=== PATIENT | male | born 1950 | race Caucasian/White ===

== ENCOUNTER 2016-11-28 20:30 | Emergency (ER) | payer BC, OTHER ==
[~2016-11-28] VITALS: Ht 180.3 cm; Wt 82.0 kg
[~2016-11-28 20:30] MED LIST: HYDR50TA15 PO; LEVA500T PO; LEVO125T3 PO; LOTR5CAP2 PO; ZOLP10TA3 PO
[2016-11-28 20:50] VITALS: BP 159/75; PULSE 96; RESP 16; TEMP 97.4; O2SAT 98
[2016-11-28] MEDS ORDERED: HYDR50TA15 PO (21:14)
[2016-11-28] MEDS ORDERED: LOTR5CAP2 PO (21:14)
[2016-11-28] MEDS ORDERED: LEVO125T4 PO (21:14)
[2016-11-28] MEDS ORDERED: AMBI10TA PO (21:14)
[2016-11-28 22:22] LABS: BLOOD, URINE MOD (NEG); COMMENT (UR) CULTURE INDICATED; CULTURE IF INDICATED CULTURE INDICATED; GLUCOSE,URINE NEG (NEG); KETONE, URINE NEG (NEG); MUCUS URINE FEW /lpf (OCC); NITRITE,URINE NEG (NEG); URINE COLOR YELLOW (YELLW/STRAW)
[2016-11-28] MEDS ORDERED: LIDOCAINE HCL 1% PF 30 ML VIAL XX ONE (22:30)
[2016-11-28] MEDS ORDERED: BACT800T5 PO (22:51)
[2016-11-28] MEDS ORDERED: PYRI200T4 PO (22:51)
[2016-11-28] MEDS ORDERED: IBUP800T23 PO (22:51)
--- NOTE | 2016-11-28 22:51 | PD ---
HPI . Dysuria and frequency Chief Complaint: Complaint Time Seen by Provider: 21:13 Travel History International Travel<30 days: No Contact w/Intl Traveler<30days: No Traveled to known affect area: No History of Present Illness HPI Patient presents with dysuria and frequency for about 3 days. Denies fever. He denies vomiting. He is also complaining with pain and swelling of his left knee, pain and swelling of his left hand and twitching of his left leg. 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") Respiratory: Yes (CURRENTLY BEING TX FOR PNA) Thyroid Disease: Yes Tetanus Vaccination: < 5 Years Influenza Vaccination: No Past Surgical History Other Surgery: Yes (LEFT KIDNEY REMOVED/ BACK AN NECK SURGERY) Social History Alcohol Use: Yes (SOCIALLY) Tobacco Use: Yes (1/2PPD) Substance Use: No Allergies-Medications (Allergen,Severity, Reaction): Coded Allergies: No Known Allergies (Unverified , 11/28/16) Reported Meds & Prescriptions Reported Meds & Active Scripts Active Reported Levothyroxine (Levothyroxine Sodium) 125 Mcg Tab 125 Mcg PO DAILY Ambien (Zolpidem Tartrate) 10 Mg Tab 10 Mg PO HS PRN Hydralazine (Hydralazine HCl) 50 Mg Tab 50 Mg PO TID Take with a meal Lotrel (Amlodipine-Benazepril) 5-10 Mg Cap 1 Cap PO DAILY Review of Systems Except as stated in HPI: all other systems reviewed are Neg General / Constitutional: No: Fever, Chills Gastrointestinal: No: Nausea, Vomiting Genitourinary: Positive: Urgency, Frequency, Dysuria, No: Flank Pain Musculoskeletal: Positive: Arthralgias Neurologic: Positive: Other (twitching in his left leg) Physical Exam Narrative GENERAL: The patient was standing up side the bed using the urinal onset when in to see him. His right leg is markedly shortened compared to his left leg. SKIN: Warm and dry. HEAD: Atraumatic. Normocephalic. EYES: Pupils equal and round. ENT: No nasal bleeding or discharge. Mucous membranes pink and moist. NECK: Trachea midline. CARDIOVASCULAR: Regular rate and rhythm. RESPIRATORY: No accessory muscle use. GASTROINTESTINAL: Abdomen soft, non-tender, nondistended. MUSCULOSKELETAL: No obvious deformities. No edema. He has got some crepitus and swelling of the left knee. He has a ganglion cyst on the dorsal aspect of the left hand. NEUROLOGICAL: Awake and alert. No obvious cranial nerve deficits. Motor grossly within normal limits. Normal speech. PSYCHIATRIC: Appropriate mood and affect; insight and judgment normal. Data Data Last Documented VS Vital Signs Date Time Temp Pulse Resp B/P Pulse Ox O2 Delivery O2 Flow Rate FiO2 11/28/16 20:50 97.4 96 16 159/75 98 Room Air Orders Urinalysis - C+S If Indicated (11/28/16 21:15) Urine Culture (11/28/16 21:15) Ceftriaxone Inj (Rocephin Inj) (11/28/16 22:30) Lidocaine Pf 1% Inj (Xylocaine-Mpf 1% In (11/28/16 22:30) Labs Laboratory Tests Test 11/28/16 21:15 Urine Color YELLOW Urine Turbidity HAZY Urine pH 6.0 Urine Specific [place] 1.018 Urine Protein 100 mg/dL Urine Glucose (UA) NEG mg/dL Urine Ketones NEG mg/dL Urine Occult Blood MOD Urine Nitrite NEG Urine Bilirubin NEG Urine Urobilinogen LESS THAN 2.0 MG/DL Urine Leukocyte Esterase LARGE Urine RBC /hpf Urine WBC 107 /hpf Urine WBC Clumps MOD Urine Mucus FEW /lpf Microscopic Urinalysis Comment CULTURE INDICATED MDM Medical Decision Making Medical Screen Exam Complete: Yes Emergency Medical Condition: Yes Differential Diagnosis Differential diagnosis includes but is not limited to UTI, hematuria, yeast infection Narrative Course Patient presented with a chief complaint of dysuria and frequency of urination. UA is consistent with UTI. He has secondary complaints of left knee pain and left hand pain. The left knee appears arthritic and has a ganglion cyst. Diagnosis Primary Impression: UTI (urinary tract infection) Qualified Code: N30.00 - Acute cystitis without hematuria Additional Impressions: Arthritis of left knee Ganglion cyst of wrist Qualified Code: M67.432 - Ganglion cyst of wrist, left Patient Instructions: Arthritis (ED), Ganglion Cysts (DC), General Instructions , Urinary Tract Infection in Men (DC) Med/Other Pt SpecificInfo: Prescription(s) given Scripts Ibuprofen 800 Mg Ruk889 Mg PO Q8H PRN (joint pain) #90 TAB Ref 0 Prov:Sosa Combs MD 11/28/16 Phenazopyridine (Pyridium)200 Mg Oon081 Mg PO Q8H PRN (DYSURIA) #10 TAB Ref 0 Prov:Sosa Combs MD 11/28/16 Sulfamethoxazole-Trimethoprim (Bactrim DS)800-160 Mg Tab1 Tab PO BID #20 TAB Ref 0 Prov:Sosa Combs MD 11/28/16 Disposition: 01 DISCHARGE HOME Condition: Stable Sosa Combs MD Nov 28, 2016 22:51
== END 2016-11-28 23:19 | disposition home or self-care (01) ==
LOC: NEPA 20:30
DX: N39.0 Urinary tract infection, site not specified (principal); M67.432 Ganglion, left wrist; M13.862 Other specified arthritis, left knee; B95.2 Enterococcus as the cause of diseases classified elsewhere; I10 Essential (primary) hypertension
CPT/HCPCS: 81001; 87077; 87086; 87186; 96372; 99283; J0696

== ENCOUNTER 2016-12-03 17:27 | Inpatient (IN) | payer MEDICARE ==
[~2016-12-03] VITALS: Ht 180.3 cm; Wt 83.0 kg
[2016-12-03] VITALS (7 sets, daily range): BP systolic 115–146; BP diastolic 71–79; PULSE 91–98; RESP 16–22; TEMP 98.7–100.3; O2SAT 94–98
[~2016-12-03 17:27] MED LIST changes: +AMBI10TA PO; +BACT800T5 PO; +IBUP800T23 PO; -LEVA500T PO; -LEVO125T3 PO; +LEVO125T4 PO; +PYRI200T4 PO; -ZOLP10TA3 PO
[2016-12-03] MEDS ORDERED: NITR100C4 PO (17:40)
--- NOTE | 2016-12-03 17:43 | PD ---
HPI Chief Complaint: Chest Pain Time Seen by Provider: 17:39 Travel History International Travel<30 days: No Contact w/Intl Traveler<30days: No Traveled to known affect area: No History of Present Illness HPI Patient is a 66-year-old male presenting to emergency for evaluation of chest pain. Patient states pain started approximately 10:30 this morning, he reports it is substernal, sharp, worse with inspiration. His pain was a 7 out of 10 initially but he received 2 sublingual nitros per EMS which less than his pain to a 5 out of 10. Patient also reports shortness of breath. He is currently being treated for urinary tract infection, he is taking nitrofurantoin. He denies any cough, fever, chills, abdominal pain, nausea, vomiting, diaphoresis. 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") Respiratory: Yes (CURRENTLY BEING TX FOR PNA) Thyroid Disease: Yes Tetanus Vaccination: > 5 Years Past Surgical History Genitourinary Surgery: Yes (suprapubic catheter) Tonsillectomy: Yes Other Surgery: Yes (LEFT KIDNEY REMOVED/ BACK AND NECK SURGERY) Social History Alcohol Use: Yes (SOCIALLY) Tobacco Use: Yes (1/2PPD) Substance Use: No Allergies-Medications (Allergen,Severity, Reaction): Coded Allergies: No Known Allergies (Unverified , 12/03/16) Reported Meds & Prescriptions Reported Meds & Active Scripts Active Ibuprofen 800 Mg Tab 800 Mg PO Q8H PRN Reported Nitrofurantoin Monohydrate Macrocrystals (Nitrofurantoin Monoh/Nitrofur Macro) 100 Mg Cap 100 Mg PO BID Levothyroxine (Levothyroxine Sodium) 125 Mcg Tab 125 Mcg PO DAILY Hydralazine (Hydralazine HCl) 50 Mg Tab 50 Mg PO TID Take with a meal Review of Systems Except as stated in HPI: all other systems reviewed are Neg General / Constitutional: No: Fever, Chills Cardiovascular: Positive: Chest Pain or Discomfort, Tachycardia, No: Diaphoresis, Dyspnea on exertion Respiratory: Positive: Shortness of Breath, No: Cough, Wheezing Gastrointestinal: No: Nausea, Vomiting, Abdominal Pain Musculoskeletal: No: Myalgias Neurologic: No: Dizziness, Syncope, Focal Abnormalities, Change in Mentation Physical Exam Narrative GENERAL: Well-developed, well-nourished, alert male. Resting comfortably in no acute distress. SKIN: Warm and dry. HEAD: Atraumatic. Normocephalic. EYES: Pupils equal and round. No scleral icterus. No injection or drainage. ENT: No nasal bleeding or discharge. Mucous membranes pink and moist. NECK: Trachea midline. No JVD. CARDIOVASCULAR: Mildly tachycardic. No murmur appreciated. RESPIRATORY: No accessory muscle use. Clear to auscultation. Breath sounds diminished in bases.. GASTROINTESTINAL: Abdomen soft, non-tender, nondistended. Hepatic and splenic margins not palpable. MUSCULOSKELETAL: Right leg is significantly shorter than the left leg. No clubbing. No cyanosis. No edema. NEUROLOGICAL: Awake and alert. No obvious cranial nerve deficits. Motor grossly within normal limits. Normal speech. PSYCHIATRIC: Appropriate mood and affect; insight and judgment normal. Data Data Last Documented VS Vital Signs Date Time Temp Pulse Resp B/P Pulse Ox O2 Delivery O2 Flow Rate FiO2 12/03/16 20:27 16 12/03/16 20:11 98 132/78 95 Room Air 12/03/16 18:45 100.3 Orders Electrocardiogram (12/03/16 17:37) Ckmb (Isoenzyme) Profile (12/03/16 17:37) Complete Blood Count With Diff (12/03/16 17:37) Comprehensive Metabolic Panel (12/03/16 17:37) D-Dimer (12/03/16 17:37) Magnesium (Mg) (12/03/16 17:37) Prothrombin Time / Inr (Pt) (12/03/16 17:37) Act Partial Throm Time (Ptt) (12/03/16 17:37) Troponin I (12/03/16 17:37) Chest, Single Ap (12/03/16 17:37) Ecg Monitoring (12/03/16 17:37) Bilateral Bp Monitoring (12/03/16 17:37) Iv Access Insert/Monitor (12/03/16 17:37) Oximetry (12/03/16 17:37) Oxygen Administration (12/03/16 17:37) Sodium Chloride 0.9% Flush (Ns Flush) (12/03/16 17:45) Sodium Chlorid 0.9% 500 Ml Inj (Ns 500 M (12/03/16 17:45) Influenzae A/B Antigen (12/03/16 18:47) Ct Pulmonary Angiogram (12/03/16 ) Iohexol 350 Inj (Omnipaque 350 Inj) (12/03/16 19:17) Ibuprofen (Motrin) (12/03/16 19:45) Urinalysis - C+S If Indicated (12/03/16 19:45) Lactic Acid Sepsis Protocol (12/03/16 19:45) Blood Culture (12/03/16 19:45) Ceftriaxone Inj (Rocephin Inj) (12/03/16 20:00) Azithromycin Inj (Zithromax Inj) (12/03/16 20:00) Urine Culture (12/03/16 20:10) Admit Order (Ed Use Only) (12/03/16 21:05) Labs Laboratory Tests Test 12/03/16 12/03/16 12/03/16 17:48 19:55 20:10 White Blood Count 5.9 TH/MM3 Red Blood Count 4.61 MIL/MM3 Hemoglobin 13.5 GM/DL Hematocrit 38.9 % Mean Corpuscular Volume 84.4 FL Mean Corpuscular Hemoglobin 29.2 PG Mean Corpuscular Hemoglobin 34.6 % Concent Red Cell Distribution Width 15.2 % Platelet Count 210 TH/MM3 Mean Platelet Volume 8.1 FL Neutrophils (%) (Auto) 92.5 % Lymphocytes (%) (Auto) 2.8 % Monocytes (%) (Auto) 2.4 % Eosinophils (%) (Auto) 2.0 % Basophils (%) (Auto) 0.3 % Neutrophils # (Auto) 5.4 TH/MM3 Lymphocytes # (Auto) 0.2 TH/MM3 Monocytes # (Auto) 0.1 TH/MM3 Eosinophils # (Auto) 0.1 TH/MM3 Basophils # (Auto) 0.0 TH/MM3 CBC Comment DIFF FINAL Differential Comment Prothrombin Time 11.3 SEC Prothromb Time International 1.0 RATIO Ratio Activated Partial 43.5 SEC Thromboplast Time D-Dimer Quantitative (PE/DVT) 3.96 MG/L FEU Sodium Level 132 MEQ/L Potassium Level 4.8 MEQ/L Chloride Level 98 MEQ/L Carbon Dioxide Level 25.0 MEQ/L Anion Gap 9 MEQ/L Blood Urea Nitrogen 18 MG/DL Creatinine 1.59 MG/DL Estimat Glomerular Filtration 44 ML/MIN Rate Random Glucose 101 MG/DL Calcium Level 8.6 MG/DL Magnesium Level 1.8 MG/DL Total Bilirubin 0.5 MG/DL Aspartate Amino Transf 17 U/L (AST/SGOT) Alanine Aminotransferase 19 U/L (ALT/SGPT) Alkaline Phosphatase 90 U/L Total Creatine Kinase 46 U/L Troponin I LESS THAN 0.02 NG/ML Total Protein 7.7 GM/DL Albumin 3.6 GM/DL Lactic Acid Level 1.0 mmol/L Urine Color ORANGE Urine Turbidity CLEAR Urine pH 5.[address] [place] 1.018 Urine Protein TRACE mg/dL Urine Glucose (UA) NEG mg/dL Urine Ketones NEG mg/dL Urine Occult Blood MOD Urine Nitrite NEG Urine Bilirubin NEG Urine Urobilinogen LESS THAN 2.0 MG/DL Urine Leukocyte Esterase LARGE Urine RBC 15 /hpf Urine WBC 15 /hpf Urine Bacteria FEW /hpf Microscopic Urinalysis Comment CATH-CULTURE IND MDM Medical Decision Making Medical Screen Exam Complete: Yes Emergency Medical Condition: Yes Medical Record Reviewed: Yes Interpretation(s) Last Impressions Chest X-Ray 12/03/16 1737 Signed Impressions: Service Date/Time: Saturday, December 03, 2016 17:58 - CONCLUSION: Basilar atelectasis. Alex Bonilla MD CT Angiography 12/03/16 0000 Signed Impressions: Service Date/Time: Saturday, December 03, 2016 19:09 - CONCLUSION: 1. Bilateral consolidation and small effusions with mediastinal and hilar lymphadenopathy. 2. Atherosclerotic disease. 3. No evidence for pulmonary embolism. Alex Bonilla MD Laboratory Tests Test 12/03/16 17:48 White Blood Count 5.9 TH/MM3 Red Blood Count 4.61 MIL/MM3 Hemoglobin 13.5 GM/DL Hematocrit 38.9 % Mean Corpuscular Volume 84.4 FL Mean Corpuscular Hemoglobin 29.2 PG Mean Corpuscular Hemoglobin 34.6 % Concent Red Cell Distribution Width 15.2 % Platelet Count 210 TH/MM3 Mean Platelet Volume 8.1 FL Neutrophils (%) (Auto) 92.5 % Lymphocytes (%) (Auto) 2.8 % Monocytes (%) (Auto) 2.4 % Eosinophils (%) (Auto) 2.0 % Basophils (%) (Auto) 0.3 % Neutrophils # (Auto) 5.4 TH/MM3 Lymphocytes # (Auto) 0.2 TH/MM3 Monocytes # (Auto) 0.1 TH/MM3 Eosinophils # (Auto) 0.1 TH/MM3 Basophils # (Auto) 0.0 TH/MM3 CBC Comment DIFF FINAL Differential Comment Prothrombin Time 11.3 SEC Prothromb Time International 1.0 RATIO Ratio Activated Partial 43.5 SEC Thromboplast Time D-Dimer Quantitative (PE/DVT) 3.96 MG/L FEU Sodium Level 132 MEQ/L Potassium Level 4.8 MEQ/L Chloride Level 98 MEQ/L Carbon Dioxide Level 25.0 MEQ/L Anion Gap 9 MEQ/L Blood Urea Nitrogen 18 MG/DL Creatinine 1.59 MG/DL Estimat Glomerular Filtration 44 ML/MIN Rate Random Glucose 101 MG/DL Calcium Level 8.6 MG/DL Magnesium Level 1.8 MG/DL Total Bilirubin 0.5 MG/DL Aspartate Amino Transf 17 U/L (AST/SGOT) Alanine Aminotransferase 19 U/L (ALT/SGPT) Alkaline Phosphatase 90 U/L Total Creatine Kinase 46 U/L Troponin I LESS THAN 0.02 NG/ML Total Protein 7.7 GM/DL Albumin 3.6 GM/DL Vital Signs Date Time Temp Pulse Resp B/P Pulse Ox O2 Delivery O2 Flow Rate FiO2 12/03/16 17:29 98.7 98 20 115/71 94 Differential Diagnosis Pleurisy versus unstable angina versus electrolyte abnormality versus Narrative Course Patient is a 66-year-old male presenting to the emergency room for evaluation of chest pain that started earlier this morning. Patient is mildly tachypneic with O2 sat at 94% on room air. Last temp was 100.3, ibuprofen ordered. CBC is unremarkable, chemistry with a slight elevation in creatinine, 1 negative troponin Chest x-ray showed basilar atelectasis D-dimer 3.96, CT pulmonary angiogram ordered. Influenza is negative CT pulmonary angiogram shows bilateral consolidations small effusions with mediastinum hilar lymphadenopathy, atherosclerotic disease, no evidence for pulmonary embolus. Lactic acid, blood cultures, urinalysis ordered Urinalysis is indicative of urinary tract infection. Lactic Acid is 1.0. Blood cultures pending. Patient will be admitted, Dr. Selby accepted admission. Patient was given Rocephin and azithromycin in the emergency department. Diagnosis Primary Impression: Pneumonia Qualified Code: J18.9 - Pneumonia due to infectious organism, unspecified laterality, unspecified part of lung Additional Impression: UTI (urinary tract infection) Qualified Code: T83.511D - Urinary tract infection associated with catheterization of urinary tract, unspecified indwelling urinary catheter type, subsequent encounter Admitting Information Admitting Physician Requests: Admit Condition: Stable Yadi Dao Dec 03, 2016 17:43
[2016-12-03] MEDS ORDERED: SODIUM CHLORID 0.9% 500 ML INJ 500 ML IV ONE (17:45)
[2016-12-03] MEDS ORDERED: SODIUM CHLORIDE 0.9% FLUSH 5 ML FLUSH IVF PRN (17:45)
--- NOTE | 2016-12-03 18:08 | RADRPT ---
EXAM DATE/TIME: 12/03/2016 17:58 [facility] COMPARISON: CHEST SINGLE AP, September 18, 2015, 4:53. INDICATIONS : Chest pain. MEDICAL HISTORY : None. SURGICAL HISTORY : None. ENCOUNTER: Initial ACUITY: 1 day PAIN SCORE: 7/10 LOCATION: Bilateral chest FINDINGS: There is atelectasis at the right lung base and to a lesser extent left lung base. No consolidation o r effusion. Mild cardiomegaly. Osseous structures are intact. CONCLUSION: Basilar atelectasis. Alex Bonilla MD on December 03, 2016 at 18:05 Board Certified Radiologist. This report was verified electronically.
[2016-12-03 18:21] LABS: AUTOMATED NEUTROPHIL # 5.4 TH/MM3 (1.8-7.7); BASOPHIL % 0.3 % (0.0-2.0); EOSINOPHIL # 0.1 TH/MM3 (0-0.4); HEMATOCRIT 38.9 % (39.0-51.0); HEMO FLAGS DIFF FINAL; LYMPH % 2.8 % (9.0-44.0); LYMPHOCYTE # 0.2 TH/MM3 (1.0-4.8); MEAN CELL VOLUME 84.4 FL (80.0-100.0); MEAN CORPUSCULAR HEMOGLOBIN 29.2 PG (27.0-34.0); MEAN CORPUSCULAR HGB CONC 34.6 % (32.0-36.0); MONO % 2.4 % (0.0-8.0); NEUT % 92.5 % (16.0-70.0); PLATELET COUNT 210 TH/MM3 (150-450); RED BLOOD COUNT 4.61 MIL/MM3 (4.50-5.90); RED CELL DISTRIBUTION WIDTH 15.2 % (11.6-17.2); WHITE BLOOD COUNT 5.9 TH/MM3 (4.0-11.0)
--- NOTE | 2016-12-03 18:39 | PD ---
Data Data Last Documented VS Vital Signs Date Time Temp Pulse Resp B/P Pulse Ox O2 Delivery O2 Flow Rate FiO2 12/03/16 17:42 98 20 126/74 94 12/03/16 17:40 Room Air 12/03/16 17:29 98.7 Orders Electrocardiogram (12/03/16 17:37) Ckmb (Isoenzyme) Profile (12/03/16 17:37) Complete Blood Count With Diff (12/03/16 17:37) Comprehensive Metabolic Panel (12/03/16 17:37) D-Dimer (12/03/16 17:37) Magnesium (Mg) (12/03/16 17:37) Prothrombin Time / Inr (Pt) (12/03/16 17:37) Act Partial Throm Time (Ptt) (12/03/16 17:37) Troponin I (12/03/16 17:37) Chest, Single Ap (12/03/16 17:37) Ecg Monitoring (12/03/16 17:37) Bilateral Bp Monitoring (12/03/16 17:37) Iv Access Insert/Monitor (12/03/16 17:37) Oximetry (12/03/16 17:37) Oxygen Administration (12/03/16 17:37) Sodium Chloride 0.9% Flush (Ns Flush) (12/03/16 17:45) Sodium Chlorid 0.9% 500 Ml Inj (Ns 500 M (12/03/16 17:45) Labs Laboratory Tests Test 12/03/16 17:48 White Blood Count 5.9 TH/MM3 Red Blood Count 4.61 MIL/MM3 Hemoglobin 13.5 GM/DL Hematocrit 38.9 % Mean Corpuscular Volume 84.4 FL Mean Corpuscular Hemoglobin 29.2 PG Mean Corpuscular Hemoglobin 34.6 % Concent Red Cell Distribution Width 15.2 % Platelet Count 210 TH/MM3 Mean Platelet Volume 8.1 FL Neutrophils (%) (Auto) 92.5 % Lymphocytes (%) (Auto) 2.8 % Monocytes (%) (Auto) 2.4 % Eosinophils (%) (Auto) 2.0 % Basophils (%) (Auto) 0.3 % Neutrophils # (Auto) 5.4 TH/MM3 Lymphocytes # (Auto) 0.2 TH/MM3 Monocytes # (Auto) 0.1 TH/MM3 Eosinophils # (Auto) 0.1 TH/MM3 Basophils # (Auto) 0.0 TH/MM3 CBC Comment DIFF FINAL Differential Comment MDM Supervised Visit with CYN: Yes Narrative Course The history, exam, and medical decision-making in the associated mid-level provider note were completed with my assistance. I reviewed and agree with the findings presented. I attest that I had a [id number] encounter with the patient on the same day, and personally performed and documented my assessment and findings in the medical record. *My assessment and Findings: 66-year-old man who presents to the emergency department with chest pain. Symptoms started about 11:00 this morning. His a history of hypertension but no other heart disease. He reportedly had a negative stress test several months ago. Symptoms this afternoon been constant, pleuritic, and unlike pain he's had before. Physical really seem to have any epigastric pain or evidence of gastritis/hepatobiliary disease. 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 No other risk for DVT or PE. We'll check an initial set of labs, troponin, d-dimer. Follow-up d-dimer positive. Otherwise admission to the chest pain Center for serial cardiac enzymes. Sinan Cason MD Dec 03, 2016 18:39
[2016-12-03 18:47] LABS: APTT (PATIENT) 43.5 SEC (24.3-30.1); PROTHROMBIN TIME - PATIENT 11.3 SEC (9.8-11.6)
[2016-12-03 19:02] LABS: ALT (GPT) 19 U/L (12-78); ANION GAP 9 MEQ/L (5-15); AST (GOT) 17 U/L (15-37); BLOOD UREA NITROGEN 18 MG/DL (7-18); CHLORIDE 98 MEQ/L (98-107); GLOMERULAR FILTRATION RATE 44 ML/MIN (>89); MAGNESIUM 1.8 MG/DL (1.5-2.5); POTASSIUM 4.8 MEQ/L (3.5-5.1); SODIUM (NA) 132 MEQ/L (136-145)
[2016-12-03 19:06] LABS: ALKALINE PHOSPHATASE 90 U/L (45-117); TOTAL BILIRUBIN ADULT 0.5 MG/DL (0.2-1.0)
[2016-12-03 19:08] LABS: CREATINE KINASE 46 U/L (39-308)
[2016-12-03] MEDS ORDERED: IOHEXOL 350 MG/ML 10 ML VIAL (for RAD DIAG) IV ONE (19:17)
--- NOTE | 2016-12-03 19:27 | RADRPT ---
EXAM DATE/TIME: 12/03/2016 19:09 [facility] COMPARISON: CHEST SINGLE AP, December 03, 2016, 17:58. INDICATIONS : Shortness of breath and substernal chest pain. IV CONTRAST: 74 cc Omnipaque 350 (iohexol) IV RADIATION DOSE: 13.71 CTDIvol (mGy) MEDICAL HISTORY : Hypertension. SURGICAL HISTORY : Tonsillectomy. Nephrectomy, left.suprapubic catheter ENCOUNTER: Initial ACUITY: 1 day PAIN SCALE: 4/10 LOCATION: chest TECHNIQUE: Volumetric scanning of the chest was performed using a pulmonary embolism protocol MIP images were re constructed. Using automated exposure control and adjustment of the mA and/or kV according to patien t size, radiation dose was kept as low as reasonably achievable to obtain optimal diagnostic quality images. FINDINGS: There are mild emphysematous changes noted, bilateral lower lobe consolidation present. There is righ t paratracheal adenopathy measuring up to 1.4 cm in short axis dimension, mildly prominent prevascula r lymph node measuring 1.1 cm in short axis dimension, sub-carinal adenopathy measuring up to 11 cm i n short axis dimension bilateral hilar adenopathy measuring up to 1.6 cm on the left, and 1 cm on the right. Small effusions are seen. There is trace pericardial fluid. There is no evidence for pulmonar y embolism. Coronary artery calcification and atherosclerotic calcification of the aorta identified. There are degenerative changes of the spine noted. CONCLUSION: 1. Bilateral consolidation and small effusions with mediastinal and hilar lymphadenopathy. 2. Atherosclerotic disease. 3. No evidence for pulmonary embolism. Alex Bonilla MD on December 03, 2016 at 19:23 Board Certified Radiologist. This report was verified electronically.
[2016-12-03] MEDS ORDERED: IBUPROFEN 800 MG TAB PO ONE (19:45)
[2016-12-03] MEDS ORDERED: cefTRIAXone INJ 1,000 MG in SODIUM CHLORIDE 0.9% INJ 100 ML IV ONE (20:00)
[2016-12-03] MEDS ORDERED: AZITHROMYCIN INJ 500 MG in SODIUM CHLOR 0.9% 250 ML INJ 250 ML IV ONE (20:00)
[2016-12-03 20:56] LABS: BLOOD, URINE MOD (NEG); GLUCOSE,URINE NEG (NEG); KETONE, URINE NEG (NEG); NITRITE,URINE NEG (NEG); PH, URINE 5.5 (5.0-8.5)
[2016-12-03 20:57] LABS: BACTERIA, URINE FEW /hpf; COMMENT (UR) CATH-CULTURE IND; CULTURE IF INDICATED CATH CULTURE IND; URINE COLOR ORANGE (YELLW/STRAW)
--- NOTE | 2016-12-03 21:14 | HHI.HP ---
[facility] No Primary Care Physician Admission Diagnosis pneumonia, UTI Diagnoses: (1) PNA (pneumonia) Diagnosis: Principal (2) Chest pain Diagnosis: Principal (3) UTI (urinary tract infection) Diagnosis: Principal (4) Renal insufficiency Diagnosis: Principal (5) Tobacco abuse Diagnosis: Principal Travel History International Travel<30 Days: No Contact w/Intl Traveler <30 Da: No Traveled to Known Affected Are: No History of Present Illness This is a 66-year-old male with a PMH of HTN and Hypothyroidism who was brought to the ER by EMS for complaints of chest pain. Per pt, pain started earlier this morning and has been intermittent throughout the day, worse w/ breathing. S/p 2 NTG by EMS w/ some improvement. Denies fever, chills or SOB. Does note he is currently on Nitrofurantoin for UTI. On arrival, BP 150/71, HR 98, O2 sat 94% on RA, Afebrile. WBC normal, elevated neutrophil count. Creatinine 1.59, previously 1.51 on 09/18/15. Lactic Acid normal. D-dimer 3.96. Troponin negative. EKG w/ no acute ischemia. UA positive for UTI. CXR with basilar atelectasis. CTA Pulm negative for PE, bilateral consolidation small effusion and mediastinal/hilar lymphadenopathy. S/p Blood/Urine cultures in ER , in addition to IV Rocephin/Zithro. Review of Systems Except as stated in HPI: all other systems reviewed are Neg ROS: 14 point review of systems otherwise negative. Past Family Social History Past Medical History PMH: HTN and Hypothyroidism Past Surgical History PAST SURGICAL HISTORY: Tonsillectomy, Left Nephrectomy, Suprapubic Catheter Allergies: Coded Allergies: No Known Allergies (Unverified , 12/03/16) Family History PAST FAMILY HISTORY: Reviewed. No h/o DM or CAD Social History PAST SOCIAL HISTORY: Occasional alcohol. Smokes 1/2ppd. Negative for drugs. Physical Exam Vital Signs Vital Signs Date Time Temp Pulse Resp B/P Pulse Ox O2 Delivery O2 Flow Rate FiO2 12/03/16 20:27 16 12/03/16 20:11 98 16 132/78 95 Room Air 12/03/16 18:45 100.3 97 22 146/79 94 12/03/16 17:42 98 20 126/74 94 12/03/16 17:41 94 12/03/16 17:40 94 Room Air 12/03/16 17:29 98.7 98 20 115/71 94 Physical Exam PE: GENERAL: Pleasant middle-aged white male in no acute distress. HEENT: PERRLA, EOMI. No scleral icterus or conjunctival pallor. No lid lag or facial droop. CARDIOVASCULAR: Regular rate and rhythm. No obvious murmurs to auscultation. No chest tenderness to palpation. RESPIRATORY: No obvious rhonchi or wheezing. Clear to auscultation. Breath sounds mildly decreased at bases bilaterally. GASTROINTESTINAL: Abdomen soft, non-tender, nondistended. BS normal. MUSCULOSKELETAL: Extremities without clubbing, cyanosis, or edema. No obvious deformities. Right leg shortened, congenital abnormality. NEUROLOGICAL: Awake, alert and oriented x4. No focal neurologic deficits. Moving both upper and lower extremities spontaneously. Laboratory Laboratory Tests Test 12/03/16 12/03/16 12/03/16 17:48 19:55 20:10 White Blood Count 5.9 Red Blood Count 4.61 Hemoglobin 13.5 Hematocrit 38.9 Mean Corpuscular Volume 84.4 Mean Corpuscular Hemoglobin 29.2 Mean Corpuscular Hemoglobin 34.6 Concent Red Cell Distribution Width 15.2 Platelet Count 210 Mean Platelet Volume 8.1 Neutrophils (%) (Auto) 92.5 Lymphocytes (%) (Auto) 2.8 Monocytes (%) (Auto) 2.4 Eosinophils (%) (Auto) 2.0 Basophils (%) (Auto) 0.3 Neutrophils # (Auto) 5.4 Lymphocytes # (Auto) 0.2 Monocytes # (Auto) 0.1 Eosinophils # (Auto) 0.1 Basophils # (Auto) 0.0 CBC Comment DIFF FINAL Differential Comment Prothrombin Time 11.3 Prothromb Time International 1.0 Ratio Activated Partial 43.5 Thromboplast Time D-Dimer Quantitative (PE/DVT) 3.96 Sodium Level 132 Potassium Level 4.8 Chloride Level 98 Carbon Dioxide Level 25.0 Anion Gap 9 Blood Urea Nitrogen 18 Creatinine 1.59 Estimat Glomerular Filtration 44 Rate Random Glucose 101 Calcium Level 8.6 Magnesium Level 1.8 Total Bilirubin 0.5 Aspartate Amino Transf 17 (AST/SGOT) Alanine Aminotransferase 19 (ALT/SGPT) Alkaline Phosphatase 90 Total Creatine Kinase 46 Troponin I LESS THAN 0.02 Total Protein 7.7 Albumin 3.6 Lactic Acid Level 1.0 Urine Color ORANGE Urine Turbidity CLEAR Urine pH 5.5 Urine Specific [place] 1.018 Urine Protein TRACE Urine Glucose (UA) NEG Urine Ketones NEG Urine Occult Blood MOD Urine Nitrite NEG Urine Bilirubin NEG Urine Urobilinogen LESS THAN 2.0 Urine Leukocyte Esterase LARGE Urine RBC 15 Urine WBC 15 Urine Bacteria FEW Microscopic Urinalysis Comment CATH-CULTURE IND Date/Time Procedure Status Source Growth 12/03/16 20:10 Urine Culture Received Urine Catheterized Urine Pending 12/03/16 19:55 Aerobic Blood Culture Received Blood Peripheral Pending 12/03/16 19:55 Anaerobic Blood Culture Received Blood Peripheral Pending 12/03/16 19:05 Influenza Types A,B Antigen (ALIYAH) - Final Complete Nasal Washing NEGATIVE FOR FLU A AND B ANTIGEN.... Result Diagram: 12/03/16174712/03/161747 Assessment and Plan Problem List: (1) PNA (pneumonia) ICD Code: J18.9 Status: Acute (2) Chest pain ICD Code: R07.9 Status: Acute (3) Renal insufficiency ICD Code: N28.9 Status: Acute (4) UTI (urinary tract infection) ICD Code: N39.0 Status: Acute (5) Tobacco abuse ICD Code: Z72.0 Status: Acute Assessment and Plan A/P: 1. PNA: CXR w/ bibasilar atelectasis, D-dimer elevated at 3.96, CTA Pulm negative for PE, bilateral consolidation and small effusions w/ mediastinal/ hilar lymphadenopathy, images reviewed by me. Denies fever, chills or cough. S /p Blood cultures, IV Rocephin/Zithro in ER. Will continue IV Abx, DuoNeb prn, Mucinex, Symbicort. 2. Chest Pain: Pleuritic. Atypical. Likely secondary to PNA. Initial trop negative, EKG w/ no acute ischemia. Telemetry, check serial cardiac enzymes. ASA, Statin. 3. Renal Insufficiency: Chronic. Creatinine 1.59, previously 1.51 on 12/18/ 15. U/a w/ UTI, IVF, tx UTI, repeat labs in am. 4. UTI: Seen in ER on 11/28/16 for dysuria/urgency, found to have UTI, d/c'd from ER on Bactrim BID x10 days and Pyridium, later switched to Nitrofurantoin. Urine Cult 11/28/16 +E. faecalis, poly-sensitive. U/a now w/ persistent UTI. Continue w/ IV Rocephin to cover PNA/UTI. 5. Tobacco Abuse: Counselled. Ativan prn if needed. No NicoDerm to avoid vasoconstriction. 6. DVT Prophylaxis: SCD/Teds. 7. Social work for d/c planning as needed. 8. Case discussed w/ ER physician at length. Physician Certification 2 Midnight Certification Type: Admission for Inpatient Services Order for Inpatient Services The services are ordered in accordance with Medicare regulations or non- Medicare payer requirements, as applicable. In the case of services not specified as inpatient-only, they are appropriately provided as inpatient services in accordance with the 2-midnight benchmark. Estimated LOS (days): 2 days is the estimated time the patient will need to remain in the hospital, assuming treatment plan goals are met and no additional complications. Post-Hospital Plan: Not yet determined Problem Qualifiers (1) UTI (urinary tract infection): Qualified Code: T83.511D - Urinary tract infection associated with catheterization of urinary tract, unspecified indwelling urinary catheter type, subsequent encounter Tash Selby MD Dec 03, 2016 21:14
[2016-12-03] MEDS ORDERED: SODIUM CHLOR 0.9% 1000 ML INJ 1,000 ML IV ONE (21:15)
[2016-12-03] MEDS ORDERED: ACETAMINOPHEN 325 MG TAB PO PRN (21:15)
[2016-12-03] MEDS ORDERED: ACETAMINOPHEN/HYDROcodone 325 MG/5 MG TAB PO PRN (21:15)
[2016-12-03] MEDS ORDERED: ONDANSETRON HCL 4 MG/2 ML VIAL IVP PRN (21:15)
[2016-12-03] MEDS ORDERED: SODIUM CHLORIDE 0.9% FLUSH 5 ML FLUSH FLUSH PRN (21:15)
[2016-12-03] MEDS ORDERED: BISACODYL 10 MG SUPP PR PRN (21:15)
[2016-12-03] MEDS ORDERED: MORPHINE SULFATE 4 MG/ML INJ IV PRN (21:15)
[2016-12-03] MEDS ORDERED: RESP: ALBUTEROL 2.5 MG/IPRATROPIUM 0.5 MG NEB (PRN) NEB (21:15)
[2016-12-03] MEDS: BUDESONIDE-FORMOTEROL 160/4.5 MCG INHALER INH SCH (22:40)
[2016-12-04] VITALS (10 sets, daily range): BP systolic 95–127; BP diastolic 56–77; PULSE 90–111; RESP 16–22; TEMP 96.5–99.2; O2SAT 94–97
[2016-12-04] MEDS: LEVOTHYROXINE SODIUM 125 MCG TAB PO SCH (05:22)
[2016-12-04 07:04] LABS: AUTOMATED NEUTROPHIL # 3.2 TH/MM3 (1.8-7.7); BASOPHIL % 0.1 % (0.0-2.0); EOSINOPHIL # 0.2 TH/MM3 (0-0.4); EOSINOPHIL % 4.6 % (0.0-4.0); HEMATOCRIT 35.4 % (39.0-51.0); HEMO FLAGS DIFF FINAL; LYMPHOCYTE # 0.2 TH/MM3 (1.0-4.8); MEAN CORPUSCULAR HEMOGLOBIN 29.9 PG (27.0-34.0); MEAN CORPUSCULAR HGB CONC 35.7 % (32.0-36.0); MONO % 2.5 % (0.0-8.0); NEUT % 86.8 % (16.0-70.0); PLATELET COUNT 170 TH/MM3 (150-450); RED BLOOD COUNT 4.22 MIL/MM3 (4.50-5.90); RED CELL DISTRIBUTION WIDTH 15.4 % (11.6-17.2); WHITE BLOOD COUNT 3.7 TH/MM3 (4.0-11.0)
[2016-12-04 07:26] LABS: ALT (GPT) 18 U/L (12-78); ANION GAP 9 MEQ/L (5-15); AST (GOT) 15 U/L (15-37); BICARBONATE 22.3 MEQ/L (21.0-32.0); BLOOD UREA NITROGEN 17 MG/DL (7-18); CHLORIDE 102 MEQ/L (98-107); GLOMERULAR FILTRATION RATE 54 ML/MIN (>89); POTASSIUM 4.3 MEQ/L (3.5-5.1); SODIUM (NA) 133 MEQ/L (136-145)
[2016-12-04 07:30] LABS: ALKALINE PHOSPHATASE 67 U/L (45-117); TOTAL BILIRUBIN ADULT 0.6 MG/DL (0.2-1.0)
[2016-12-04] MEDS: PRAVASTATIN SOD 40 MG TAB PO SCH (08:48)
[2016-12-04] MEDS: guaiFENesin E.R. 600 MG TAB PO SCH ×2 (08:48→19:24)
[2016-12-04] MEDS: hydrALAZINE HCL 50 MG TAB PO SCH ×3 (08:48→18:24)
[2016-12-04] MEDS: ASPIRIN EC 81 MG TABEC PO SCH (08:48)
[2016-12-04] MEDS: BUDESONIDE-FORMOTEROL 160/4.5 MCG INHALER INH SCH ×2 (08:49→19:24)
[2016-12-04] MEDS: SODIUM CHLORIDE 0.9% FLUSH 5 ML FLUSH FLUSH SCH ×2 (08:49→19:24)
--- NOTE | 2016-12-04 14:00 | HHI.PR ---
Subjective Remarks Follow up pneumonia, UTI. The patient continues to report significant pleuritic chest pain. Denies dyspnea. Cough productive of clear phlegm. Objective Vitals Vital Signs Date Time Temp Pulse Resp B/P Pulse Ox O2 Delivery O2 Flow Rate FiO2 12/04/16 12:00 96.5 98 20 127/69 95 12/04/16 08:50 97 2.00 12/04/16 08:01 98 12/04/16 08:00 98.7 109 20 123/77 94 12/04/16 07:57 97 21 12/04/16 04:56 97.3 93 20 117/69 96 12/04/16 02:01 Nasal Cannula 2.00 12/04/16 00:00 97.3 90 20 100/63 95 12/03/16 22:29 98.9 91 16 128/73 98 Nasal Cannula 2 12/03/16 22:00 95 12/03/16 20:27 16 12/03/16 20:11 98 16 132/78 95 Room Air 12/03/16 18:45 100.3 97 22 146/79 94 12/03/16 17:42 98 20 126/74 94 12/03/16 17:41 94 12/03/16 17:40 94 Room Air 12/03/16 17:29 98.7 98 20 115/71 94 I/O 12/03/16 12/03/16 12/03/16 12/04/16 12/04/16 12/04/16 07:00 15:00 23:00 07:00 15:00 23:00 Intake Total 667 ml 240 ml Output Total 525 ml Balance 667 ml -285 ml Intake Oral 240 ml IV Total 667 ml Output Urine Total 525 ml # Voids 1 # Bowel Movements 0 Result Diagram: 12/04/16 0606 12/04/16 0606 Imaging Last Impressions Chest X-Ray 12/03/16 1737 Signed Impressions: Service Date/Time: Saturday, December 03, 2016 17:58 - CONCLUSION: Basilar atelectasis. Alex Bonilla MD CT Angiography 12/03/16 0000 Signed Impressions: Service Date/Time: Saturday, December 03, 2016 19:09 - CONCLUSION: 1. Bilateral consolidation and small effusions with mediastinal and hilar lymphadenopathy. 2. Atherosclerotic disease. 3. No evidence for pulmonary embolism. Alex Bonilla MD Objective Remarks General: No acute distress. Heart: Regular rate and rhythm. No murmur. Lungs: Clear to auscultation bilaterally. No wheezes, rales, or rhonchi. Breathing is nonlabored. Abdomen: Soft, nontender, nondistended. Extremities: No lower extremity edema. 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 Psych: Alert and oriented. Urinary Catheter: No Vascular Central Line Catheter: No A/P Problem List: (1) PNA (pneumonia) ICD Code: J18.9 Status: Acute (2) Chest pain ICD Code: R07.9 Status: Acute (3) Renal insufficiency ICD Code: N28.9 Status: Acute (4) UTI (urinary tract infection) ICD Code: N39.0 Status: Acute (5) Tobacco abuse ICD Code: Z72.0 Status: Acute Assessment and Plan 1. Pneumonia: CTA shows no evidence of PE, but does show bilateral consolidation and small effusions with mediastinal/hilar lymphadenopathy. Continue antibiotics, oxygen, DuoNeb. Blood cultures are negative so far. 2. Chest pain: Pleuritic. Likely secondary to pneumonia. Cardiac enzymes are negative. Continue aspirin, statin. Continue pain medication. 3. Chronic kidney disease stage III: Monitor BUN and creatinine. 4. UTI: Continue antibiotics. Urine culture is pending. 5. Tobacco abuse: Counseled to quit smoking. 6. DVT prophylaxis: DOMITILA Acevedo. Problem Qualifiers (1) UTI (urinary tract infection): Qualified Code: T83.511D - Urinary tract infection associated with catheterization of urinary tract, unspecified indwelling urinary catheter type, subsequent encounter Bryan Bosch MD Dec 04, 2016 14:00
[2016-12-04] MEDS ORDERED: RESP: ALBUTEROL 2.5 MG/3 ML NEB (PRN) NEB (14:15)
--- NOTE | 2016-12-04 14:25 | EKG ---
Date Performed: 12/03/2016 Time Performed: 17:51:37 PTAGE: 66 years EKG: SINUS TACHYCARDIA WITH OCCASIONAL VENTRICULAR PREMATURE COMPLEXES MARKED LEFT AXIS DEVIATIO N ABNORMAL ECG Compared to prior tracing no significant change PREVIOUS TRACING : 09/18/2015 04.46 DOCTOR: Chao Chao Interpretating Date/Time 12/04/2016 14:24:28
[2016-12-04] MEDS: oxyCODONE/ACETAMINOPHEN 5 MG/325 MG TAB PO PRN ×2 (15:18→19:23)
[2016-12-04] MEDS: RESP: ALBUTEROL 2.5 MG/IPRATROPIUM 0.5 MG NEB (SCH) NEB ×2 (15:20→20:03)
[2016-12-04] MEDS: AZITHROMYCIN INJ 500 MG in SODIUM CHLOR 0.9% 250 ML INJ 250 ML IV SCH (19:24)
[2016-12-04] MEDS: cefTRIAXone INJ 1,000 MG in SODIUM CHLORIDE 0.9% INJ 100 ML IV SCH (19:24)
[2016-12-05] VITALS: BP 115/66; PULSE 102; RESP 20; TEMP 98.4; O2SAT 95
[2016-12-05] MEDS: oxyCODONE/ACETAMINOPHEN 5 MG/325 MG TAB PO PRN ×3 (01:44→17:12)
[2016-12-05 04:00] VITALS: BP 113/66; PULSE 88; RESP 18; TEMP 98.3; O2SAT 95
[2016-12-05] MEDS: LEVOTHYROXINE SODIUM 125 MCG TAB PO SCH (05:12)
[2016-12-05] MEDS: RESP: ALBUTEROL 2.5 MG/IPRATROPIUM 0.5 MG NEB (SCH) NEB ×4 (07:59→19:27)
[2016-12-05 08:10] VITALS: BP 111/71; PULSE 104; RESP 21; TEMP 96.8; O2SAT 98
[2016-12-05] MEDS: hydrALAZINE HCL 50 MG TAB PO SCH ×3 (08:28→17:08)
[2016-12-05] MEDS: ASPIRIN EC 81 MG TABEC PO SCH (08:28)
[2016-12-05] MEDS: PRAVASTATIN SOD 40 MG TAB PO SCH (08:29)
[2016-12-05] MEDS: guaiFENesin E.R. 600 MG TAB PO SCH ×2 (08:29→21:41)
[2016-12-05] MEDS: SODIUM CHLORIDE 0.9% FLUSH 5 ML FLUSH FLUSH SCH ×2 (08:30→21:41)
[2016-12-05] MEDS: BUDESONIDE-FORMOTEROL 160/4.5 MCG INHALER INH SCH ×2 (08:30→21:42)
[2016-12-05 12:00] VITALS: BP 99/61; PULSE 82; RESP 20; TEMP 96.7; O2SAT 98
[2016-12-05 12:14] LABS: AUTOMATED NEUTROPHIL # 1.9 TH/MM3 (1.8-7.7); BASOPHIL % 0.2 % (0.0-2.0); EOSINOPHIL # 0.1 TH/MM3 (0-0.4); EOSINOPHIL % 5.7 % (0.0-4.0); HEMATOCRIT 33.2 % (39.0-51.0); HEMO FLAGS DIFF FINAL; LYMPH % 15.7 % (9.0-44.0); LYMPHOCYTE # 0.4 TH/MM3 (1.0-4.8); MEAN CORPUSCULAR HEMOGLOBIN 29.3 PG (27.0-34.0); MEAN CORPUSCULAR HGB CONC 34.9 % (32.0-36.0); MONO % 4.4 % (0.0-8.0); PLATELET COUNT 144 TH/MM3 (150-450); RED BLOOD COUNT 3.95 MIL/MM3 (4.50-5.90); RED CELL DISTRIBUTION WIDTH 15.6 % (11.6-17.2); WHITE BLOOD COUNT 2.6 TH/MM3 (4.0-11.0)
[2016-12-05 12:37] LABS: BICARBONATE 20.5 MEQ/L (21.0-32.0); POTASSIUM 3.8 MEQ/L (3.5-5.1)
--- NOTE | 2016-12-05 14:32 | HHI.PR ---
Subjective Remarks Follow up pneumonia, UTI. Patient reporting lymphadenopathy in his neck as well as difficulty swallowing. No difficulty breathing. Denies sore throat, but does have sinus congestion. Chest pain is much improved. Objective Vitals Vital Signs Date Time Temp Pulse Resp B/P Pulse Ox O2 Delivery O2 Flow Rate FiO2 12/05/16 12:00 96.7 82 20 99/61 98 12/05/16 08:10 96.8 104 21 111/71 98 12/05/16 04:00 98.3 88 18 113/66 95 12/05/16 00:00 98.4 102 20 115/66 95 12/04/16 21:25 Room Air 12/04/16 20:05 97 12/04/16 20:00 99.2 101 16 95/56 94 12/04/16 16:00 96.9 111 22 105/58 94 12/04/16 15:42 95 Room Air 12/04/16 15:20 96 21 I/O 12/04/16 12/04/16 12/04/16 12/05/16 12/05/16 12/05/16 07:00 15:00 23:00 07:00 15:00 23:00 Intake Total 667 ml 1840 ml 470 ml 240 ml Output Total 1425 ml 100 ml 300 ml Balance 667 ml 415 ml 370 ml -60 ml Intake Oral 1840 ml 120 ml 240 ml IV Total 667 ml 350 ml 0 ml Output Urine Total 1425 ml 100 ml 300 ml # Bowel Movements 0 0 0 Result Diagram: 12/05/16 1145 12/05/16 1145 Imaging Last Impressions Chest X-Ray 12/03/16 1737 Signed Impressions: Service Date/Time: Saturday, December 03, 2016 17:58 - CONCLUSION: Basilar atelectasis. Alex Bonilla MD CT Angiography 12/03/16 0000 Signed Impressions: Service Date/Time: Saturday, December 03, 2016 19:09 - CONCLUSION: 1. Bilateral consolidation and small effusions with mediastinal and hilar lymphadenopathy. 2. Atherosclerotic disease. 3. No evidence for pulmonary embolism. Alex Bonilla MD Objective Remarks General: No acute distress. HEENT: Cervical lymphadenopathy. Oropharynx with poor dentition. Heart: Regular rate and rhythm. No murmur. Lungs: Clear to auscultation bilaterally. No wheezes, rales, or rhonchi. Breathing is nonlabored. Abdomen: Soft, nontender, nondistended. Extremities: No lower extremity edema. 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 Psych: Alert and oriented. A/P Problem List: (1) PNA (pneumonia) ICD Code: J18.9 Status: Acute (2) Chest pain ICD Code: R07.9 Status: Acute (3) Renal insufficiency ICD Code: N28.9 Status: Acute (4) UTI (urinary tract infection) ICD Code: N39.0 Status: Acute (5) Tobacco abuse ICD Code: Z72.0 Status: Acute Assessment and Plan 1. Pneumonia: CTA shows no evidence of PE, but does show bilateral consolidation and small effusions with mediastinal/hilar lymphadenopathy. Continue antibiotics, oxygen, DuoNeb. Blood cultures are negative so far. 2. Chest pain: Pleuritic. Likely secondary to pneumonia. Cardiac enzymes are negative. Continue aspirin, statin. Continue pain medication. 3. Chronic kidney disease stage III: Monitor BUN and creatinine. 4. UTI: Continue antibiotics. Urine culture is negative. 5. Tobacco abuse: Counseled to quit smoking. 6. DVT prophylaxis: Curtis, DOMITILA bird. 7. Cervical lymphadenopathy: Will add Decadron. Consult infectious disease. Problem Qualifiers (1) UTI (urinary tract infection): Qualified Code: T83.511D - Urinary tract infection associated with catheterization of urinary tract, unspecified indwelling urinary catheter type, subsequent encounter Bryan Bosch MD Dec 05, 2016 14:32
[2016-12-05 16:18] VITALS: BP 116/63; PULSE 110; RESP 20; TEMP 98; O2SAT 97
[2016-12-05] MEDS: DEXAMETHASONE SOD PHOS 4 MG/ML VIAL IV PUSH SCH ×2 (17:08→21:40)
[2016-12-05 20:38] VITALS: BP 103/57; PULSE 79; RESP 18; TEMP 99; O2SAT 94
[2016-12-05] MEDS: cefTRIAXone INJ 1,000 MG in SODIUM CHLORIDE 0.9% INJ 100 ML IV SCH (21:40)
[2016-12-05] MEDS: AZITHROMYCIN INJ 500 MG in SODIUM CHLOR 0.9% 250 ML INJ 250 ML IV SCH (21:41)
[2016-12-06] VITALS (9 sets, daily range): BP systolic 97–143; BP diastolic 54–86; PULSE 76–103; RESP 17–20; TEMP 96–97.7; O2SAT 94–99
[2016-12-06] MEDS: DEXAMETHASONE SOD PHOS 4 MG/ML VIAL IV PUSH SCH ×3 (05:12→21:09)
[2016-12-06] MEDS: LEVOTHYROXINE SODIUM 125 MCG TAB PO SCH (05:23)
[2016-12-06 06:16] LABS: AUTOMATED NEUTROPHIL # 2.1 TH/MM3 (1.8-7.7); EOSINOPHIL % 0.2 % (0.0-4.0); HEMATOCRIT 34.3 % (39.0-51.0); HEMO FLAGS DIFF FINAL; LYMPH % 12.7 % (9.0-44.0); LYMPHOCYTE # 0.3 TH/MM3 (1.0-4.8); MEAN CORPUSCULAR HEMOGLOBIN 29.1 PG (27.0-34.0); MEAN CORPUSCULAR HGB CONC 34.6 % (32.0-36.0); MONO % 4.2 % (0.0-8.0); NEUT % 82.9 % (16.0-70.0); PLATELET COUNT 164 TH/MM3 (150-450); RED BLOOD COUNT 4.09 MIL/MM3 (4.50-5.90); RED CELL DISTRIBUTION WIDTH 15.7 % (11.6-17.2); WHITE BLOOD COUNT 2.6 TH/MM3 (4.0-11.0)
[2016-12-06 06:51] LABS: BICARBONATE 20.4 MEQ/L (21.0-32.0); POTASSIUM 4.5 MEQ/L (3.5-5.1)
[2016-12-06] MEDS: RESP: ALBUTEROL 2.5 MG/IPRATROPIUM 0.5 MG NEB (SCH) NEB ×4 (08:19→19:15)
[2016-12-06] MEDS: guaiFENesin E.R. 600 MG TAB PO SCH ×2 (09:46→21:08)
[2016-12-06] MEDS: ASPIRIN EC 81 MG TABEC PO SCH (09:52)
[2016-12-06] MEDS: PRAVASTATIN SOD 40 MG TAB PO SCH (09:52)
[2016-12-06] MEDS: hydrALAZINE HCL 50 MG TAB PO SCH ×3 (09:52→16:36)
[2016-12-06] MEDS: BUDESONIDE-FORMOTEROL 160/4.5 MCG INHALER INH SCH ×2 (09:53→21:09)
[2016-12-06] MEDS: SODIUM CHLORIDE 0.9% FLUSH 5 ML FLUSH FLUSH SCH ×2 (09:53→21:09)
--- NOTE | 2016-12-06 14:54 | HHI.PR ---
Subjective Remarks Follow up pneumonia, UTI. The patient states that he feels much better today. Throat swelling has improved. No chest pain. Objective Vitals Vital Signs Date Time Temp Pulse Resp B/P Pulse Ox O2 Delivery O2 Flow Rate FiO2 12/06/16 12:00 96.0 103 17 122/77 98 12/06/16 09:35 Nasal Cannula 2.00 21 12/06/16 08:20 97 Nasal Cannula 21 12/06/16 08:00 96.1 97 18 143/86 96 12/06/16 04:27 97.2 82 17 131/77 94 12/06/16 00:26 96.7 76 17 107/63 95 12/05/16 22:15 Room Air 12/05/16 20:38 99.0 79 18 103/57 94 12/05/16 16:18 98.0 110 20 116/63 97 I/O 12/05/16 12/05/16 12/05/16 12/06/16 12/06/16 12/06/16 07:00 15:00 23:00 07:00 15:00 23:00 Intake Total 240 ml 720 ml 280 ml 280 ml 0 ml Output Total 300 ml 300 ml 300 ml 350 ml Balance -60 ml 420 ml -20 ml -70 ml 0 ml Intake Oral 240 ml 720 ml 280 ml 280 ml IV Total 0 ml 0 ml Output Urine Total 300 ml 300 ml 300 ml 350 ml # Bowel Movements 0 0 Result Diagram: 12/06/16 0545 12/06/16 0545 Imaging Last Impressions Chest X-Ray 12/03/16 1737 Signed Impressions: Service Date/Time: Saturday, December 03, 2016 17:58 - CONCLUSION: Basilar atelectasis. Alex Bonilla MD CT Angiography 12/03/16 0000 Signed Impressions: Service Date/Time: Saturday, December 03, 2016 19:09 - CONCLUSION: 1. Bilateral consolidation and small effusions with mediastinal and hilar lymphadenopathy. 2. Atherosclerotic disease. 3. No evidence for pulmonary embolism. Alex Bonilla MD Objective Remarks General: No acute distress. HEENT: Minimal cervical lymphadenopathy noted. Oropharynx with poor dentition. Heart: Regular rate and rhythm. No murmur. Lungs: Clear to auscultation bilaterally. No wheezes, rales, or rhonchi. Breathing is nonlabored. Abdomen: Soft, nontender, nondistended. Extremities: No lower extremity edema. 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 Psych: Alert and oriented. Urinary Catheter: Yes Assessment to: Continue Muhammad insert reason: Obstruction/Retention Vascular Central Line Catheter: No A/P Problem List: (1) PNA (pneumonia) ICD Code: J18.9 Status: Acute (2) Chest pain ICD Code: R07.9 Status: Acute (3) Renal insufficiency ICD Code: N28.9 Status: Acute (4) UTI (urinary tract infection) ICD Code: N39.0 Status: Acute (5) Tobacco abuse ICD Code: Z72.0 Status: Acute Assessment and Plan 1. Pneumonia: CTA shows no evidence of PE, but does show bilateral consolidation and small effusions with mediastinal/hilar lymphadenopathy. Continue antibiotics, oxygen, DuoNeb. Blood cultures are negative so far. 2. Chest pain: Pleuritic. Likely secondary to pneumonia. Cardiac enzymes are negative. Continue aspirin, statin. Continue pain medication. 3. Chronic kidney disease stage III: Monitor BUN and creatinine. 4. UTI: Continue antibiotics. Urine culture is negative. Patient has indwelling suprapubic catheter, which is due to be changed within the next week. 5. Tobacco abuse: Counseled to quit smoking. 6. DVT prophylaxis: SCDs, DOMITILA bird. 7. Cervical lymphadenopathy: Improved. Continue Decadron until tomorrow. Infectious disease consult is pending. Discharge Planning Possible discharge home next 1-2 days. Problem Qualifiers (1) UTI (urinary tract infection): Qualified Code: T83.511D - Urinary tract infection associated with catheterization of urinary tract, unspecified indwelling urinary catheter type, subsequent encounter Bryan Bosch MD Dec 06, 2016 14:54
[2016-12-06] MEDS: cefTRIAXone INJ 1,000 MG in SODIUM CHLORIDE 0.9% INJ 100 ML IV SCH (21:08)
[2016-12-06] MEDS: AZITHROMYCIN INJ 500 MG in SODIUM CHLOR 0.9% 250 ML INJ 250 ML IV SCH (21:09)
[2016-12-07] VITALS (9 sets, daily range): BP systolic 102–133; BP diastolic 64–87; PULSE 83–99; RESP 17–20; TEMP 95–96.2; O2SAT 97–98
[2016-12-07] MEDS: LEVOTHYROXINE SODIUM 125 MCG TAB PO SCH (05:44)
[2016-12-07] MEDS: DEXAMETHASONE SOD PHOS 4 MG/ML VIAL IV PUSH SCH (05:44)
[2016-12-07 06:20] LABS: HEMATOCRIT 34.9 % (39.0-51.0); MEAN CELL VOLUME 84.7 FL (80.0-100.0); MEAN CORPUSCULAR HEMOGLOBIN 29.3 PG (27.0-34.0); MEAN CORPUSCULAR HGB CONC 34.5 % (32.0-36.0); PLATELET COUNT 186 TH/MM3 (150-450); RED BLOOD COUNT 4.12 MIL/MM3 (4.50-5.90); RED CELL DISTRIBUTION WIDTH 15.6 % (11.6-17.2); WHITE BLOOD COUNT 3.9 TH/MM3 (4.0-11.0)
[2016-12-07 06:36] LABS: BICARBONATE 21.1 MEQ/L (21.0-32.0); POTASSIUM 4.5 MEQ/L (3.5-5.1)
[2016-12-07 06:41] LABS: HEMO FLAGS AUTO DIFF
[2016-12-07] MEDS: RESP: ALBUTEROL 2.5 MG/IPRATROPIUM 0.5 MG NEB (SCH) NEB ×4 (08:04→20:39)
--- NOTE | 2016-12-07 08:06 | HHI.PR ---
Subjective Remarks minimal sputum production, breathing much improved his main concern now is difficulty swallowing- no pain, feels food stuck in his throat and this has been going on for 4-6 weeks no chest pains Objective Vitals Vital Signs Date Time Temp Pulse Resp B/P Pulse Ox O2 Delivery O2 Flow Rate FiO2 12/07/16 04:00 96.2 88 20 133/87 97 12/07/16 00:00 95.8 86 20 102/66 98 12/06/16 21:00 Room Air 12/06/16 21:00 98 12/06/16 20:00 97.7 92 20 97/54 99 12/06/16 16:00 96.2 100 17 119/71 97 12/06/16 15:19 98 21 12/06/16 12:00 96.0 103 17 122/77 98 12/06/16 09:35 Nasal Cannula 2.00 21 12/06/16 08:20 97 Nasal Cannula 21 I/O 12/06/16 12/06/16 12/06/16 12/07/16 12/07/16 12/07/16 07:00 15:00 23:00 07:00 15:00 23:00 Intake Total 280 ml 240 ml 480 ml 0 ml Output Total 350 ml 500 ml 200 ml 450 ml Balance -70 ml -260 ml 280 ml -450 ml Intake Oral 280 ml 240 ml 480 ml 0 ml IV Total 0 ml Output Urine Total 350 ml 500 ml 200 ml 450 ml # Bowel Movements 0 Result Diagram: 12/07/16 0550 12/07/16 0550 Imaging Last Impressions Chest X-Ray 12/03/16 1737 Signed Impressions: Service Date/Time: Saturday, December 03, 2016 17:58 - CONCLUSION: Basilar atelectasis. Alex Bonilla MD CT Angiography 12/03/16 0000 Signed Impressions: Service Date/Time: Saturday, December 03, 2016 19:09 - CONCLUSION: 1. Bilateral consolidation and small effusions with mediastinal and hilar lymphadenopathy. 2. Atherosclerotic disease. 3. No evidence for pulmonary embolism. Alex Bonilla MD Objective Remarks awake and alert, NAD throat mild erythema, no exudates no lymphadenopathy lungs clear, no rales, or wheezes regular rhythm abdomen soft, nontender suprapubic catheter in place - per patient changed q 6 weeks- last changed 4 1/ 2 weeks ago extremities no edema, no calf swelling, right LE shorter c/w left A/P Problem List: (1) PNA (pneumonia) ICD Code: J18.9 Status: Acute (2) Chest pain ICD Code: R07.9 Status: Acute (3) Renal insufficiency ICD Code: N28.9 Status: Acute (4) UTI (urinary tract infection) ICD Code: N39.0 Status: Acute (5) Tobacco abuse ICD Code: Z72.0 Status: Acute Assessment and Plan 1. Pneumonia: lungs clear on exam.CTA shows no evidence of PE, but does show bilateral consolidation and small effusions with mediastinal/hilar lymphadenopathy. Continue antibiotics, oxygen, DuoNeb. Blood cultures are negative so far. ID was consulted 2. Chest pain: Pleuritic. - resolved. no further complainstLikely secondary to pneumonia. Cardiac enzymes are negative. Continue aspirin, statin. Continue pain medication. 3. Acute on chronic Chronic kidney disease stage III: Monitor BUN and creatinine.- renal functions improve, non oliguric 4. UTI: Continue antibiotics. Urine culture is negative. Patient has indwelling suprapubic catheter, which is due to be changed within the next week. History of chronic urinary retention- will change SC while in here. Nursing to instruct patient on how to do it- ff by Urology- Dr. Vaughan as OP ID consulted 5. Tobacco abuse: Counseled to quit smoking. 6. DVT prophylaxis: SCDs, DOMITILA bird. 7. Cervical lymphadenopathy: Improved. Continue Decadron course- to be completed today 8. Leukopenia- ff CBC with differential count. WBC was normal on admission 8. Dysphagia- specially with liquids. get speech to do a swallowing evaluation- states has been going on for 4-6 weeks GI consult- will defer to subspecialty for further work up and studies Problem Qualifiers (1) UTI (urinary tract infection): Qualified Code: T83.511D - Urinary tract infection associated with catheterization of urinary tract, unspecified indwelling urinary catheter type, subsequent encounter Missy Hall MD Dec 07, 2016 08:06
[2016-12-07 08:10] LABS: METAMYELOCYTES 1 % (0-1); NEUTROPHIL # MANUAL DIFF 3.5 TH/MM3 (1.8-7.7); PLATELET ESTIMATE SMEAR NORMAL (NORMAL); PLATELET MORPHOLOGY NORMAL (NORMAL); POLYS (SEG NEUTROPHILS) 88 % (16-70); SCAN/DIFF FINAL DIFF MANUAL; WBC DIFF SAMPLE 100
[2016-12-07 08:11] LABS: BURR CELLS 1+ (NORMAL)
[2016-12-07] MEDS: hydrALAZINE HCL 50 MG TAB PO SCH ×3 (08:23→18:10)
[2016-12-07] MEDS: guaiFENesin E.R. 600 MG TAB PO SCH ×2 (08:23→22:07)
[2016-12-07] MEDS: BUDESONIDE-FORMOTEROL 160/4.5 MCG INHALER INH SCH ×2 (08:24→22:08)
[2016-12-07] MEDS: PRAVASTATIN SOD 40 MG TAB PO SCH (08:24)
[2016-12-07] MEDS: SODIUM CHLORIDE 0.9% FLUSH 5 ML FLUSH FLUSH SCH ×2 (08:24→22:08)
[2016-12-07] MEDS: ASPIRIN EC 81 MG TABEC PO SCH (08:24)
--- NOTE | 2016-12-07 10:41 | PD.CONS ---
History of Present Illness Service Infectious disease Consult Requested By Dr Jones Bosch Reason for Consult Evaluate patient with pneumonia and adenopathy Primary Care Physician No Primary Care Physician Diagnoses: History of Present Illness Patient seen and examined. Records reviewed. Patient is a 66-year-old male presented to the hospital complaining of chest pain, and shortness of breath which happened on the day of admission. He had recent Melecio been having problem with urinary tract infection with some suprapubic tenderness, and some urgency. He had gone to the emergency room was diagnosed to have a UTI and was given some antibiotics. Patient stated when he had the UTI he had some fevers. He denies any significant cough or congestion. He presented to the hospital for further evaluation and treatment. He's had some low-grade temp on his first hospital day. His white count has been normal and actually has been on the low side. Chest x-ray showed basilar infiltrates and CTA did show this findings but he also has some findings of major spinal and hilar adenopathy. He has not really noted any night sweats, no weight loss. Denies any nausea or vomiting. No diarrhea. Patient denies any previous HIV testing. He has been since the , and his last sexual contact was 2 years ago. Denies having any prior history of hepatitis. No blood transfusion. Denies any significant alcohol use. Patient also had mentioned that he's been having problem with swallowing. Sometimes solid food or pills will get stuck. He denies any odynophagia. He has not really had any workup for his swallowing difficulty. Infectious disease consultation has been requested to evaluate the patient with pneumonia and adenopathy. Review of Systems Constitutional: COMPLAINS OF: Fever, DENIES: Chills, Change in appetite, Night Sweats Eyes: DENIES: Eye pain Ears, nose, mouth, throat: DENIES: Oral lesions, Throat pain, Hoarseness, Running Nose, Sinus Pain Respiratory: COMPLAINS OF: Shortness of breath, DENIES: Cough, Hemoptysis, Sputum production Cardiovascular: COMPLAINS OF: Chest pain, DENIES: Palpitations, Syncope Gastrointestinal: COMPLAINS OF: Difficulty Swallowing, DENIES: Abdominal pain , Nausea, Vomiting, Anorexia Genitourinary: COMPLAINS OF: Urgency Musculoskeletal: DENIES: Joint pain, Muscle aches Integumentary: DENIES: Rash Hematologic/lymphatic: COMPLAINS OF: Lymphadenopathy Immunologic/allergic: DENIES: Urticaria Neurologic: DENIES: Headache Psychiatric: DENIES: Confusion, Hallucinations Past Family Social History Allergies: Coded Allergies: No Known Allergies (Unverified , 12/03/16) Past Medical History Hypertension Hypothyroidism 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 Past Surgical History Tonsillectomy Left Nephrectomy Suprapubic Catheter Back surgery and neck surgery Active Ordered Medications Tylenol Albuterol Aspirin Zithromax Dulcolax Symbicort Rocephin Decadron Mucinex Hydralazine Synthroid Morphine Zofran Percocet Pravachol Social History Lives alone Smokes half a pack a day of cigarettes Occasional alcohol Denies illicit drugs Physical Exam Vital Signs Vital Signs Date Time Temp Pulse Resp B/P Pulse Ox O2 Delivery O2 Flow Rate FiO2 12/07/16 08:06 98 21 12/07/16 08:00 95.3 84 18 123/65 97 12/07/16 04:00 96.2 88 20 133/87 97 12/07/16 00:00 95.8 86 20 102/66 98 12/06/16 21:00 Room Air 12/06/16 21:00 98 12/06/16 20:00 97.7 92 20 97/54 99 12/06/16 16:00 96.2 100 17 119/71 97 12/06/16 15:19 98 21 12/06/16 12:00 96.0 103 17 122/77 98 Physical Exam GENERAL: This is a well-nourished, well-developed patient, awake and alert, in no apparent distress. SKIN: Cool and dry. No generalized rash or ecchymosis. HEAD: Atraumatic. Normocephalic. No temporal or scalp tenderness. EYES: [place] conjunctivae. Pupils equal round and reactive. Extraocular motions intact. No scleral icterus. No injection or drainage. ENT: Nose without bleeding, or purulent drainage. Moist oral mucosa. Throat without significant erythema, or exudate. Uvula midline. Airway patent. NECK: Trachea midline. No JVD. Supple, nontender, no meningeal signs. CARDIOVASCULAR: Regular rate and rhythm without murmurs, gallops, or rubs. RESPIRATORY: Clear to auscultation. Breath sounds equal bilaterally. No wheezes , or rhonchi. Some rales at the bases. GASTROINTESTINAL: Abdomen soft, non-tender, nondistended. No hepato-splenomegaly , or palpable masses. No guarding. SPC in place, urine looks clear MUSCULOSKELETAL: LLE: without clubbing, cyanosis, or edema. RLE singificantly shorter than LLE, has congenital absence of his R femur. No calf tenderness. NEUROLOGICAL: Awake and alert. Cranial nerves II through XII intact. Motor and sensory grossly within normal limits. Five out of 5 muscle strength in all muscle groups. Normal speech. PSYCH: Normal affect, calm and cooperative LINE: PIV with no evidence of infection Laboratory Laboratory Tests Test 12/07/16 05:50 White Blood Count 3.9 Red Blood Count 4.12 Hemoglobin 12.1 Hematocrit 34.9 Mean Corpuscular Volume 84.7 Mean Corpuscular Hemoglobin 29.3 Mean Corpuscular Hemoglobin 34.5 Concent Red Cell Distribution Width 15.6 Platelet Count 186 Mean Platelet Volume 8.4 Neutrophils (%) (Auto) Lymphocytes (%) (Auto) Monocytes (%) (Auto) Eosinophils (%) (Auto) Basophils (%) (Auto) Neutrophils # (Auto) Lymphocytes # (Auto) Monocytes # (Auto) Eosinophils # (Auto) Basophils # (Auto) CBC Comment AUTO DIFF Differential Total Cells 100 Counted Neutrophils % (Manual) 88 Lymphocytes % 8 Monocytes % 3 Neutrophils # (Manual) 3.5 Metamyelocytes 1 Differential Comment FINAL DIFF MANUAL Platelet Estimate NORMAL Platelet Morphology Comment NORMAL [place] Cells 1+ Sodium Level 134 Potassium Level 4.5 Chloride Level 104 Carbon Dioxide Level 21.1 Anion Gap 9 Blood Urea Nitrogen 24 Creatinine 1.02 Estimat Glomerular Filtration 73 Rate Random Glucose 118 Calcium Level 8.5 Date/Time Procedure Status Source Growth 12/03/16 20:10 Urine Culture - Final Complete Urine Catheterized Urine NO GROWTH IN 48 HOURS. 12/03/16 19:55 Aerobic Blood Culture - Preliminary Resulted Blood Peripheral NO GROWTH IN 3 DAYS 12/03/16 19:55 Anaerobic Blood Culture - Preliminary Resulted Blood Peripheral NO GROWTH IN 3 DAYS 12/03/16 19:05 Influenza Types A,B Antigen (ALIYAH) - Final Complete Nasal Washing NEGATIVE FOR FLU A AND B ANTIGEN.... Result Diagram: 12/07/16 0550 12/07/16 0550 Imaging RADIOLOGY STUDIES/FILMS REVIEWED Last Impressions Chest X-Ray 12/03/16 6017 Signed Impressions: Service Date/Time: Saturday, December 03, 2016 17:58 - CONCLUSION: Basilar atelectasis. Alex Bonilla MD CT Angiography 12/03/16 0000 Signed Impressions: Service Date/Time: Saturday, December 03, 2016 19:09 - CONCLUSION: 1. Bilateral consolidation and small effusions with mediastinal and hilar lymphadenopathy. 2. Atherosclerotic disease. 3. No evidence for pulmonary embolism. Alex Bonilla MD Assessment and Plan Assessment and Plan IMPRESSION Bilateral infiltrates, with adenopathy, presented with SOB and CP, not really complaining much of cough or congestion - infectious, inflammatory, or others Neutropenia, etiology? - ?from infection, usually if bacterial causing low WBC, patient looks sicjer - ?viral,, denies HIV risk factors Dysphagia, etiology? RECOMMENDATION HIV testing - Discussed with the patient, and he agrees to have the testing done EBV and CMV CT A/P to evaluate further for adenopathy Legionella and pneumococcal Ag Continue Rocephin and Zithromax Follow C/S Follow CBC Monitor progress Repeat CXR ESR, CRP I will follow along with you. Thank you for this consultation Meagan Banda MD Dec 07, 2016 10:41
[2016-12-07] MEDS ORDERED: DIATRIZOATE MEGLUM/DIATRIZOATE SOD 9 ML CUP PO ONE (11:45)
--- NOTE | 2016-12-07 13:15 | RADRPT ---
EXAM DATE/TIME: 12/07/2016 11:41 [facility] COMPARISON: CT PULMONARY ANGIOGRAM, December 03, 2016, 19:09. CHEST SINGLE AP, December 03, 2016, 17:58. INDICATIONS : Follow up pneumonia. MEDICAL HISTORY : Hypertension. SURGICAL HISTORY : None. ENCOUNTER: Initial ACUITY: 4 - 6 days PAIN SCORE: 0/10 LOCATION: Bilateral chest FINDINGS: PA and lateral views of the chest demonstrate the lungs to be symmetrically aerated without evidence of mass, infiltrate or effusion. The cardiomediastinal contours are unremarkable. Osseous structure s are intact. CONCLUSION: No acute cardiopulmonary disease demonstrated radiographically. Tavon Correa MD on December 07, 2016 at 13:13 Board Certified Radiologist. This report was verified electronically.
[2016-12-07] MEDS ORDERED: IOHEXOL 350 MG/ML 10 ML VIAL (for RAD DIAG) IV ONE (15:18)
--- NOTE | 2016-12-07 15:26 | PD.CONS ---
HPI History of Present Illness This is a 66 year old male with a PMH of HTN and Hypothyroidism who is here for evaluation of chest pain and was found to have pneumonia possibly the cause of chest pain. Chest x-ray showed basilar infiltrates and CTA did show this findings but he also has some findings of major spinal and hilar adenopathy. He denies any nausea, vomiting, abdomen pain, change in bowels, hematochezia or melena. ID on the case. GI have been consulted for dysphagia. States dysphagia on going for 2 months, on off, the food gets stuck and he has to jann with water. Denies GERD, never had EGD before. Was evaluated by ST who recommended soft diet with thin liquids. PFSH Past Medical History PMH: HTN, Hypothyroidism, congenital absence of right femur Past Surgical History PAST SURGICAL HISTORY: Tonsillectomy, Left Nephrectomy, Suprapubic Catheter Coded Allergies: No Known Allergies (Unverified , 12/03/16) Medications Current Medications Medications (Trade) Dose Ordered Sig/Sarah Route Start Time Stop Time Status Last Admin (Rocephin Inj/NS Inj) 100 ml @ 200 mls/hr Q24H IV 12/04/16 20:00 12/06/16 21:08 (Mucinex Er) 600 mg BID PO 12/04/16 09:00 12/07/16 08:23 (Symbicort 160-4.5 Inh) 2 puff Q12HR INH 12/03/16 21:15 12/07/16 08:24 (NS Flush) 2 ml UNSCH PRN FLUSH 12/03/16 21:15 (NS Flush) 2 ml BID FLUSH 12/04/16 09:00 12/07/16 08:24 (Zofran Inj) 4 mg Q6H PRN IVP 12/03/16 21:15 (Dulcolax Supp) 10 mg DAILY PRN HI 12/03/16 21:15 (Tylenol) 650 mg Q6H PRN PO 12/03/16 21:15 (Morphine Inj) 2 mg Q3H PRN IV 12/03/16 21:15 (Apresoline) 50 mg TID PO 12/04/16 09:00 12/07/16 12:57 (Synthroid) 125 mcg DAILY@06 PO 12/04/16 06:00 12/07/16 05:44 (Ecotrin Ec) 81 mg DAILY PO 12/04/16 09:00 12/07/16 08:24 (Pravachol) 40 mg DAILY PO 12/04/16 09:00 12/07/16 08:24 (Percocet 5-325 Mg) 1 tab Q4H PRN PO 12/04/16 16:00 12/05/16 17:12 (Zithromax) 500 mg DAILY PO 12/08/16 09:00 Family History PAST FAMILY HISTORY: Reviewed. No h/o DM or CAD Social History PAST SOCIAL HISTORY: Occasional alcohol. Smokes 1/2ppd. Negative for drugs. Review of Systems Constitutional: DENIES: Weight loss Eyes: DENIES: Double Vision Ears, nose, mouth, throat: DENIES: Hoarseness Respiratory: COMPLAINS OF: Shortness of breath Cardiovascular: DENIES: Lower Extremity Edema Gastrointestinal: COMPLAINS OF: Difficulty Swallowing, DENIES: Abdominal pain , Black stools, Bloody stools, Constipation, Nausea, Vomiting, Heartburn, Hematemesis Genitourinary: DENIES: Urinary frequency, Hematuria Musculoskeletal: DENIES: Neck pain Integumentary: DENIES: Jaundice Hematologic/lymphatic: DENIES: Bruising Immunologic/allergic: DENIES: Eczema Neurologic: COMPLAINS OF: Abnormal gait Psychiatric: DENIES: Anxiety GI Exam Vitals I&O Vital Signs Date Time Temp Pulse Resp B/P Pulse Ox O2 Delivery O2 Flow Rate FiO2 12/07/16 12:00 95.6 99 18 131/69 97 12/07/16 08:06 98 21 12/07/16 08:00 95.3 84 18 123/65 97 12/07/16 04:00 96.2 88 20 133/87 97 12/07/16 00:00 95.8 86 20 102/66 98 12/06/16 21:00 Room Air 12/06/16 21:00 98 12/06/16 20:00 97.7 92 20 97/54 99 12/06/16 16:00 96.2 100 17 119/71 97 12/06/16 15:19 98 21 I/O 12/06/16 12/06/16 12/06/16 12/07/16 12/07/16 12/07/16 07:00 15:00 23:00 07:00 15:00 23:00 Intake Total 280 ml 240 ml 480 ml 0 ml Output Total 350 ml 500 ml 200 ml 450 ml Balance -70 ml -260 ml 280 ml -450 ml Intake Oral 280 ml 240 ml 480 ml 0 ml IV Total 0 ml Output Urine Total 350 ml 500 ml 200 ml 450 ml # Bowel Movements 0 Imaging Last Impressions Chest X-Ray 12/07/16 0000 Signed Impressions: Service Date/Time: Wednesday, December 07, 2016 11:41 - CONCLUSION: No acute cardiopulmonary disease demonstrated radiographically. Tavon Correa MD CT Angiography 12/03/16 0000 Signed Impressions: Service Date/Time: Saturday, December 03, 2016 19:09 - CONCLUSION: 1. Bilateral consolidation and small effusions with mediastinal and hilar lymphadenopathy. 2. Atherosclerotic disease. 3. No evidence for pulmonary embolism. Alex Bonilla MD Laboratory Test 12/07/16 12/07/16 05:50 11:20 White Blood Count 3.9 TH/MM3 Red Blood Count 4.12 MIL/MM3 Hemoglobin 12.1 GM/DL Hematocrit 34.9 % Mean Corpuscular Volume 84.7 FL Mean Corpuscular Hemoglobin 29.3 PG Mean Corpuscular Hemoglobin 34.5 % Concent Red Cell Distribution Width 15.6 % Platelet Count 186 TH/MM3 Mean Platelet Volume 8.4 FL Neutrophils (%) (Auto) % Lymphocytes (%) (Auto) % Monocytes (%) (Auto) % Eosinophils (%) (Auto) % Basophils (%) (Auto) % Neutrophils # (Auto) TH/MM3 Lymphocytes # (Auto) TH/MM3 Monocytes # (Auto) TH/MM3 Eosinophils # (Auto) TH/MM3 Basophils # (Auto) TH/MM3 CBC Comment AUTO DIFF Differential Total Cells 100 Counted Neutrophils % (Manual) 88 % Lymphocytes % 8 % Monocytes % 3 % Neutrophils # (Manual) 3.5 TH/MM3 Metamyelocytes 1 % Differential Comment FINAL DIFF MANUAL Platelet Estimate NORMAL Platelet Morphology Comment NORMAL [place] Cells 1+ Sodium Level 134 MEQ/L Potassium Level 4.5 MEQ/L Chloride Level 104 MEQ/L Carbon Dioxide Level 21.1 MEQ/L Anion Gap 9 MEQ/L Blood Urea Nitrogen 24 MG/DL Creatinine 1.02 MG/DL Estimat Glomerular Filtration 73 ML/MIN Rate Random Glucose 118 MG/DL Calcium Level 8.5 MG/DL Erythrocyte Sedimentation Rate 29 mm/hr C-Reactive Protein 6.30 MG/DL HIV (1&2) Antibody NEGATIVE Date/Time Procedure Status Source Growth 12/03/16 20:10 Urine Culture - Final Complete Urine Catheterized Urine NO GROWTH IN 48 HOURS. 12/03/16 19:55 Aerobic Blood Culture - Preliminary Resulted Blood Peripheral NO GROWTH IN 4 DAYS 12/03/16 19:55 Anaerobic Blood Culture - Preliminary Resulted Blood Peripheral NO GROWTH IN 4 DAYS 12/03/16 19:05 Influenza Types A,B Antigen (ALIYAH) - Final Complete Nasal Washing NEGATIVE FOR FLU A AND B ANTIGEN.... Physical Examination HEENT: normocephalic; atraumatic; no jaundice. Throat is clear. NECK: Neck is supple, no JVD, no lymphadenopathy. CHEST: Chest is clear to auscultation and percussion. CARDIAC: Regular rate and rhythm with no murmur gallop or rubs. ABDOMEN: Soft, nondistended, nontender; no hepatosplenomegaly; bowel sounds are present in all four quadrants.SPC in place EXTREMITIES: RLE significantly shorter than LLE, has congenital absence of his R femur. SKIN: Normal; no rash; no jaundice. 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 Assessment and Plan Plan - Dysphagia X a couple of months- Will plan for EGD/dill in the am - Bilateral infiltrates, with adenopathy, presented with SOB and CP, abx ID on the case - UTI - ABX - Neutropenia, ?etiology- HIV negative, rest of work up pending - HTN, per attending Plan: - EGD/dill in the am - Obtain consents - NPO mn - Supportive care - Patient seen and examined by Dr. Herrera and myself and this note is written on his behalf. Mikey Chapin Dec 07, 2016 15:26
--- NOTE | 2016-12-07 15:59 | RADRPT ---
EXAM DATE/TIME: 12/07/2016 14:54 [facility] COMPARISON: No previous studies available for comparison. INDICATIONS : Suprapubic tenderness . IV CONTRAST: 70 cc Omnipaque 350 (iohexol) IV ORAL CONTRAST: No oral contrast ingested. RADIATION DOSE: 10.71 CTDIvol (mGy) MEDICAL HISTORY : Congestive heart failure. Hypertension. SURGICAL HISTORY : Nephrectomy, left. ENCOUNTER: Initial ACUITY: 1 day PAIN SCALE: 4/10 LOCATION: pelvis TECHNIQUE: Volumetric scanning of the abdomen and pelvis was performed. Using automated exposure control and ad justment of the mA and/or kV according to patient size, radiation dose was kept as low as reasonably achievable to obtain optimal diagnostic quality images. FINDINGS: LOWER LUNGS: Small bilateral pleural effusions with associated compressive atelectasis. LIVER: Homogeneous density without a concerning lesion. There is an 8mm low-density lesion in the left lobe with density measurements characteristic of a cyst. There is no dilation of the biliary tree. No ca lcified gallstones. SPLEEN: Mildly enlarged measuring 13.4 cm in length. There is trace perisplenic fluid. PANCREAS: Within normal limits. KIDNEYS: The left kidney is surgically absent multiple clips in the renal fossa. Right kidney contains 4 low d ensity lesions ranging in size from 9 mm up to 1.8 cm. All of these have density measurements charact eristic of simple cysts. There is no hydronephrosis or renal stone. ADRENAL GLANDS: Left adrenal gland appears absent. There are multiple clips in the suprarenal fossa. Right adrenal gl and and is normal. VASCULAR: There is severe atherosclerotic disease. Infrarenal aorta is ectatic. 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 BOWEL/MESENTERY: The stomach and small bowel demonstrate no acute finding. Small bowel in left upper quadrant measures up to 3 cm. There is mild sigmoid diverticulosis. No free air is present. There is trace perisplenic free fluid. ABDOMINAL WALL: No acute finding is identified. Suprapubic catheter is present. RETROPERITONEUM: There is no lymphadenopathy. BLADDER: Urinary bladder is decompressed. Suprapubic catheter is in place. There are multiple stones in the de pendent urinary bladder. REPRODUCTIVE: Within normal limits. INGUINAL: There is no lymphadenopathy or hernia. MUSCULOSKELETAL: There are degenerative changes of the lumbar spine. 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 A suprapubic bladder catheter is present. The bladder contains multiple small stones but there is no gallbladder wall thickening or inflammatory change appreciated. 2. Severe atherosclerotic disease with ectatic aorta and mildly aneurysmal left common iliac artery m easuring 17 mm. 3. There are small bilateral pleural effusions and there is trace perisplenic free fluid from uncerta in etiology. Tavon Mathew MD on December 07, 2016 at 15:49 Board Certified Radiologist. This report was verified electronically.
[2016-12-07] MEDS: cefTRIAXone INJ 1,000 MG in SODIUM CHLORIDE 0.9% INJ 100 ML IV SCH (22:08)
[2016-12-08] VITALS (8 sets, daily range): BP systolic 104–143; BP diastolic 65–97; PULSE 70–100; RESP 20; TEMP 96–98.4; O2SAT 94–98
[2016-12-08 01:08] LABS: EBV VCA IgM Negative (Negative)
[2016-12-08 05:56] LABS: BASOPHIL % 0.1 % (0.0-2.0); EOSINOPHIL % 0.2 % (0.0-4.0); HEMATOCRIT 33.9 % (39.0-51.0); HEMO FLAGS DIFF FINAL; LYMPH % 23.4 % (9.0-44.0); LYMPHOCYTE # 1.1 TH/MM3 (1.0-4.8); MEAN CELL VOLUME 84.4 FL (80.0-100.0); MEAN CORPUSCULAR HEMOGLOBIN 29.2 PG (27.0-34.0); MEAN CORPUSCULAR HGB CONC 34.6 % (32.0-36.0); MONO % 11.2 % (0.0-8.0); NEUT % 65.1 % (16.0-70.0); PLATELET COUNT 189 TH/MM3 (150-450); RED BLOOD COUNT 4.02 MIL/MM3 (4.50-5.90); RED CELL DISTRIBUTION WIDTH 15.4 % (11.6-17.2); WHITE BLOOD COUNT 4.5 TH/MM3 (4.0-11.0)
[2016-12-08] MEDS: LEVOTHYROXINE SODIUM 125 MCG TAB PO SCH (05:58)
[2016-12-08] MEDS: RESP: ALBUTEROL 2.5 MG/IPRATROPIUM 0.5 MG NEB (SCH) NEB ×3 (08:00→15:11)
--- NOTE | 2016-12-08 08:26 | HHI.PR ---
Subjective Remarks no sputum production looking forward to EGD this am same feeling of food stuck in throat area/ mid chest Objective Vitals Vital Signs Date Time Temp Pulse Resp B/P Pulse Ox O2 Delivery O2 Flow Rate FiO2 12/08/16 05:14 97.0 80 20 120/69 97 12/08/16 00:00 96.2 78 20 118/72 96 12/07/16 22:05 83 12/07/16 20:00 96.0 88 18 120/64 97 12/07/16 16:00 95.0 91 17 122/68 98 12/07/16 15:58 98 21 12/07/16 12:00 95.6 99 18 131/69 97 I/O 12/07/16 12/07/16 12/07/16 12/08/16 12/08/16 12/08/16 07:00 15:00 23:00 07:00 15:00 23:00 Intake Total 0 ml 540 ml 0 ml Output Total 450 ml 750 ml 550 ml Balance -450 ml -210 ml -550 ml Intake Oral 0 ml 540 ml 0 ml IV Total 0 ml 0 ml Output Urine Total 450 ml 750 ml 550 ml # Bowel Movements 0 0 Result Diagram: 12/08/16 0526 12/07/16 0550 Imaging Last Impressions Chest X-Ray 12/07/16 0000 Signed Impressions: Service Date/Time: Wednesday, December 07, 2016 11:41 - CONCLUSION: No acute cardiopulmonary disease demonstrated radiographically. Tavon Correa MD Abdomen/Pelvis CT 12/07/16 0000 Signed Impressions: Service Date/Time: Wednesday, December 07, 2016 14:54 - CONCLUSION: 1. A suprapubic bladder catheter is present. The bladder contains multiple small stones but there is no gallbladder wall thickening or inflammatory change appreciated. 2. Severe atherosclerotic disease with ectatic aorta and mildly aneurysmal left common iliac artery measuring 17 mm. 3. There are small bilateral pleural effusions and there is trace perisplenic free fluid from uncertain etiology. Tavon Mathew MD CT Angiography 12/03/16 0000 Signed Impressions: Service Date/Time: Saturday, December 03, 2016 19:09 - CONCLUSION: 1. Bilateral consolidation and small effusions with mediastinal and hilar lymphadenopathy. 2. Atherosclerotic disease. 3. No evidence for pulmonary embolism. Alex Bonilla MD Objective Remarks awake and alert, NAD throat no exudates no lymphadenopathy lungs clear, no rales, or wheezes regular rhythm abdomen soft, nontender suprapubic catheter in place - per patient changed q 6 weeks- last changed 4 1/ 2 weeks ago extremities no edema, no calf swelling, right LE shorter c/w left A/P Problem List: (1) PNA (pneumonia) ICD Code: J18.9 Status: Acute (2) Chest pain ICD Code: R07.9 Status: Acute (3) Renal insufficiency ICD Code: N28.9 Status: Acute (4) UTI (urinary tract infection) ICD Code: N39.0 Status: Acute (5) Tobacco abuse ICD Code: Z72.0 Status: Acute Assessment and Plan 1. Pneumonia: lungs clear on exam.CTA shows no evidence of PE, but does show bilateral consolidation and small effusions with mediastinal/hilar lymphadenopathy. Continue antibiotics,- rocephin and zithromax. oxygen, DuoNeb. Blood cultures are negative so far. ID ff- work up in progress 2. Chest pain: Pleuritic. - resolved. no further complainstLikely secondary to pneumonia. Cardiac enzymes are negative. Continue aspirin, statin. Continue pain medication. 3. Acute on chronic Chronic kidney disease stage III: Monitor BUN and creatinine.- renal functions improve, non oliguric 4. Pyuria .. Urine culture is negative. History of chronic urinary retention- SC changed 12/07. . Nursing to instruct patient on how to do it- ff by Urology- Dr. Vaughan as OP 5. Tobacco abuse: Counseled to quit smoking. 6. DVT prophylaxis: SCDs, DOMITILA bird. 7. Cervical lymphadenopathy: Improved. Continue Decadron course- completed 12/07 8. Leukopenia Improved- 12/08 - normal 9. Dysphagia- specially with liquids. get speech to do a swallowing evaluation- states has been going on for 4-6 weeks GI ff- for EGD today Problem Qualifiers (1) UTI (urinary tract infection): Qualified Code: T83.511D - Urinary tract infection associated with catheterization of urinary tract, unspecified indwelling urinary catheter type, subsequent encounter Missy Hall MD Dec 08, 2016 08:26 Missy Hall MD Dec 08, 2016 08:26
[2016-12-08] MEDS: hydrALAZINE HCL 50 MG TAB PO SCH ×3 (09:00→16:25)
[2016-12-08] MEDS ORDERED: PROPOFOL 200 MG/20 ML AMP IV ONE (09:38)
--- NOTE | 2016-12-08 09:47 | GIPROC ---
[facility] [address] [facility]. [facility], [address] EGD PROCEDURE REPORT EXAM DATE: 12/08/2016 PATIENT NAME: Buster Mg MR #: [id number] BIRTHDATE: 1950 ATTENDING: Shayy Herrera MD ORDER #: [id number] MORTAR CARRIER: Pamela Martel Darren STATUS: bedside INDICATIONS: The patient is a 66 yr old male here for an EGD due to dyspepsia and dysphagia PROCEDURE PERFORMED: EGD w/ biopsy MEDICATIONS: None and Per Anesthesia. TOPICAL ANESTHETIC: none CONSENT: The patient understands the risks and benefits of the procedure and understands that these risks include, but are not limited to: sedation, allergic reaction, infection, perforation and/or bleeding. Alternative means of evaluation and treatment include, among others: physical exam, x-rays, and/or surgical intervention. The patient elects to proceed with this endoscopic procedure. medical equipment was checked for proper function. Hand hygiene and appropriate measures for infection prevention was taken. After the risks, benefits and alternatives of the procedure were thoroughly explained, Informed consent was verified, confirmed and timeout was successfully executed by the treatment team. The patient was anesthetized with topical anesthesia and the Pentax EG-[id number] endoscope was introduced through the mouth and advanced to the second portion of the duodenum. Retroflexed views revealed no abnormalities The gastroscope was then slowly withdrawn and removed. Mild gastritis Bx from antrum. Duodenitis. Distal esophageal ring S/P dilation size 17 mm. ADVERSE EVENTS: There were no complications. IMPRESSIONS: 1. Mild gastritis Bx from antrum 2. Duodenitis 3. Distal esophageal ring S/P dilation size 17 mm 4. Retroflexed views revealed no abnormalities RECOMMENDATIONS: 1. await biopsy results. Biopsy results will not be ready for 7-10 days. If you don't hear from us in two weeks, call our office for biopsy results. 2. anti-reflux regimen 3. avoid NSAIDS 4. Protonix 40mg BID 5. soft diet and chew food well PATIENT CONDITION: stable DISPOSITION: Observation REPEAT EXAM: EGD pending biopsy results. Shayy Herrera MD eSigned: Shayy Herrera MD 12/08/2016 9:47 AM cc: CPT CODES: [id number] Upper gastrointestinal endoscopy including esophagus, stomach, and either the duodenum and/or jejunum as appropriate; with biopsy, single or multiple ICD CODES: 535.60 Duodenitis (without mention of hemorrhage) 787.20 Dysphagia,unspecified 536.8 Dyspepsia and other specified disorders of function of stomach The ICD and CPT codes recommended by this software are interpretations from the data that the clinical staff has captured with the software. The verification of the translation of this report to the ICD and CPT codes and modifiers is the sole responsibility of the health care institution and practicing physician where this report was generated. [employer] will not be held responsible for the validity of the ICD and CPT codes included on this report. AMA assumes no liability for data contained or not contained herein. CPT is a registered trademark of the [employer]. PATIENT NAME: Buster Mg MR#: [id number]
--- NOTE | 2016-12-08 09:59 | HHI.GIFU ---
Subjective Remarks feels ok, no chest pain now, no sign of GI bleed Objective Vitals I&O Vital Signs Date Time Temp Pulse Resp B/P Pulse Ox O2 Delivery O2 Flow Rate FiO2 12/08/16 09:11 96.0 70 20 138/79 98 12/08/16 05:14 97.0 80 20 120/69 97 12/08/16 00:00 96.2 78 20 118/72 96 12/07/16 22:05 83 12/07/16 20:00 96.0 88 18 120/64 97 12/07/16 16:00 95.0 91 17 122/68 98 12/07/16 15:58 98 21 12/07/16 12:00 95.6 99 18 131/69 97 I/O 12/07/16 12/07/16 12/07/16 12/08/16 12/08/16 12/08/16 07:00 15:00 23:00 07:00 15:00 23:00 Intake Total 0 ml 540 ml 0 ml Output Total 450 ml 750 ml 550 ml Balance -450 ml -210 ml -550 ml Intake Oral 0 ml 540 ml 0 ml IV Total 0 ml 0 ml Output Urine Total 450 ml 750 ml 550 ml # Bowel Movements 0 0 Laboratory Laboratory Tests Test 12/07/16 12/08/16 11:20 05:26 Erythrocyte Sedimentation Rate 29 C-Reactive Protein 6.30 HIV (1&2) Antibody NEGATIVE Rene-Antoine Virus Capsid Ag Positive IgG Ab Rene-Antoine Virus Capsid Ag Negative IgM Ab Rene-Antoine Nuclear Antigen Positive Rene-Antoine Virus . Interpretation White Blood Count 4.5 Red Blood Count 4.02 Hemoglobin 11.7 Hematocrit 33.9 Mean Corpuscular Volume 84.4 Mean Corpuscular Hemoglobin 29.2 Mean Corpuscular Hemoglobin 34.6 Concent Red Cell Distribution Width 15.4 Platelet Count 189 Mean Platelet Volume 8.1 Neutrophils (%) (Auto) 65.1 Lymphocytes (%) (Auto) 23.4 Monocytes (%) (Auto) 11.2 Eosinophils (%) (Auto) 0.2 Basophils (%) (Auto) 0.1 Neutrophils # (Auto) 3.0 Lymphocytes # (Auto) 1.1 Monocytes # (Auto) 0.5 Eosinophils # (Auto) 0.0 Basophils # (Auto) 0.0 CBC Comment DIFF FINAL Differential Comment Date/Time Procedure Status Source Growth 12/03/16 20:10 Urine Culture - Final Complete Urine Catheterized Urine NO GROWTH IN 48 HOURS. 12/03/16 19:55 Aerobic Blood Culture - Preliminary Resulted Blood Peripheral NO GROWTH IN 4 DAYS 12/03/16 19:55 Anaerobic Blood Culture - Preliminary Resulted Blood Peripheral NO GROWTH IN 4 DAYS 12/03/16 19:05 Influenza Types A,B Antigen (ALIYAH) - Final Complete Nasal Washing NEGATIVE FOR FLU A AND B ANTIGEN.... Physical Exam HEENT: Pupils round and reactive to light; normocephalic; atraumatic; no jaundice. Throat is clear. NECK: Neck is supple, no JVD, no lymphadenopathy. CHEST: Chest is clear to auscultation and percussion. CARDIAC: Regular rate and rhythm with no murmur gallop or rubs. ABDOMEN: Soft, nondistended, nontender; no hepatosplenomegaly; bowel sounds are present in all four quadrants. EXTREMITIES: No clubbing, cyanosis, or edema. SKIN: Normal; no rash; no jaundice. WARBLE SAW OPERATOR: No focal deficits; alert and oriented times three. Assessment and Plan Plan - Dysphagia X a couple of months- Will plan for EGD/dill in the am - Bilateral infiltrates, with adenopathy, presented with SOB and CP, abx ID on the case - UTI - ABX - Neutropenia, ?etiology- HIV negative, rest of work up pending - HTN, per attending 12-08-16 dysphagia EGD showed stricture S/P dilation savary 17 mm, gastritis and duodenitis Bx done, patient needs to be on PPI. Plan: -soft diet as tolerated - Supportive care - if continue to have chest pain, he may need motility study, this can be done as outpatient if he is discharged -colonoscopy as outpatient -FU with GI in 2-3 wks Shayy Herrera MD Dec 08, 2016 09:59
[2016-12-08] MEDS: AZITHROMYCIN 250 MG TAB PO SCH (10:21)
[2016-12-08] MEDS: guaiFENesin E.R. 600 MG TAB PO SCH ×2 (10:21→21:26)
[2016-12-08] MEDS: PRAVASTATIN SOD 40 MG TAB PO SCH (10:21)
[2016-12-08] MEDS: ASPIRIN EC 81 MG TABEC PO SCH (10:22)
[2016-12-08] MEDS: BUDESONIDE-FORMOTEROL 160/4.5 MCG INHALER INH SCH ×2 (10:24→21:26)
[2016-12-08] MEDS: SODIUM CHLORIDE 0.9% FLUSH 5 ML FLUSH FLUSH SCH ×2 (10:25→21:27)
--- NOTE | 2016-12-08 12:43 | HHI.IDPN ---
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 Vital Signs Date Time Temp Pulse Resp B/P Pulse Ox O2 Delivery O2 Flow Rate FiO2 12/08/16 10:05 77 16 131/73 96 12/08/16 09:55 82 16 121/73 95 12/08/16 09:46 97.4 82 16 114/66 95 12/08/16 09:11 96.0 70 20 138/79 98 12/08/16 05:14 97.0 80 20 120/69 97 12/08/16 00:00 96.2 78 20 118/72 96 12/07/16 22:05 83 12/07/16 20:00 96.0 88 18 120/64 97 12/07/16 16:00 95.0 91 17 122/68 98 12/07/16 15:58 98 21 12/07/16 12/07/16 12/08/16 15:00 23:00 07:00 Intake Total 540 ml 0 ml Output Total 750 ml 550 ml Balance -210 ml -550 ml Intake Oral 540 ml 0 ml IV Total 0 ml 0 ml Output Urine Total 750 ml 550 ml # Bowel Movements 0 0 . Laboratory Tests Test 12/07/16 12/07/16 12/08/16 05:50 11:20 05:26 White Blood Count 3.9 TH/MM3 4.5 TH/MM3 Red Blood Count 4.12 MIL/MM3 4.02 MIL/MM3 Hemoglobin 12.1 GM/DL 11.7 GM/DL Hematocrit 34.9 % 33.9 % Mean Corpuscular Volume 84.7 FL 84.4 FL Mean Corpuscular Hemoglobin 29.3 PG 29.2 PG Mean Corpuscular Hemoglobin 34.5 % 34.6 % Concent Red Cell Distribution Width 15.6 % 15.4 % Platelet Count 186 TH/MM3 189 TH/MM3 Mean Platelet Volume 8.4 FL 8.1 FL Neutrophils (%) (Auto) % 65.1 % Lymphocytes (%) (Auto) % 23.4 % Monocytes (%) (Auto) % 11.2 % Eosinophils (%) (Auto) % 0.2 % Basophils (%) (Auto) % 0.1 % Neutrophils # (Auto) TH/MM3 3.0 TH/MM3 Lymphocytes # (Auto) TH/MM3 1.1 TH/MM3 Monocytes # (Auto) TH/MM3 0.5 TH/MM3 Eosinophils # (Auto) TH/MM3 0.0 TH/MM3 Basophils # (Auto) TH/MM3 0.0 TH/MM3 CBC Comment AUTO DIFF DIFF FINAL Differential Total Cells 100 Counted Neutrophils % (Manual) 88 % Lymphocytes % 8 % Monocytes % 3 % Neutrophils # (Manual) 3.5 TH/MM3 Metamyelocytes 1 % Differential Comment FINAL DIFF MANUAL Platelet Estimate NORMAL Platelet Morphology Comment NORMAL [place] Cells 1+ Erythrocyte Sedimentation Rate 29 mm/hr Laboratory Tests Test 12/07/16 12/07/16 05:50 11:20 Sodium Level 134 MEQ/L Potassium Level 4.5 MEQ/L Chloride Level 104 MEQ/L Carbon Dioxide Level 21.1 MEQ/L Anion Gap 9 MEQ/L Blood Urea Nitrogen 24 MG/DL Creatinine 1.02 MG/DL Estimat Glomerular Filtration 73 ML/MIN Rate Random Glucose 118 MG/DL Calcium Level 8.5 MG/DL C-Reactive Protein 6.30 MG/DL Imaging Last Impressions Chest X-Ray 12/07/16 0000 Signed Impressions: Service Date/Time: Wednesday, December 07, 2016 11:41 - CONCLUSION: No acute cardiopulmonary disease demonstrated radiographically. Tavon Correa MD Abdomen/Pelvis CT 12/07/16 0000 Signed Impressions: Service Date/Time: Wednesday, December 07, 2016 14:54 - CONCLUSION: 1. A suprapubic bladder catheter is present. The bladder contains multiple small stones but there is no gallbladder wall thickening or inflammatory change appreciated. 2. Severe atherosclerotic disease with ectatic aorta and mildly aneurysmal left common iliac artery measuring 17 mm. 3. There are small bilateral pleural effusions and there is trace perisplenic free fluid from uncertain etiology. Tavon Mathew MD CT Angiography 12/03/16 0000 Signed Impressions: Service Date/Time: Saturday, December 03, 2016 19:09 - CONCLUSION: 1. Bilateral consolidation and small effusions with mediastinal and hilar lymphadenopathy. 2. Atherosclerotic disease. 3. No evidence for pulmonary embolism. Alex Bonilla MD Physical Exam GENERAL: awake and alert, NAD SKIN: Cool and dry. No generalized rash or ecchymosis. HEAD: Atraumatic. Normocephalic. No temporal or scalp tenderness. EYES: [place] conjunctivae. No scleral icterus. No injection or drainage. ENT: Nose without bleeding, or purulent drainage. Moist oral mucosa. NECK: Trachea midline. No JVD. Supple, nontender, no meningeal signs. CARDIOVASCULAR: Regular rate and rhythm without murmurs, gallops, or rubs. RESPIRATORY: Clear to auscultation. Breath sounds equal bilaterally. No wheezes , or rhonchi. Some rales at the bases. GASTROINTESTINAL: Abdomen soft, non-tender, nondistended. No hepato-splenomegaly , or palpable masses. No guarding. SPC in place, urine looks clear MUSCULOSKELETAL: LLE: without clubbing, cyanosis, or edema. RLE singificantly shorter than LLE, has congenital absence of his R femur. No calf tenderness. NEUROLOGICAL: Awake and alert. Cranial nerves II through XII intact. Motor and sensory grossly within normal limits. Normal speech. PSYCH: Normal affect, calm and cooperative LINE: PIV with no evidence of infection Assessment & Plan Remarks IMPRESSION Bilateral infiltrates, with adenopathy on CT, presented with SOB and CP, not really complaining much of cough or congestion - infectious, inflammatory, or others Neutropenia, etiology? - ?from infection, better Dysphagia RECOMMENDATION Change to po Abx - give Ceftin and Zithromax till dec 12 May need to repeat CT chest as outpatient to further evaluate his lymphadenopathy Clinically stable from ID standpoint OK for D/C from ID standpoint Explained results of tests to patient I will sign off Reconsult if with any new ID issue or question Meagan Banda MD Dec 08, 2016 12:43
[2016-12-08] MEDS ORDERED: DO NOT ADM ANY ANTICOAGULANT DRUGS XX PRN (18:30)
[2016-12-08] MEDS: CEFUROXIME AXETIL 500 MG TAB PO SCH (21:26)
[2016-12-09] VITALS: BP 138/80; PULSE 88; RESP 20; TEMP 97.8; O2SAT 95
[2016-12-09] MEDS: LEVOTHYROXINE SODIUM 125 MCG TAB PO SCH (05:42)
[2016-12-09 08:00] VITALS: BP 153/89; PULSE 78; RESP 16; TEMP 96.7; O2SAT 95
[2016-12-09] MEDS: CEFUROXIME AXETIL 500 MG TAB PO SCH (08:09)
[2016-12-09] MEDS: ASPIRIN EC 81 MG TABEC PO SCH (08:09)
[2016-12-09] MEDS: AZITHROMYCIN 250 MG TAB PO SCH (08:09)
[2016-12-09] MEDS: guaiFENesin E.R. 600 MG TAB PO SCH (08:09)
[2016-12-09] MEDS: PRAVASTATIN SOD 40 MG TAB PO SCH (08:09)
[2016-12-09] MEDS: hydrALAZINE HCL 50 MG TAB PO SCH (08:09)
[2016-12-09] MEDS: BUDESONIDE-FORMOTEROL 160/4.5 MCG INHALER INH SCH (08:12)
[2016-12-09] MEDS: SODIUM CHLORIDE 0.9% FLUSH 5 ML FLUSH FLUSH SCH (08:13)
[2016-12-09] MEDS ORDERED: PANTOPRAZOLE SOD 40 MG DELAYED RELEASE TAB PO SCH ×3 (09:00→10:00)
--- NOTE | 2016-12-09 09:12 | HHI.PR ---
Subjective Remarks patient feeling better swallowing much better Objective Vitals Vital Signs Date Time Temp Pulse Resp B/P Pulse Ox O2 Delivery O2 Flow Rate FiO2 12/09/16 08:00 96.7 78 16 153/89 95 12/09/16 00:00 97.8 88 20 138/80 95 12/08/16 21:25 73 12/08/16 20:00 98.4 100 20 136/86 94 12/08/16 19:52 97 21 12/08/16 16:10 96.4 83 20 104/65 97 12/08/16 12:54 96.1 84 20 143/97 96 12/08/16 10:05 77 16 131/73 96 12/08/16 09:55 82 16 121/73 95 12/08/16 09:46 97.4 82 16 114/66 95 12/08/16 09:11 96.0 70 20 138/79 98 I/O 12/08/16 12/08/16 12/08/16 12/09/16 12/09/16 12/09/16 07:00 15:00 23:00 07:00 15:00 23:00 Intake Total 0 ml 500 ml 1200 ml 360 ml Output Total 550 ml 1300 ml 950 ml Balance -550 ml 500 ml -100 ml -590 ml Intake Oral 0 ml 1200 ml 360 ml IV Total 0 ml 0 ml 0 ml Other 500 ml Output Urine Total 550 ml 1300 ml 950 ml # Bowel Movements 0 0 0 Result Diagram: 12/08/16 0526 12/07/16 0550 Imaging Last Impressions Chest X-Ray 12/07/16 0000 Signed Impressions: Service Date/Time: Wednesday, December 07, 2016 11:41 - CONCLUSION: No acute cardiopulmonary disease demonstrated radiographically. Tavon Correa MD Abdomen/Pelvis CT 12/07/16 0000 Signed Impressions: Service Date/Time: Wednesday, December 07, 2016 14:54 - CONCLUSION: 1. A suprapubic bladder catheter is present. The bladder contains multiple small stones but there is no gallbladder wall thickening or inflammatory change appreciated. 2. Severe atherosclerotic disease with ectatic aorta and mildly aneurysmal left common iliac artery measuring 17 mm. 3. There are small bilateral pleural effusions and there is trace perisplenic free fluid from uncertain etiology. Tavon Mathew MD CT Angiography 12/03/16 0000 Signed Impressions: Service Date/Time: Saturday, December 03, 2016 19:09 - CONCLUSION: 1. Bilateral consolidation and small effusions with mediastinal and hilar lymphadenopathy. 2. Atherosclerotic disease. 3. No evidence for pulmonary embolism. Alex Bonilla MD Objective Remarks awake and alert, NAD throat no exudates no lymphadenopathy lungs clear, no rales, or wheezes regular rhythm abdomen soft, nontender suprapubic catheter in place - changed here 2 days ago extremities no edema, no calf swelling, right LE shorter c/w left Procedures EGD- gastritis, duodenitis, dilatation of esophageal ring Urinary Catheter: Yes Assessment to: Continue Date of Insertion: Dec 07, 2016 A/P Problem List: (1) PNA (pneumonia) ICD Code: J18.9 Status: Acute (2) Chest pain ICD Code: R07.9 Status: Acute (3) Renal insufficiency ICD Code: N28.9 Status: Acute (4) UTI (urinary tract infection) ICD Code: N39.0 Status: Acute (5) Tobacco abuse ICD Code: Z72.0 Status: Acute Assessment and Plan 1. Pneumonia: lungs clear on exam.CTA shows no evidence of PE, but does show bilateral consolidation and small effusions with mediastinal/hilar lymphadenopathy. Ceftin 500 mg po tid till 12/03 Zithromax till 12/12 Blood cultures are negative so far. 2. Chest pain: Pleuritic. - resolved. no further complainstLikely secondary to pneumonia. Cardiac enzymes are negative.Non cardiac. secondary to GI etio DC ASA. DC statins. 3. Acute on chronic Chronic kidney disease stage III: Monitor BUN and creatinine.- renal functions improve, non oliguric 4. Pyuria .. Urine culture is negative. History of chronic urinary retention- SC changed 12/07. . Nursing to instruct patient on how to do it- ff by Urology- Dr. Vaughan as OP 5. Tobacco abuse: Counseled to quit smoking. 6. DVT prophylaxis: SCDs, DOMITILA hose. 7. Cervical lymphadenopathy: Improved. Continue Decadron course- completed 12/07 8. Leukopenia Improved- 12/08 - normal 9. S/P EGD with dilatation of esophageal ring 12/08 for Dysphagia, esophagitis, duodenitis- advised to chew food fully Protonix 40 mg po bid ff up with Dr. mckee in 2-3 weeks as OP no NSAIDS DC home today Ff up adn set up with a PCP FF up with GI in 2-3 weeks FF up with his urologist- Dr. Vaughan as OP Problem Qualifiers (1) UTI (urinary tract infection): Qualified Code: T83.511D - Urinary tract infection associated with catheterization of urinary tract, unspecified indwelling urinary catheter type, subsequent encounter Missy Hall MD Dec 09, 2016 09:12
[2016-12-09] MEDS ORDERED: PANT40TA3 PO (09:17)
[2016-12-09] MEDS ORDERED: ASPI81TA11 PO (09:17)
[2016-12-09] MEDS ORDERED: PRAV40TA PO (09:17)
[2016-12-09] MEDS ORDERED: SYMB160A INH (09:17)
[2016-12-09] MEDS ORDERED: ZITH250T PO (09:17)
--- NOTE | 2016-12-09 09:27 | HHI.DS ---
Discharge Summary Admission Date Dec 03, 2016 at 21:06 Discharge Date: Dec 09, 2016 Admitting Diagnosis pneumonia, UTI (1) PNA (pneumonia) ICD Code: J18.9 Diagnosis: Principal (2) Esophageal ring ICD Code: K22.2 Diagnosis: Principal (3) Chest pain ICD Code: R07.9 Diagnosis: Secondary (4) Renal insufficiency ICD Code: N28.9 Diagnosis: Secondary (5) UTI (urinary tract infection) ICD Code: N39.0 Diagnosis: Secondary (6) Tobacco abuse ICD Code: Z72.0 Diagnosis: Secondary Procedures EGD- gastritis, duodenitis, dilatation of esophageal ring Brief History - From Admission This is a 66-year-old male with a PMH of HTN and Hypothyroidism who was brought to the ER by EMS for complaints of chest pain. Per pt, pain started earlier this morning and has been intermittent throughout the day, worse w/ breathing. S/p 2 NTG by EMS w/ some improvement. Denies fever, chills or SOB. Does note he is currently on Nitrofurantoin for UTI. On arrival, BP 150/71, HR 98, O2 sat 94% on RA, Afebrile. WBC normal, elevated neutrophil count. Creatinine 1.59, previously 1.51 on 09/18/15. Lactic Acid normal. D-dimer 3.96. Troponin negative. EKG w/ no acute ischemia. UA positive for UTI. CXR with basilar atelectasis. CTA Pulm negative for PE, bilateral consolidation small effusion and mediastinal/hilar lymphadenopathy. S/p Blood/Urine cultures in ER , in addition to IV Rocephin/Zithro. CBC/BMP: 12/08/16 0526 12/07/16 0550 Significant Findings Laboratory Tests Test 12/07/16 12/07/16 12/08/16 05:50 11:20 05:26 White Blood Count 3.9 TH/MM3 (4.0-11.0) Red Blood Count 4.12 MIL/MM3 4.02 MIL/MM3 (4.50-5.90) (4.50-5.90) Hemoglobin 12.1 GM/DL 11.7 GM/DL (13.0-17.0) (13.0-17.0) Hematocrit 34.9 % 33.9 % (39.0-51.0) (39.0-51.0) Neutrophils % (Manual) 88 % (16-70) Lymphocytes % 8 % (9-44) [place] Cells 1+ (NORMAL) Sodium Level 134 MEQ/L (136-145) Blood Urea Nitrogen 24 MG/DL (7-18) Estimat Glomerular Filtration 73 ML/MIN (>89) Rate Random Glucose 118 MG/DL (74-106) Erythrocyte Sedimentation Rate 29 mm/hr (0-20) C-Reactive Protein 6.30 MG/DL (0.00-0.30) Monocytes (%) (Auto) 11.2 % (0.0-8.0) Imaging Last Impressions Chest X-Ray 12/07/16 Signed Impressions: Service Date/Time: Wednesday, December 07, 2016 11:41 - CONCLUSION: No acute cardiopulmonary disease demonstrated radiographically. Taovn Correa MD Abdomen/Pelvis CT 12/07/16 0000 Signed Impressions: Service Date/Time: Wednesday, December 07, 2016 14:54 - CONCLUSION: 1. A suprapubic bladder catheter is present. The bladder contains multiple small stones but there is no gallbladder wall thickening or inflammatory change appreciated. 2. Severe atherosclerotic disease with ectatic aorta and mildly aneurysmal left common iliac artery measuring 17 mm. 3. There are small bilateral pleural effusions and there is trace perisplenic free fluid from uncertain etiology. Tavon Mathew MD CT Angiography 12/03/16 Signed Impressions: Service Date/Time: Saturday, December 03, 2016 19:09 - CONCLUSION: 1. Bilateral consolidation and small effusions with mediastinal and hilar lymphadenopathy. 2. Atherosclerotic disease. 3. No evidence for pulmonary embolism. Alex Bonilla MD PE at Discharge awake and alert, NAD throat no exudates no lymphadenopathy lungs clear, no rales, or wheezes regular rhythm abdomen soft, nontender suprapubic catheter in place - changed here 2 days ago extremities no edema, no calf swelling, right LE shorter c/w left Pt update on day of discharge afebrile swallowing improved lungs clear Hospital Course 1. Pneumonia: lungs clear on exam.CTA shows no evidence of PE, but does show bilateral consolidation and small effusions with mediastinal/hilar lymphadenopathy. Ceftin 500 mg po tid till 12/03 Zithromax till 12/12 Blood cultures are negative so far. 2. Chest pain: Pleuritic. - resolved. no further complainstLikely secondary to pneumonia. Cardiac enzymes are negative.Non cardiac. secondary to GI etio DC ASA. DC statins. 3. Acute on chronic Chronic kidney disease stage III: Monitor BUN and creatinine.- renal functions improve, non oliguric 4. Pyuria .. Urine culture is negative. History of chronic urinary retention- SC changed 12/07. . Nursing to instruct patient on how to do it- ff by Urology- Dr. Vaughan as OP 5. Tobacco abuse: Counseled to quit smoking. 6. DVT prophylaxis: SCDjimi, DOMITILA bird. 7. Cervical lymphadenopathy: Improved. Continue Decadron course- completed 12/07 8. Leukopenia Improved- 12/08 - normal 9. S/P EGD with dilatation of esophageal ring 12/08 for Dysphagia, esophagitis, duodenitis- advised to chew food fully Protonix 40 mg po bid ff up with Dr. mckee in 2-3 weeks as OP no NSAIDS 10. Hypothyroidism- continue on synthoid. OP ff up DC home today Ff up adn set up with a PCP FF up with GI in 2-3 weeks FF up with his urologist- Dr. Vaughan as OP Pt Condition on Discharge: Stable Discharge Disposition: Discharge Home Discharge Time: <= 30 minutes Discharge Instructions DIET: Follow Instructions for: As Tolerated, No Restrictions Speech Therapy-Diet Recommends: Regular, Soft Additional Diet Instructions: advise patient to chew food very well no NSAIDS Activities you can perform: Weight Bearing as Judy Follow up Referrals: Gastroenterology - 2 Weeks with [facility] PCP Follow-up - 12/14/16 with [facility] Urology with Layton Vaughan MD New Orders: LIPID PROFILE - 12/13/16 New Medications: Azithromycin (Zithromax) 250 Mg Tab 500 MG PO DAILY PNA Days 3 Ref 0 TAB Budesonide-Formoterol Inh (Symbicort Inh) 160-4.5 Mcg/Act Aero 2 PUFF INH Q12HR COPD Days 30 INHALER Pantoprazole (Pantoprazole) 40 Mg Tab 40 MG PO BID GI Days 30 TAB Continued Medications: Hydralazine (Hydralazine) 50 Mg Tab 50 MG PO TID Take with a meal Blood Pressure Management Ref 0 TAB Levothyroxine (Levothyroxine) 125 Mcg Tab 125 MCG PO DAILY Thyroid #30 Ref 0 TAB Discontinued Medications: Ibuprofen (Ibuprofen) 800 Mg Tab 800 MG PO Q8H PRN joint pain #90 Ref 0 TAB Nitrofurantoin Monohydrate Macrocrystals (Nitrofurantoin Monohydrate Macrocrystals) 100 Mg Cap 100 MG PO BID Infection Ref 0 CAP Missy Hall MD Dec 09, 2016 09:27
[2016-12-09] MEDS ORDERED: CEFT500T3 PO (09:28)
== END 2016-12-09 10:21 | disposition home or self-care (01) | DRG 194 ==
LOC: NEPE 17:27 → NEDA 21:06 → N07B 12-04 00:28
PROVIDERS: ADMIT Internal Medicine; ATTEND Internal Medicine
PROC: 0DB68ZX Excision of Stomach, Via Natural or Artificial Opening Endoscopic, Diagnostic (ICD-10-PCS; principal; 2016-12-08 09:15)
DX: J18.9 Pneumonia, unspecified organism (principal); N39.0 Urinary tract infection, site not specified; I12.9 Hypertensive chronic kidney disease with stage 1 through stage 4 chronic kidney disease, or unspecified chronic kidney disease; N18.3 Chronic kidney disease, stage 3 (moderate); N28.9 Disorder of kidney and ureter, unspecified; Z90.5 Acquired absence of kidney; R33.9 Retention of urine, unspecified; Z93.59 Other cystostomy status; F17.210 Nicotine dependence, cigarettes, uncomplicated; E03.9 Hypothyroidism, unspecified; K22.2 Esophageal obstruction; K29.70 Gastritis, unspecified, without bleeding; K29.80 Duodenitis without bleeding; Q74.2 Other congenital malformations of lower limb(s), including pelvic girdle; R59.0 Localized enlarged lymph nodes
CPT/HCPCS: 71010; 71020; 71275; 74177; 80048; 80053; 81001; 82550; 83605; 83735; 84484; 85007; 85025; 85027; 85379; 85610; 85652; 85730; 86140; 86664; 86665; 86703; 87040; 87086; 87497; 87804; 88305; 88312; 93005; 94150; 94640; 94664; 96361; 96365; 96367; C1769; J0456; J0696; J1100; J7030; J7040; J7050; Q9963; Q9967

== ENCOUNTER 2017-09-24 18:12 | Inpatient (IN) | payer MEDICARE ==
[~2017-09-24] VITALS: Ht 175.3 cm; Wt 62.4 kg
[~2017-09-24 18:12] MED LIST changes: -AMBI10TA PO; -BACT800T5 PO; +CEFT500T3 PO; -IBUP800T23 PO; -LOTR5CAP2 PO; +PANT40TA3 PO; -PYRI200T4 PO; +SYMB160A INH; +ZITH250T PO
[2017-09-24 18:26] VITALS: BP 116/80; PULSE 89; RESP 18; O2SAT 100
[2017-09-24] MEDS ORDERED: HYDR-3801 PO (18:26)
--- NOTE | 2017-09-24 18:40 | PD ---
HPI Chief Complaint: Respiratory Symptoms Time Seen by Provider: 18:31 Travel History International Travel<30 days: No Contact w/Intl Traveler<30days: No Traveled to known affect area: No History of Present Illness HPI 67-year-old male presents to the emergency Department with complaint of intermittent chest pain for the past 5-6 days and onset of intermittent shortness of breath for the past few days. Denies chest pain at this time. His chest pain exacerbations have been lasting about 10-15 minutes. Midsternum. Reports heart palpitations. Reports cough and phlegm production. Reports pink tinged sputum. Denies fevers, vomiting, abdominal pain, recent surgeries, leg edema, history of DVT/PE. Denies anticoagulant therapy. Is also complaining of blood in his stool this morning 2. He's had a blood in his stool before with history of hemorrhoids. Denies rectal pain. Reports family history of cardiac. No known Relieving or aggravating factors. Does not have an established primary care provider. No known allergies. History of hypertension and hypothyroidism. Has no other medical complaints. No other modifying factors or associated signs and symptoms. 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") Neurologic: No Psychiatric: No Reproductive: No Respiratory: Yes (CURRENTLY BEING TX FOR PNA) Thyroid Disease: Yes Past Surgical History Genitourinary Surgery: Yes (suprapubic catheter) Tonsillectomy: Yes Other Surgery: Yes (LEFT KIDNEY REMOVED/ BACK AND NECK SURGERY) Social History Alcohol Use: No Tobacco Use: No Substance Use: No Allergies-Medications (Allergen,Severity, Reaction): Coded Allergies: No Known Allergies (Unverified , 12/03/16) Reported Meds & Prescriptions Reported Meds & Active Scripts Active Reported Hydralazine (Hydralazine HCl) 100 Mg Tab 25 Mg PO BID Take with meals Levothyroxine (Levothyroxine Sodium) 125 Mcg Tab 125 Mcg PO DAILY Review of Systems Except as stated in HPI: all other systems reviewed are Neg Physical Exam Narrative GENERAL: Well-nourished, well-developed elderly, male patient, in no acute distress; afebrile, nontoxic-appearing SKIN: Warm and dry. HEAD: Atraumatic. Normocephalic. EYES: Pupils equal and round. No scleral icterus. No injection or drainage. ENT: Mucosa pink and moist. Airway patent. NECK: Trachea midline. CARDIOVASCULAR: Regular rate and rhythm. No murmur appreciated. RESPIRATORY: No accessory muscle use. Clear to auscultation. Breath sounds equal bilaterally. GASTROINTESTINAL: Abdomen soft, non-tender, nondistended. Hepatic and splenic margins not palpable. Bowel sounds are active 4 quadrants. Negative Esparza sign. No guarding. Nonrigid. No rebound tenderness. RECTAL EXAM: Exam done in the presence of a nurse. No masses or tenderness, stool is brown. Hemaprompt negative. No visualized external hemorrhoids. MUSCULOSKELETAL: No obvious deformities. No clubbing. No cyanosis. No edema. NEUROLOGICAL: Awake and alert. Oriented 3. No obvious cranial nerve deficits. Motor grossly within normal limits. Normal speech. PSYCHIATRIC: Appropriate mood and affect; insight and judgment normal. Data Data Last Documented VS Vital Signs Date Time Temp Pulse Resp B/P (MAP) Pulse Ox O2 Delivery O2 Flow Rate FiO2 09/24/17 19:32 99 Nasal Cannula 2.00 09/24/17 19:28 98.2 84 20 119/83 (95) Orders Orders Electrocardiogram (09/24/17 18:41) Basic Metabolic Panel (Bmp) (09/24/17 18:41) B-Type Natriuretic Peptide (09/24/17 18:41) Ckmb (Isoenzyme) Profile (09/24/17 18:41) Complete Blood Count With Diff (09/24/17 18:41) Magnesium (Mg) (09/24/17 18:41) Prothrombin Time / Inr (Pt) (09/24/17 18:41) Act Partial Throm Time (Ptt) (09/24/17 18:41) Troponin I (09/24/17 18:41) Chest, Single Ap (09/24/17 18:41) Ecg Monitoring (09/24/17 18:41) Iv Access Insert/Monitor (09/24/17 18:41) Oximetry (09/24/17 18:41) Oxygen Administration (09/24/17 18:41) Sodium Chloride 0.9% Flush (Ns Flush) (09/24/17 18:45) D-Dimer (09/24/17 19:44) Heparin Inj (Heparin Inj) (09/24/17 20:45) Heparin-D5w 25,000 U/250 Ml (Heparin-D5w (09/24/17 20:45) Act Partial Throm Time (Ptt) (09/24/17 20:35) Cbc No Diff, Includes Plts (09/27/17 06:00) Act Partial Throm Time (Ptt) (09/25/17 03:35) Occult Blood (Hemoccult) Stool (09/24/17 20:35) Admit Order (Ed Use Only) (09/24/17 20:36) Labs Laboratory Tests Test 09/24/17 18:40 09/24/17 20:15 White Blood Count 4.0 TH/MM3 Red Blood Count 3.71 MIL/MM3 Hemoglobin 10.1 GM/DL Hematocrit 29.6 % Mean Corpuscular Volume 79.9 FL Mean Corpuscular Hemoglobin 27.2 PG Mean Corpuscular Hemoglobin Concent 34.1 % Red Cell Distribution Width 16.4 % Platelet Count 269 TH/MM3 Mean Platelet Volume 9.0 FL Neutrophils (%) (Auto) 75.0 % Lymphocytes (%) (Auto) 17.3 % Monocytes (%) (Auto) 3.5 % Eosinophils (%) (Auto) 3.7 % Basophils (%) (Auto) 0.5 % Neutrophils # (Auto) 3.0 TH/MM3 Lymphocytes # (Auto) 0.7 TH/MM3 Monocytes # (Auto) 0.1 TH/MM3 Eosinophils # (Auto) 0.1 TH/MM3 Basophils # (Auto) 0.0 TH/MM3 CBC Comment DIFF FINAL Differential Comment Prothrombin Time 11.4 SEC Prothromb Time International Ratio 1.1 RATIO Activated Partial Thromboplast Time 38.6 SEC Blood Urea Nitrogen 22 MG/DL Creatinine 1.21 MG/DL Random Glucose 95 MG/DL Calcium Level 8.1 MG/DL Magnesium Level 2.0 MG/DL Sodium Level 136 MEQ/L Potassium Level 4.6 MEQ/L Chloride Level 105 MEQ/L Carbon Dioxide Level 23.0 MEQ/L Anion Gap 8 MEQ/L Estimat Glomerular Filtration Rate 60 ML/MIN Total Creatine Kinase 46 U/L Troponin I 0.21 NG/ML MDM Medical Decision Making Medical Screen Exam Complete: Yes Emergency Medical Condition: Yes Medical Record Reviewed: Yes Differential Diagnosis PR, CAD, ACS, PE, CHF Narrative Course 67-year-old male presents with intermittent chest pain 5-6 days, shortness of breath for the past few days and blood in his stool this morning. Abdominal exam is unremarkable and he denies abdominal pain. 1925: Hemaprompt negative. 2019: Chest x-ray concludes: Chest X-Ray 09/24/17 1841 Signed Impressions: Service Date/Time: Sunday, September 24, 2017 19:02 - CONCLUSION: Constellation of findings suggesting cardiogenic pulmonary edema. Small left pleural effusion. Willy Avery MD CBC unremarkable. APTT 38.6, otherwise coags unremarkable. Troponin 0.21. Dr. Ash reviewed the labs, x-ray, evaluated the patient and recommended admission and start Lovenox. Dr Sifuentes is medical professionals. Call placed to [facility] for admission. 2037: I spoke with NOLVIA Ernandez and report given for patient admission. Lovenox cancelled; Dr. Gray will order heparin drip. Physician Communication Physician Communication NOLVIA Ernandez Diagnosis Primary Impression: NSTEMI (non-ST elevated myocardial infarction) Additional Impression: CHF (congestive heart failure) Qualified Codes: I50.9 - Heart failure, unspecified Admitting Information Admitting Physician Requests: Admit Adore Rizvi Sep 24, 2017 18:40
[2017-09-24] MEDS ORDERED: SODIUM CHLORIDE 0.9% FLUSH 10 ML FLUSH IVF PRN (18:45)
[2017-09-24 18:55] VITALS: RESP 20; O2SAT 97
[2017-09-24 19:28] VITALS: BP 119/83; PULSE 84; RESP 20; TEMP 98.2; O2SAT 100
[2017-09-24 19:42] LABS: CALCIUM 8.1 MG/DL (8.5-10.1); CREATININE 1.21 MG/DL (0.60-1.30)
--- NOTE | 2017-09-24 19:44 | RADRPT ---
EXAM DATE/TIME: 09/24/2017 19:02 [facility] COMPARISON: CHEST SINGLE AP, December 03, 2016, 17:58. INDICATIONS : Short of breath. MEDICAL HISTORY : Hypertension. SURGICAL HISTORY : None. ENCOUNTER: Initial ACUITY: 1 day PAIN SCORE: 0/10 LOCATION: Bilateral chest FINDINGS: 2 AP views of the chest. New severe bilateral interstitial and hazy pulmonary opacity with mid to low er lung zone predominance as well as new central pulmonary vasculature prominence. Mild cardiac silho uette enlargement. Small left pleural effusion. CONCLUSION: Constellation of findings suggesting cardiogenic pulmonary edema. Small left pleural effusion. Willy Avery MD on September 24, 2017 at 19:41 Board Certified Radiologist. This report was verified electronically.
[2017-09-24 19:45] LABS: BASOPHIL % 0.5 % (0.0-2.0); EOSINOPHIL # 0.1 TH/MM3 (0-0.4); EOSINOPHIL % 3.7 % (0.0-4.0); HEMATOCRIT 29.6 % (39.0-51.0); HEMOGLOBIN 10.1 GM/DL (13.0-17.0); LYMPH % 17.3 % (9.0-44.0); LYMPHOCYTE # 0.7 TH/MM3 (1.0-4.8); MEAN CELL VOLUME 79.9 FL (80.0-100.0); MEAN CORPUSCULAR HEMOGLOBIN 27.2 PG (27.0-34.0); MEAN CORPUSCULAR HGB CONC 34.1 % (32.0-36.0); MONO % 3.5 % (0.0-8.0); MONOCYTE # 0.1 TH/MM3 (0-0.9); PLATELET COUNT 269 TH/MM3 (150-450); RED BLOOD COUNT 3.71 MIL/MM3 (4.50-5.90); RED CELL DISTRIBUTION WIDTH 16.4 % (11.6-17.2)
[2017-09-24 19:46] LABS: TROPONIN I 0.21 NG/ML (0.02-0.05)
[2017-09-24 20:03] LABS: INTERNATIONAL NORMALIZED RATIO 1.1 RATIO; PROTHROMBIN TIME - PATIENT 11.4 SEC (9.8-11.6)
--- NOTE | 2017-09-24 20:27 | PD ---
Data Data Last Documented VS Vital Signs Date Time Temp Pulse Resp B/P (MAP) Pulse Ox O2 Delivery O2 Flow Rate FiO2 09/24/17 19:32 99 Nasal Cannula 2.00 09/24/17 19:28 84 20 119/83 (95) Orders Orders Electrocardiogram (09/24/17 18:41) Basic Metabolic Panel (Bmp) (09/24/17 18:41) B-Type Natriuretic Peptide (09/24/17 18:41) Ckmb (Isoenzyme) Profile (09/24/17 18:41) Complete Blood Count With Diff (09/24/17 18:41) Magnesium (Mg) (09/24/17 18:41) Prothrombin Time / Inr (Pt) (09/24/17 18:41) Act Partial Throm Time (Ptt) (09/24/17 18:41) Troponin I (09/24/17 18:41) Chest, Single Ap (09/24/17 18:41) Ecg Monitoring (09/24/17 18:41) Iv Access Insert/Monitor (09/24/17 18:41) Oximetry (09/24/17 18:41) Oxygen Administration (09/24/17 18:41) Sodium Chloride 0.9% Flush (Ns Flush) (09/24/17 18:45) D-Dimer (09/24/17 19:44) Labs Laboratory Tests Test 09/24/17 18:40 White Blood Count 4.0 TH/MM3 Red Blood Count 3.71 MIL/MM3 Hemoglobin 10.1 GM/DL Hematocrit 29.6 % Mean Corpuscular Volume 79.9 FL Mean Corpuscular Hemoglobin 27.2 PG Mean Corpuscular Hemoglobin Concent 34.1 % Red Cell Distribution Width 16.4 % Platelet Count 269 TH/MM3 Mean Platelet Volume 9.0 FL Neutrophils (%) (Auto) 75.0 % Lymphocytes (%) (Auto) 17.3 % Monocytes (%) (Auto) 3.5 % Eosinophils (%) (Auto) 3.7 % Basophils (%) (Auto) 0.5 % Neutrophils # (Auto) 3.0 TH/MM3 Lymphocytes # (Auto) 0.7 TH/MM3 Monocytes # (Auto) 0.1 TH/MM3 Eosinophils # (Auto) 0.1 TH/MM3 Basophils # (Auto) 0.0 TH/MM3 CBC Comment DIFF FINAL Differential Comment Prothrombin Time 11.4 SEC Prothromb Time International Ratio 1.1 RATIO Activated Partial Thromboplast Time 38.6 SEC Blood Urea Nitrogen 22 MG/DL Creatinine 1.21 MG/DL Random Glucose 95 MG/DL Calcium Level 8.1 MG/DL Magnesium Level 2.0 MG/DL Sodium Level 136 MEQ/L Potassium Level 4.6 MEQ/L Chloride Level 105 MEQ/L Carbon Dioxide Level 23.0 MEQ/L Anion Gap 8 MEQ/L Estimat Glomerular Filtration Rate 60 ML/MIN Total Creatine Kinase 46 U/L Troponin I 0.21 NG/ML MDM Supervised Visit with CYN: Yes Narrative Course The history, exam, and medical decision-making in the associated midlevel provider note were completed with my assistance. I reviewed and agree with the findings presented. I attest that I had a [id number] encounter with the patient on the same day, and personally performed and documented my assessment and findings in the medical record. *My assessment and Findings: This is a 67-year-old male who presents to the emergency department with intermittent chest discomfort that's been going on for 1 week associated with worsening shortness of breath and orthopnea. EKG demonstrates some anterior and lateral T-wave inversions. Troponin is 0.21. Patient has evidence of congestive heart failure on chest x-ray. He denies any recent long trips or risk factors for pulmonary embolism. Patient will be admitted for and treated for likely nSTEMI, and he was started on Lovenox. Dr. Dang is his laser beam cutter. Sandra Ash MD Sep 24, 2017 20:27
[2017-09-24] MEDS ORDERED: ENOXAPARIN SODIUM 80 MG/0.8 ML SYRINGE SQ ONE (20:30)
[2017-09-24] MEDS ORDERED: ACETAMINOPHEN 500 MG CPLT PO PRN (21:00)
[2017-09-24] MEDS: SODIUM CHLORIDE 0.9% FLUSH 10 ML FLUSH IV FLUSH SCH ×2 (21:00→22:09)
[2017-09-24] MEDS: hydrALAZINE HCL 25 MG TAB PO SCH (21:00)
[2017-09-24] MEDS ORDERED: NITROGLYCERIN 0.4 MG SL 25 TABS/BTL SL PRN (21:00)
[2017-09-24] MEDS ORDERED: MORPHINE SULFATE 2 MG/ML INJ IV PUSH PRN (21:00)
[2017-09-24] MEDS ORDERED: ACETAMINOPHEN/HYDROcodone 325 MG/7.5 MG TAB PO PRN (21:00)
[2017-09-24] MEDS ORDERED: SODIUM CHLORIDE 0.9% FLUSH 10 ML FLUSH IV FLUSH PRN (21:00)
[2017-09-24] MEDS ORDERED: FUROSEMIDE 40 MG/4 ML VIAL IV PUSH ONE (21:15)
--- NOTE | 2017-09-24 21:20 | HHI.HP ---
[facility] Service [place] [facility] Primary Care Physician No Primary Care Physician Admission Diagnosis NSTEMI, CHF Diagnoses: Travel History International Travel<30 Days: No Contact w/Intl Traveler <30 Da: No Traveled to Known Affected Are: No History of Present Illness 67-year-old male with a past medical history significant for hypertension and hypothyroidism presents to the emergency department with a two-week history of chest pain. The patient describes the pain as intermittent, substernal and nonradiating. He endorses shortness of breath that started 1 week ago. Positive for heart palpitations. Denies any lower extremity edema. Troponin elevated at 0.21. EKG significant for T-wave inversions in leads I, AVL, V1 and V4, new from previous. No ST segment elevation/depression. Chest x-ray significant for pulmonary edema with a small left pleural effusion. [employer] Helper is Dr. Dang. Review of Systems Denies fever or chills Denies blurry vision, otorrhea, rhinorrhea Denies sore throat and cough Positive chest pain, palpitations, shortness of breath No abdominal pain Denies constipation/diarrhea/nausea/vomiting Denies muscle pain/weakness No rashes Past Family Social History Past Medical History Hypertension Hypothyroidism Past Surgical History Left nephrectomy in 2007, patient is not sure why he had this done Back surgery Neck surgery 2 Tonsillectomy Reported Medications Reported Meds & Active Scripts Active Reported Hydralazine (Hydralazine HCl) 100 Mg Tab 25 Mg PO BID Take with meals Levothyroxine (Levothyroxine Sodium) 125 Mcg Tab 125 Mcg PO DAILY Allergies: Coded Allergies: No Known Allergies (Unverified , 12/03/16) Family History Father with diabetes. Mother with CAD. Social History [id number] history of smoking, quit in November of this year. Rare alcohol use. Denies illicit drugs. Physical Exam Vital Signs Vital Signs Date Time Temp Pulse Resp B/P (MAP) Pulse Ox O2 Delivery O2 Flow Rate FiO2 09/24/17 19:32 99 Nasal Cannula 2.00 09/24/17 19:28 98.2 84 20 119/83 (95) 100 Nasal Cannula 09/24/17 18:55 20 97 Nasal Cannula 2.00 09/24/17 18:55 97 Room Air 2.00 09/24/17 18:28 18 100 Nasal Cannula 2.00 09/24/17 18:26 89 18 116/80 (92) 100 Nasal Cannula 2.00 Physical Exam GENERAL: male sitting up in bed SKIN: No rashes, ecchymoses or lesions. Cool and dry. HEAD: Atraumatic. Normocephalic. No temporal or scalp tenderness. EYES: Pupils equal round and reactive. Extraocular motions intact. No scleral icterus. No injection or drainage. ENT: Nose without bleeding, purulent drainage or septal hematoma. Throat without erythema, tonsillar hypertrophy or exudate. Uvula midline. Airway patent. NECK: Trachea midline. No JVD or lymphadenopathy. Supple, nontender, no meningeal signs. CARDIOVASCULAR: Regular rate and rhythm without murmurs, gallops, or rubs. RESPIRATORY: Bilateral crackles in the bases. No wheezes, rales, or rhonchi. GASTROINTESTINAL: Abdomen soft, non-tender, nondistended. No hepato-splenomegaly , or palpable masses. No guarding. MUSCULOSKELETAL: Extremities without clubbing, cyanosis, or edema. No joint tenderness, effusion, or edema noted. No calf tenderness. NEUROLOGICAL: Awake and alert. Cranial nerves II through XII intact. Motor and sensory grossly within normal limits. Normal speech. Laboratory Laboratory Tests Test 09/24/17 18:40 09/24/17 20:15 White Blood Count 4.0 Red Blood Count 3.71 Hemoglobin 10.1 Hematocrit 29.6 Mean Corpuscular Volume 79.9 Mean Corpuscular Hemoglobin 27.2 Mean Corpuscular Hemoglobin Concent 34.1 Red Cell Distribution Width 16.4 Platelet Count 269 Mean Platelet Volume 9.0 Neutrophils (%) (Auto) 75.0 Lymphocytes (%) (Auto) 17.3 Monocytes (%) (Auto) 3.5 Eosinophils (%) (Auto) 3.7 Basophils (%) (Auto) 0.5 Neutrophils # (Auto) 3.0 Lymphocytes # (Auto) 0.7 Monocytes # (Auto) 0.1 Eosinophils # (Auto) 0.1 Basophils # (Auto) 0.0 CBC Comment DIFF FINAL Differential Comment Prothrombin Time 11.4 Prothromb Time International Ratio 1.1 Activated Partial Thromboplast Time 38.6 Blood Urea Nitrogen 22 Creatinine 1.21 Random Glucose 95 Calcium Level 8.1 Magnesium Level 2.0 Sodium Level 136 Potassium Level 4.6 Chloride Level 105 Carbon Dioxide Level 23.0 Anion Gap 8 Estimat Glomerular Filtration Rate 60 Total Creatine Kinase 46 Troponin I 0.21 B-Type Natriuretic Peptide 1267 Result Diagram: 09/24/17183909/24/171839 Caprini VTE Risk Assessment Caprini VTE Risk Assessment: Mod/High Risk (score >= 2) Caprini Risk Assessment Model Point Value = 1 Point Value = 2 Point Value = 3 Point Value = 5 Age 41-60 Minor surgery BMI > 25 kg/m2 Swollen legs Varicose veins or History of unexplained or recurrent spontaneous Oral contraceptives or hormone replacement Sepsis (< 1 month) Serious lung disease, including pneumonia (< 1 month) Abnormal pulmonary function Acute myocardial infarction Congestive heart failure (< 1 month) History of inflammatory bowel disease Medical patient at bed rest Age 61-74 Arthroscopic surgery Major open surgery (> 45 min) Laparoscopic surgery (> 45 min) Malignancy Confined to bed (> 72 hours) Immobilizing plaster cast Central venous access Age >= 75 History of VTE Family history of VTE Factor V Leiden Prothrombin [id number] Lupus anticoagulant Anticardiolipin antibodies Elevated serum homocysteine Heparin-induced thrombocytopenia Other congenital or acquired thrombophilia Stroke (< 1 month) Elective arthroplasty Hip, pelvis, or leg fracture Acute spinal cord injury (< 1 month) Prophylaxis Regimen Total Risk Factor Score Risk Level Prophylaxis Regimen 0-1 Low Early ambulation 2 Moderate Order ONE of the following: *Sequential Compression Device (SCD) *Heparin 5000 units SQ BID 3-4 Higher Order ONE of the following medications: *Heparin 5000 units SQ TID *Enoxaparin/Lovenox 40 mg SQ daily (WT < 150 kg, CrCl > 30 mL/min) *Enoxaparin/Lovenox 30 mg SQ daily (WT < 150 kg, CrCl > 10-29 mL/min) *Enoxaparin/Lovenox 30 mg SQ BID (WT < 150 kg, CrCl > 30 mL/min) AND/OR *Sequential Compression Device (SCD) 5 or more Highest Order ONE of the following medications: *Heparin 5000 units SQ TID (Preferred with Epidurals) *Enoxaparin/Lovenox 40 mg SQ daily (WT < 150 kg, CrCl > 30 mL/min) *Enoxaparin/Lovenox 30 mg SQ daily (WT < 150 kg, CrCl > 10-29 mL/min) *Enoxaparin/Lovenox 30 mg SQ BID (WT < 150 kg, CrCl > 30 mL/min) AND *Sequential Compression Device (SCD) Assessment and Plan Assessment and Plan Assessment/plan: 1. NSTEMI Troponin elevated at 0.21 EKG showed T-wave inversions in I, aVL, V1 and V4, reviewed by me Heparin drip Serial troponins/EKGs Cardiology consulted, appreciate recommendations 2. CHF Patient with no known history of CHF Chest x-ray significant for pulmonary edema with small left pleural effusion IV Lasix Echo pending 3. Hypertension Continue home hydralazine 4. Hypothyroidism Continue home Synthroid FEN NPO Electrolytes: Monitor and replete when necessary Heparin ggt Physician Certification 2 Midnight Certification Type: Admission for Inpatient Services Order for Inpatient Services The services are ordered in accordance with Medicare regulations or non- Medicare payer requirements, as applicable. In the case of services not specified as inpatient-only, they are appropriately provided as inpatient services in accordance with the 2-midnight benchmark. Estimated LOS (days): 2 2 days is the estimated time the patient will need to remain in the hospital, assuming treatment plan goals are met and no additional complications. Post-Hospital Plan: Not yet determined Madina Gray MD Sep 24, 2017 21:19
[2017-09-24 21:25] VITALS: BP 121/85; PULSE 96; RESP 20; TEMP 98.1; O2SAT 99
[2017-09-24] MEDS ORDERED: HEPARIN SODIUM - IV 10,000 UNITS/10 ML VIAL IV PUSH ONE (21:30)
[2017-09-24] MEDS: HEPARIN-D5W 25,000 U/250 ML 250 ML IV PRN (23:05)
[2017-09-24 23:40] VITALS: PULSE 102
[2017-09-25] VITALS (20 sets, daily range): BP systolic 105–126; BP diastolic 65–81; PULSE 73–94; RESP 18–20; TEMP 98.4–98.8; O2SAT 96–98
[2017-09-25 01:14] LABS: TROPONIN I 0.24 NG/ML (0.02-0.05)
[2017-09-25 04:14] LABS: AUTOMATED NEUTROPHIL # 2.6 TH/MM3 (1.8-7.7); BASOPHIL % 0.7 % (0.0-2.0); EOSINOPHIL # 0.1 TH/MM3 (0-0.4); EOSINOPHIL % 3.1 % (0.0-4.0); HEMATOCRIT 30.2 % (39.0-51.0); HEMOGLOBIN 10.3 GM/DL (13.0-17.0); LYMPH % 16.7 % (9.0-44.0); LYMPHOCYTE # 0.6 TH/MM3 (1.0-4.8); MEAN CELL VOLUME 79.2 FL (80.0-100.0); MEAN CORPUSCULAR HGB CONC 34.1 % (32.0-36.0); MEAN PLATELET VOLUME 8.2 FL (7.0-11.0); MONO % 3.3 % (0.0-8.0); MONOCYTE # 0.1 TH/MM3 (0-0.9); NEUT % 76.2 % (16.0-70.0); PLATELET COUNT 301 TH/MM3 (150-450); RED BLOOD COUNT 3.82 MIL/MM3 (4.50-5.90); RED CELL DISTRIBUTION WIDTH 16.6 % (11.6-17.2); WHITE BLOOD COUNT 3.4 TH/MM3 (4.0-11.0)
[2017-09-25 04:44] LABS: BICARBONATE 21.6 MEQ/L (21.0-32.0); CALCIUM 8.2 MG/DL (8.5-10.1); CREATININE 1.24 MG/DL (0.60-1.30)
[2017-09-25 04:48] LABS: TROPONIN I 0.26 NG/ML (0.02-0.05)
[2017-09-25] MEDS: LEVOTHYROXINE SODIUM 125 MCG TAB PO SCH (06:02)
--- NOTE | 2017-09-25 07:29 | EKG ---
Date Performed: 09/24/2017 Time Performed: 18:32:36 PTAGE: 67 years EKG: Sinus rhythm , LEFT AXIS DEVIATION, ANTERIOR MYOCARDIAL INFARCTION, NONSPECIFIC T-WAVE ABNORMALITY, ABNORMAL ECG NO PREVIOUS TRACING DOCTOR: Adan Valdez Interpretating Date/Time 09/25/2017 07:29:14
--- NOTE | 2017-09-25 10:30 | EKG ---
Date Performed: 09/25/2017 Time Performed: 04:22:20 PTAGE: 67 years EKG: Sinus rhythm , Possible left anterior fascicular block, Cannot rule out anterior infarct - age undetermined, Later al ST-T changes may be due to ischemia, Abnormal ECG PREVIOUS TRACING : 09/25/2017 00.41 No significant change from previous tracing noted. DOCTOR: Adan Valdez Interpretating Date/Time 09/25/2017 10:29:15
--- NOTE | 2017-09-25 10:32 | EKG ---
Date Performed: 09/25/2017 Time Performed: 00:41:44 PTAGE: 67 years EKG: Sinus rhythm with multifocal PVCs Possible left anterior fascicular block Anterior infarct - age undetermined Lat eral ST-T changes may be due to myocardial ischemia Abnormal ECG PREVIOUS TRACING : 09/24/2017 18.32 No significant change from previous tracing noted. DOCTOR: Adan Valdez Interpretating Date/Time 09/25/2017 10:31:55
--- NOTE | 2017-09-25 12:28 | HHI.PR ---
Subjective Remarks Follow-up non-ST elevation [place]/CHF exacerbation 09/25/17-patient seen and examined, currently denies any chest pain and reported improvement of shortness of breath. States his lost 10 pounds over the past 5 months. Patient reported occasional epistaxis. Quit smoking since November ,used to smoke one pack per day 40 years Objective Vitals Vital Signs Date Time Temp Pulse Resp B/P (MAP) Pulse Ox O2 Delivery O2 Flow Rate FiO2 09/25/17 08:00 98.6 79 18 118/78 (91) 96 09/25/17 05:02 86 09/25/17 03:00 87 09/25/17 02:00 88 09/25/17 02:00 98.4 88 18 114/81 (92) 98 09/25/17 01:00 94 09/25/17 00:00 90 09/24/17 23:40 102 09/24/17 21:25 98.1 96 20 121/85 (97) 99 09/24/17 19:32 99 Nasal Cannula 2.00 09/24/17 19:28 98.2 84 20 119/83 (95) 100 Nasal Cannula 09/24/17 18:55 20 97 Nasal Cannula 2.00 09/24/17 18:55 97 Room Air 2.00 09/24/17 18:28 18 100 Nasal Cannula 2.00 09/24/17 18:26 89 18 116/80 (92) 100 Nasal Cannula 2.00 I/O 09/24/17 09/24/17 09/24/17 09/25/17 09/25/17 09/25/17 07:00 15:00 23:00 07:00 15:00 23:00 Intake Total 0 ml Output Total 1600 ml Balance -1600 ml Intake Oral 0 ml Output Urine Total 1600 ml # Bowel Movements 0 Result Diagram: 09/25/17 0350 09/25/17 0350 Imaging Last Impressions Chest X-Ray 09/24/17 1841 Signed Impressions: Service Date/Time: Sunday, September 24, 2017 19:02 - CONCLUSION: Constellation of findings suggesting cardiogenic pulmonary edema. Small left pleural effusion. Willy Avery MD Objective Remarks GENERAL: NAD SKIN: Warm and dry. HEAD: Normocephalic. EYES: No scleral icterus. No injection or drainage. NECK: Supple, trachea midline. No JVD or lymphadenopathy. CARDIOVASCULAR: Regular rate and rhythm without murmurs, gallops, or rubs. RESPIRATORY: Breath sounds equal bilaterally. No accessory muscle use. GASTROINTESTINAL: Abdomen soft, non-tender, nondistended. MUSCULOSKELETAL: No cyanosis, or edema. BACK: Nontender without obvious deformity. No CVA tenderness. A/P Problem List: (1) NSTEMI (non-ST elevated myocardial infarction) ICD Code: I21.4 - Non-ST elevation (NSTEMI) myocardial infarction Status: Acute (2) CHF (congestive heart failure) ICD Code: I50.9 - Heart failure, unspecified Status: Acute Assessment and Plan 67-year-old man with Non-ST elevation [place] Cardiology evaluation pending for possible evaluation for left heart catheterization Continue heparin drip, aspirin 2-D echo pending Check lipid profile, hemoglobin A1c CHF exacerbation of unknown type Status post Lasix IV in ED, start Lasix 40 mg twice a day 2-D echo pending Strict I's and O's, CHF education History of hypertension Continue with hydralazine Hypothyroidism On Synthroid Weight loss in a former tobacco user Check Tumor marker and consider CT chest Problem Qualifiers (1) CHF (congestive heart failure): Qualified Codes: I50.9 - Heart failure, unspecified Gallito Padilla MD Sep 25, 2017 12:28
[2017-09-25] MEDS ORDERED: ONDANSETRON HCL 4 MG/2 ML VIAL IV PUSH PRN (13:00)
[2017-09-25] MEDS ORDERED: RESP: ALBUTEROL 2.5 MG/IPRATROPIUM 0.5 MG NEB (PRN) NEB (14:00)
[2017-09-25] MEDS: ASPIRIN 325 MG TAB PO SCH (15:54)
[2017-09-25 16:00] LABS: CARCINOEMBRYONIC ANTIGEN 1.4 NG/ML (0.2-5.0)
[2017-09-25] MEDS ORDERED: ACETAMINOPHEN 325 MG TAB PO PRN (16:00)
--- NOTE | 2017-09-25 16:23 | MB ---
cc: VERÓNICA PADILLA M.D. DATE OF CONSULTATION 09/25/2017 REASON FOR CONSULTATION Non-ST elevation myocardial infarction and congestive heart failure exacerbation. HISTORY OF PRESENT ILLNESS This is a 67-year-old male who is well-known to me, had a past medical history of hypertension and hypothyroidism. The patient presented to [facility] with complaint of increasing shortness of breath over the past couple of weeks and intermittent chest pain which felt like a pressure in the chest. The initial workup included 12-lead EKG which showed normal sinus rhythm, mild ST changes. The second set of troponin was positive at 0.21, creatinine of 1.21. Chest x-ray was obtained and showed congestive heart failure. BNP was elevated at 1700. The patient received a dose of IV Lasix and was placed on IV heparin. He is currently chest pain-free. He denies otherwise lower extremity edema, presyncope and syncope. PAST MEDICAL HISTORY As mentioned above - hypertension. Hypothyroidism. PAST SURGICAL HISTORY Left nephrectomy in 2007. FAMILY HISTORY Noncontributory. ALLERGIES Unknown SOCIAL HISTORY The patient smoked for a long time and continues to do so. REVIEW OF SYSTEMS HEENT: No complaints of lightheadedness or dizziness. CARDIOVASCULAR: Positive for chest pain. PULMONARY: No history of asthma or COPD. GI: No history of GERD or GI bleed. : History of nephrectomy in the past with a creatinine of 1.2. The remainder of his review of systems is within normal limits. PHYSICAL EXAMINATION VITAL SIGNS: Blood pressure of 116/80 with a heart rate of 84, respiratory rate of 16. Patient is afebrile. NECK: Supple. There is no jugular venous distension. CHEST: Crackles bilaterally. HEART: S1, normal intensity, S2 is single. Regular rate and rhythm. No S3 appreciated. ABDOMEN: Benign. EXTREMITIES: No edema, clubbing or cyanosis. IMPRESSION 1. Congestive heart failure exacerbation, most likely secondary to acute ischemia and diastolic dysfunction. 2. Non-ST elevation myocardial infarction with a maximum troponin level of 0.21 without EKG changes. 3. Hypertension. 4. History of nephrostomy in the past with baseline kidney insufficiency. 5. Hypothyroidism. RECOMMENDATIONS 1. We will continue diuresis. 2. The patient out of heart failure before we entertain the need for left heart catheterization. 3. We will continue IV heparin for 24-48 hours and aspirin. 4. We will hold off on beta cyndie for now since the patient is in decompensated congestive heart failure. 5. I will continue to follow and provide further recommendation accordingly. Verónica Padilla MD /SSB /3:11 PM /3:58 PM
[2017-09-25 16:38] LABS: CA 19-9 8.4 U/ML (0.0-35.0)
[2017-09-25] MEDS ORDERED: FUROSEMIDE 40 MG/4 ML VIAL IV PUSH SCH (18:00)
[2017-09-25] MEDS ORDERED: TEMAZEPAM 15 MG CAP PO PRN (21:00)
[2017-09-25] MEDS: hydrALAZINE HCL 25 MG TAB PO SCH (21:00)
[2017-09-25] MEDS: SODIUM CHLORIDE 0.9% FLUSH 10 ML FLUSH IV FLUSH SCH (21:00)
[2017-09-25] MEDS: HEPARIN-D5W 25,000 U/250 ML 250 ML IV PRN (21:12)
[2017-09-26] VITALS (27 sets, daily range): BP systolic 75–105; BP diastolic 51–73; PULSE 66–104; RESP 14–20; TEMP 97.3–98.6; O2SAT 94–100
[2017-09-26] MEDS: LEVOTHYROXINE SODIUM 125 MCG TAB PO SCH (06:13)
[2017-09-26 06:38] LABS: AUTOMATED NEUTROPHIL # 2.2 TH/MM3 (1.8-7.7); BASOPHIL % 0.4 % (0.0-2.0); EOSINOPHIL # 0.2 TH/MM3 (0-0.4); EOSINOPHIL % 4.8 % (0.0-4.0); HEMATOCRIT 31.3 % (39.0-51.0); HEMOGLOBIN 10.5 GM/DL (13.0-17.0); LYMPH % 22.2 % (9.0-44.0); LYMPHOCYTE # 0.7 TH/MM3 (1.0-4.8); MEAN CELL VOLUME 79.9 FL (80.0-100.0); MEAN CORPUSCULAR HEMOGLOBIN 26.7 PG (27.0-34.0); MEAN CORPUSCULAR HGB CONC 33.4 % (32.0-36.0); MEAN PLATELET VOLUME 8.2 FL (7.0-11.0); MONO % 3.9 % (0.0-8.0); MONOCYTE # 0.1 TH/MM3 (0-0.9); NEUT % 68.7 % (16.0-70.0); PLATELET COUNT 288 TH/MM3 (150-450); RED BLOOD COUNT 3.92 MIL/MM3 (4.50-5.90); RED CELL DISTRIBUTION WIDTH 16.6 % (11.6-17.2); WHITE BLOOD COUNT 3.2 TH/MM3 (4.0-11.0)
[2017-09-26 06:55] LABS: ALBUMIN 2.7 GM/DL (3.4-5.0); ALT (GPT) 18 U/L (12-78); AST (GOT) 18 U/L (15-37); BICARBONATE 26.3 MEQ/L (21.0-32.0); BLOOD UREA NITROGEN 25 MG/DL (7-18); CALCIUM 8.5 MG/DL (8.5-10.1); CHLORIDE 104 MEQ/L (98-107); CHOLESTEROL 122 MG/DL (120-200); GLOMERULAR FILTRATION RATE 51 ML/MIN (>89); GLUCOSE,RANDOM 88 MG/DL (74-106); SODIUM (NA) 136 MEQ/L (136-145); TRIGLYCERIDES 81 MG/DL (42-150)
[2017-09-26 06:57] LABS: ALKALINE PHOSPHATASE 94 U/L (45-117); CHOLESTEROL/ HDL RATIO 3.27 RATIO; HDL CHOLESTEROL 37.3 MG/DL (40.0-60.0); LDL CHOLESTEROL 69 MG/DL (0-99); TOTAL BILIRUBIN ADULT 0.5 MG/DL (0.2-1.0); TOTAL PROTEIN 6.8 GM/DL (6.4-8.2)
--- NOTE | 2017-09-26 08:35 | HHI.PR ---
Subjective Remarks pt denies chest pain and SOB Objective Vital Signs Date Time Temp Pulse Resp B/P (MAP) Pulse Ox O2 Delivery O2 Flow Rate FiO2 09/26/17 05:00 72 09/26/17 04:00 73 09/26/17 04:00 97.4 75 14 103/72 (82) 100 09/26/17 03:00 70 09/26/17 02:00 70 09/26/17 01:00 70 09/26/17 00:00 71 09/26/17 00:00 98.6 76 16 104/72 (83) 100 09/25/17 23:00 76 09/25/17 22:00 74 09/25/17 21:00 74 09/25/17 20:00 77 09/25/17 19:00 74 09/25/17 18:00 86 09/25/17 17:00 98.8 73 20 105/65 (78) 96 09/25/17 17:00 76 09/25/17 15:00 78 09/25/17 14:00 76 09/25/17 13:00 79 09/25/17 12:46 98.4 73 18 126/81 (96) 96 09/25/17 11:00 78 09/25/17 10:00 77 09/25/17 09:00 76 I/O 09/25/17 09/25/17 09/25/17 09/26/17 09/26/17 09/26/17 07:00 15:00 23:00 07:00 15:00 23:00 Intake Total 0 ml 480 ml Output Total 1600 ml 1320 ml 1300 ml Balance -1600 ml -1320 ml -820 ml Intake Oral 0 ml 480 ml Output Urine Total 1600 ml 1320 ml 1300 ml # Bowel Movements 0 0 VSS chest: Rales B/L Heart: S1,S2,RRR ABD: ST,NT Ext: No edema Result Diagram: 09/26/17 0612 09/26/17 06 Assessment and Plan Assessment and Plan I had a discussion with the pt regarding LT HC and the risk for dye nephrotoxicity in the presence of one Kidney. I quoted a risk of 5-10 % risk of ESRD and HD. He will think about it and we will discuss it later. the pt is chest pain free. He is still shows signs of fluid overload. I will cut down Lasix to once daily since Cr has been increasing. I will stop Heparin and continue ASA . I will follow Verónica Dang MD Sep 26, 2017 08:35
[2017-09-26] MEDS: hydrALAZINE HCL 25 MG TAB PO SCH ×2 (09:00→20:54)
--- NOTE | 2017-09-26 10:25 | HHI.PR ---
Subjective Remarks Follow-up non-ST elevation MO/CHF exacerbation 09/25/17-patient seen and examined, currently denies any chest pain and reported improvement of shortness of breath. States his lost 10 pounds over the past 5 months. Patient reported occasional epistaxis. Quit smoking since November ,used to smoke one pack per day 40 years 09/26/17-patient seen and examined, reports improvement of shortness of breath and denies any chest pain. Objective Vitals Vital Signs Date Time Temp Pulse Resp B/P (MAP) Pulse Ox O2 Delivery O2 Flow Rate FiO2 09/26/17 09:00 70 09/26/17 08:34 97.6 70 20 103/69 (80) 98 09/26/17 08:00 70 09/26/17 07:00 66 09/26/17 05:00 72 09/26/17 04:00 73 09/26/17 04:00 97.4 75 14 103/72 (82) 100 09/26/17 03:00 70 09/26/17 02:00 70 09/26/17 01:00 70 09/26/17 00:00 71 09/26/17 00:00 98.6 76 16 104/72 (83) 100 09/25/17 23:00 76 09/25/17 22:00 74 09/25/17 21:00 74 09/25/17 20:00 77 09/25/17 19:00 74 09/25/17 18:00 86 09/25/17 17:00 98.8 73 20 105/65 (78) 96 09/25/17 17:00 76 09/25/17 15:00 78 09/25/17 14:00 76 09/25/17 13:00 79 09/25/17 12:46 98.4 73 18 126/81 (96) 96 09/25/17 11:00 78 I/O 09/25/17 09/25/17 09/25/17 09/26/17 09/26/17 09/26/17 07:00 15:00 23:00 07:00 15:00 23:00 Intake Total 0 ml 480 ml Output Total 1600 ml 1320 ml 1300 ml Balance -1600 ml -1320 ml -820 ml Intake Oral 0 ml 480 ml Output Urine Total 1600 ml 1320 ml 1300 ml # Bowel Movements 0 0 Result Diagram: 09/26/1712 09/26/17 0612 Imaging Last Impressions Chest X-Ray 09/24/17 1841 Signed Impressions: Service Date/Time: Sunday, September 24, 2017 19:02 - CONCLUSION: Constellation of findings suggesting cardiogenic pulmonary edema. Small left pleural effusion. Willy Avery MD Objective Remarks GENERAL: NAD SKIN: Warm and dry. HEAD: Normocephalic. EYES: No scleral icterus. No injection or drainage. NECK: Supple, trachea midline. No JVD or lymphadenopathy. CARDIOVASCULAR: Regular rate and rhythm without murmurs, gallops, or rubs. RESPIRATORY: Breath sounds equal bilaterally. No accessory muscle use. GASTROINTESTINAL: Abdomen soft, non-tender, nondistended. MUSCULOSKELETAL: No cyanosis, or edema. BACK: Nontender without obvious deformity. No CVA tenderness. A/P Problem List: (1) NSTEMI (non-ST elevated myocardial infarction) ICD Code: I21.4 - Non-ST elevation (NSTEMI) myocardial infarction Status: Acute (2) CHF (congestive heart failure) ICD Code: I50.9 - Heart failure, unspecified Status: Acute Assessment and Plan 67-year-old man with Non-ST elevation [place] Cardiology input appreciated, and continue medical management d/c heparin drip, continue aspirin 2-D echo pending Lipid profile wnl, hemoglobin A1c pending CHF exacerbation of unknown type Status post Lasix IV in ED, decrease Lasix to 40 mg daily 2-D echo pending Strict I's and O's, CHF education History of hypertension Continue with hydralazine however with holding parameters Hypothyroidism On Synthroid Weight loss in a former tobacco user Tumor marker negative DVT prophylaxis: Bilateral SCDs Problem Qualifiers (1) CHF (congestive heart failure): Qualified Codes: I50.9 - Heart failure, unspecified Gallito Padilla MD Sep 26, 2017 10:25
[2017-09-26] MEDS: ASPIRIN 325 MG TAB PO SCH (10:26)
[2017-09-26] MEDS: SODIUM CHLORIDE 0.9% FLUSH 10 ML FLUSH IV FLUSH SCH ×2 (10:26→20:54)
[2017-09-26] MEDS: POTASSIUM CHLORIDE 20 MEQ CONTROLLED RELEASE TAB PO SCH (10:26)
[2017-09-26 16:16] LABS: HEMOGLOBIN A1C 5.4 % (4.3-6.0)
--- NOTE | 2017-09-26 20:43 | ECHRPT ---
Indication: heart failure CONCLUSIONS Normal left ventricular size. The left ventricular systolic function is severely reduced with an estimated ejection fraction in th e range of 20-25%. Distal anteroseptal and apical hypokinesis. Mild mitral valve regurgitation. There is mild tricuspid valve regurgitation. The estimated pulmonary arterial pressure is 41 mmHg. BP: / HR: Rhythm: MEASUREMENTS (Male / Female) Normal Values Technical Quality:Good 2D ECHO LV Diastolic Diameter PLAX 4.6 cm 4.2 - 5.9 / 3.9 - 5.3 cm LV Systolic Diameter PLAX 4.2 cm IVS Diastolic Thickness 1.3 cm 0.6 - 1.0 / 0.6 - 0.9 cm LVPW Diastolic Thickness 1.0 cm 0.6 - 1.0 / 0.6 - 0.9 cm LV Relative Wall Thickness 0.5 RV Internal Dim ED PLAX 2.6 cm M-MODE Aortic Root Diameter MM 3.2 cm LA Systolic Diameter MM 4.2 cm LA Ao Ratio MM 1.3 AV Cusp Separation MM 1.9 cm DOPPLER Mitral E Point Velocity 48.9 cm/s Mitral A Point Velocity 48.9 cm/s Mitral E to A Ratio 1.0 LV E' Lateral Velocity 5.9 cm/s Mitral E to LV E' Lateral Ratio 8.2 LV E' Septal Velocity 5.6 cm/s Mitral E to LV E' Septal Ratio 8.8 TR Peak Velocity 276.0 cm/s TR Peak Gradient 30.5 mmHg Right Atrial Pressure 10.0 mmHg Pulmonary Artery Systolic Pressu 40.5 mmHg Right Ventricular Systolic Press 40.5 mmHg FINDINGS LEFT VENTRICLE Normal left ventricular size. The left ventricular systolic function is severely reduced with an estimated ejection fraction in th e range of 20-25%. Distal anteroseptal and apical hypokinesis. RIGHT VENTRICLE Normal right ventricular size and systolic function. LEFT ATRIUM The left atrial size is normal. RIGHT ATRIUM The right atrial size is normal. ATRIAL SEPTUM Normal atrial septal thickness without atrial level shunting by limited color doppler interrogation. AORTA The aortic root and proximal ascending aorta are normal in size on limited imaging. MITRAL VALVE Structurally normal mitral valve. Mild mitral valve regurgitation. AORTIC VALVE Trileaflet aortic valve. No aortic valve regurgitation. No aortic valve stenosis. TRICUSPID VALVE Structurally normal tricuspid valve. There is mild tricuspid valve regurgitation. The estimated pulmonary arterial pressure is 40.5 mmHg. PULMONARY VALVE No pulmonary valve regurgitation or stenosis. VESSELS The inferior vena cava is normal in size. PERICARDIUM No pericardial effusion. Christa Chamorro MD, FACC (Electronically Signed) Final Date:26 September 2017 20:42
[2017-09-26 22:10] LABS: BICARBONATE 25.9 MEQ/L (21.0-32.0); CREATININE 1.61 MG/DL (0.60-1.30); MAGNESIUM 1.9 MG/DL (1.5-2.5)
[2017-09-26 22:14] LABS: TROPONIN I 0.15 NG/ML (0.02-0.05)
[2017-09-27] VITALS (26 sets, daily range): BP systolic 81–121; BP diastolic 45–76; PULSE 62–83; RESP 16–20; TEMP 97.4–98.2; O2SAT 96–98
[2017-09-27] MEDS: LEVOTHYROXINE SODIUM 125 MCG TAB PO SCH (05:54)
--- NOTE | 2017-09-27 07:05 | HHI.PR ---
Subjective Remarks pt had one episode of chest pain last night. denies SOB Objective Vital Signs Date Time Temp Pulse Resp B/P (MAP) Pulse Ox O2 Delivery O2 Flow Rate FiO2 09/27/17 06:00 75 09/27/17 05:00 83 09/27/17 04:00 80 09/27/17 03:30 97.9 68 16 112/76 (88) 96 09/27/17 03:00 82 09/27/17 02:00 81 09/27/17 01:00 83 09/27/17 00:00 79 09/26/17 23:30 97.9 72 16 105/71 (82) 96 09/26/17 23:00 92 09/26/17 22:00 78 09/26/17 21:00 104 09/26/17 20:00 97.6 80 16 95/73 (80) 94 09/26/17 20:00 100 09/26/17 19:00 76 09/26/17 18:06 80 09/26/17 17:00 76 09/26/17 16:30 74 18 100/70 (80) 100 09/26/17 16:00 72 09/26/17 15:00 86 09/26/17 14:30 86/59 (68) 09/26/17 14:00 76 09/26/17 13:00 80 09/26/17 12:00 84 09/26/17 11:30 97.3 86 20 75/51 (59) 100 09/26/17 11:00 86 09/26/17 09:00 70 09/26/17 08:34 97.6 70 20 103/69 (80) 98 09/26/17 08:00 70 I/O 09/26/17 09/26/17 09/26/17 09/27/17 09/27/17 09/27/17 07:00 15:00 23:00 07:00 15:00 23:00 Intake Total 480 ml 30 ml 680 ml 240 ml Output Total 1300 ml 800 ml 300 ml Balance -820 ml 30 ml -120 ml -60 ml Intake Oral 480 ml 680 ml 240 ml IV Total 30 ml Output Urine Total 1300 ml 800 ml 300 ml # Bowel Movements 0 4 VSS chest: CTA HEART: S1,S2,RRR ABD: ST, NT Ext: NO edema Result Diagram: 09/26/17 0612 09/26/172025 Assessment and Plan Assessment and Plan I had another discussion with the pt regarding LT HC . He decided against doing LT HC. I will start him on Imdure 30 mg daily. D/C Lasix due to low BP. we will adhere to conservative management. consult renal. I will follow Verónica Dang MD Sep 27, 2017 07:05
[2017-09-27] MEDS: POTASSIUM CHLORIDE 20 MEQ CONTROLLED RELEASE TAB PO SCH (08:46)
[2017-09-27] MEDS: ASPIRIN 325 MG TAB PO SCH (08:46)
[2017-09-27] MEDS: ISOSORBIDE MONONITRATE 30 MG TAB PO SCH (08:46)
[2017-09-27] MEDS: SODIUM CHLORIDE 0.9% FLUSH 10 ML FLUSH IV FLUSH SCH ×2 (08:46→21:00)
[2017-09-27] MEDS: hydrALAZINE HCL 25 MG TAB PO SCH (08:47)
[2017-09-27] MEDS ORDERED: FUROSEMIDE 40 MG/4 ML VIAL IV PUSH SCH (09:00)
[2017-09-27 09:34] LABS: AUTOMATED NEUTROPHIL # 1.8 TH/MM3 (1.8-7.7); BASOPHIL % 0.6 % (0.0-2.0); EOSINOPHIL # 0.1 TH/MM3 (0-0.4); HEMATOCRIT 31.9 % (39.0-51.0); HEMOGLOBIN 10.8 GM/DL (13.0-17.0); LYMPH % 22.6 % (9.0-44.0); LYMPHOCYTE # 0.6 TH/MM3 (1.0-4.8); MEAN CORPUSCULAR HEMOGLOBIN 27.2 PG (27.0-34.0); MEAN PLATELET VOLUME 8.5 FL (7.0-11.0); MONO % 4.3 % (0.0-8.0); MONOCYTE # 0.1 TH/MM3 (0-0.9); NEUT % 67.5 % (16.0-70.0); PLATELET COUNT 313 TH/MM3 (150-450); RED BLOOD COUNT 3.99 MIL/MM3 (4.50-5.90); RED CELL DISTRIBUTION WIDTH 16.4 % (11.6-17.2); WHITE BLOOD COUNT 2.7 TH/MM3 (4.0-11.0)
[2017-09-27 10:09] LABS: BICARBONATE 24.4 MEQ/L (21.0-32.0); CALCIUM 8.6 MG/DL (8.5-10.1); CREATININE 1.35 MG/DL (0.60-1.30)
--- NOTE | 2017-09-27 12:08 | RADRPT ---
EXAM DATE/TIME: 09/27/2017 11:42 [facility] COMPARISON: No previous studies available for comparison. INDICATIONS : MEDICAL HISTORY : Thyroid disease. Hypertension. Cardiac disorders. 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 SURGICAL HISTORY : Tonsillectomy. Left nephrectomy. Suprapubic catheter. Back and neck surgery. ENCOUNTER: Subsequent ACUITY: 1 day PAIN SCORE: 0/10 LOCATION: Bilateral flank. MEASUREMENTS: RIGHT KIDNEY: 12.0 x 5.3 x 4.2 cm LEFT KIDNEY: Surgically absent. FINDINGS: RIGHT KIDNEY: Renal cortex is normal in thickness and echotexture. No hydronephrosis, stone, or mass. There are s everal benign-appearing cysts associated with the right kidney. There is a cyst along the upper pole measuring 1.6 cm. There is a cyst along the upper pole measuring 1.3 cm. There is a cyst along the lo wer pole measuring 1.0 cm LEFT KIDNEY: Surgically removed. BLADDER: There is a suprapubic catheter in place. Urinary bladder is decompressed. There is evidence of a right-sided pleural effusion. CONCLUSION: 1. The right kidney demonstrates no hydronephrosis. There are several benign-appearing right renal cy sts. 2. Status post left nephrectomy. 3. Right-sided pleural effusion. Emerson Francisco MD on September 27, 2017 at 12:04 Board Certified Radiologist. This report was verified electronically.
--- NOTE | 2017-09-27 12:45 | HHI.PR ---
Subjective Remarks Follow-up non-ST elevation [place]/CHF exacerbation 09/25/17-patient seen and examined, currently denies any chest pain and reported improvement of shortness of breath. States his lost 10 pounds over the past 5 months. Patient reported occasional epistaxis. Quit smoking since November ,used to smoke one pack per day 40 years 09/26/17-patient seen and examined, reports improvement of shortness of breath and denies any chest pain. 09/27/17-patient seen and examined, no chest pain, SOB, Afebrile Objective Vitals Vital Signs Date Time Temp Pulse Resp B/P (MAP) Pulse Ox O2 Delivery O2 Flow Rate FiO2 09/27/17 12:00 98.2 82 16 110/71 (84) 97 09/27/17 12:00 70 09/27/17 11:00 66 09/27/17 10:00 74 09/27/17 09:00 76 09/27/17 08:00 74 09/27/17 08:00 97.6 74 20 105/64 (78) 97 09/27/17 07:00 76 09/27/17 06:00 75 09/27/17 05:00 83 09/27/17 04:00 80 09/27/17 03:30 97.9 68 16 112/76 (88) 96 09/27/17 03:00 82 09/27/17 02:00 81 09/27/17 01:00 83 09/27/17 00:00 79 09/26/17 23:30 97.9 72 16 105/71 (82) 96 09/26/17 23:00 92 09/26/17 22:00 78 09/26/17 21:00 104 09/26/17 20:00 97.6 80 16 95/73 (80) 94 09/26/17 20:00 100 09/26/17 19:00 76 09/26/17 18:06 80 09/26/17 17:00 76 09/26/17 16:30 74 18 100/70 (80) 100 09/26/17 16:00 72 09/26/17 15:00 86 09/26/17 14:30 86/59 (68) 09/26/17 14:00 76 09/26/17 13:00 80 I/O 12/26/17 1209/26/17 09/27/17 09/27/17 09/27/17 07:00 15:00 23:00 07:00 15:00 23:00 Intake Total 480 ml 30 ml 680 ml 240 ml Output Total 1300 ml 800 ml 300 ml Balance -820 ml 30 ml -120 ml -60 ml Intake Oral 480 ml 680 ml 240 ml IV Total 30 ml Output Urine Total 1300 ml 800 ml 300 ml # Bowel Movements 0 4 Result Diagram: 09/27/17 0839 09/27/17 0839 Imaging Last Impressions Renal Ultrasound 09/27/17 0000 Signed Impressions: Service Date/Time: Wednesday, September 27, 2017 11:42 - CONCLUSION: 1. The right kidney demonstrates no hydronephrosis. There are several benign- appearing right renal cysts. 2. Status post left nephrectomy. 3. Right-sided pleural effusion. Emerson Francisco MD Chest X-Ray 09/24/17 1841 Signed Impressions: Service Date/Time: Sunday, September 24, 2017 19:02 - CONCLUSION: Constellation of findings suggesting cardiogenic pulmonary edema. Small left pleural effusion. Willy Avery MD Objective Remarks GENERAL: NAD SKIN: Warm and dry. HEAD: Normocephalic. EYES: No scleral icterus. No injection or drainage. NECK: Supple, trachea midline. No JVD or lymphadenopathy. CARDIOVASCULAR: Regular rate and rhythm without murmurs, gallops, or rubs. RESPIRATORY: Breath sounds equal bilaterally. No accessory muscle use. GASTROINTESTINAL: Abdomen soft, non-tender, nondistended. MUSCULOSKELETAL: No cyanosis, or edema. BACK: Nontender without obvious deformity. No CVA tenderness. A/P Problem List: (1) NSTEMI (non-ST elevated myocardial infarction) ICD Code: I21.4 - Non-ST elevation (NSTEMI) myocardial infarction Status: Acute (2) CHF (congestive heart failure) ICD Code: I50.9 - Heart failure, unspecified Status: Acute Assessment and Plan 67-year-old man with Non-ST elevation [place] Cardiology input appreciated, and continue medical management d/c heparin drip, continue aspirin 2-D echo pending Lipid profile wnl, hemoglobin A1c pending CHF exacerbation of unknown type Status post Lasix IV in ED, s/p Lasix d/t low BP Currently On Imdur 30mg Daily 2-D echo pending Strict I's and O's, CHF education CKD Nephrology consultation pending History of hypertension 2/2 Hypotension will d/c Hydralazine Hypothyroidism On Synthroid Weight loss in a former tobacco user Tumor marker negative DVT prophylaxis: Bilateral SCDs Problem Qualifiers (1) CHF (congestive heart failure): Qualified Codes: I50.9 - Heart failure, unspecified Gallito Padilla MD Sep 27, 2017 12:44
--- NOTE | 2017-09-27 13:17 | MB ---
cc: JANETTE OCAMPO MD DATE OF CONSULTATION 09/27/2017 REASON FOR CONSULTATION Chronic kidney disease with some acute worsening. HISTORY OF PRESENT ILLNESS This is a 67-year-old male with a past medical history of hypertension, chronic kidney disease with single kidney, hypothyroidism who came to the hospital with a complaint of chest pain and shortness of breath. I was called to see the patient because of elevated BUN and creatinine. The patient has history of left neck nephrectomy done in 2007. He is not very clear for nephrectomy and also he has a suprapubic catheter placement for which he is saying that one day he could not pass the urine and he was told that he needs the suprapubic catheter. Maybe he has a neurogenic bladder. He has chronic back pain. The patient came in here mainly for shortness of breath and chest pain. He has this recurrent chest pain and is seen by cardiology. His troponin was slightly elevated on admission at 0.2 and now it is 0.15. The creatinine was 1.4 and it increased to 1.6 and now is 1.35. The patient has a previous creatinine of 1.0-1.3. He has not been following with any chain carrier. He denies any dysuria or hematuria. He is not taking any nonsteroidal anti-inflammatory drugs. The patient was seen by cardiology and plan is conservative management for now and may be cardiac cath if needed. PAST MEDICAL HISTORY 1. Hypertension 2. Hypothyroidism 3. Chronic back pain 4. Chronic kidney disease PAST SURGICAL HISTORY 1. Left nephrectomy in 2007 2. History of suprapubic catheter placement 3. Tonsillectomy 4. Neck surgery 5. Back surgery REVIEW OF SYSTEMS The patient denies any headache, dizziness or blurring of vision. He has this shortness of breath on admission. It is much better now. He is still getting this chest pain. The last one he had was last night and it improved with the nitro. The pain was mainly retrosternal and lasted for a few minutes. He does not have any chest pain now. He denies any nausea or vomiting. There is no history of diarrhea. No abdominal pain. He currently has a suprapubic catheter. No history of hematuria. SOCIAL HISTORY The patient stopped smoking in November of this year. He has 45 pack years of smoking. Occasionally drinks alcoholic beverages. FAMILY HISTORY The family history is positive for ischemic disease from the mother and diabetes from the father's side. ALLERGIES NO KNOWN DRUG ALLERGIES. MEDICATIONS Currently he is on: 1. Hydralazine 25 mg b.i.d. 2. Aspirin 325 mg once a day 3. Potassium chloride 20 mEq once a day 4. Imdur 30 mg daily 5. Synthroid 125 mcg daily 6. Nitrostat sublingual as needed 7. [place] as needed as needed 8. DuoNeb as needed 9. Restoril as needed EXAMINATION The patient is awake, alert. He is not in acute distress. VITAL SIGNS: His last blood pressure was 105/64. He has some lower readings and the lowest was yesterday morning and it was at 11:30 and was 75/51. HEAD, EYES, EARS, NOSE, AND THROAT: Pupils are equal, nonicteric sclera, conjunctiva pale. NECK: Supple. JVD is not elevated. LUNGS: The patient has bilateral good air entry with occasional wheezing. HEART: S1 and S2 regular rhythm. ABDOMEN: Soft lax. There is suprapubic catheter in place. No tenderness. EXTREMITIES: He has no edema in the left leg. The right, he has hypokinesia of the femur and he has a very short leg. INVESTIGATIONS WBC count is 2.7, hemoglobin 10.8, platelet count of 313, neutrophils 67.5%. Sodium 139, potassium 4.5, chloride 102, bicarb 24.4, BUN 25, creatinine 1.3, calcium 8.6, BNP is 779, total protein 6.10, albumin of 2.7. Urinalysis is previously showing that he has large leukocyte esterase, and RBC and WBC were positive, but this was done in November of this year. IMAGING STUDIES The patient has a chest x-ray done which shows mild pulmonary edema. Echocardiogram was done and shows an ejection fraction of 20-25%. ASSESSMENT/PLAN 1. Chronic kidney disease with single kidney. 2. Ischemic heart disease and chest pain. 3. Low ejection fraction. 4. History of hypertension 5. Hypothyroidism 6. Chronic back and neck pain. The patient has chronic kidney disease and developed some acute kidney injury possibly related to cardiorenal syndrome or ATN from the hypotension. Now the creatinine has started improving. The patient has been nonoliguric diuretics, the blood pressure is now stable. Avoid any nephrotoxins. Follow the urine output and the BUN and creatinine. I will get an ultrasound of the kidneys. If the patient needs cardiac cath, he will be at moderate risk for contrast nephropathy. This was discuss with the patient. Thank you for the consultation. I will follow the patient while he is in the hospital. MD PRISCILA Goodwin/VANGIE /11:17 AM /12:41 PM
[2017-09-27 16:24] LABS: BACTERIA, URINE OCC /hpf; BILIRUBIN, URINE NEG (NEG); BLOOD, URINE MOD (NEG); GLUCOSE,URINE NEG (NEG); KETONE, URINE NEG (NEG); NITRITE,URINE NEG (NEG); URINE COLOR YELLOW (YELLW/STRAW); URINE LEUKOCYTE ESTERASE LARGE (NEG); WHITE BLOOD CELL CLUMPS OCC
[2017-09-28] VITALS (27 sets, daily range): BP systolic 111–118; BP diastolic 69–80; PULSE 65–90; RESP 16; TEMP 97.3–97.8; O2SAT 96–99
[2017-09-28] MEDS: LEVOTHYROXINE SODIUM 125 MCG TAB PO SCH (06:01)
[2017-09-28 06:32] LABS: BASOPHIL % 0.6 % (0.0-2.0); EOSINOPHIL # 0.2 TH/MM3 (0-0.4); EOSINOPHIL % 6.2 % (0.0-4.0); HEMATOCRIT 28.4 % (39.0-51.0); HEMOGLOBIN 9.5 GM/DL (13.0-17.0); LYMPH % 24.7 % (9.0-44.0); LYMPHOCYTE # 0.8 TH/MM3 (1.0-4.8); MEAN CELL VOLUME 80.1 FL (80.0-100.0); MEAN CORPUSCULAR HEMOGLOBIN 26.7 PG (27.0-34.0); MEAN CORPUSCULAR HGB CONC 33.4 % (32.0-36.0); MEAN PLATELET VOLUME 8.5 FL (7.0-11.0); MONO % 5.2 % (0.0-8.0); MONOCYTE # 0.2 TH/MM3 (0-0.9); NEUT % 63.3 % (16.0-70.0); PLATELET COUNT 268 TH/MM3 (150-450); RED BLOOD COUNT 3.54 MIL/MM3 (4.50-5.90); RED CELL DISTRIBUTION WIDTH 16.5 % (11.6-17.2); WHITE BLOOD COUNT 3.1 TH/MM3 (4.0-11.0)
[2017-09-28 06:57] LABS: BICARBONATE 26.2 MEQ/L (21.0-32.0); CALCIUM 8.3 MG/DL (8.5-10.1); CREATININE 1.42 MG/DL (0.60-1.30)
--- NOTE | 2017-09-28 09:30 | HHI.PR ---
Subjective Remarks Follow-up non-ST elevation NC/CHF exacerbation 09/25/17-patient seen and examined, currently denies any chest pain and reported improvement of shortness of breath. States his lost 10 pounds over the past 5 months. Patient reported occasional epistaxis. Quit smoking since November ,used to smoke one pack per day 40 years 09/26/17-patient seen and examined, reports improvement of shortness of breath and denies any chest pain. 09/27/17-patient seen and examined, no chest pain, SOB, Afebrile 09/28/17-patient seen and examined, states he's had no chest pain 48 hours. No other issues. Renal indices improving. BP improving Objective Vitals Vital Signs Date Time Temp Pulse Resp B/P (MAP) Pulse Ox O2 Delivery O2 Flow Rate FiO2 09/28/17 07:53 97.6 69 16 117/77 (90) 98 09/28/17 06:00 72 09/28/17 05:00 68 09/28/17 04:00 65 09/28/17 03:30 97.8 75 16 117/80 (92) 98 09/28/17 03:00 69 09/28/17 02:00 73 09/28/17 01:00 73 09/28/17 00:00 70 09/27/17 23:30 97.7 71 16 121/75 (90) 98 09/27/17 23:00 76 09/27/17 22:00 76 09/27/17 21:00 74 09/27/17 20:00 97.4 70 16 92/65 (74) 98 09/27/17 20:00 72 09/27/17 19:00 76 09/27/17 17:14 97/62 (74) 09/27/17 17:00 62 09/27/17 16:00 64 09/27/17 15:00 81/56 (64) 09/27/17 15:00 81/45 (57) 09/27/17 15:00 97.6 73 16 83/49 (60) 96 09/27/17 15:00 66 09/27/17 14:00 80 09/27/17 13:00 82 09/27/17 12:00 98.2 82 16 110/71 (84) 97 09/27/17 12:00 70 09/27/17 11:00 66 09/27/17 10:00 74 I/O 09/27/17 09/27/17 09/27/17 09/28/17 09/28/17 09/28/17 07:00 15:00 23:00 07:00 15:00 23:00 Intake Total 240 ml 720 ml 360 ml Output Total 300 ml 380 ml 500 ml Balance -60 ml 340 ml -140 ml Intake Oral 240 ml 720 ml 360 ml Output Urine Total 300 ml 380 ml 500 ml # Bowel Movements 4 0 Result Diagram: 09/28/17 0434 09/28/17 0434 Imaging Last Impressions Renal Ultrasound 09/27/17 0000 Signed Impressions: Service Date/Time: Wednesday, September 27, 2017 11:42 - CONCLUSION: 1. The right kidney demonstrates no hydronephrosis. There are several benign- appearing right renal cysts. 2. Status post left nephrectomy. 3. Right-sided pleural effusion. Emerson Francisco MD Chest X-Ray 09/24/17 1841 Signed Impressions: Service Date/Time: Sunday, September 24, 2017 19:02 - CONCLUSION: Constellation of findings suggesting cardiogenic pulmonary edema. Small left pleural effusion. Willy Avery MD Objective Remarks GENERAL: NAD SKIN: Warm and dry. HEAD: Normocephalic. EYES: No scleral icterus. No injection or drainage. NECK: Supple, trachea midline. No JVD or lymphadenopathy. CARDIOVASCULAR: Regular rate and rhythm without murmurs, gallops, or rubs. RESPIRATORY: Breath sounds equal bilaterally. No accessory muscle use. GASTROINTESTINAL: Abdomen soft, non-tender, nondistended. MUSCULOSKELETAL: No cyanosis, or edema. BACK: Nontender without obvious deformity. No CVA tenderness. A/P Problem List: (1) NSTEMI (non-ST elevated myocardial infarction) ICD Code: I21.4 - Non-ST elevation (NSTEMI) myocardial infarction Status: Acute (2) CHF (congestive heart failure) ICD Code: I50.9 - Heart failure, unspecified Status: Acute Assessment and Plan 67-year-old man with Non-ST elevation NC Cardiology input appreciated, and continue medical management s/p heparin drip, continue aspirin 2-D echo 20-25% Lipid profile wnl, hemoglobin A1c 5.4 Per nephrology If the patient needs cardiac cath, he will be at moderate risk for contrast nephropathy CHF exacerbation of unknown type Status post Lasix IV in ED, s/p Lasix d/t low BP Currently On Imdur 30mg Daily 2-D echo pending Strict I's and O's, CHF education CKD Nephrology input appreciated Renal ultrasound noted and review History of hypertension 2/2 Hypotension will d/c Hydralazine Hypothyroidism On Synthroid Weight loss in a former tobacco user Tumor marker negative DVT prophylaxis: Bilateral SCDs Problem Qualifiers (1) CHF (congestive heart failure): Qualified Codes: I50.9 - Heart failure, unspecified Gallito Padilla MD Sep 28, 2017 09:30
[2017-09-28] MEDS: SODIUM CHLORIDE 0.9% FLUSH 10 ML FLUSH IV FLUSH SCH ×2 (09:48→21:00)
[2017-09-28] MEDS: ISOSORBIDE MONONITRATE 30 MG TAB PO SCH (09:48)
[2017-09-28] MEDS: ASPIRIN 325 MG TAB PO SCH (09:48)
[2017-09-28] MEDS: POTASSIUM CHLORIDE 20 MEQ CONTROLLED RELEASE TAB PO SCH (09:48)
--- NOTE | 2017-09-28 18:35 | HHI.NPPN ---
Subjective History of Present Illness 67-year-old male with a past medical history of hypertension, chronic kidney disease with single kidney, hypothyroidism who came to the hospital with a complaint of chest pain and shortness of breath. I was called to see the patient because of elevated BUN and creatinine. The patient has history of left neck nephrectomy done in 2007. Objective Data Data 09/28/17 09/29/17 19:00 07:00 Intake Total 720 ml Output Total 800 ml Balance -80 ml Intake Oral 720 ml Output Urine Total 800 ml # Bowel Movements 0 Vital Signs Date Time Temp Pulse Resp B/P (MAP) Pulse Ox O2 Delivery O2 Flow Rate FiO2 09/28/17 18:15 75 09/28/17 17:33 83 09/28/17 16:23 69 09/28/17 15:21 97.3 70 16 111/69 (83) 99 09/28/17 15:00 74 09/28/17 14:00 82 09/28/17 13:00 82 09/28/17 12:00 80 09/28/17 11:30 97.6 80 16 111/74 (86) 96 09/28/17 11:00 85 09/28/17 10:00 90 09/28/17 09:00 82 09/28/17 08:00 74 09/28/17 07:53 97.6 69 16 117/77 (90) 98 09/28/17 07:00 75 09/28/17 06:00 72 09/28/17 05:00 68 09/28/17 04:00 65 09/28/17 03:30 97.8 75 16 117/80 (92) 98 09/28/17 03:00 69 09/28/17 02:00 73 09/28/17 01:00 73 09/28/17 00:00 70 09/27/17 23:30 97.7 71 16 121/75 (90) 98 09/27/17 23:00 76 09/27/17 22:00 76 09/27/17 21:00 74 09/27/17 20:00 97.4 70 16 92/65 (74) 98 09/27/17 20:00 72 09/27/17 19:00 76 -: 09/28/17 0434 09/28/17 0434 Miles Ba MD Sep 28, 2017 18:35
[2017-09-29] VITALS (11 sets, daily range): BP systolic 112–124; BP diastolic 70–78; PULSE 68–78; RESP 16–18; TEMP 97–98; O2SAT 97–98
[2017-09-29] MEDS: LEVOTHYROXINE SODIUM 125 MCG TAB PO SCH (04:35)
[2017-09-29] MEDS: SODIUM CHLORIDE 0.9% FLUSH 10 ML FLUSH IV FLUSH SCH (09:19)
[2017-09-29] MEDS: ASPIRIN 325 MG TAB PO SCH (09:19)
[2017-09-29] MEDS: ISOSORBIDE MONONITRATE 30 MG TAB PO SCH (09:19)
[2017-09-29] MEDS: POTASSIUM CHLORIDE 20 MEQ CONTROLLED RELEASE TAB PO SCH (09:19)
--- NOTE | 2017-09-29 11:07 | HHI.PR ---
Subjective Remarks pt denies chest pain. denies SOB Objective Vital Signs Date Time Temp Pulse Resp B/P (MAP) Pulse Ox O2 Delivery O2 Flow Rate FiO2 09/29/17 10:33 74 09/29/17 09:46 72 09/29/17 09:46 97.0 72 18 118/70 (86) 97 09/29/17 08:11 72 09/29/17 06:00 68 09/29/17 05:00 68 09/29/17 04:00 76 09/29/17 04:00 97.4 73 16 112/73 (86) 98 09/29/17 03:00 76 09/29/17 02:00 70 09/29/17 01:00 70 09/29/17 00:00 74 09/29/17 00:00 97.8 72 16 124/77 (93) 98 09/28/17 23:00 74 09/28/17 22:00 70 09/28/17 21:00 74 09/28/17 20:00 97.8 74 16 118/74 (89) 96 Manual Cuff/Auscultation 09/28/17 20:00 75 09/28/17 18:15 75 09/28/17 17:33 83 09/28/17 16:23 69 09/28/17 15:21 97.3 70 16 111/69 (83) 99 09/28/17 15:00 74 09/28/17 14:00 82 09/28/17 13:00 82 09/28/17 12:00 80 09/28/17 11:30 97.6 80 16 111/74 (86) 96 I/O 09/28/17 09/28/17 09/28/17 09/29/17 09/29/17 09/29/17 07:00 15:00 23:00 07:00 15:00 23:00 Intake Total 360 ml 720 ml 240 ml Output Total 500 ml 800 ml 1200 ml Balance -140 ml -80 ml -960 ml Intake Oral 360 ml 720 ml 240 ml Output Urine Total 500 ml 800 ml 1200 ml # Bowel Movements 0 0 VSS CHEST: CTA HEART: S1,S2,RRR ABDST, NT EXT: No edema Result Diagram: 09/28/1743309/28/17433 Assessment and Plan Assessment and Plan pt is stable cardiacwise. Ok to discharge home. No BB due to borderline low BP and HR. I will consider starting it as in outpt. I will follow Verónica Dang MD Sep 29, 2017 11:07
--- NOTE | 2017-09-29 11:09 | HHI.NPPN ---
Subjective History of Present Illness 67-year-old male with a past medical history of hypertension, chronic kidney disease with single kidney, hypothyroidism who came to the hospital with a complaint of chest pain and shortness of breath. I was called to see the patient because of elevated BUN and creatinine. The patient has history of left neck nephrectomy done in 2007. Objective Data Data Vital Signs Date Time Temp Pulse Resp B/P (MAP) Pulse Ox O2 Delivery O2 Flow Rate FiO2 09/29/17 10:33 74 09/29/17 09:46 72 09/29/17 09:46 97.0 72 18 118/70 (86) 97 09/29/17 08:11 72 09/29/17 06:00 68 09/29/17 05:00 68 09/29/17 04:00 76 09/29/17 04:00 97.4 73 16 112/73 (86) 98 09/29/17 03:00 76 09/29/17 02:00 70 09/29/17 01:00 70 09/29/17 00:00 74 09/29/17 00:00 97.8 72 16 124/77 (93) 98 09/28/17 23:00 74 09/28/17 22:00 70 09/28/17 21:00 74 09/28/17 20:00 97.8 74 16 118/74 (89) 96 Manual Cuff/Auscultation 09/28/17 20:00 75 09/28/17 18:15 75 09/28/17 17:33 83 09/28/17 16:23 69 09/28/17 15:21 97.3 70 16 111/69 (83) 99 09/28/17 15:00 74 09/28/17 14:00 82 09/28/17 13:00 82 09/28/17 12:00 80 09/28/17 11:30 97.6 80 16 111/74 (86) 96 -: 09/28/17 0434 09/28/17 0434 Miles Ba MD Sep 29, 2017 11:09
--- NOTE | 2017-09-29 11:54 | HHI.PR ---
Subjective Remarks Follow-up non-ST elevation [place]/CHF exacerbation 09/25/17-patient seen and examined, currently denies any chest pain and reported improvement of shortness of breath. States his lost 10 pounds over the past 5 months. Patient reported occasional epistaxis. Quit smoking since November ,used to smoke one pack per day 40 years 09/26/17-patient seen and examined, reports improvement of shortness of breath and denies any chest pain. 09/27/17-patient seen and examined, no chest pain, SOB, Afebrile 09/28/17-patient seen and examined, states he's had no chest pain 48 hours. No other issues. Renal indices improving. BP improving 09/29/17-patient seen and examined, denies any chest pain 72 hours. No acute event overnight Objective Vitals Vital Signs Date Time Temp Pulse Resp B/P (MAP) Pulse Ox O2 Delivery O2 Flow Rate FiO2 09/29/17 10:33 74 09/29/17 09:46 72 09/29/17 09:46 97.0 72 18 118/70 (86) 97 09/29/17 08:11 72 09/29/17 06:00 68 09/29/17 05:00 68 09/29/17 04:00 76 09/29/17 04:00 97.4 73 16 112/73 (86) 98 09/29/17 03:00 76 09/29/17 02:00 70 09/29/17 01:00 70 09/29/17 00:00 74 09/29/17 00:00 97.8 72 16 124/77 (93) 98 09/28/17 23:00 74 09/28/17 22:00 70 09/28/17 21:00 74 09/28/17 20:00 97.8 74 16 118/74 (89) 96 Manual Cuff/Auscultation 09/28/17 20:00 75 09/28/17 18:15 75 09/28/17 17:33 83 09/28/17 16:23 69 09/28/17 15:21 97.3 70 16 111/69 (83) 99 09/28/17 15:00 74 09/28/17 14:00 82 09/28/17 13:00 82 09/28/17 12:00 80 I/O 12/09/28/17 09/28/17 09/29/17 09/29/17 09/29/17 07:00 15:00 23:00 07:00 15:00 23:00 Intake Total 360 ml 720 ml 240 ml Output Total 500 ml 800 ml 1200 ml Balance -140 ml -80 ml -960 ml Intake Oral 360 ml 720 ml 240 ml Output Urine Total 500 ml 800 ml 1200 ml # Bowel Movements 0 0 Result Diagram: 09/28/17 0434 09/28/17 0434 Imaging Last Impressions Renal Ultrasound 09/27/17 0000 Signed Impressions: Service Date/Time: Wednesday, September 27, 2017 11:42 - CONCLUSION: 1. The right kidney demonstrates no hydronephrosis. There are several benign- appearing right renal cysts. 2. Status post left nephrectomy. 3. Right-sided pleural effusion. Emerson Francisco MD Chest X-Ray 09/24/17 1841 Signed Impressions: Service Date/Time: Sunday, September 24, 2017 19:02 - CONCLUSION: Constellation of findings suggesting cardiogenic pulmonary edema. Small left pleural effusion. Willy Avery MD Objective Remarks GENERAL: NAD SKIN: Warm and dry. HEAD: Normocephalic. EYES: No scleral icterus. No injection or drainage. NECK: Supple, trachea midline. No JVD or lymphadenopathy. CARDIOVASCULAR: Regular rate and rhythm without murmurs, gallops, or rubs. RESPIRATORY: Breath sounds equal bilaterally. No accessory muscle use. GASTROINTESTINAL: Abdomen soft, non-tender, nondistended. MUSCULOSKELETAL: No cyanosis, or edema. BACK: Nontender without obvious deformity. No CVA tenderness. Procedures none A/P Problem List: (1) NSTEMI (non-ST elevated myocardial infarction) ICD Code: I21.4 - Non-ST elevation (NSTEMI) myocardial infarction Status: Acute (2) CHF (congestive heart failure) ICD Code: I50.9 - Heart failure, unspecified Status: Acute (3) Acute systolic (congestive) heart failure ICD Code: I50.21 - Acute systolic (congestive) heart failure Assessment and Plan 67-year-old man with Non-ST elevation [place] Cardiology input appreciated, and continue medical management s/p heparin drip, continue aspirin 2-D echo 20-25% Lipid profile wnl, hemoglobin A1c 5.4 Per nephrology If the patient needs cardiac cath, he will be at moderate risk for contrast nephropathy However patient declined LT HC CHF exacerbation of unknown type Status post Lasix IV in ED, s/p Lasix d/t low BP Currently On Imdur 30mg Daily 2-D echo with EF 20-25% Strict I's and O's, CHF education CKD Nephrology input appreciated Renal ultrasound noted and review History of hypertension 2/2 Hypotension and s/p Hydralazine Hypothyroidism On Synthroid Weight loss in a former tobacco user Tumor marker negative DVT prophylaxis: Bilateral SCDs Problem Qualifiers (1) CHF (congestive heart failure): Qualified Codes: I50.9 - Heart failure, unspecified Gallito Padilla MD Sep 29, 2017 11:54
--- NOTE | 2017-09-29 12:00 | HHI.DS ---
Discharge Summary Admission Date Sep 24, 2017 at 20:38 Discharge Date: Sep 29, 2017 Admitting Diagnosis NSTEMI, CHF (1) NSTEMI (non-ST elevated myocardial infarction) ICD Code: I21.4 - Non-ST elevation (NSTEMI) myocardial infarction Status: Acute (2) CHF (congestive heart failure) ICD Code: I50.9 - Heart failure, unspecified Status: Acute Procedures none Brief History - From Admission 67-year-old male with a past medical history significant for hypertension and hypothyroidism presents to the emergency department with a two-week history of chest pain. The patient describes the pain as intermittent, substernal and nonradiating. He endorses shortness of breath that started 1 week ago. Positive for heart palpitations. Denies any lower extremity edema. Troponin elevated at 0.21. EKG significant for T-wave inversions in leads I, AVL, V1 and V4, new from previous. No ST segment elevation/depression. Chest x-ray significant for pulmonary edema with a small left pleural effusion. Bill Of Lading Clerk is Dr. Dang. CBC/BMP: 09/28/17 0434 09/28/17 0434 Significant Findings Laboratory Tests Test 09/26/17 20:26 09/27/17 08:39 09/27/17 15:15 09/28/17 04:34 Blood Urea Nitrogen 28 MG/DL (7-18) 25 MG/DL (7-18) 24 MG/DL (7-18) Creatinine 1.61 MG/DL (0.60-1.30) 1.35 MG/DL (0.60-1.30) 1.42 MG/DL (0.60-1.30) Calcium Level 8.0 MG/DL (8.5-10.1) 8.3 MG/DL (8.5-10.1) Sodium Level 134 MEQ/L (136-145) 135 MEQ/L (136-145) Estimat Glomerular Filtration Rate 43 ML/MIN (>89) 53 ML/MIN (>89) 50 ML/MIN (>89) Troponin I 0.15 NG/ML (0.02-0.05) B-Type Natriuretic Peptide 779 PG/ML (0-100) White Blood Count 2.7 TH/MM3 (4.0-11.0) 3.1 TH/MM3 (4.0-11.0) Red Blood Count 3.99 MIL/MM3 (4.50-5.90) 3.54 MIL/MM3 (4.50-5.90) Hemoglobin 10.8 GM/DL (13.0-17.0) 9.5 GM/DL (13.0-17.0) Hematocrit 31.9 % (39.0-51.0) 28.4 % (39.0-51.0) Eosinophils (%) (Auto) 5.0 % (0.0-4.0) 6.2 % (0.0-4.0) Lymphocytes # (Auto) 0.6 TH/MM3 (1.0-4.8) 0.8 TH/MM3 (1.0-4.8) Urine Occult Blood MOD (NEG) Urine Leukocyte Esterase LARGE (NEG) Urine RBC 5 /hpf (0-3) Urine WBC 36 /hpf (0-5) Urine WBC Clumps OCC (NONE) Urine Bacteria OCC /hpf (NONE) Mean Corpuscular Hemoglobin 26.7 PG (27.0-34.0) Imaging Last Impressions Renal Ultrasound 09/27/17 0000 Signed Impressions: Service Date/Time: Wednesday, September 27, 2017 11:42 - CONCLUSION: 1. The right kidney demonstrates no hydronephrosis. There are several benign- appearing right renal cysts. 2. Status post left nephrectomy. 3. Right-sided pleural effusion. Emerson Francisco MD Chest X-Ray 09/24/17 1841 Signed Impressions: Service Date/Time: Sunday, September 24, 2017 19:02 - CONCLUSION: Constellation of findings suggesting cardiogenic pulmonary edema. Small left pleural effusion. Willy Avery MD PE at Discharge GENERAL: NAD SKIN: Warm and dry. HEAD: Normocephalic. EYES: No scleral icterus. No injection or drainage. NECK: Supple, trachea midline. No JVD or lymphadenopathy. CARDIOVASCULAR: Regular rate and rhythm without murmurs, gallops, or rubs. RESPIRATORY: Breath sounds equal bilaterally. No accessory muscle use. GASTROINTESTINAL: Abdomen soft, non-tender, nondistended. MUSCULOSKELETAL: No cyanosis, or edema. BACK: Nontender without obvious deformity. No CVA tenderness. Hospital Course Patient was admitted secondary to non-ST elevation TN for which cardiology was consulted. He was initially started on heparin drip which was subsequently discontinued. Patient was treated with aspirin. D echo was obtained and reveals EF of 20-25%. Patient declined left heart catheterization. Patient was also treated for CHF exacerbation. He Was initially started on IV Lasix however secondary to low BP this was subsequently discontinued and patient was put on Imdur 30 mg daily. All oral antihypertensive medication were discontinued. Nephrology was consulted secondary to history of CKD. He was continued on his treatment for other chronic medical conditions. DVT prophylaxis were provided. Prior to discharge, patient's condition improved and vital remained stable. Pt Condition on Discharge: Stable Discharge Disposition: Discharge Home Discharge Time: <= 30 minutes Discharge Instructions DIET: Follow Instructions for: Heart Healthy Diet Follow up Referrals: Cardiology PCP Follow-up - 1 Week New Medications: Aspirin (Px Aspirin) 325 Mg Tab 325 MG PO DAILY for Prevent Blood Clot, #30 TAB Isosorbide Mononitrate ER (Isosorbide Mononitrate ER) 30 Mg Fernando 30 MG PO DAILY for Prevent Heart Failure, #30 TAB 3 Refills Continued Medications: Levothyroxine (Levothyroxine) 125 Mcg Tab 125 MCG PO DAILY for Thyroid, #30 TAB 0 Refills Discontinued Medications: Hydralazine (Hydralazine) 100 Mg Tab 25 MG PO BID for Blood Pressure Management, TAB 0 Refills Take with meals Gallito Padilla MD Sep 29, 2017 12:00
[2017-09-29] MEDS ORDERED: ASA325 PO (12:02)
[2017-09-29] MEDS ORDERED: ISOS30TA3 PO (12:02)
[2017-09-29] MEDS ORDERED: LEVO.125 PO (13:59)
== END 2017-09-29 14:47 | disposition home or self-care (01) | DRG 280 ==
LOC: NEPC 18:12 → NEDA 20:38 → HCIS 21:35
PROVIDERS: ADMIT Hospitalist; ATTEND Hospitalist
DX: I21.4 Non-ST elevation (NSTEMI) myocardial infarction (principal); I50.33 Acute on chronic diastolic (congestive) heart failure; N17.9 Acute kidney failure, unspecified; I95.9 Hypotension, unspecified; I13.0 Hypertensive heart and chronic kidney disease with heart failure and stage 1 through stage 4 chronic kidney disease, or unspecified chronic kidney disease; K92.1 Melena; E03.9 Hypothyroidism, unspecified; N18.9 Chronic kidney disease, unspecified; G89.29 Other chronic pain; M54.2 Cervicalgia; R63.4 Abnormal weight loss; Z68.20 Body mass index [BMI] 20.0-20.9, adult; Z87.891 Personal history of nicotine dependence; Z90.5 Acquired absence of kidney
CPT/HCPCS: 71010; 76775; 80048; 80053; 80061; 81001; 82105; 82378; 82550; 83036; 83615; 83735; 83880; 84484; 85025; 85379; 85610; 85730; 86301; 87077; 87086; 87186; 93005; 93306; J1644; J1940

== ENCOUNTER 2017-10-11 12:08 | Inpatient (IN) | payer MEDICARE ==
[2017-10-11] VITALS (7 sets, daily range): BP systolic 98–121; BP diastolic 60–82; PULSE 80–84; RESP 18; TEMP 97.8–97.9; O2SAT 93–99
[~2017-10-11] VITALS: Ht 180.3 cm; Wt 78.3 kg
[~2017-10-11 12:08] MED LIST changes: +ASA325 PO; -CEFT500T3 PO; -HYDR50TA15 PO; +ISOS30TA3 PO; +LEVO.125 PO; -PANT40TA3 PO; -SYMB160A INH; -ZITH250T PO
[2017-10-11] MEDS ORDERED: FUROSEMIDE 40 MG/4 ML VIAL IV PUSH ONE (12:30)
[2017-10-11] MEDS ORDERED: ASPIRIN 81 MG CHEW TAB PO ONE (12:30)
[2017-10-11] MEDS ORDERED: NITROGLYCERIN 2% OINT 1 GM PACKET TOP ONE (12:30)
--- NOTE | 2017-10-11 12:33 | PD ---
HPI Chief Complaint: SOB Time Seen by Provider: 12:27 Travel History International Travel<30 days: No Contact w/Intl Traveler<30days: No Traveled to known affect area: No History of Present Illness HPI PER PATIENT A DAY OF SOB, WORSE WITH ACTIVITY AND LAYING ON BACK (ORTHOPNEA/CISSE ) THEN TODAY DEVELOPED CP, SUBSTERNAL, 8/10, RELIEVED FULLY WITH NTG, NONRAD. 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") Neurologic: No Psychiatric: No Reproductive: No Respiratory: Yes (CURRENTLY BEING TX FOR PNA) Thyroid Disease: Yes Past Surgical History Genitourinary Surgery: Yes (suprapubic catheter) Tonsillectomy: Yes Other Surgery: Yes (LEFT KIDNEY REMOVED/ BACK AND NECK SURGERY) Social History Alcohol Use: No Tobacco Use: No Substance Use: No Allergies-Medications (Allergen,Severity, Reaction): Coded Allergies: No Known Allergies (Unverified Adverse Reaction, Unknown, 10/11/17) Reported Meds & Prescriptions Reported Meds & Active Scripts Active Px Aspirin (Aspirin) 325 Mg Tab 325 Mg PO DAILY Isosorbide Mononitrate ER (Isosorbide Mononitrate) 30 Mg Fernando 30 Mg PO DAILY Reported Levothyroxine (Levothyroxine Sodium) 125 Mcg Tab 125 Mcg PO DAILY Review of Systems General / Constitutional: No: Fever Eyes: No: Visual changes HENT: No: Headaches Cardiovascular: Positive: Chest Pain or Discomfort Respiratory: Positive: Shortness of Breath Gastrointestinal: No: Abdominal Pain Genitourinary: No: Dysuria Musculoskeletal: No: Pain Skin: No Rash Neurologic: No: Weakness Psychiatric: No: Depression Endocrine: No: Polydipsia Hematologic/Lymphatic: No: Easy Bruising Physical Exam Narrative GENERAL: SKIN: Warm and dry. HEAD: Atraumatic. Normocephalic. EYES: Pupils equal and round. No scleral icterus. No injection or drainage. ENT: No nasal bleeding or discharge. Mucous membranes pink and moist. NECK: Trachea midline. No JVD. CARDIOVASCULAR: Regular rate and rhythm. RESPIRATORY: No accessory muscle use. BIBASILAR CRACKLES GASTROINTESTINAL: Abdomen soft, non-tender, nondistended. Hepatic and splenic margins not palpable. MUSCULOSKELETAL: Extremities without clubbing, cyanosis, or edema. No obvious deformities. NEUROLOGICAL: Awake and alert. No obvious cranial nerve deficits. Motor grossly within normal limits. Five out of 5 muscle strength in the arms and legs. Normal speech. PSYCHIATRIC: Appropriate mood and affect; insight and judgment normal. Data Data Last Documented VS Vital Signs Date Time Temp Pulse Resp B/P (MAP) Pulse Ox O2 Delivery O2 Flow Rate FiO2 10/11/17 13:36 80 18 116/81 (93) 98 Room Air 108/71 (83) 10/11/17 12:40 97.9 Orders Orders Electrocardiogram (10/11/17 12:27) B-Type Natriuretic Peptide (10/11/17 12:27) Ckmb (Isoenzyme) Profile (10/11/17 12:27) Complete Blood Count With Diff (10/11/17 12:27) Comprehensive Metabolic Panel (10/11/17 12:27) Prothrombin Time / Inr (Pt) (10/11/17 12:27) Act Partial Throm Time (Ptt) (10/11/17 12:27) Troponin I (10/11/17 12:27) Lipase (10/11/17 12:27) Chest, Single Ap (10/11/17 12:27) Ecg Monitoring (10/11/17 12:27) Bilateral Bp Monitoring (10/11/17 12:27) Iv Access Insert/Monitor (10/11/17 12:27) Oximetry (10/11/17 12:27) Oxygen Administration (10/11/17 12:27) Aspirin Chew (Aspirin Chew) (10/11/17 12:30) Nitroglycerin 2% Oint (Nitroglycerin 2% (10/11/17 12:30) Furosemide Inj (Lasix Inj) (10/11/17 12:30) Labs Laboratory Tests Test 10/11/17 12:35 White Blood Count 3.6 TH/MM3 Red Blood Count 3.47 MIL/MM3 Hemoglobin 9.7 GM/DL Hematocrit 28.9 % Mean Corpuscular Volume 83.3 FL Mean Corpuscular Hemoglobin 28.1 PG Mean Corpuscular Hemoglobin Concent 33.7 % Red Cell Distribution Width 19.2 % Platelet Count 176 TH/MM3 Mean Platelet Volume 8.2 FL Neutrophils (%) (Auto) 71.9 % Lymphocytes (%) (Auto) 20.2 % Monocytes (%) (Auto) 3.6 % Eosinophils (%) (Auto) 3.4 % Basophils (%) (Auto) 0.9 % Neutrophils # (Auto) 2.6 TH/MM3 Lymphocytes # (Auto) 0.7 TH/MM3 Monocytes # (Auto) 0.1 TH/MM3 Eosinophils # (Auto) 0.1 TH/MM3 Basophils # (Auto) 0.0 TH/MM3 CBC Comment DIFF FINAL Differential Comment Prothrombin Time 10.9 SEC Prothromb Time International Ratio 1.1 RATIO Activated Partial Thromboplast Time 38.5 SEC Blood Urea Nitrogen 20 MG/DL Creatinine 1.24 MG/DL Random Glucose 87 MG/DL Total Protein 6.7 GM/DL Albumin 2.9 GM/DL Calcium Level 8.2 MG/DL Alkaline Phosphatase 87 U/L Aspartate Amino Transf (AST/SGOT) 14 U/L Alanine Aminotransferase (ALT/SGPT) 14 U/L Total Bilirubin 0.5 MG/DL Sodium Level 139 MEQ/L Potassium Level 4.4 MEQ/L Chloride Level 107 MEQ/L Carbon Dioxide Level 24.1 MEQ/L Anion Gap 8 MEQ/L Estimat Glomerular Filtration Rate 58 ML/MIN Total Creatine Kinase 42 U/L Troponin I 0.05 NG/ML B-Type Natriuretic Peptide 1575 PG/ML Lipase 139 U/L MDM Medical Decision Making Medical Screen Exam Complete: Yes Emergency Medical Condition: Yes Medical Record Reviewed: Yes Interpretation(s) NSR 77, NL INTERVALS, INVERTED T WAVES ON V4-V6, NONSPEC STT CHANGES, NO STEMI PATTERN Differential Diagnosis PNA V CHF V PULM EDEMA V RENAL FAILURE V STEMI V NONSTEMI Narrative Course PATIENT PRESENTED WITH SLIGHT SOB, EKG WITHOUT STEMI PATTERN, BNP IN THE 1000, NEG TROPONIN BUT WILL ADMIT FOR OBSERVATION DUE TO TROPONIN LEVEL BORDERLINE Diagnosis Primary Impression: Acute exacerbation of CHF (congestive heart failure) Qualified Codes: I50.9 - Heart failure, unspecified Additional Impression: CP R/O [place] Admitting Information Admitting Physician Requests: Observation Boogie Westbrook MD Oct 11, 2017 12:33
[2017-10-11 13:15] LABS: AUTOMATED NEUTROPHIL # 2.6 TH/MM3 (1.8-7.7); BASOPHIL % 0.9 % (0.0-2.0); EOSINOPHIL # 0.1 TH/MM3 (0-0.4); EOSINOPHIL % 3.4 % (0.0-4.0); HEMATOCRIT 28.9 % (39.0-51.0); HEMOGLOBIN 9.7 GM/DL (13.0-17.0); LYMPH % 20.2 % (9.0-44.0); LYMPHOCYTE # 0.7 TH/MM3 (1.0-4.8); MEAN CELL VOLUME 83.3 FL (80.0-100.0); MEAN CORPUSCULAR HEMOGLOBIN 28.1 PG (27.0-34.0); MEAN CORPUSCULAR HGB CONC 33.7 % (32.0-36.0); MEAN PLATELET VOLUME 8.2 FL (7.0-11.0); MONO % 3.6 % (0.0-8.0); MONOCYTE # 0.1 TH/MM3 (0-0.9); NEUT % 71.9 % (16.0-70.0); PLATELET COUNT 176 TH/MM3 (150-450); RED BLOOD COUNT 3.47 MIL/MM3 (4.50-5.90); RED CELL DISTRIBUTION WIDTH 19.2 % (11.6-17.2); WHITE BLOOD COUNT 3.6 TH/MM3 (4.0-11.0)
--- NOTE | 2017-10-11 13:17 | RADRPT ---
EXAM DATE/TIME: 10/11/2017 12:35 [facility] COMPARISON: CHEST SINGLE AP, September 24, 2017, 19:02. INDICATIONS : Short of breath. MEDICAL HISTORY : Congestive heart failure. SURGICAL HISTORY : None. ENCOUNTER: Initial ACUITY: 1 day PAIN SCORE: 0/10 LOCATION: Bilateral chest FINDINGS: A single view of the chest demonstrates cardiomegaly with interstitial edema. Small bilateral pleural effusions greater on the left. Bibasilar densities likely atelectasis.. Osseous structures are inta ct. CONCLUSION: Cardiomegaly with interstitial edema and bilateral pleural effusions greater on the left consistent w ith CHF. Overall appearance has improved from previous study. Gallito Esparza MD on October 11, 2017 at 13:14 Board Certified Radiologist. This report was verified electronically.
[2017-10-11 13:21] LABS: INTERNATIONAL NORMALIZED RATIO 1.1 RATIO; PROTHROMBIN TIME - PATIENT 10.9 SEC (9.8-11.6)
[2017-10-11 13:31] LABS: ALBUMIN 2.9 GM/DL (3.4-5.0); ALT (GPT) 14 U/L (12-78); AST (GOT) 14 U/L (15-37); BICARBONATE 24.1 MEQ/L (21.0-32.0); BLOOD UREA NITROGEN 20 MG/DL (7-18); CALCIUM 8.2 MG/DL (8.5-10.1); CHLORIDE 107 MEQ/L (98-107); CREATININE 1.24 MG/DL (0.60-1.30); GLOMERULAR FILTRATION RATE 58 ML/MIN (>89); GLUCOSE,RANDOM 87 MG/DL (74-106); LIPASE 139 U/L (73-393); SODIUM (NA) 139 MEQ/L (136-145)
[2017-10-11 13:35] LABS: ALKALINE PHOSPHATASE 87 U/L (45-117); TOTAL BILIRUBIN ADULT 0.5 MG/DL (0.2-1.0); TOTAL PROTEIN 6.7 GM/DL (6.4-8.2); TROPONIN I 0.05 NG/ML (0.02-0.05)
[2017-10-11] MEDS ORDERED: SODIUM CHLORIDE 0.9% FLUSH 10 ML FLUSH IV FLUSH PRN ×2 (18:00→18:15)
[2017-10-11] MEDS ORDERED: ACETAMINOPHEN/HYDROcodone 325 MG/7.5 MG TAB PO PRN (18:15)
[2017-10-11] MEDS ORDERED: ONDANSETRON HCL 4 MG/2 ML VIAL IV PUSH PRN (18:15)
[2017-10-11] MEDS ORDERED: ACETAMINOPHEN 500 MG CPLT PO PRN (18:15)
[2017-10-11] MEDS ORDERED: MORPHINE SULFATE 2 MG/ML INJ IV PRN (18:30)
[2017-10-11 19:03] LABS: TROPONIN I 0.05 NG/ML (0.02-0.05)
--- NOTE | 2017-10-11 19:20 | HHI.HP ---
HPI Service [facility] Hospitalists Primary Care Physician No Primary Care Physician Admission Diagnosis CHF EXACERBATION, CP R/O NM Diagnoses: Chief Complaint: Chest pain Travel History International Travel<30 Days: No Contact w/Intl Traveler <30 Da: No Traveled to Known Affected Are: No History of Present Illness This is a 67-year-old male with past medical history significant for NM, hypothyroidism and hypertension who presented to [facility] complaining of chest pain for the past 2 days. The patient was recently discharged him this institution after the patient had an episode of on an NSTEMI which as per old records was treated medically. The patient describes the pain as dull, substernal, nonradiating, 6/10 which lasts approximately 10- 15 minutes and subsides spontaneously. Denies diaphoresis, nausea. Associated with palpitations. The patient states that he also has been feeling short of breath which has been getting progressively worst for the past 2 days, associated with orthopnea. Patient states that chest pain was improved with administration of sublingual nitroglycerin. The patient is currently chest pain -free and denies any cough, abdominal pain, nausea, vomiting, dysuria, fevers, chills. Review of Systems As per history of present illness, other systems reviewed by me and negative. Past Family Social History Past Medical History 1. NM treated medically. 2. Hypertension. 3. Hypothyroidism. Past Surgical History Left nephrectomy. Reported Medications Reported Meds & Active Scripts Active Px Aspirin (Aspirin) 325 Mg Tab 325 Mg PO DAILY Isosorbide Mononitrate ER (Isosorbide Mononitrate) 30 Mg Fernando 30 Mg PO DAILY Reported Levothyroxine (Levothyroxine Sodium) 125 Mcg Tab 125 Mcg PO DAILY Allergies: Coded Allergies: No Known Allergies (Unverified Adverse Reaction, Unknown, 10/11/17) Active Ordered Medications Current Medications Medications (Trade) Dose Ordered Sig/Sarah Route Start Time Stop Time Status Last Admin (NS Flush) 2 ml UNSCH PRN IV FLUSH 10/11/17 18:00 (NS Flush) 2 ml UNSCH PRN IV FLUSH 10/11/17 18:15 (NS Flush) 2 ml BID IV FLUSH 10/11/17 21:00 (Tylenol) 500 mg Q4H PRN PO 10/11/17 18:15 ([place] 7.5-325 Mg) 1 tab Q4H PRN PO 10/11/17 18:15 (Morphine Inj) 2 mg Q4H PRN IV 10/11/17 18:30 (Zofran Inj) 4 mg Q6H PRN IV PUSH 10/11/17 18:15 (Pepcid) 20 mg BID PO 10/11/17 21:00 (Nitrostat Sl) 0.4 mg Q5M PRN SL 10/11/17 18:15 (Aspirin) 325 mg DAILY PO 10/12/17 09:00 (Heparin Inj) 5,000 units Q8H SQ 10/11/17 22:00 (Lasix Inj) 40 mg DAILY IV PUSH 10/12/17 09:00 (Imdur) 30 mg DAILY PO 10/12/17 09:00 (Synthroid) 125 mcg DAILY@0600 PO 10/12/17 06:00 Family History Patient's mother had CAD which started in her late 60s. Father has diabetes mellitus. Social History The patient denies current smoking, states he quit one year ago. States smoked 1 pack per day for approximately 40 years. Drinks alcohol occasionally. The patient states he is a and does not have children. Physical Exam Vital Signs Vital Signs Date Time Temp Pulse Resp B/P (MAP) Pulse Ox O2 Delivery O2 Flow Rate FiO2 10/11/17 19:01 72 18 121/67 (85) 97 10/11/17 13:36 80 18 116/81 (93) 98 Room Air 108/71 (83) 10/11/17 13:33 82 18 116/81 (93) 99 Room Air 10/11/17 12:40 97.9 84 18 116/82 (93) 98 Room Air 10/11/17 12:40 98 Room Air 10/11/17 12:36 97.9 84 18 116/82 (93) 98 Physical Exam GENERAL: This is a well-nourished, well-developed patient, in no apparent distress. SKIN: No rashes, ecchymoses or lesions. Cool and dry. HEAD: Atraumatic. Normocephalic. No temporal or scalp tenderness. EYES: Pupils equal round and reactive. Extraocular motions intact. No scleral icterus. No injection or drainage. ENT: Nose without bleeding, purulent drainage or septal hematoma. Throat without erythema, tonsillar hypertrophy or exudate. Uvula midline. Airway patent. NECK: Trachea midline. No JVD or lymphadenopathy. Supple, nontender, no meningeal signs. CARDIOVASCULAR: Regular rate and rhythm without murmurs, gallops, or rubs. RESPIRATORY: Clear to auscultation. Breath sounds equal bilaterally. No wheezes , rales, or rhonchi. GASTROINTESTINAL: Abdomen soft, non-tender, nondistended. No hepato-splenomegaly , or palpable masses. No guarding. MUSCULOSKELETAL: Extremities without clubbing, cyanosis, or edema. No joint tenderness, effusion, or edema noted. No calf tenderness. Negative Homans sign bilaterally. NEUROLOGICAL: Awake and alert. Cranial nerves II through XII intact. Motor and sensory grossly within normal limits. Five out of 5 muscle strength in all muscle groups. Normal speech. Laboratory Laboratory Tests Test 10/11/17 12:35 10/11/17 17:36 White Blood Count 3.6 Red Blood Count 3.47 Hemoglobin 9.7 Hematocrit 28.9 Mean Corpuscular Volume 83.3 Mean Corpuscular Hemoglobin 28.1 Mean Corpuscular Hemoglobin Concent 33.7 Red Cell Distribution Width 19.2 Platelet Count 176 Mean Platelet Volume 8.2 Neutrophils (%) (Auto) 71.9 Lymphocytes (%) (Auto) 20.2 Monocytes (%) (Auto) 3.6 Eosinophils (%) (Auto) 3.4 Basophils (%) (Auto) 0.9 Neutrophils # (Auto) 2.6 Lymphocytes # (Auto) 0.7 Monocytes # (Auto) 0.1 Eosinophils # (Auto) 0.1 Basophils # (Auto) 0.0 CBC Comment DIFF FINAL Differential Comment Prothrombin Time 10.9 Prothromb Time International Ratio 1.1 Activated Partial Thromboplast Time 38.5 Blood Urea Nitrogen 20 Creatinine 1.24 Random Glucose 87 Total Protein 6.7 Albumin 2.9 Calcium Level 8.2 Alkaline Phosphatase 87 Aspartate Amino Transf (AST/SGOT) 14 Alanine Aminotransferase (ALT/SGPT) 14 Total Bilirubin 0.5 Sodium Level 139 Potassium Level 4.4 Chloride Level 107 Carbon Dioxide Level 24.1 Anion Gap 8 Estimat Glomerular Filtration Rate 58 Total Creatine Kinase 42 52 Troponin I 0.05 0.05 B-Type Natriuretic Peptide 1575 Lipase 139 Result Diagram: 10/11/17 1235 10/11/17 1235 Imaging Last Impressions Chest X-Ray 10/11/17 1227 Signed Impressions: Service Date/Time: Wednesday, October 11, 2017 12:35 - CONCLUSION: Cardiomegaly with interstitial edema and bilateral pleural effusions greater on the left consistent with CHF. Overall appearance has improved from previous study. MD Rita Prieto VTE Risk Assessment Rita VTE Risk Assessment: Mod/High Risk (score >= 2) Caprini Risk Assessment Model Point Value = 1 Point Value = 2 Point Value = 3 Point Value = 5 Age 41-60 Minor surgery BMI > 25 kg/m2 Swollen legs Varicose veins or History of unexplained or recurrent spontaneous Oral contraceptives or hormone replacement Sepsis (< 1 month) Serious lung disease, including pneumonia (< 1 month) Abnormal pulmonary function Acute myocardial infarction Congestive heart failure (< 1 month) History of inflammatory bowel disease Medical patient at bed rest Age 61-74 Arthroscopic surgery Major open surgery (> 45 min) Laparoscopic surgery (> 45 min) Malignancy Confined to bed (> 72 hours) Immobilizing plaster cast Central venous access Age >= 75 History of VTE Family history of VTE Factor V Leiden Prothrombin [id number] Lupus anticoagulant Anticardiolipin antibodies Elevated serum homocysteine Heparin-induced thrombocytopenia Other congenital or acquired thrombophilia Stroke (< 1 month) Elective arthroplasty Hip, pelvis, or leg fracture Acute spinal cord injury (< 1 month) Prophylaxis Regimen Total Risk Factor Score Risk Level Prophylaxis Regimen 0-1 Low Early ambulation 2 Moderate Order ONE of the following: *Sequential Compression Device (SCD) *Heparin 5000 units SQ BID 3-4 Higher Order ONE of the following medications: *Heparin 5000 units SQ TID *Enoxaparin/Lovenox 40 mg SQ daily (WT < 150 kg, CrCl > 30 mL/min) *Enoxaparin/Lovenox 30 mg SQ daily (WT < 150 kg, CrCl > 10-29 mL/min) *Enoxaparin/Lovenox 30 mg SQ BID (WT < 150 kg, CrCl > 30 mL/min) AND/OR *Sequential Compression Device (SCD) 5 or more Highest Order ONE of the following medications: *Heparin 5000 units SQ TID (Preferred with Epidurals) *Enoxaparin/Lovenox 40 mg SQ daily (WT < 150 kg, CrCl > 30 mL/min) *Enoxaparin/Lovenox 30 mg SQ daily (WT < 150 kg, CrCl > 10-29 mL/min) *Enoxaparin/Lovenox 30 mg SQ BID (WT < 150 kg, CrCl > 30 mL/min) AND *Sequential Compression Device (SCD) Assessment and Plan Problem List: (1) Chest pain ICD Code: R07.9 - Chest pain, unspecified Status: Acute Plan: Troponin admission negative. Patient outpatient observation, monitor on telemetry, trend cardiac enzymes. Will consult cardiology. The patient follows up with Dr. Dang. Check fasting lipid profile. (2) CAD (coronary artery disease) ICD Code: I25.10 - Atherosclerotic heart disease of [place] coronary artery without angina pectoris Plan: Opinion aspirin, the patient is not currently on a beta cyndie. I will start the patient on carvedilol. (3) Acute systolic (congestive) heart failure ICD Code: I50.21 - Acute systolic (congestive) heart failure Plan: Chest x-ray shows bilateral pleural effusions. Patient was given IV Lasix in the emergency department. I will continue. (4) Hypothyroidism ICD Code: E03.9 - Hypothyroidism, unspecified Plan: Continue levothyroxine. Check TSH and free T4 in a.m. (5) Leukopenia ICD Code: D72.819 - Decreased white blood cell count, unspecified Plan: Leukopenia seems to be chronic. Continue to monitor CBC. Assessment and Plan GI prophylaxis: PPI. DVT prophylaxis: SCDs, heparin subcutaneously. Code Status Full code. Discussed Condition With ED physician, patient, RN. Physician Certification 2 Midnight Certification Type: Admission for Inpatient Services Order for Inpatient Services The services are ordered in accordance with Medicare regulations or non- Medicare payer requirements, as applicable. In the case of services not specified as inpatient-only, they are appropriately provided as inpatient services in accordance with the 2-midnight benchmark. Estimated LOS (days): 2 days is the estimated time the patient will need to remain in the hospital, assuming treatment plan goals are met and no additional complications. Post-Hospital Plan: Not yet determined Problem Qualifiers (1) Hypothyroidism: Qualified Codes: E03.9 - Hypothyroidism, unspecified (2) Leukopenia: Alfredito Calixto MD Oct 11, 2017 19:20
[2017-10-11] MEDS: HEPARIN SODIUM - SQ 10,000 UNITS/ML VIAL SQ SCH (21:56)
[2017-10-11] MEDS: SODIUM CHLORIDE 0.9% FLUSH 10 ML FLUSH IV FLUSH SCH (21:56)
[2017-10-11] MEDS: FAMOTIDINE 20 MG TAB PO SCH (21:56)
[2017-10-12] VITALS (10 sets, daily range): BP systolic 90–113; BP diastolic 60–82; PULSE 73–90; RESP 16–18; TEMP 97.5–98.3; O2SAT 94–98
[2017-10-12 01:22] LABS: TROPONIN I 0.05 NG/ML (0.02-0.05)
[2017-10-12] MEDS: HEPARIN SODIUM - SQ 10,000 UNITS/ML VIAL SQ SCH ×3 (06:17→22:36)
[2017-10-12] MEDS: LEVOTHYROXINE SODIUM 125 MCG TAB PO SCH (06:17)
--- NOTE | 2017-10-12 08:31 | HHI.PR ---
Subjective Remarks in no acute distress. denies chest pain. sob is slightly better today. no other complaints. Objective Vitals Vital Signs Date Time Temp Pulse Resp B/P (MAP) Pulse Ox O2 Delivery O2 Flow Rate FiO2 10/12/17 07:55 97.7 73 18 113/82 (92) 97 10/12/17 04:27 97.5 77 18 111/75 (87) 96 10/12/17 04:00 88 10/12/17 00:34 97.5 82 18 103/75 (84) 98 10/12/17 00:00 74 10/11/17 21:42 97.8 82 18 98/60 (73) 93 10/11/17 20:00 81 10/11/17 19:01 72 18 121/67 (85) 97 10/11/17 13:36 80 18 116/81 (93) 98 Room Air 108/71 (83) 10/11/17 13:33 82 18 116/81 (93) 99 Room Air 10/11/17 12:40 97.9 84 18 116/82 (93) 98 Room Air 10/11/17 12:40 98 Room Air 10/11/17 12:36 97.9 84 18 116/82 (93) 98 I/O 10/11/17 10/11/17 10/11/17 10/12/17 10/12/17 10/12/17 07:00 15:00 23:00 07:00 15:00 23:00 Output Total 400 ml Balance -400 ml Output Urine Total 400 ml Result Diagram: 10/11/17 1235 10/11/17 1235 Imaging Last Impressions Chest X-Ray 10/11/17 1227 Signed Impressions: Service Date/Time: Wednesday, October 11, 2017 12:35 - CONCLUSION: Cardiomegaly with interstitial edema and bilateral pleural effusions greater on the left consistent with CHF. Overall appearance has improved from previous study. Gallito Esparza MD Objective Remarks GENERAL: This is a well-nourished, well-developed patient, in no apparent distress. CARDIOVASCULAR: Regular rate and regular rhythm without murmurs, gallops, or rubs. RESPIRATORY: Clear to auscultation. Breath sounds equal bilaterally. No wheezes , rales, or rhonchi. GASTROINTESTINAL: Abdomen soft, non-tender, nondistended. Normal, active bowel sounds MUSCULOSKELETAL: Extremities without clubbing, cyanosis, or edema. NEURO: Alert & Oriented x4 to person, place, time, situation. Moves all ext x4 Medications and IVs Inpatient Medications Acetaminophen (Tylenol) 500 mg Q4H PRN PO HEADACHE; Start 10/11/17 at 18:15 Acetaminophen/ Hydrocodone Bitart ([place] 7.5-325 Mg) 1 tab Q4H PRN PO PAIN SCALE 1 TO 7; Start 10/11/17 at 18:15 Aspirin (Aspirin Chew) 162 mg ONCE ONCE PO ; Start 10/11/17 at 12:30; Stop 07/19 at 12:31; Status DC Aspirin (Aspirin) 325 mg DAILY PO ; Start 10/12/17 at 09:00 Famotidine (Pepcid) 20 mg BID PO Last administered on 10/11/17at 21:56; Start at 21:00 Furosemide (Lasix Inj) 40 mg DAILY IV PUSH ; Start 10/12/17 at 09:00 Heparin Sodium (Porcine) (Heparin Inj) 5,000 units Q8H SQ Last administered on 10/12/17at 06:17; Start 10/11/17 at 22:00 Isosorbide Mononitrate (Imdur) 30 mg DAILY PO ; Start 10/12/17 at 09:00 Levothyroxine Sodium (Synthroid) 125 mcg DAILY@0600 PO Last administered on 08/19at 06:17; Start 10/12/17 at 06:00 Morphine Sulfate (Morphine Inj) 2 mg Q4H PRN IV PAIN 8-10; Start 10/11/17 at 18 :30 Nitroglycerin (Nitroglycerin 2% Oint) 1 inch ONCE ONCE TOP Last administered on 10/11/17at 13:33; Start 10/11/17 at 12:30; Stop 10/11/17 at 12:31; Status DC Nitroglycerin (Nitrostat Sl) 0.4 mg Q5M PRN SL CHEST PAIN; Start 10/11/17 at 18 :15 Ondansetron HCl (Zofran Inj) 4 mg Q6H PRN IV PUSH NAUSEA; Start 10/11/17 at 18: 15 Sodium Chloride (NS Flush) 2 ml BID IV FLUSH Last administered on 10/11/17at 21: 56; Start 10/11/17 at 21:00 A/P Problem List: (1) Chest pain ICD Code: R07.9 - Chest pain, unspecified Status: Acute (2) CAD (coronary artery disease) ICD Code: I25.10 - Atherosclerotic heart disease of [place] coronary artery without angina pectoris (3) Acute systolic (congestive) heart failure ICD Code: I50.21 - Acute systolic (congestive) heart failure (4) Hypothyroidism ICD Code: E03.9 - Hypothyroidism, unspecified (5) Leukopenia ICD Code: D72.819 - Decreased white blood cell count, unspecified Assessment and Plan (1) Chest pain cardiac enzymes negative. monitor on telemetry. consulted cardiology. The patient follows up with Dr. Dang. (2) CAD (coronary artery disease) Atherosclerotic heart disease of [place] coronary artery without angina pectoris continue aspirin and imdur- no BB at this time due to low-normal BP's. (3) Acute on chronic systolic (congestive) heart failure Chest x-ray shows bilateral pleural effusions. continue IV Lasix. (4) Hypothyroidism Continue levothyroxine. (5) Leukopenia Leukopenia seems to be chronic. Continue to monitor CBC. DVT prophylaxis with subq Heparin. Problem Qualifiers (1) Hypothyroidism: Qualified Codes: E03.9 - Hypothyroidism, unspecified (2) Leukopenia: Ciaran Vaughn MD Oct 12, 2017 08:31
--- NOTE | 2017-10-12 08:49 | MB ---
cc: VERÓNICA PADILLA M.D. DATE OF CONSULTATION 10/12/2017 REASON FOR CONSULTATION Chest pain and shortness of breath. HISTORY OF PRESENT ILLNESS This is a 67-year-old male who is well-known to me who was admitted recently to [facility] with [id number] myocardial infarction and congestive heart failure. He was very weak and developed renal insufficiency. The patient has a history of a single kidney. The patient was treated conservatively because he declined left heart catheterization because of the risk of developing end-stage renal disease and hemodialysis. The patient was discharged home on nitroglycerin, however, he is returned last night with more chest pain and shortness of breath. He was found to have congestive heart failure exacerbation with a BNP of 1575 and troponin of 0.05. Creatinine level was 1.24. A chest x-ray was obtained and showed pulmonary congestion. The patient was given 40 mg of IV Lasix and diuresed well. He is feeling slightly better. He is currently chest pain free. ALLERGIES Unknown SOCIAL HISTORY The patient smoked for long time and continues to do so. He denies alcohol abuse. FAMILY HISTORY Noncontributory REVIEW OF SYSTEMS HEENT: No complaints of lightheadedness or dizziness. CARDIOVASCULAR: History of recent non-ST elevation myocardial infarction. PULMONARY: No history of asthma or COPD. GI: No history of gastroesophageal reflux disease or GI bleed. The remainder of his review of systems is within normal limits. PHYSICAL EXAM VITAL SIGNS: Blood pressure 113/80 with a heart rate 70, respiratory rate 18, the patient is afebrile. NECK: Supple with no jugular venous distention. CHEST: Crackles bilaterally. HEART: S1 normal intensity, S2 single. Regular rate and rhythm. No S3 appreciated. ABDOMEN: Benign. EXTREMITIES: No edema. IMPRESSION 1. Probable non-ST elevation acute coronary syndrome. 2. Decompensated congestive heart failure secondary to recent myocardial infarction and ischemic cardiomyopathy. 3. Severe ischemic cardiomyopathy with ejection fraction of 20-25%. 4. Single kidney. 5. Chronic kidney disease. RECOMMENDATIONS Will be continued on loading treatment with Lasix and nitroglycerin. I had a lengthy discussion with the patient regarding the need of left heart catheterization and the risk of end-stage renal disease on hemodialysis and the fact that the patient does not have a "good quality of life" with recurrent CHF exacerbation and chest pain. The patient is still hesitant at this time about proceeding with left heart catheterization. The patient needs to be euvolemic before performing a left heart catheterization. I will continue to follow and provide further recommendation accordingly. Verónica Padilla MD /VANGIE /8:14 AM /8:29 AM
[2017-10-12] MEDS: ISOSORBIDE MONONITRATE 30 MG TAB PO SCH (10:47)
[2017-10-12] MEDS: FAMOTIDINE 20 MG TAB PO SCH ×2 (10:47→22:36)
[2017-10-12] MEDS: ASPIRIN 325 MG TAB PO SCH (10:47)
[2017-10-12] MEDS: FUROSEMIDE 40 MG/4 ML VIAL IV PUSH SCH (10:47)
[2017-10-12] MEDS: SODIUM CHLORIDE 0.9% FLUSH 10 ML FLUSH IV FLUSH SCH ×2 (10:48→21:00)
[2017-10-13] VITALS (10 sets, daily range): BP systolic 91–117; BP diastolic 55–79; PULSE 66–81; RESP 16–19; TEMP 96.5–98.1; O2SAT 95–99
[2017-10-13] MEDS: HEPARIN SODIUM - SQ 10,000 UNITS/ML VIAL SQ SCH ×3 (06:46→21:23)
[2017-10-13] MEDS: LEVOTHYROXINE SODIUM 125 MCG TAB PO SCH (06:46)
[2017-10-13 07:21] LABS: AUTOMATED NEUTROPHIL # 2.1 TH/MM3 (1.8-7.7); BASOPHIL % 0.9 % (0.0-2.0); EOSINOPHIL # 0.2 TH/MM3 (0-0.4); EOSINOPHIL % 5.3 % (0.0-4.0); HEMATOCRIT 31.1 % (39.0-51.0); HEMOGLOBIN 10.7 GM/DL (13.0-17.0); LYMPH % 25.8 % (9.0-44.0); LYMPHOCYTE # 0.9 TH/MM3 (1.0-4.8); MEAN CORPUSCULAR HEMOGLOBIN 28.5 PG (27.0-34.0); MEAN CORPUSCULAR HGB CONC 34.4 % (32.0-36.0); MEAN PLATELET VOLUME 8.5 FL (7.0-11.0); MONO % 6.3 % (0.0-8.0); MONOCYTE # 0.2 TH/MM3 (0-0.9); NEUT % 61.7 % (16.0-70.0); PLATELET COUNT 178 TH/MM3 (150-450); RED BLOOD COUNT 3.75 MIL/MM3 (4.50-5.90); RED CELL DISTRIBUTION WIDTH 19.6 % (11.6-17.2); WHITE BLOOD COUNT 3.4 TH/MM3 (4.0-11.0)
[2017-10-13 07:43] LABS: BICARBONATE 28.2 MEQ/L (21.0-32.0); CALCIUM 8.8 MG/DL (8.5-10.1); CREATININE 1.66 MG/DL (0.60-1.30)
[2017-10-13] MEDS: ASPIRIN 325 MG TAB PO SCH (09:16)
[2017-10-13] MEDS: FAMOTIDINE 20 MG TAB PO SCH ×2 (09:17→21:23)
[2017-10-13] MEDS: FUROSEMIDE 40 MG/4 ML VIAL IV PUSH SCH (09:17)
[2017-10-13] MEDS: ISOSORBIDE MONONITRATE 30 MG TAB PO SCH (09:17)
[2017-10-13] MEDS: SODIUM CHLORIDE 0.9% FLUSH 10 ML FLUSH IV FLUSH SCH ×2 (09:17→21:22)
--- NOTE | 2017-10-13 09:48 | HHI.PR ---
Subjective Remarks in no acute distress. no sob or chest pain. no new complaints. Objective Vitals Vital Signs Date Time Temp Pulse Resp B/P (MAP) Pulse Ox O2 Delivery O2 Flow Rate FiO2 10/13/17 08:46 96.5 76 18 116/68 (84) 98 10/13/17 05:01 97.6 78 18 102/61 (75) 95 10/13/17 00:56 97.6 81 19 117/79 (92) 95 10/12/17 20:33 97.9 78 18 108/62 (77) 96 10/12/17 20:00 98 10/12/17 16:00 98.3 74 18 90/60 (70) 94 10/12/17 16:00 98.0 76 16 113/72 (86) 98 10/12/17 11:51 79 I/O 10/12/17 10/12/17 10/12/17 10/13/17 10/13/17 10/13/17 07:00 15:00 23:00 07:00 15:00 23:00 Intake Total 200 ml Output Total 400 ml 300 ml 400 ml 400 ml Balance -400 ml -300 ml -200 ml -400 ml Intake Oral 200 ml Output Urine Total 400 ml 300 ml 400 ml 400 ml # Bowel Movements 1 Result Diagram: 10/13/17 0605 10/13/17 0605 Imaging Last Impressions Chest X-Ray 10/11/17 1227 Signed Impressions: Service Date/Time: Wednesday, October 11, 2017 12:35 - CONCLUSION: Cardiomegaly with interstitial edema and bilateral pleural effusions greater on the left consistent with CHF. Overall appearance has improved from previous study. Gallito Esparza MD Objective Remarks GENERAL: This is a well-nourished, well-developed patient, in no apparent distress. CARDIOVASCULAR: Regular rate and regular rhythm without murmurs, gallops, or rubs. RESPIRATORY: Clear to auscultation. Breath sounds equal bilaterally. No wheezes , rales, or rhonchi. GASTROINTESTINAL: Abdomen soft, non-tender, nondistended. Normal, active bowel sounds MUSCULOSKELETAL: Extremities without clubbing, cyanosis, or edema. NEURO: Alert & Oriented x4 to person, place, time, situation. Moves all ext x4 Medications and IVs Inpatient Medications Acetaminophen (Tylenol) 500 mg Q4H PRN PO HEADACHE; Start 10/11/17 at 18:15 Acetaminophen/ Hydrocodone Bitart ([place] 7.5-325 Mg) 1 tab Q4H PRN PO PAIN SCALE 1 TO 7; Start 10/11/17 at 18:15 Aspirin (Aspirin Chew) 162 mg ONCE ONCE PO ; Start 10/11/17 at 12:30; Stop 07/19 at 12:31; Status DC Aspirin (Aspirin) 325 mg DAILY PO Last administered on 10/13/17at 09:16; Start 10/12/17 at 09:00 Famotidine (Pepcid) 20 mg BID PO Last administered on 10/13/17at 09:17; Start at 21:00 Furosemide (Lasix Inj) 40 mg DAILY IV PUSH Last administered on 10/13/17at 09:17 ; Start 10/12/17 at 09:00 Heparin Sodium (Porcine) (Heparin Inj) 5,000 units Q8H SQ Last administered on 10/13/17at 06:46; Start 10/11/17 at 22:00 Isosorbide Mononitrate (Imdur) 30 mg DAILY PO Last administered on 10/13/17at 09 :17; Start 10/12/17 at 09:00 Levothyroxine Sodium (Synthroid) 125 mcg DAILY@0600 PO Last administered on 09/18at 06:46; Start 10/12/17 at 06:00 Morphine Sulfate (Morphine Inj) 2 mg Q4H PRN IV PAIN 8-10; Start 10/11/17 at 18 :30 Nitroglycerin (Nitroglycerin 2% Oint) 1 inch ONCE ONCE TOP Last administered on 10/11/17at 13:33; Start 10/11/17 at 12:30; Stop 10/11/17 at 12:31; Status DC Nitroglycerin (Nitrostat Sl) 0.4 mg Q5M PRN SL CHEST PAIN; Start 10/11/17 at 18 :15 Ondansetron HCl (Zofran Inj) 4 mg Q6H PRN IV PUSH NAUSEA; Start 10/11/17 at 18: 15 Sodium Chloride (NS Flush) 2 ml BID IV FLUSH Last administered on 10/13/17at 09: 17; Start 10/11/17 at 21:00 A/P Problem List: (1) Chest pain ICD Code: R07.9 - Chest pain, unspecified Status: Acute (2) CAD (coronary artery disease) ICD Code: I25.10 - Atherosclerotic heart disease of [place] coronary artery without angina pectoris (3) Acute systolic (congestive) heart failure ICD Code: I50.21 - Acute systolic (congestive) heart failure (4) Hypothyroidism ICD Code: E03.9 - Hypothyroidism, unspecified (5) Leukopenia ICD Code: D72.819 - Decreased white blood cell count, unspecified Assessment and Plan (1) Chest pain cardiac enzymes negative. monitor on telemetry. cardiology consult appreciated ; plan for possible cardiac cath. (2) CAD (coronary artery disease) Atherosclerotic heart disease of [place] coronary artery without angina pectoris continue aspirin and imdur- no BB at this time due to low-normal BP's. (3) Acute on chronic systolic (congestive) heart failure Chest x-ray shows bilateral pleural effusions. hold lasix today due to some increase in creatinine. (4) Hypothyroidism Continue levothyroxine. (5) Leukopenia Leukopenia seems to be chronic. Continue to monitor CBC. DVT prophylaxis with subq Heparin. Discharge Planning awaiting cardiology f/u and recommendations. Problem Qualifiers (1) Hypothyroidism: Qualified Codes: E03.9 - Hypothyroidism, unspecified (2) Leukopenia: Ciaran Vaughn MD Oct 13, 2017 09:48
[2017-10-13] MEDS ORDERED: PILL SPLITTER OTHER PRN (15:45)
--- NOTE | 2017-10-13 15:53 | EKG ---
Date Performed: 10/12/2017 Time Performed: 01:28:03 PTAGE: 67 years EKG: Sinus rhythm MARKED LEFT AXIS DEVIATION LOW QRS VOLTAGE IN PRECORDIAL LEADS POSSIBLE ANTERIOR MYOCARDIAL INFARCTI ON MODERATE T-WAVE ABNORMALITY, CONSIDER LATERAL ISCHEMIA ABNORMAL ECG PREVIOUS TRACING : 10/11/2017 17.35 DOCTOR: Munir Landry Interpretating Date/Time 10/13/2017 15:51:38
--- NOTE | 2017-10-13 15:55 | EKG ---
Date Performed: 10/11/2017 Time Performed: 17:35:37 PTAGE: 67 years EKG: Sinus rhythm WITH OCCASIONAL VENTRICULAR PREMATURE COMPLEXES POSSIBLE ANTERIOR MYOCARDIAL INFARCTION MODERATE T-W AVE ABNORMALITY, CONSIDER LATERAL ISCHEMIA ABNORMAL ECG NO PREVIOUS TRACING DOCTOR: Munir Landry Interpretating Date/Time 10/13/2017 15:55:03
--- NOTE | 2017-10-13 15:59 | EKG ---
Date Performed: 10/11/2017 Time Performed: 12:51:52 PTAGE: 67 years EKG: Sinus rhythm MARKED LEFT AXIS DEVIATION LOW QRS VOLTAGE IN PRECORDIAL LEADS LEFT VENTRICULAR HYPERTROPHY AND ST-T CHANGE POSSIBLE ANTERIOR MYOCARDIAL INFARCTION ABNORMAL ECG NO PREVIOUS TRACING DOCTOR: Munir Landry Interpretating Date/Time 10/13/2017 15:58:05
[2017-10-14] VITALS (7 sets, daily range): BP systolic 95–127; BP diastolic 57–79; PULSE 66–84; RESP 16–20; TEMP 97.6–97.8; O2SAT 95–99
[2017-10-14 07:31] LABS: BICARBONATE 23.7 MEQ/L (21.0-32.0); CALCIUM 8.6 MG/DL (8.5-10.1); CREATININE 1.46 MG/DL (0.60-1.30)
[2017-10-14] MEDS: HEPARIN SODIUM - SQ 10,000 UNITS/ML VIAL SQ SCH ×2 (07:59→15:01)
[2017-10-14] MEDS: LEVOTHYROXINE SODIUM 125 MCG TAB PO SCH (07:59)
[2017-10-14] MEDS: ASPIRIN 325 MG TAB PO SCH (09:01)
[2017-10-14] MEDS: FAMOTIDINE 20 MG TAB PO SCH (09:01)
[2017-10-14] MEDS: SODIUM CHLORIDE 0.9% FLUSH 10 ML FLUSH IV FLUSH SCH (09:02)
--- NOTE | 2017-10-14 10:26 | HHI.PR ---
Subjective Remarks pt denies chest pain Objective Vital Signs Date Time Temp Pulse Resp B/P (MAP) Pulse Ox O2 Delivery O2 Flow Rate FiO2 10/14/17 08:23 97.8 68 20 106/68 (81) 97 10/14/17 03:07 97.8 84 17 127/79 (95) 97 10/13/17 23:57 98.1 80 16 103/69 (80) 97 10/13/17 21:07 97.8 79 16 109/71 (84) 99 10/13/17 16:48 97.4 76 18 92/58 (69) 95 10/13/17 16:30 74 10/13/17 12:10 97.4 74 18 91/55 (67) 96 10/13/17 12:00 71 I/O 10/13/17 10/13/17 10/13/17 10/14/17 10/14/17 10/14/17 07:00 15:00 23:00 07:00 15:00 23:00 Intake Total 720 ml 1110 ml Output Total 400 ml 450 ml Balance -400 ml 720 ml 660 ml Intake Oral 720 ml 1110 ml Output Urine Total 400 ml 450 ml # Bowel Movements 1 VSS CHEST: CTA HEART: S1,S2, RRR, No S3 ABD: ST, NT EXT:No edema Result Diagram: 10/13/17 0605 10/14/17 0635 Assessment and Plan Assessment and Plan I explained the risks of LT HC which include but not limited to:' [place],CVA,CHF, Respiratory failure, bleed, infection, shock, renal failur, intubation and ". the pt understands and wishes to proceed. I quoted a risk of 10% of renal failure and HD. He is agreeable and wishes to proceed. Verónica Dang MD Oct 14, 2017 10:26
[2017-10-14] MEDS: ISOSORBIDE MONONITRATE 30 MG TAB PO SCH (12:15)
--- NOTE | 2017-10-14 12:34 | HHI.PR ---
Subjective Remarks in no acute distress. denies chest pain or sob. no new complaints. awaiting cardiac cath. Objective Vitals Vital Signs Date Time Temp Pulse Resp B/P (MAP) Pulse Ox O2 Delivery O2 Flow Rate FiO2 10/14/17 12:16 97.6 69 96/64 (75) 99 10/14/17 08:23 97.8 68 20 106/68 (81) 97 10/14/17 03:07 97.8 84 17 127/79 (95) 97 10/13/17 23:57 98.1 80 16 103/69 (80) 97 10/13/17 21:07 97.8 79 16 109/71 (84) 99 10/13/17 16:48 97.4 76 18 92/58 (69) 95 10/13/17 16:30 74 I/O 10/13/17 10/13/17 10/13/17 10/14/17 10/14/17 10/14/17 07:00 15:00 23:00 07:00 15:00 23:00 Intake Total 720 ml 1110 ml Output Total 400 ml 450 ml Balance -400 ml 720 ml 660 ml Intake Oral 720 ml 1110 ml Output Urine Total 400 ml 450 ml # Bowel Movements 1 Result Diagram: 10/13/17 0605 10/14/17 0635 Imaging Last Impressions Chest X-Ray 10/11/17 1227 Signed Impressions: Service Date/Time: Wednesday, October 11, 2017 12:35 - CONCLUSION: Cardiomegaly with interstitial edema and bilateral pleural effusions greater on the left consistent with CHF. Overall appearance has improved from previous study. Gallito Esparza MD Objective Remarks GENERAL: This is a well-nourished, well-developed patient, in no apparent distress. CARDIOVASCULAR: Regular rate and regular rhythm without murmurs, gallops, or rubs. RESPIRATORY: Clear to auscultation. Breath sounds equal bilaterally. No wheezes , rales, or rhonchi. GASTROINTESTINAL: Abdomen soft, non-tender, nondistended. Normal, active bowel sounds MUSCULOSKELETAL: Extremities without clubbing, cyanosis, or edema. NEURO: Alert & Oriented x4 to person, place, time, situation. Moves all ext x4 Medications and IVs Inpatient Medications Acetaminophen (Tylenol) 500 mg Q4H PRN PO HEADACHE; Start 10/11/17 at 18:15 Acetaminophen/ Hydrocodone Bitart ([place] 7.5-325 Mg) 1 tab Q4H PRN PO PAIN SCALE 1 TO 7; Start 10/11/17 at 18:15 Aspirin (Aspirin Chew) 162 mg ONCE ONCE PO ; Start 10/11/17 at 12:30; Stop 07/19 at 12:31; Status DC Aspirin (Aspirin) 325 mg DAILY PO Last administered on 10/14/17at 09:01; Start 10/12/17 at 09:00 Famotidine (Pepcid) 10 mg BID PO Last administered on 10/14/17at 09:01; Start at 21:00 Furosemide (Lasix Inj) 40 mg DAILY IV PUSH Last administered on 10/13/17at 09:17 ; Start 10/12/17 at 09:00; Status Future Hold Heparin Sodium (Porcine) (Heparin Inj) 5,000 units Q8H SQ Last administered on 10/14/17at 07:59; Start 10/11/17 at 22:00 Isosorbide Mononitrate (Imdur) 30 mg DAILY PO Last administered on 10/14/17at 12 :15; Start 10/12/17 at 09:00 Levothyroxine Sodium (Synthroid) 125 mcg DAILY@0600 PO Last administered on at 07:59; Start 10/12/17 at 06:00 Miscellaneous (Pill Splitter) 1 ea UNSCH PRN OTHER SEE LABEL COMMENTS; Start at 15:45 Morphine Sulfate (Morphine Inj) 2 mg Q4H PRN IV PAIN 8-10; Start 10/11/17 at 18 :30 Nitroglycerin (Nitroglycerin 2% Oint) 1 inch ONCE ONCE TOP Last administered on 10/11/17at 13:33; Start 10/11/17 at 12:30; Stop 10/11/17 at 12:31; Status DC Nitroglycerin (Nitrostat Sl) 0.4 mg Q5M PRN SL CHEST PAIN; Start 10/11/17 at 18 :15 Ondansetron HCl (Zofran Inj) 4 mg Q6H PRN IV PUSH NAUSEA; Start 10/11/17 at 18: 15 Sodium Chloride (NS Flush) 2 ml BID IV FLUSH Last administered on 10/14/17at 09: 02; Start 10/11/17 at 21:00 A/P Problem List: (1) Chest pain ICD Code: R07.9 - Chest pain, unspecified Status: Acute (2) CAD (coronary artery disease) ICD Code: I25.10 - Atherosclerotic heart disease of [place] coronary artery without angina pectoris (3) Acute systolic (congestive) heart failure ICD Code: I50.21 - Acute systolic (congestive) heart failure (4) Hypothyroidism ICD Code: E03.9 - Hypothyroidism, unspecified (5) Leukopenia ICD Code: D72.819 - Decreased white blood cell count, unspecified Assessment and Plan (1) Chest pain with history of CAD. cardiac enzymes negative. monitor on telemetry. continue aspirin and imdur- no BB at this time due to low-normal BP's. cardiology consult appreciated ; plan for cardiac cath. on Monday. (2) Acute on chronic systolic (congestive) heart failure Chest x-ray shows bilateral pleural effusions. hold lasix for now due to some increase in creatinine. (3) Hypothyroidism Continue levothyroxine. (4) Leukopenia Leukopenia seems to be chronic. Continue to monitor CBC. DVT prophylaxis with subq Heparin. Discharge Planning awaiting cardiac cath. Problem Qualifiers (1) Hypothyroidism: Qualified Codes: E03.9 - Hypothyroidism, unspecified (2) Leukopenia: Ciaran Vaughn MD Oct 14, 2017 12:34
[2017-10-15] VITALS (10 sets, daily range): BP systolic 92–113; BP diastolic 52–71; PULSE 65–84; RESP 18–20; TEMP 97.3–98.8; O2SAT 96–99
[2017-10-15] MEDS: SODIUM CHLORIDE 0.9% FLUSH 10 ML FLUSH IV FLUSH SCH ×3 (00:05→20:32)
[2017-10-15] MEDS: FAMOTIDINE 20 MG TAB PO SCH ×3 (00:06→20:32)
[2017-10-15] MEDS: HEPARIN SODIUM - SQ 10,000 UNITS/ML VIAL SQ SCH ×4 (00:06→20:31)
[2017-10-15] MEDS: NITROGLYCERIN 0.4 MG SL 25 TABS/BTL SL PRN ×2 (00:37→20:30)
[2017-10-15] MEDS: LEVOTHYROXINE SODIUM 125 MCG TAB PO SCH (06:34)
[2017-10-15] MEDS: ASPIRIN 325 MG TAB PO SCH (09:31)
[2017-10-15] MEDS: ISOSORBIDE MONONITRATE 30 MG TAB PO SCH (09:32)
--- NOTE | 2017-10-15 12:03 | HHI.PR ---
Subjective Remarks pt denies chest pain Objective Vital Signs Date Time Temp Pulse Resp B/P (MAP) Pulse Ox O2 Delivery O2 Flow Rate FiO2 10/15/17 12:00 98.1 66 20 92/52 (65) 96 10/15/17 08:25 97.6 73 18 108/71 (83) 98 10/15/17 04:45 100/58 (72) 10/15/17 04:17 98.6 80 18 96/58 (71) 97 10/15/17 01:42 98.4 67 18 113/70 (84) 97 10/14/17 16:30 74 10/14/17 15:53 97.6 67 16 95/57 (70) 95 10/14/17 12:45 68 10/14/17 12:16 97.6 69 96/64 (75) 99 I/O 10/14/17 10/14/17 10/14/17 10/15/17 10/15/17 10/15/17 07:00 15:00 23:00 07:00 15:00 23:00 Intake Total 365 ml Output Total 500 ml 650 ml 300 ml Balance -135 ml -650 ml -300 ml Intake Oral 365 ml Output Urine Total 500 ml 650 ml 300 ml # Bowel Movements 1 VSS CHEST: CTA HEART: S1,S2,RRR ABD: ST, NT Ext: No edema Result Diagram: 10/13/17 0605 10/14/17 0635 Assessment and Plan Assessment and Plan I explained the risks of LT HC which include but not limited to:' [place],CVA,CHF, Respiratory failure, bleed, infection, shock, renal failur, intubation and ". the pt understands and wishes to proceed. I quoted a risk of 10% of renal failure and HD. He is agreeable and wishes to proceed tomorrow. Verónica Dang MD Oct 15, 2017 12:03
--- NOTE | 2017-10-15 14:34 | HHI.PR ---
Subjective Remarks This is a 67-year-old male with past medical history significant for [place], hypothyroidism and hypertension who presented to [facility] complaining of chest pain for the past 2 days. The patient was recently discharged [facility] FROM this institution after the patient had an episode of on an NSTEMI which as per old records was treated medically. The patient describes the pain as dull, substernal, nonradiating, 6/10 which lasts approximately 10-15 minutes and subsides spontaneously. Denies diaphoresis, nausea. Associated with palpitations. The patient states that he also has been feeling short of breath which has been getting progressively worst for the past 2 days, associated with orthopnea. Patient states that chest pain was improved with administration of sublingual nitroglycerin. The patient is currently chest pain-free and denies any cough, abdominal pain, nausea, vomiting , dysuria, fevers, chills. 10-15 SEEN BY CARDIOLOGY- FOR CARDIAC CATH ON 10-16 Objective Vitals Vital Signs Date Time Temp Pulse Resp B/P (MAP) Pulse Ox O2 Delivery O2 Flow Rate FiO2 10/15/17 12:00 98.1 66 20 92/52 (65) 96 10/15/17 08:25 97.6 73 18 108/71 (83) 98 10/15/17 04:45 100/58 (72) 10/15/17 04:17 98.6 80 18 96/58 (71) 97 10/15/17 01:42 98.4 67 18 113/70 (84) 97 10/14/17 16:30 74 10/14/17 15:53 97.6 67 16 95/57 (70) 95 I/O 10/14/17 10/14/17 10/14/17 10/15/17 10/15/17 10/15/17 07:00 15:00 23:00 07:00 15:00 23:00 Intake Total 365 ml Output Total 500 ml 650 ml 300 ml Balance -135 ml -650 ml -300 ml Intake Oral 365 ml Output Urine Total 500 ml 650 ml 300 ml # Bowel Movements 1 Result Diagram: 10/13/17 0605 10/14/17 0635 Other Results Laboratory Tests Test 10/13/17 06:05 10/14/17 06:35 White Blood Count 3.4 TH/MM3 Red Blood Count 3.75 MIL/MM3 Hemoglobin 10.7 GM/DL Hematocrit 31.1 % Mean Corpuscular Volume 83.0 FL Mean Corpuscular Hemoglobin 28.5 PG Mean Corpuscular Hemoglobin Concent 34.4 % Red Cell Distribution Width 19.6 % Platelet Count 178 TH/MM3 Mean Platelet Volume 8.5 FL Neutrophils (%) (Auto) 61.7 % Lymphocytes (%) (Auto) 25.8 % Monocytes (%) (Auto) 6.3 % Eosinophils (%) (Auto) 5.3 % Basophils (%) (Auto) 0.9 % Neutrophils # (Auto) 2.1 TH/MM3 Lymphocytes # (Auto) 0.9 TH/MM3 Monocytes # (Auto) 0.2 TH/MM3 Eosinophils # (Auto) 0.2 TH/MM3 Basophils # (Auto) 0.0 TH/MM3 CBC Comment DIFF FINAL Differential Comment Blood Urea Nitrogen 29 MG/DL 32 MG/DL Creatinine 1.66 MG/DL 1.46 MG/DL Random Glucose 79 MG/DL 88 MG/DL Calcium Level 8.8 MG/DL 8.6 MG/DL Sodium Level 138 MEQ/L 137 MEQ/L Potassium Level 4.4 MEQ/L 4.3 MEQ/L Chloride Level 104 MEQ/L 105 MEQ/L Carbon Dioxide Level 28.2 MEQ/L 23.7 MEQ/L Anion Gap 6 MEQ/L 8 MEQ/L Estimat Glomerular Filtration Rate 42 ML/MIN 48 ML/MIN Imaging Last Impressions Chest X-Ray 10/11/17 1227 Signed Impressions: Service Date/Time: Wednesday, October 11, 2017 12:35 - CONCLUSION: Cardiomegaly with interstitial edema and bilateral pleural effusions greater on the left consistent with CHF. Overall appearance has improved from previous study. Gallito Esparza MD Objective Remarks GENERAL: Alert oriented talkative and cooperative 3 in no acute distress at this time SKIN: Warm and dry. HEAD: Atraumatic. Normocephalic. EYES: Pupils equal and round. No scleral icterus. No injection or drainage. Extraocular muscles intact ENT: No nasal bleeding or discharge. Mucous membranes pink and moist. Tongue is midline NECK: Trachea midline. No JVD. Supple CARDIOVASCULAR: Regular rate and rhythm. S1 and S2 no S3 or S4 RESPIRATORY: No accessory muscle use. Clear to auscultation. Breath sounds equal bilaterally. GASTROINTESTINAL: Abdomen soft, non-tender, nondistended. Hepatic and splenic margins not palpable. MUSCULOSKELETAL: Extremities without clubbing, cyanosis, or edema. No obvious deformities. 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 No obvious cranial nerve deficits. Motor grossly within normal limits. Five out of 5 muscle strength in the arms and legs. Normal speech. PSYCHIATRIC: Appropriate mood and affect; insight and judgment normal. Medications and IVs Current Medications Aspirin (Aspirin Chew) 162 mg ONCE ONCE PO ; Start 10/11/17 at 12:30; Stop 07/19 at 12:31; Status DC Nitroglycerin (Nitroglycerin 2% Oint) 1 inch ONCE ONCE TOP Last administered on 10/11/17at 13:33; Start 10/11/17 at 12:30; Stop 10/11/17 at 12:31; Status DC Furosemide (Lasix Inj) 40 mg ONCE ONCE IV PUSH Last administered on 10/11/17at 13:32; Start 10/11/17 at 12:30; Stop 10/11/17 at 12:31; Status DC Sodium Chloride (NS Flush) 2 ml UNSCH PRN IV FLUSH FLUSH AFTER USING IV ACCESS ; Start 10/11/17 at 18:00 Sodium Chloride (NS Flush) 2 ml UNSCH PRN IV FLUSH FLUSH AFTER USING IV ACCESS ; Start 10/11/17 at 18:15 Sodium Chloride (NS Flush) 2 ml BID IV FLUSH Last administered on 10/15/17at 09: 32; Start 10/11/17 at 21:00 Acetaminophen (Tylenol) 500 mg Q4H PRN PO HEADACHE; Start 10/11/17 at 18:15 Acetaminophen/ Hydrocodone Bitart ([place] 7.5-325 Mg) 1 tab Q4H PRN PO PAIN SCALE 1 TO 7; Start 10/11/17 at 18:15 Morphine Sulfate (Morphine Inj) 2 mg Q4H PRN IV PAIN 8-10; Start 10/11/17 at 18 :30 Ondansetron HCl (Zofran Inj) 4 mg Q6H PRN IV PUSH NAUSEA; Start 10/11/17 at 18: 15 Famotidine (Pepcid) 20 mg BID PO Last administered on 10/13/17at 09:17; Start at 21:00; Stop 10/13/17 at 15:32; Status DC Nitroglycerin (Nitrostat Sl) 0.4 mg Q5M PRN SL CHEST PAIN Last administered on 10/15/17at 00:37; Start 10/11/17 at 18:15 Aspirin (Aspirin) 325 mg DAILY PO Last administered on 10/15/17at 09:31; Start 10/12/17 at 09:00 Heparin Sodium (Porcine) (Heparin Inj) 5,000 units Q8H SQ Last administered on 10/15/17at 14:04; Start 10/11/17 at 22:00; Stop 10/16/17 at 06:00 Furosemide (Lasix Inj) 40 mg DAILY IV PUSH Last administered on 10/13/17at 09:17 ; Start 10/12/17 at 09:00; Status Future Hold Isosorbide Mononitrate (Imdur) 30 mg DAILY PO Last administered on 10/15/17at 09 :32; Start 10/12/17 at 09:00 Levothyroxine Sodium (Synthroid) 125 mcg DAILY@0600 PO Last administered on at 06:34; Start 10/12/17 at 06:00 Famotidine (Pepcid) 10 mg BID PO Last administered on 10/15/17at 09:31; Start at 21:00 Miscellaneous (Pill Splitter) 1 ea UNSCH PRN OTHER SEE LABEL COMMENTS; Start at 15:45 A/P Problem List: (1) Chest pain ICD Code: R07.9 - Chest pain, unspecified Status: Acute Plan: Troponin admission negative. Patient outpatient observation, monitor on telemetry, trend cardiac enzymes. Will consult cardiology. The patient follows up with Dr. Dang. Check fasting lipid profile. (2) CAD (coronary artery disease) ICD Code: I25.10 - Atherosclerotic heart disease of [place] coronary artery without angina pectoris Plan: Opinion aspirin, the patient is not currently on a beta cyndie. I will start the patient on carvedilol. TO HAVE CARDIAC CATH ON 10-16 (3) Acute systolic (congestive) heart failure ICD Code: I50.21 - Acute systolic (congestive) heart failure Plan: Chest x-ray shows bilateral pleural effusions. LASIX ON HOLD AM LABS (4) Hypothyroidism ICD Code: E03.9 - Hypothyroidism, unspecified Plan: Continue levothyroxine. Check TSH and free T4 in a.m. (5) Leukopenia ICD Code: D72.819 - Decreased white blood cell count, unspecified Plan: Leukopenia seems to be chronic. Continue to monitor CBC. Assessment and Plan Assessment and Plan (1) Chest pain with history of CAD. cardiac enzymes negative. monitor on telemetry. continue aspirin and imdur- no BB at this time due to low-normal BP's. cardiology consult appreciated ; plan for cardiac cath. on Monday- (2) Acute on chronic systolic (congestive) heart failure Chest x-ray shows bilateral pleural effusions. hold lasix for now due to some increase in creatinine. (3) Hypothyroidism Continue levothyroxine. (4) Leukopenia Leukopenia seems to be chronic. Continue to monitor CBC. DVT prophylaxis with subq Heparin. Discharge Planning awaiting cardiac cath. Discharge Planning PENDING CARDIAC CATH Problem Qualifiers (1) Hypothyroidism: Qualified Codes: E03.9 - Hypothyroidism, unspecified (2) Leukopenia: Cristian Perla DO Oct 15, 2017 14:34
[2017-10-16] VITALS (12 sets, daily range): BP systolic 101–125; BP diastolic 66–78; PULSE 72–91; RESP 16–18; TEMP 98–98.6; O2SAT 95–100
[2017-10-16] MEDS: LEVOTHYROXINE SODIUM 125 MCG TAB PO SCH (05:52)
[2017-10-16] MEDS: HEPARIN SODIUM - SQ 10,000 UNITS/ML VIAL SQ SCH (05:53)
[2017-10-16 08:31] LABS: AUTOMATED NEUTROPHIL # 2.2 TH/MM3 (1.8-7.7); BASOPHIL % 0.8 % (0.0-2.0); EOSINOPHIL # 0.1 TH/MM3 (0-0.4); EOSINOPHIL % 4.4 % (0.0-4.0); HEMATOCRIT 30.9 % (39.0-51.0); HEMOGLOBIN 10.7 GM/DL (13.0-17.0); LYMPH % 21.3 % (9.0-44.0); LYMPHOCYTE # 0.7 TH/MM3 (1.0-4.8); MEAN CELL VOLUME 82.8 FL (80.0-100.0); MEAN CORPUSCULAR HEMOGLOBIN 28.6 PG (27.0-34.0); MEAN CORPUSCULAR HGB CONC 34.5 % (32.0-36.0); MEAN PLATELET VOLUME 8.8 FL (7.0-11.0); MONO % 8.5 % (0.0-8.0); MONOCYTE # 0.3 TH/MM3 (0-0.9); PLATELET COUNT 169 TH/MM3 (150-450); RED BLOOD COUNT 3.73 MIL/MM3 (4.50-5.90); RED CELL DISTRIBUTION WIDTH 19.2 % (11.6-17.2); WHITE BLOOD COUNT 3.4 TH/MM3 (4.0-11.0)
[2017-10-16 08:46] LABS: ALBUMIN 3.1 GM/DL (3.4-5.0); AST (GOT) 13 U/L (15-37); BICARBONATE 21.9 MEQ/L (21.0-32.0); BLOOD UREA NITROGEN 28 MG/DL (7-18); CALCIUM 8.5 MG/DL (8.5-10.1); CHLORIDE 104 MEQ/L (98-107); CHOLESTEROL 142 MG/DL (120-200); CREATININE 1.29 MG/DL (0.60-1.30); GLOMERULAR FILTRATION RATE 56 ML/MIN (>89); GLUCOSE,RANDOM 86 MG/DL (74-106); MAGNESIUM 2.2 MG/DL (1.5-2.5); SODIUM (NA) 135 MEQ/L (136-145)
[2017-10-16 08:54] LABS: ALKALINE PHOSPHATASE 88 U/L (45-117); ALT (GPT) 14 U/L (12-78); CHOLESTEROL/ HDL RATIO 2.93 RATIO; FREE T4 1.28 NG/DL (0.76-1.46); HDL CHOLESTEROL 48.3 MG/DL (40.0-60.0); LDL CHOLESTEROL 81 MG/DL (0-99); PHOSPHORUS 3.6 MG/DL (2.5-4.9); TOTAL BILIRUBIN ADULT 0.6 MG/DL (0.2-1.0); TOTAL PROTEIN 7.3 GM/DL (6.4-8.2); TRIGLYCERIDES 64 MG/DL (42-150)
[2017-10-16] MEDS: FAMOTIDINE 20 MG TAB PO SCH ×2 (09:00→21:58)
[2017-10-16] MEDS: ASPIRIN 325 MG TAB PO SCH (09:00)
[2017-10-16] MEDS: ISOSORBIDE MONONITRATE 30 MG TAB PO SCH (09:00)
[2017-10-16] MEDS ORDERED: HEPARIN-NS/PF INJ 1,000 ML ONE (09:36)
[2017-10-16] MEDS ORDERED: VERAPAMIL HCL 5 MG/2 ML VIAL ONE (09:48)
[2017-10-16] MEDS ORDERED: HEPARIN SODIUM - IV 10,000 UNITS/10 ML VIAL ONE (09:49)
[2017-10-16] MEDS ORDERED: NITROGLYCERIN INJ 5 ML ONE (09:49)
[2017-10-16] MEDS ORDERED: MIDAZOLAM HCL 2 MG/2 ML VIAL ONE (09:56)
[2017-10-16] MEDS ORDERED: diphenhydrAMINE HCL 50 MG/ML VIAL ONE (10:06)
--- NOTE | 2017-10-16 10:51 | HHI.PR ---
Subjective Remarks pt denies chest pain Objective Vital Signs Date Time Temp Pulse Resp B/P (MAP) Pulse Ox O2 Delivery O2 Flow Rate FiO2 10/16/17 08:32 98.1 79 16 105/70 (82) 97 10/16/17 05:35 98.0 79 18 101/66 (78) 96 10/16/17 04:15 82 10/16/17 00:12 98.1 91 18 103/69 (80) 95 10/15/17 21:44 98.8 84 18 112/70 (84) 97 10/15/17 17:36 76 10/15/17 16:31 97.3 68 18 99/63 (75) 99 10/15/17 12:30 75 10/15/17 12:00 98.1 66 20 92/52 (65) 96 I/O 10/15/17 10/15/17 10/15/17 10/16/17 10/16/17 10/16/17 07:00 15:00 23:00 07:00 15:00 23:00 Intake Total 240 ml 500 ml Output Total 300 ml 750 ml 1100 ml Balance -300 ml -510 ml -600 ml Intake Oral 240 ml 500 ml Output Urine Total 300 ml 750 ml 1100 ml # Bowel Movements 1 VSS CHEST: CTA HEART: S1, S2 RRR ABD: ST, NT EXT: No edema Result Diagram: 10/16/17 0750 10/16/17 0750 Assessment and Plan Assessment and Plan LT HC showed severe 3 vessel disease. we will consult CT surgery for CABG Verónica Dang MD Oct 16, 2017 10:51
--- NOTE | 2017-10-16 10:53 | CATHPROC ---
[employer] HIS Report Study Information Study Number Scheduled Start Study Start [id number] 10/16/2017 Oct 16 2017 9:30AM Referring Institution Admit Source Facility Department 1 Emergency department [facility] - [facility] Physician and Clinical Staff Initial Verónica Torres Manager Case Mindi Jimenez,RN Recorder Ludmila Ruby,RT(R) Scrub Freedom, Radha,BLOOD DONOR RECRUITER TECH2 Procedures Performed Procedure Location (Site) Vessel Name Coronary Angiograms LCA Left Coronary Coronary Angiograms RCA Right Coronary L Heart Cath Wire insertion Radial (right) Radial Art. 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 NEEDLE, PERCUTANEOUS ENTRY 21G X 2.5CM Used *[id number] 534-576T *[id number] 534-521T *[id number] [id number] *[id number] WIRE, HYDROSTEER 260CM [id number] 10:10 DAIG/ST. IMRNA MEDICAL 260CM Used STRAIGHT GLIDE *[id number] 09:58 [employer] PACK, CCL CUSTOM * Used *[id number] 09:58 [employer] SUPPORT, ARTERIAL ADULT 20691 *[id number] Used [id number] 09:56 [employer] PACER PEN, SKIN DUAL W/ RULER * Used *[id number] 10:28 MEDTRONIC JL 3.5 DXTERITY CATHETER FR 5 Used *[id number] 10:31 MEDTRONIC JL 4.0 DXTERITY CATHETER FR 5 Used *[id number] BAND, RADIAL COMPRESSION TR [id number] 10:43 [employer] MEDICAL 29CM Used LARGE 29 *[id number] 09:58 [employer] WIRE, EXCHANGE 260CM 3MMJ 260CM Used *[id number] 09:56 NAMIC MANIFOLD, 4 PORT * Used *[id number] 09:58 NYCOMED OMNIPAQUE, 350 MG, 150ML 150ML [id number] Used [id number] 09:58 [employer]ICE [employer] BLANKET,WARM AIR CCL * Used *[id number] CATHETER, FR5 OPTITORQUE [id number] 10:24 TERUMO [employer]ICAL FR 5 Used RADIAL TIG 4.0 *[id number] 10:04 [employer] SHEATH, FR5 TRANSRADIAL .021 FR 5 Used *[id number] Equipment Model, Serial, Lot Number and Expiration Data Description Model Number Serial Number Lot Number Expiration Date JL 4.0 DXTERITY CATHETER [id number] 05-03-2020 NEEDLE, PERCUTANEOUS ENTRY [id number] 08-01-2020 SHEATH, FR5 TRANSRADIAL .021 493327 12-30-2017 History: Current Medications Medication Dosage/Unit Route Frequency Last Date/Time Taken ASA Synthroid NTG SL Imdur LASIX History: Allergies Allergy Reaction No Known Allergies History: Risk Factors Family History of Hypertension Dyslipidemia Previous NC Previous Heart Failure Premature CAD Yes No Yes Yes Yes Prior Valve Prior PCI Prior CABG Surgery No No No Cerebrovascular Peripheral Artery Chronic Lung On Dialysis Diabetes Disease Disease Disease No No No No No History: Symptoms/Diagnosis Selection Items Chest pain SOB History: Stress Tests Stress or Imaging Studies Performed No History: Other Current Smoker Method Quit Packs a Day Years Used Pack Years No Cigarettes 1 Years Ago 1 40 40 Labs Hgb (g/dl) Hct (%) RBC (MIL/MM3) WBC (l/cumm) Platelets (thousands) 11.60-17.00 35.00-51.00 4.00-5.90 4.00-11.00 150.00-450.00 10.7 30.9 3.7 3.4 169 Glucose (mg/dl) BUN (mg/dl) Creatinine (mg/dl) BUN:Creatinine (1:x) 74.00-106.00 7.00-18.00 0.50-1.30 10.00-20.00 86 28 1.2 23.3 Na (meq/l) K (meq/l) 136.00-145.00 3.50-5.10 135 4.5 INR (PTT:PT) 0.90-1.10 1.1 Troponin I (ng/ml) 0.02-0.05 0.05 Medication Medication Total Dose (Bolus/Oral) Medication Total Dosage/Unit 1% XYLOCAINE 20 mL BENADRYL 50 mg FENTANYL 50 mcg HEPARIN 2000 units RADIAL COCKTAIL 5 mL (Bolus) VERSED 1 mg Medications (Bolus/Oral) Medication Time Given Dosage/Unit Administered By Reason VERSED 10/16/2017 9:59:00 AM 1 mg Mindi Jimenez 1 mg VERSED given in lab by Mindi Jimenez RN in Left Antecubital via Peripheral IV. Ordered by Verónica Remy. 1% XYLOCAINE 10/16/2017 10:02:20 AM 20 mL Verónica Dang 20 mL 1% XYLOCAINE given in lab by Verónica Dang in Right Radial via Subcutaneous. FENTANYL 10/16/2017 10:03:40 AM 50 mcg Mindi Jimenez 50 mcg FENTANYL given in lab by Mindi Jimenez RN in Left Antecubital via Peripheral IV. Ordered b y Verónica Dang. BENADRYL 10/16/2017 10:06:47 AM 50 mg Mindi Jimenez 50 mg BENADRYL given in lab by Mindi Jimenez RN in Left Antecubital via Peripheral IV. Ordered by Verónica Dang. RADIAL COCKTAIL 10/16/2017 10:08:33 AM 5 mL (Bolus) Verónica Dang 5 mL (Bolus) RADIAL COCKTAIL given in lab by Mindi Jimenez RN via Radial. Using [Solution Name]. Ordered by Verónica Dang. Reason: Ntg 200mcg Verapamil 2.5mg Heparin 5000U. HEPARIN 10/16/2017 10:20:28 AM 2000 units Mindi Jimenez 2000 units HEPARIN given in lab by Mindi Jimenez RN in Left Antecubital via Peripheral IV. Ordere d by Verónica Dang. Medication (Drip) Medication Time Given Dosage/Unit Concentration/Unit Diluent (ml) Solution IV Solutions 10/16/2017 9:46:33 AM 50 mL (IV) NaCl .9 IV Solutions given in lab by Mindi Jimenez RN in Right Antecubital via Peripheral IV. Pump/Drip F low using NaCl .9. Initial Case Assessment Cardiovascular HR Rhythm NIBP Chest Pain 83 SR 133/88 0 Edema Present Skin color Skin None Pale Warm Dry Neurological State Oriented to time-place- Alert Moves all extremities person Respiration - General Respiration Rate SpO2 (%) (B/min) 20 97 Chronological Log Time Study Chronological Log 9:43:31 Patient arrived via Bed. 9:44:35 Patient Name, D.O.B, / Armband Verified By R.N. 9:44:36 Consent signed by the physician and the patient and verified by the [facility] staff. 9:44:37 Pre-op and post- op instructions given; patient acknowledges understanding of instructions. 9:44:39 Verbal Stimulation=2 Physical Stimulation=2 Airway=2 Respiration=2 TOTAL=8. (0=absent, 1=broderick ited, 2=present) 9:45:43 Presedation assessment performed by Rn [facility] RN. 9:46:22 Patient has been NPO for More than 6Hrs. 9:46:23 Skin Breakdown- none per pt. Pt arrived with bran cathereter. 9:46:29 Patient Warmer Placed on the Table. 9:46:31 Ping Prominences Protected 9:46:33 A # 18 IV was noted in the Antecubital (left). Grade = 0 9:46:33 IV Solutions given in lab by Mindi Jimenez RN in Right Antecubital via Peripheral IV. Pu mp/Drip Flow using NaCl .9. 9:46:34 History and physical on the chart or being dictated. Assessment: Initial Case, HR=83 BPM, Rhythm=SR, VJTH=654/88 mmhg, Chest Pain=0, Edema=None, Col or=Pale, Skin = Warm, Dry 9:46:35 Neurological: State=Alert, Ox3, MAY Respiration: Resp=20 B/min, SpO2=97 % 9:49:40 Allens test performed on the right radial and ulnar artery. 9:50:08 Right Radial and left groin prepped with 2% chlorhexidine, and draped after a 3 min. waiting time. 9:50:40 Reference ECG taken Vitals capture started with the following parameters, Patient=Adult, Interval=5 min, Initial Pr becioy=145 mmHg, 9:50:41 Deflation Rate=5 mmHg, Cuff placed on Left Arm 9:51:10 HR=85 bpm, WMLR=092/88 mmhg, SpO2=97 %, Resp=20 B/min 9:55:32 MD arrived. 9:56:13 HR=88 bpm, RHVZ=862/90 mmhg, SpO2=97 %, Resp=19 B/min 9:59:00 1 mg VERSED given in lab by Mindi Jimenez, ALFONSO in Left Antecubital via Peripheral IV. Orde red by Verónica Dang. 9:59:43 Pressure channel 1 zeroed. Time Out. Correct patient, correct procedure, correct physician, power injector loaded, or not loaded with contrast with 10:00:29 surgical team present. Time Out Concurred by MD and individual staff in procedure. 10:01:10 Case Start 10:01:16 HR=81 bpm, YXNX=346/83 mmhg, SpO2=93.0 %, Resp=23 B/min 10:02:20 20 mL 1% XYLOCAINE given in lab by Verónica Dang in Right Radial via Subcutaneous. 50 mcg FENTANYL given in lab by Mindi Jimenez, ALFONSO in Left Antecubital via Peripheral IV. Ord ered by Laurence, 10:03:40 Ahmad. 10:06:13 HR=77 bpm, PLOD=111/85 mmhg, SpO2=96 %, Resp=12 B/min 50 mg BENADRYL given in lab by Mindi Jimenez, ALFONSO in Left Antecubital via Peripheral IV. Orde red by Laurence, 10:06:47 Ahmad. 10:07:45 Access site was Right Radial Artery. 10:08:08 A SHEATH, FR5 TRANSRADIAL .021 FR 5 was advanced into the Radial (right) using the Percutan eous technique. 5 mL (Bolus) RADIAL COCKTAIL given in lab by Mindi Jimenez, ALFONSO via Radial. Using [Solution N manuela]. Ordered by 10:08:33 Verónica Dang. Reason: Ntg 200mcg Verapamil 2.5mg Heparin 5000U. A JR 4.0 INFINITI CATHETER FR 5 was advanced over a wire. OMNIPAQUE, 350 MG, 150ML 150ML was us ed for 10:10:45 injections. 10:11:01 A WIRE, HYDROSTEER 260CM STRAIGHT GLIDE 260CM was inserted via Radial (right). 10:11:20 HR=77 bpm, OFVT=752/61 mmhg, SpO2=89.0 %, Resp=14 B/min 10:13:39 Wire removed 10:13:47 A WIRE, EXCHANGE 260CM 3MMJ 260CM was inserted via Radial (right). 10:14:42 Wire removed Recorded Pressure: Ao, HR=72, Condition=Condition 1 10:15:50 (Aorta) Ao 90/57/73 10:16:50 HR=85 bpm, QQMR=463/71 mmhg, SpO2=94.0 %, Resp=11 B/min Recorded Pressure: LV, Ao, HR=72, Condition=Condition 1 10:17:31 (Left Ventricle) LV 95/6/11, (Aorta) Ao 93/59/75 After removing the current catheter a 3DRC INFINITI CATHETER FR 5 was advanced over a WIRE, EXC HANGE 260CM 10:18:21 3MMJ 260CM. 2000 units HEPARIN given in lab by Mindi Jimenez RN in Left Antecubital via Peripheral IV. Ordered by Laurence, 10:20:28 Verónica. 10:21:07 A WIRE, EXCHANGE 260CM 3MMJ 260CM was inserted via Radial (right). 10:21:12 HR=72 bpm, UPUC=444/75 mmhg, SpO2=95 %, Resp=12 B/min 10:22:00 Wire removed After removing the current catheter a CATHETER, FR5 OPTITORQUE RADIAL TIG 4.0 FR 5 was advanced over a WIRE, 10:23:44 EXCHANGE 260CM 3MMJ 260CM. 10:26:15 HR=70 bpm, OUDG=110/73 mmhg, SpO2=97.0 %, Resp=10 B/min 10:26:46 The RCA was injected and visualized at various angles. OMNIPAQUE, 350 MG, 150ML 150ML used . 10:27:21 Catheter was removed A JL 3.5 DXTERITY CATHETER FR 5 was advanced over a wire. OMNIPAQUE, 350 MG, 150ML 150ML was us ed for 10:28:25 injections. After removing the current catheter a JL 4.0 DXTERITY CATHETER FR 5 was advanced over a WIRE, E XCHANGE 260CM 10:30:54 3MMJ 260CM. 10:31:14 HR=76 bpm, QLQD=504/84 mmhg, SpO2=98.0 %, Resp=10 B/min 10:31:53 The LCA was injected and visualized at various angles. OMNIPAQUE, 350 MG, 150ML 150ML used . 10:36:15 HR=78 bpm, YFNU=471/77 mmhg, SpO2=96.0 %, Resp=9 B/min After removing the current catheter a PIGTAIL STR. INFINITI CATHETER FR 5 was advanced over a W QUYNH, EXCHANGE 10:36:23 260CM 3MMJ 260CM. Recorded Pressure: LV, HR=74, Condition=Condition 1 10:38:56 (Left Ventricle) LV 106/6/14 Recorded Pressure: LV, Ao, HR=75, Condition=Condition 1 10:39:10 (Left Ventricle) LV 105/7/15, (Aorta) Ao 108/63/82 10:39:30 Catheter was removed 10:39:45 Case End 10:41:16 HR=79 bpm, BRVV=583/80 mmhg, AhC1=911.0 %, Resp=12 B/min Radial Compression Device Used. 15 mLs of air placed in BAND, RADIAL COMPRESSION TR LARGE 29 29 CM. Affected 10:44:29 hand ~O2 SATURATION~ % O2 saturation. 10:44:43 No case complications noted. 10:44:55 Cine recording checked. 10:44:56 Bedside Report will be given. 10:45:03 A Left Heart Cath was performed. 10:46:18 HR=79 bpm, UEOC=034/79 mmhg, SpO2=97.0 %, Resp=18 B/min 10:47:53 Vitals capture stopped. 10:50:00 [facility] End Study - Contrast Media Used In Study Contrast Total Opened (mL) Total Used (mL) Total Wasted (mL) Omnipaque 65 65 0 End Study - Maximum Contrast Load Max Contrast Load (mL) 375.0 End Study - Radiation Exposure Fluoro Time (minutes) 12.6 End Study - Patient Disposition Complications Transferred To Interventional Outcome No Telemetry Bed No attempt made
--- NOTE | 2017-10-16 14:37 | MA ---
cc: KAREN PADILLA M.D. DATE October 16, 2017 PROCEDURE PERFORMED Left heart catheterization. BRIEF HISTORY This is a 67-year-old male who presented to [facility] with non-ST elevation myocardial infarction and congestive heart failure and severe cardiomyopathy. The patient had already presented with the same symptoms within a month before this admission and was treated conservatively. He was offered left heart catheterization but declined because he had only a single kidney. He returned with the same symptoms of exacerbation of congestive heart failure, positive troponin and chest pains. The patient was stabilized and this left heart catheterization is performed to rule out obstructive coronary artery disease. PROCEDURAL NOTE After all risks and benefits were explained, and informed consent was obtained, the patient was brought to the catheterization lab in a fasting state. The right arm was sterilized and prepped in the usual manner. 1% Xylocaine was used to anesthetize the right radial artery. According to the modified Seldinger approach, a 5 Albanian sheath was placed and right radial approach was used without any difficulty. A left heart catheterization was then carried out using size 4 left and right Penny catheters. A pigtail catheter was used to access the left ventricle to perform left ventriculography. After multiple fluoroscopic views were obtained, all catheters were pulled. There was no apparent complication. FINDINGS CORONARY ANATOMY 1. LEFT MAIN: The left main is a moderate-sized vessel which originates from the left coronary cusp. There is calcification involving the left main, the left anterior descending artery and a small segment of the left circumflex artery. The left main is free of atherosclerosis. 2. LEFT ANTERIOR DESCENDING ARTERY: This is a moderate-sized vessel which courses into the apex and wraps around it. There is a 90% stenosis involving the ostium of the left anterior descending artery at the middle segment. At the bifurcation of the diagonal artery, there is 80-90% stenosis with an aneurysmal dilatation noted. The distal LAD has mild to moderate coronary artery disease. The first diagonal artery is a small-sized vessel and is free of atherosclerosis. 3. LEFT CIRCUMFLEX ARTERY: This is a dominant vessel. It is large, calcified in the proximal segment. There is 80% stenosis involving the proximal segment. There is also 80% distal stenosis involving the main trunk of the left circumflex artery. The circumflex artery gives off the obtuse marginal arteries prior to giving an inferior lateral branch. The midline distal segments of the left circumflex artery are free of atherosclerosis. The first diagonal artery has 60% stenosis in the proximal segment. The second, third and obtuse marginal arteries are free of atherosclerosis. The inferolateral branch that goes to the inferior wall has 70% proximal stenosis. The distal portion of the main left circumflex trunk has significant stenosis with multiple collateral branches going to the inferior wall. 4. RCA: The RCA is a small and diminutive vessel which has significant diffuse stenosis throughout. CONCLUSIONS The patient has severe three-vessel disease involving the proximal LAD, mid-LAD, proximal left circumflex artery and RCA. RECOMMENDATIONS Cardiothoracic Surgery would be consulted for TAVR surgery. MD PREETHI Thomas/NIKHIL /10:51 AM /2:31 PM
--- NOTE | 2017-10-16 15:00 | HHI.PR ---
Subjective Remarks This is a 67-year-old male with past medical history significant for KS, hypothyroidism and hypertension who presented to [facility] complaining of chest pain for the past 2 days. The patient was recently discharged h[facility] FROM this institution after the patient had an episode of on an NSTEMI which as per old records was treated medically. The patient describes the pain as dull, substernal, nonradiating, 6/10 which lasts approximately 10-15 minutes and subsides spontaneously. Denies diaphoresis, nausea. Associated with palpitations. The patient states that he also has been feeling short of breath which has been getting progressively worst for the past 2 days, associated with orthopnea. Patient states that chest pain was improved with administration of sublingual nitroglycerin. The patient is currently chest pain-free and denies any cough, abdominal pain, nausea, vomiting , dysuria, fevers, chills. 10-15 SEEN BY CARDIOLOGY- FOR CARDIAC CATH ON 10-16 HAD CATH SHOWS 3 VESSEL CAD FOR CABG ON 10-[address] JHAVERI Objective Vitals Vital Signs Date Time Temp Pulse Resp B/P (MAP) Pulse Ox O2 Delivery O2 Flow Rate FiO2 10/16/17 10:55 95 Room Air 10/16/17 08:32 98.1 79 16 105/70 (82) 97 10/16/17 05:35 98.0 79 18 101/66 (78) 96 10/16/17 04:15 82 10/16/17 00:12 98.1 91 18 103/69 (80) 95 10/15/17 21:44 98.8 84 18 112/70 (84) 97 10/15/17 17:36 76 10/15/17 16:31 97.3 68 18 99/63 (75) 99 I/O 10/15/17 10/15/17 10/15/17 10/16/17 10/16/17 10/16/17 06:59 14:59 22:59 06:59 14:59 22:59 Intake Total 240 ml 500 ml Output Total 300 ml 750 ml 1100 ml Balance -300 ml -510 ml -600 ml Intake Oral 240 ml 500 ml Output Urine Total 300 ml 750 ml 1100 ml # Bowel Movements 1 Result Diagram: 10/16/17 0750 10/16/17 0750 Other Results Laboratory Tests Test 1/13/18 06:35 10/16/17 07:50 Blood Urea Nitrogen 32 MG/DL 28 MG/DL Creatinine 1.46 MG/DL 1.29 MG/DL Random Glucose 88 MG/DL 86 MG/DL Calcium Level 8.6 MG/DL 8.5 MG/DL Sodium Level 137 MEQ/L 135 MEQ/L Potassium Level 4.3 MEQ/L 4.5 MEQ/L Chloride Level 105 MEQ/L 104 MEQ/L Carbon Dioxide Level 23.7 MEQ/L 21.9 MEQ/L Anion Gap 8 MEQ/L 9 MEQ/L Estimat Glomerular Filtration Rate 48 ML/MIN 56 ML/MIN White Blood Count 3.4 TH/MM3 Red Blood Count 3.73 MIL/MM3 Hemoglobin 10.7 GM/DL Hematocrit 30.9 % Mean Corpuscular Volume 82.8 FL Mean Corpuscular Hemoglobin 28.6 PG Mean Corpuscular Hemoglobin Concent 34.5 % Red Cell Distribution Width 19.2 % Platelet Count 169 TH/MM3 Mean Platelet Volume 8.8 FL Neutrophils (%) (Auto) 65.0 % Lymphocytes (%) (Auto) 21.3 % Monocytes (%) (Auto) 8.5 % Eosinophils (%) (Auto) 4.4 % Basophils (%) (Auto) 0.8 % Neutrophils # (Auto) 2.2 TH/MM3 Lymphocytes # (Auto) 0.7 TH/MM3 Monocytes # (Auto) 0.3 TH/MM3 Eosinophils # (Auto) 0.1 TH/MM3 Basophils # (Auto) 0.0 TH/MM3 CBC Comment DIFF FINAL Differential Comment Total Protein 7.3 GM/DL Albumin 3.1 GM/DL Phosphorus Level 3.6 MG/DL Magnesium Level 2.2 MG/DL Alkaline Phosphatase 88 U/L Aspartate Amino Transf (AST/SGOT) 13 U/L Alanine Aminotransferase (ALT/SGPT) 14 U/L Total Bilirubin 0.6 MG/DL Hemoglobin A1c 5.0 % Triglycerides Level 64 MG/DL Cholesterol Level 142 MG/DL LDL Cholesterol 81 MG/DL HDL Cholesterol 48.3 MG/DL Cholesterol/HDL Ratio 2.93 RATIO Free Thyroxine 1.28 NG/DL Thyroid Stimulating Hormone 3rd Gen 6.710 uIU/ML Imaging Last Impressions Chest X-Ray 10/11/17 1227 Signed Impressions: Service Date/Time: Wednesday, October 11, 2017 12:35 - CONCLUSION: Cardiomegaly with interstitial edema and bilateral pleural effusions greater on the left consistent with CHF. Overall appearance has improved from previous study. Gallito Esparza MD Objective Remarks GENERAL: Alert oriented talkative and cooperative 3 in no acute distress at this time SKIN: Warm and dry. HEAD: Atraumatic. Normocephalic. EYES: Pupils equal and round. No scleral icterus. No injection or drainage. Extraocular muscles intact ENT: No nasal bleeding or discharge. Mucous membranes pink and moist. Tongue is midline NECK: Trachea midline. No JVD. Supple CARDIOVASCULAR: Regular rate and rhythm. S1 and S2 no S3 or S4 RESPIRATORY: No accessory muscle use. Clear to auscultation. Breath sounds equal bilaterally. GASTROINTESTINAL: Abdomen soft, non-tender, nondistended. Hepatic and splenic margins not palpable. MUSCULOSKELETAL: Extremities without clubbing, cyanosis, or edema. No obvious deformities. 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 No obvious cranial nerve deficits. Motor grossly within normal limits. Five out of 5 muscle strength in the arms and legs. Normal speech. PSYCHIATRIC: Appropriate mood and affect; insight and judgment normal. Procedures CARDIAC CATHETERIZATION Pt Name: FERN VALDES#: [id number]: HCISAttended By:Gustavo Jordan #:[id number] By: Draft Signed reports reside in the EMR cc: KAREN PADILLA M.D. DATE October 16, 2017 PROCEDURE PERFORMED Left heart catheterization. BRIEF HISTORY This is a 67-year-old male who presented to [facility] with non-ST elevation myocardial infarction and congestive heart failure and severe cardiomyopathy. The patient had already presented with the same symptoms within a month before this admission and was treated conservatively. He was offered left heart catheterization but declined because he had only a single kidney. He returned with the same symptoms of exacerbation of congestive heart failure, positive troponin and chest pains. The patient was stabilized and this left heart catheterization is performed to rule out obstructive coronary artery disease. PROCEDURAL NOTE After all risks and benefits were explained, and informed consent was obtained, the patient was brought to the catheterization lab in a fasting state. The right arm was sterilized and prepped in the usual manner. 1% Xylocaine was used to anesthetize the right radial artery. According to the modified Seldinger approach, a 5 Mohawk sheath was placed and right radial approach was used without any difficulty. A left heart catheterization was then carried out using size 4 left and right Penny catheters. A pigtail catheter was used to access the left ventricle to perform left ventriculography. After multiple fluoroscopic views were obtained, all catheters were pulled. There was no apparent complication. FINDINGS CORONARY ANATOMY 1. LEFT MAIN: The left main is a moderate-sized vessel which originates from the left coronary cusp. There is calcification involving the left main, the left anterior descending artery and a small segment of the left circumflex artery. The left main is free of atherosclerosis. 2. LEFT ANTERIOR DESCENDING ARTERY: This is a moderate-sized vessel which courses into the apex and wraps around it. There is a 90% stenosis involving the ostium of the left anterior descending artery at the middle segment. At the bifurcation of the diagonal artery, there is 80-90% stenosis with an aneurysmal dilatation noted. The distal LAD has mild to moderate coronary artery disease. The first diagonal artery is a small-sized vessel and is free of atherosclerosis. 3. LEFT CIRCUMFLEX ARTERY: This is a dominant vessel. It is large, calcified in the proximal segment. There is 80% stenosis involving the proximal segment. There is also 80% distal stenosis involving the main trunk of the left circumflex artery. The circumflex artery gives off the obtuse marginal arteries prior to giving an inferior lateral branch. The midline distal segments of the left circumflex artery are free of atherosclerosis. The first diagonal artery has 60% stenosis in the proximal segment. The second, third and obtuse marginal arteries are free of atherosclerosis. The inferolateral branch that goes to the inferior wall has 70% proximal stenosis. The distal portion of the main left circumflex trunk has significant stenosis with multiple collateral branches going to the inferior wall. 4. RCA: The RCA is a small and diminutive vessel which has significant diffuse stenosis throughout. CONCLUSIONS The patient has severe three-vessel disease involving the proximal LAD, mid-LAD, proximal left circumflex artery and RCA. RECOMMENDATIONS Cardiothoracic Surgery would be consulted for CABG surgery. Medications and IVs Current Medications Aspirin (Aspirin Chew) 162 mg ONCE ONCE PO ; Start 10/11/17 at 12:30; Stop 07/19 at 12:31; Status DC Nitroglycerin (Nitroglycerin 2% Oint) 1 inch ONCE ONCE TOP Last administered on 10/11/17at 13:33; Start 10/11/17 at 12:30; Stop 10/11/17 at 12:31; Status DC Furosemide (Lasix Inj) 40 mg ONCE ONCE IV PUSH Last administered on 10/11/17at 13:32; Start 10/11/17 at 12:30; Stop 10/11/17 at 12:31; Status DC Sodium Chloride (NS Flush) 2 ml UNSCH PRN IV FLUSH FLUSH AFTER USING IV ACCESS ; Start 10/11/17 at 18:00 Sodium Chloride (NS Flush) 2 ml UNSCH PRN IV FLUSH FLUSH AFTER USING IV ACCESS ; Start 10/11/17 at 18:15 Sodium Chloride (NS Flush) 2 ml BID IV FLUSH Last administered on 10/15/17at 20: 32; Start 10/11/17 at 21:00 Acetaminophen (Tylenol) 500 mg Q4H PRN PO HEADACHE; Start 10/11/17 at 18:15 Acetaminophen/ Hydrocodone Bitart (Yreka 7.5-325 Mg) 1 tab Q4H PRN PO PAIN SCALE 1 TO 7; Start 10/11/17 at 18:15 Morphine Sulfate (Morphine Inj) 2 mg Q4H PRN IV PAIN 8-10; Start 10/11/17 at 18 :30 Ondansetron HCl (Zofran Inj) 4 mg Q6H PRN IV PUSH NAUSEA; Start 10/11/17 at 18: 15 Famotidine (Pepcid) 20 mg BID PO Last administered on 10/13/17at 09:17; Start at 21:00; Stop 10/13/17 at 15:32; Status DC Nitroglycerin (Nitrostat Sl) 0.4 mg Q5M PRN SL CHEST PAIN Last administered on 10/15/17at 20:30; Start 10/11/17 at 18:15 Aspirin (Aspirin) 325 mg DAILY PO Last administered on 10/15/17at 09:31; Start 10/12/17 at 09:00 Heparin Sodium (Porcine) (Heparin Inj) 5,000 units Q8H SQ Last administered on 10/15/17at 20:31; Start 10/11/17 at 22:00; Stop 10/16/17 at 06:00; Status DC Furosemide (Lasix Inj) 40 mg DAILY IV PUSH Last administered on 10/13/17at 09:17 ; Start 10/12/17 at 09:00; Status Future Hold Isosorbide Mononitrate (Imdur) 30 mg DAILY PO Last administered on 10/15/17at 09 :32; Start 10/12/17 at 09:00 Levothyroxine Sodium (Synthroid) 125 mcg DAILY@0600 PO Last administered on at 05:52; Start 10/12/17 at 06:00 Famotidine (Pepcid) 10 mg BID PO Last administered on 10/15/17at 20:32; Start at 21:00 Miscellaneous (Pill Splitter) 1 ea UNSCH PRN OTHER SEE LABEL COMMENTS; Start at 15:45 Heparin Sodium/ Sodium Chloride 1,000 ml @ As Directed STK-MED ONCE .ROUTE Last administered on 10/16/17 09:36; Start 10/16/17 at 09:36; Stop 10/16/17 at 09:37; Status DC Verapamil HCl (Isoptin Inj) 5 mg STK-MED ONCE .ROUTE Last administered on at 09:48; Start 10/16/17 at 09:48; Stop 10/16/17 at 09:49; Status DC Heparin Sodium (Porcine) (Heparin Inj) 10,000 units STK-MED ONCE .ROUTE Last administered on 10/16/17 09:49; Start 10/16/17 at 09:49; Stop 10/16/17 at 09:50 ; Status DC Nitroglycerin 5 ml @ As Directed STK-MED ONCE .ROUTE Last administered on 09:49; Start 10/16/17 at 09:49; Stop 10/16/17 at 09:50; Status DC Midazolam HCl (Versed Inj) 2 mg STK-MED ONCE .ROUTE Last administered on 09:59; Start 10/16/17 at 09:56; Stop 10/16/17 at 09:57; Status DC Fentanyl Citrate (fentaNYL INJ) 100 mcg STK-MED ONCE .ROUTE Last administered on 10/16/17 10:03; Start 10/16/17 at 09:56; Stop 10/16/17 at 09:57; Status DC Diphenhydramine HCl (Benadryl Inj) 50 mg STK-MED ONCE .ROUTE Last administered on 10/16/17at 10:06; Start 10/16/17 at 10:06; Stop 10/16/17 at 10:07; Status DC A/P Problem List: (1) Chest pain ICD Code: R07.9 - Chest pain, unspecified Status: Acute Plan: Will consult cardiology. The patient follows up with Dr. Padilla. Check fasting lipid profile. HAD CARDIAC CATH 3 VESSEL CAD (2) CAD (coronary artery disease) ICD Code: I25.10 - Atherosclerotic heart disease of red cliff coronary artery without angina pectoris Plan: Opinion aspirin, the patient is not currently on a beta cyndie. I will start the patient on carvedilol. TO HAVE CARDIAC CATH ON 10-16 HAS 3 VESSEL CAD NEEDS CABG - SCHEDULED FOR (3) Acute systolic (congestive) heart failure ICD Code: I50.21 - Acute systolic (congestive) heart failure Plan: Chest x-ray shows bilateral pleural effusions. LASIX ON HOLD AM LABS (4) Hypothyroidism ICD Code: E03.9 - Hypothyroidism, unspecified Plan: Continue levothyroxine. TSH ELEVATED INCREASE TO 150MCG PO DAILY (5) Leukopenia ICD Code: D72.819 - Decreased white blood cell count, unspecified Plan: Leukopenia seems to be chronic. Continue to monitor CBC. Assessment and Plan Assessment and Plan (1) Chest pain with history of CAD. cardiac enzymes negative. monitor on telemetry. continue aspirin and imdur- no BB at this time due to low-normal BP's. cardiology consult appreciated ; plan for cardiac cath. on 10-16 SHOWED 3 VESSEL CAD - NEEDS CABG SCHEDULED FOR 10-17 (2) Acute on chronic systolic (congestive) heart failure Chest x-ray shows bilateral pleural effusions. hold lasix for now due to some increase in creatinine. (3) Hypothyroidism Continue levothyroxine. INCREASE TO 150MCG DAILY (4) Leukopenia Leukopenia seems to be chronic. Continue to monitor CBC. DVT prophylaxis with subq Heparin. Discharge Planning AWAIT CABG OF 3 VESSELS AM LABS Discharge Planning AWAIT CABG OF 3 VESSELS Problem Qualifiers (1) Hypothyroidism: Qualified Codes: E03.9 - Hypothyroidism, unspecified (2) Leukopenia: Cristian Perla DO Oct 16, 2017 15:00
[2017-10-16] MEDS ORDERED: DEXTROSE 50% IN WATER 50 ML VIAL(D50) IV PUSH PRN (15:30)
[2017-10-16] MEDS ORDERED: METOPROLOL TARTRATE 25 MG TAB PO SCH (15:30)
[2017-10-16] MEDS ORDERED: PAPAVERINE INJ 60 MG, NITROGLYCERIN INJ 100 MCG, DILTIAZEM INJ 100 MG in SODIUM CHLORID... IRRIGATION SCH (15:30)
[2017-10-16] MEDS ORDERED: CEFAZOLIN INJ 500 MG in SODIUM CHLORIDE 0.9% IRR BTL 500 ML IRRIGATION SCH (15:30)
[2017-10-16] MEDS ORDERED: CHLORHEXIDINE GLUCONATE 4% SOLN 120 ML BTL TOPICAL SCH (15:30)
[2017-10-16] MEDS ORDERED: SODIUM CHLORIDE 0.9% FLUSH 10 ML FLUSH IV FLUSH PRN (15:30)
[2017-10-16] MEDS ORDERED: INSULIN REGULAR (IV INFUSION) 100 UNITS in SODIUM CHLORIDE 0.9% INJ 99 ML IV PRN (15:30)
[2017-10-16] MEDS ORDERED: ceFAZolin 2 GM PREMIX 50 ML IV SCH (15:30)
--- NOTE | 2017-10-16 15:38 | PD.CAR.PN ---
CVT Progress Note Subjective/Hospital Course: pt seen and evaluated, full consult to follow sts data discussed with pt RISK SCORES About the STS Risk Calculator Procedure: CAB Only Risk of Mortality: 2.486% Morbidity or Mortality: 20.173% Long Length of Stay: 7.934% Short Length of Stay: 35.558% Permanent Stroke: 1.181% Prolonged Ventilation: 15.456% DSW Infection: 0.612% Renal Failure: 4.861% Reoperation: 6.574% Objective: Vital Signs Date Time Temp Pulse Resp B/P (MAP) Pulse Ox O2 Delivery O2 Flow Rate FiO2 10/16/17 10:55 95 Room Air 10/16/17 08:32 98.1 79 16 105/70 (82) 97 10/16/17 05:35 98.0 79 18 101/66 (78) 96 10/16/17 04:15 82 10/16/17 00:12 98.1 91 18 103/69 (80) 95 10/15/17 21:44 98.8 84 18 112/70 (84) 97 10/15/17 17:36 76 10/15/17 16:31 97.3 68 18 99/63 (75) 99 Labs: Laboratory Tests Test 10/16/17 07:50 White Blood Count 3.4 TH/MM3 (4.0-11.0) Red Blood Count 3.73 MIL/MM3 (4.50-5.90) Hemoglobin 10.7 GM/DL (13.0-17.0) Hematocrit 30.9 % (39.0-51.0) Mean Corpuscular Volume 82.8 FL (80.0-100.0) Mean Corpuscular Hemoglobin 28.6 PG (27.0-34.0) Mean Corpuscular Hemoglobin Concent 34.5 % (32.0-36.0) Red Cell Distribution Width 19.2 % (11.6-17.2) Platelet Count 169 TH/MM3 (150-450) Mean Platelet Volume 8.8 FL (7.0-11.0) Neutrophils (%) (Auto) 65.0 % (16.0-70.0) Lymphocytes (%) (Auto) 21.3 % (9.0-44.0) Monocytes (%) (Auto) 8.5 % (0.0-8.0) Eosinophils (%) (Auto) 4.4 % (0.0-4.0) Basophils (%) (Auto) 0.8 % (0.0-2.0) Neutrophils # (Auto) 2.2 TH/MM3 (1.8-7.7) Lymphocytes # (Auto) 0.7 TH/MM3 (1.0-4.8) Monocytes # (Auto) 0.3 TH/MM3 (0-0.9) Eosinophils # (Auto) 0.1 TH/MM3 (0-0.4) Basophils # (Auto) 0.0 TH/MM3 (0-0.2) CBC Comment DIFF FINAL Differential Comment Blood Urea Nitrogen 28 MG/DL (7-18) Creatinine 1.29 MG/DL (0.60-1.30) Random Glucose 86 MG/DL (74-106) Total Protein 7.3 GM/DL (6.4-8.2) Albumin 3.1 GM/DL (3.4-5.0) Calcium Level 8.5 MG/DL (8.5-10.1) Phosphorus Level 3.6 MG/DL (2.5-4.9) Magnesium Level 2.2 MG/DL (1.5-2.5) Alkaline Phosphatase 88 U/L (45-117) Aspartate Amino Transf (AST/SGOT) 13 U/L (15-37) Alanine Aminotransferase (ALT/SGPT) 14 U/L (12-78) Total Bilirubin 0.6 MG/DL (0.2-1.0) Sodium Level 135 MEQ/L (136-145) Potassium Level 4.5 MEQ/L (3.5-5.1) Chloride Level 104 MEQ/L (98-107) Carbon Dioxide Level 21.9 MEQ/L (21.0-32.0) Anion Gap 9 MEQ/L (5-15) Estimat Glomerular Filtration Rate 56 ML/MIN (>89) Hemoglobin A1c 5.0 % (4.3-6.0) Triglycerides Level 64 MG/DL (42-150) Cholesterol Level 142 MG/DL (120-200) LDL Cholesterol 81 MG/DL (0-99) HDL Cholesterol 48.3 MG/DL (40.0-60.0) Cholesterol/HDL Ratio 2.93 RATIO Free Thyroxine 1.28 NG/DL (0.76-1.46) Thyroid Stimulating Hormone 3rd Gen 6.710 uIU/ML (0.358-3.740) Result Diagram: 10/16/17 0750 10/16/17 0750 Jennifer Duoglass Oct 16, 2017 15:38
[2017-10-16 16:28] LABS: INTERNATIONAL NORMALIZED RATIO 1.1 RATIO; PROTHROMBIN TIME - PATIENT 10.7 SEC (9.8-11.6)
--- NOTE | 2017-10-16 19:50 | RADRPT ---
EXAM DATE/TIME: 10/16/2017 18:20 [facility] COMPARISON: No previous studies available for comparison. INDICATIONS : PreOp Cardiac Surgery. MEDICAL HISTORY : Myocardial infarction. Congestive heart failure. Thyroid disease. Hypertension. Cardiac disorders. 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 Cardiomyopathy. SURGICAL HISTORY : Tonsillectomy. Left nephrectomy. Suprapubic catheter. Back and neck surgery. Cardiac cath. ENCOUNTER: Initial ACUITY: 1 day PAIN SCORE: 0/10 LOCATION: Bilateral legs. TECHNIQUE: Venous ultrasound of the left and right leg was performed from the inguinal ligament to the proximal calf. Real-time, color Doppler and spectral tracing, compression and augmentation techniques were us ed. FINDINGS: RIGHT LEG: The patient has a congenital abnormality involving the right lower extremity. This also involves the venous structures. No discernible deep venous system is able to be visualized. There is a superficial venous structure involving the thigh presumably representing a greater saphenous vein. LEFT LEG: There is normal compressibility of the deep venous system from the inguinal region to the proximal ca lf. No echogenic clot is seen in the lumen of the common femoral, femoral, popliteal, and posterior tibial veins. There is a normal response of the venous system to proximal and distal augmentation an d respiration. CONCLUSION: 1. See discussion above involving the right lower extremity. 2. No DVT involving the left lower extremity. Oj Chu Jr., MD on October 16, 2017 at 19:45 Board Certified Radiologist. This report was verified electronically.
--- NOTE | 2017-10-16 19:53 | RADRPT ---
EXAM DATE/TIME: 10/16/2017 18:28 [facility] COMPARISON: No previous studies available for comparison. INDICATIONS : PreOp Cardiac Surgery. MEDICAL HISTORY : Myocardial infarction. Congestive heart failure. Thyroid disease. Hypertension. Cardiac disorders. 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 Cardiomypathy. SURGICAL HISTORY : Tonsillectomy. Left nephrectomy. Suprapubic catheter. Back and neck surgery. Cardiac cath. ENCOUNTER: Initial ACUITY: 1 day PAIN SCORE: 0/10 LOCATION: Bilateral legs. GREATER SAPHENOUS VEIN THIGH: PROXIMAL: Right Non-visualized Left 5 mm MID: Right Non-visualized Left 3 mm DISTAL: Right Non-visualized Left 2 mm CALF: PROXIMAL: Right 3 mm Left 2 mm MID: Right 3 mm Left 1 mm DISTAL: Right 2 mm Left Non-visualized FINDINGS: The venous system of the lower extremities are patent by color Doppler imaging. Measurements of the leg veins (in mm) are listed above. CONCLUSION: 1. There is a superficial venous structure involving the congenitally abnormal right lower extremity. I am unsure if this truly relates to a greater saphenous vein. No deep venous system is able to be v isualized. 2. Left greater saphenous vein as detailed above. Oj Chu Jr., MD on October 16, 2017 at 19:48 Board Certified Radiologist. This report was verified electronically.
--- NOTE | 2017-10-16 19:55 | RADRPT ---
EXAM DATE/TIME: 10/16/2017 18:43 [facility] COMPARISON: No previous studies available for comparison. INDICATIONS : PreOp Cardiac Surgery. MEDICAL HISTORY : Congestive heart failure. Myocardial infarction. Thyroid disease. Hypertension. Cardiac disorders. 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 Cardiomyopathy. SURGICAL HISTORY : Tonsillectomy. Left nephrectomy. Suprapubic catheter. Back and neck surgery. Cardiac cath. ENCOUNTER: Initial ACUITY: 1 day PAIN SCORE: 0/10 LOCATION: Bilateral neck PEAK SYSTOLIC VELOCITIES (cm/sec): ICA/CCA RATIO: Right: 1.3 Left: 1.9 ICA: Right: 121 Left: 140 CCA: Right: 96 Left: 75 ECA: Right: 186 Left: 267 VERTEBRAL: Right: 44 antegrade Left: 57 antegrade Elevated flow velocities and ICA/CCA ratios have been found to correlate with increased degrees of vessel stenosis, calculated as percentage of diameter relative to a normal segment of distal ICA/CCA FINDINGS: RIGHT CAROTID: Heavily calcified atherosclerotic plaque involving the carotid bulb and proximal ICA. The calcified n ature generates shadowing limiting grayscale analysis. The waveforms are within normal limits. LEFT CAROTID: Heavily calcified atherosclerotic plaque involving the carotid bulb and proximal ICA. This is less ab undant than the contralateral side. The calcified nature generates shadowing limiting grayscale bentley sis. The waveforms are within normal limits. VERTEBRAL ARTERIES: Antegrade flow is seen in both vertebral arteries. MISCELLANEOUS: None. CONCLUSION: 1. Heavily calcified atherosclerotic plaque bilaterally but more abundant on the right. Less than 50% stenoses bilaterally. 2. Antegrade flow involving both vertebral arteries. Oj Chu Jr., MD on October 16, 2017 at 19:50 Board Certified Radiologist. This report was verified electronically.
[2017-10-16] MEDS: SODIUM CHLORIDE 0.9% FLUSH 10 ML FLUSH IV FLUSH SCH ×3 (21:00→21:58)
[2017-10-16 23:36] LABS: AMORPHOUS SEDIMENT, URINE RARE; BACTERIA, URINE MANY /hpf; BILIRUBIN, URINE NEG (NEG); BLOOD, URINE MOD (NEG); GLUCOSE,URINE NEG (NEG); KETONE, URINE NEG (NEG); MUCUS URINE FEW /lpf (OCC); NITRITE,URINE POS (NEG); URINE COLOR YELLOW (YELLW/STRAW); URINE LEUKOCYTE ESTERASE LARGE (NEG); WHITE BLOOD CELL CLUMPS OCC
[2017-10-17] VITALS (23 sets, daily range): BP systolic 83–128; BP diastolic 49–75; PULSE 64–101; RESP 15–20; TEMP 97.5–98.3; O2SAT 97–100
[2017-10-17] MEDS ORDERED: LACTATED RINGER'S 1000 ML IV PRN (03:45)
[2017-10-17] MEDS ORDERED: POVIDONE IODINE 5% (ANTISEPSIS KIT) 4 APPLICATIONS EACH NARE PRN (03:45)
[2017-10-17] MEDS ORDERED: CHLORHEXIDINE GLUCONATE 2 % 1 PACK (2 CLOTHS) TOPICAL PRN (03:45)
[2017-10-17 05:33] LABS: BICARBONATE 24.9 MEQ/L (21.0-32.0); BLOOD UREA NITROGEN 22 MG/DL (7-18); CALCIUM 8.9 MG/DL (8.5-10.1); CHLORIDE 103 MEQ/L (98-107); CREATININE 1.27 MG/DL (0.60-1.30); GLOMERULAR FILTRATION RATE 57 ML/MIN (>89); GLUCOSE,RANDOM 84 MG/DL (74-106); SODIUM (NA) 136 MEQ/L (136-145)
[2017-10-17] MEDS: LEVOTHYROXINE SODIUM 150 MCG TAB PO SCH (07:10)
[2017-10-17] MEDS: SODIUM CHLORIDE 0.9% FLUSH 10 ML FLUSH IV FLUSH SCH ×4 (08:22→21:00)
[2017-10-17] MEDS: ASPIRIN 325 MG TAB PO SCH (08:22)
[2017-10-17] MEDS: ISOSORBIDE MONONITRATE 30 MG TAB PO SCH (08:22)
[2017-10-17] MEDS: FAMOTIDINE 20 MG TAB PO SCH ×2 (08:22→21:00)
[2017-10-17] MEDS ORDERED: VANCOMYCIN HCL 1000 MG VIAL ONE (08:43)
[2017-10-17] MEDS ORDERED: ceFAZolin 2 GM PREMIX 50 ML ONE ×2 (08:43→16:10)
[2017-10-17] MEDS ORDERED: methylPREDNISolone SOD SUCC 125 MG/2 ML VIAL ONE (08:43)
[2017-10-17] MEDS ORDERED: HEPARIN SODIUM - SQ 10,000 UNITS/ML VIAL ONE ×2 (08:43→08:44)
[2017-10-17] MEDS ORDERED: cefTRIAXone INJ 1,000 MG in SODIUM CHLORIDE 0.9% INJ 100 ML IV SCH (10:00)
--- NOTE | 2017-10-17 11:12 | HHI.PR ---
Subjective Remarks This is a 67-year-old male with past medical history significant for NV, hypothyroidism and hypertension who presented to [facility] complaining of chest pain for the past 2 days. The patient was recently discharged hOME FROM this institution after the patient had an episode of on an NSTEMI which as per old records was treated medically. The patient describes the pain as dull, substernal, nonradiating, 6/10 which lasts approximately 10-15 minutes and subsides spontaneously. Denies diaphoresis, nausea. Associated with palpitations. The patient states that he also has been feeling short of breath which has been getting progressively worst for the past 2 days, associated with orthopnea. Patient states that chest pain was improved with administration of sublingual nitroglycerin. The patient is currently chest pain-free and denies any cough, abdominal pain, nausea, vomiting , dysuria, fevers, chills. 10-15 SEEN BY CARDIOLOGY- FOR CARDIAC CATH ON 10-16 HAD CATH SHOWS 3 VESSEL CAD FOR CABG ON 10-[address] JHAVERI 10-17 TO HAVE SURGERY TODAY WITH DR JHAVERI NO NEW COMPLAINTS TO HAVE HIS SUPRAPUBIC CATHETER CHANGED OUT AM LABS Objective Vitals Vital Signs Date Time Temp Pulse Resp B/P (MAP) Pulse Ox O2 Delivery O2 Flow Rate FiO2 10/17/17 08:15 98.3 78 18 113/73 (86) 100 10/17/17 07:01 76 10/17/17 05:27 98.3 79 16 108/70 (83) 97 10/17/17 05:00 74 10/17/17 04:00 88 10/17/17 03:00 77 10/17/17 02:00 76 10/17/17 01:00 76 10/17/17 00:24 98.2 77 16 112/71 (85) 97 10/17/17 00:00 74 10/16/17 23:00 74 10/16/17 22:00 78 10/16/17 21:00 86 10/16/17 21:00 98.2 79 16 125/73 (90) 98 10/16/17 20:00 72 10/16/17 19:00 78 10/16/17 18:01 89 10/16/17 17:52 98.6 79 18 108/78 (88) 100 10/16/17 17:00 82 I/O 10/16/17 10/16/17 10/16/17 10/17/17 10/17/17 10/17/17 07:00 15:00 23:00 07:00 15:00 23:00 Intake Total 500 ml 5 ml 240 ml Output Total 1100 ml 550 ml 550 ml Balance -600 ml -545 ml -310 ml Intake Oral 500 ml 240 ml IV Total 5 ml Output Urine Total 1100 ml 550 ml 550 ml # Bowel Movements 1 1 Result Diagram: 10/16/17 0750 10/17/17 0410 Other Results Laboratory Tests Test 10/16/17 07:50 10/16/17 15:55 10/16/17 19:21 10/16/17 23:17 White Blood Count 3.4 TH/MM3 Red Blood Count 3.73 MIL/MM3 Hemoglobin 10.7 GM/DL Hematocrit 30.9 % Mean Corpuscular Volume 82.8 FL Mean Corpuscular Hemoglobin 28.6 PG Mean Corpuscular Hemoglobin Concent 34.5 % Red Cell Distribution Width 19.2 % Platelet Count 169 TH/MM3 Mean Platelet Volume 8.8 FL Neutrophils (%) (Auto) 65.0 % Lymphocytes (%) (Auto) 21.3 % Monocytes (%) (Auto) 8.5 % Eosinophils (%) (Auto) 4.4 % Basophils (%) (Auto) 0.8 % Neutrophils # (Auto) 2.2 TH/MM3 Lymphocytes # (Auto) 0.7 TH/MM3 Monocytes # (Auto) 0.3 TH/MM3 Eosinophils # (Auto) 0.1 TH/MM3 Basophils # (Auto) 0.0 TH/MM3 CBC Comment DIFF FINAL Differential Comment Blood Urea Nitrogen 28 MG/DL Creatinine 1.29 MG/DL Random Glucose 86 MG/DL Total Protein 7.3 GM/DL Albumin 3.1 GM/DL Calcium Level 8.5 MG/DL Phosphorus Level 3.6 MG/DL Magnesium Level 2.2 MG/DL Alkaline Phosphatase 88 U/L Aspartate Amino Transf (AST/SGOT) 13 U/L Alanine Aminotransferase (ALT/SGPT) 14 U/L Total Bilirubin 0.6 MG/DL Sodium Level 135 MEQ/L Potassium Level 4.5 MEQ/L Chloride Level 104 MEQ/L Carbon Dioxide Level 21.9 MEQ/L Anion Gap 9 MEQ/L Estimat Glomerular Filtration Rate 56 ML/MIN Hemoglobin A1c 5.0 % Triglycerides Level 64 MG/DL Cholesterol Level 142 MG/DL LDL Cholesterol 81 MG/DL HDL Cholesterol 48.3 MG/DL Cholesterol/HDL Ratio 2.93 RATIO Free Thyroxine 1.28 NG/DL Thyroid Stimulating Hormone 3rd Gen 6.710 uIU/ML Prothrombin Time 10.7 SEC Prothromb Time International Ratio 1.1 RATIO Nasal Screen MRSA (PCR) MRSA NOT DETECTED Urine Color YELLOW Urine Turbidity HAZY Urine pH 6.0 Urine Specific Isom 1.025 Urine Protein 30 mg/dL Urine Glucose (UA) NEG mg/dL Urine Ketones NEG mg/dL Urine Occult Blood MOD Urine Nitrite POS Urine Bilirubin NEG Urine Urobilinogen LESS THAN 2.0 MG/DL Urine Leukocyte Esterase LARGE Urine RBC 27 /hpf Urine WBC /hpf Urine WBC Clumps OCC Urine Amorphous Sediment RARE Urine Bacteria MANY /hpf Urine Mucus FEW /lpf Microscopic Urinalysis Comment CULTURE INDICATED Test 10/17/17 04:10 Blood Urea Nitrogen 22 MG/DL Creatinine 1.27 MG/DL Random Glucose 84 MG/DL Calcium Level 8.9 MG/DL Sodium Level 136 MEQ/L Potassium Level 4.6 MEQ/L Chloride Level 103 MEQ/L Carbon Dioxide Level 24.9 MEQ/L Anion Gap 8 MEQ/L Estimat Glomerular Filtration Rate 57 ML/MIN Imaging Last Impressions Lower Extremity Ultrasound 10/16/17 0000 Signed Impressions: Service Date/Time: Monday, October 16, 2017 18:28 - CONCLUSION: 1. There is a superficial venous structure involving the congenitally abnormal right lower extremity. I am unsure if this truly relates to a greater saphenous vein. No deep venous system is able to be visualized. 2. Left greater saphenous vein as detailed above. Oj Chu Jr., MD Carotid Artery Ultrasound 10/16/17 0000 Signed Impressions: Service Date/Time: Monday, October 16, 2017 18:43 - CONCLUSION: 1. Heavily calcified atherosclerotic plaque bilaterally but more abundant on the right. Less than 50%% stenoses bilaterally. 2. Antegrade flow involving both vertebral arteries. Oj Chu Jr., MD Chest X-Ray 10/11/17 1227 Signed Impressions: Service Date/Time: Wednesday, October 11, 2017 12:35 - CONCLUSION: Cardiomegaly with interstitial edema and bilateral pleural effusions greater on the left consistent with CHF. Overall appearance has improved from previous study. Gallito Esparza MD Objective Remarks GENERAL: Alert oriented talkative and cooperative 3 in no acute distress at this time SKIN: Warm and dry. HEAD: Atraumatic. Normocephalic. EYES: Pupils equal and round. No scleral icterus. No injection or drainage. Extraocular muscles intact ENT: No nasal bleeding or discharge. Mucous membranes pink and moist. Tongue is midline NECK: Trachea midline. No JVD. Supple CARDIOVASCULAR: Regular rate and rhythm. S1 and S2 no S3 or S4 RESPIRATORY: No accessory muscle use. Clear to auscultation. Breath sounds equal bilaterally. GASTROINTESTINAL: Abdomen soft, non-tender, nondistended. Hepatic and splenic margins not palpable. MUSCULOSKELETAL: Extremities without clubbing, cyanosis, or edema. No obvious deformities. 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 No obvious cranial nerve deficits. Motor grossly within normal limits. Five out of 5 muscle strength in the arms and legs. Normal speech. PSYCHIATRIC: Appropriate mood and affect; insight and judgment normal. Procedures CARDIAC CATHETERIZATION Pt Name: FERN VALDES#: [id number]: HCISAttended By:Guero Jordant #:[id number] By: Draft Signed reports reside in the EMR cc: KAREN PADILLA M.D. DATE October 16, 2017 PROCEDURE PERFORMED Left heart catheterization. BRIEF HISTORY This is a 67-year-old male who presented to [facility] with non-ST elevation myocardial infarction and congestive heart failure and severe cardiomyopathy. The patient had already presented with the same symptoms within a month before this admission and was treated conservatively. He was offered left heart catheterization but declined because he had only a single kidney. He returned with the same symptoms of exacerbation of congestive heart failure, positive troponin and chest pains. The patient was stabilized and this left heart catheterization is performed to rule out obstructive coronary artery disease. PROCEDURAL NOTE After all risks and benefits were explained, and informed consent was obtained, the patient was brought to the catheterization lab in a fasting state. The right arm was sterilized and prepped in the usual manner. 1% Xylocaine was used to anesthetize the right radial artery. According to the modified Seldinger approach, a 5 Slovenian sheath was placed and right radial approach was used without any difficulty. A left heart catheterization was then carried out using size 4 left and right Penny catheters. A pigtail catheter was used to access the left ventricle to perform left ventriculography. After multiple fluoroscopic views were obtained, all catheters were pulled. There was no apparent complication. FINDINGS CORONARY ANATOMY 1. LEFT MAIN: The left main is a moderate-sized vessel which originates from the left coronary cusp. There is calcification involving the left main, the left anterior descending artery and a small segment of the left circumflex artery. The left main is free of atherosclerosis. 2. LEFT ANTERIOR DESCENDING ARTERY: This is a moderate-sized vessel which courses into the apex and wraps around it. There is a 90% stenosis involving the ostium of the left anterior descending artery at the middle segment. At the bifurcation of the diagonal artery, there is 80-90% stenosis with an aneurysmal dilatation noted. The distal LAD has mild to moderate coronary artery disease. The first diagonal artery is a small-sized vessel and is free of atherosclerosis. 3. LEFT CIRCUMFLEX ARTERY: This is a dominant vessel. It is large, calcified in the proximal segment. There is 80% stenosis involving the proximal segment. There is also 80% distal stenosis involving the main trunk of the left circumflex artery. The circumflex artery gives off the obtuse marginal arteries prior to giving an inferior lateral branch. The midline distal segments of the left circumflex artery are free of atherosclerosis. The first diagonal artery has 60% stenosis in the proximal segment. The second, third and obtuse marginal arteries are free of atherosclerosis. The inferolateral branch that goes to the inferior wall has 70% proximal stenosis. The distal portion of the main left circumflex trunk has significant stenosis with multiple collateral branches going to the inferior wall. 4. RCA: The RCA is a small and diminutive vessel which has significant diffuse stenosis throughout. CONCLUSIONS The patient has severe three-vessel disease involving the proximal LAD, mid-LAD, proximal left circumflex artery and RCA. RECOMMENDATIONS Cardiothoracic Surgery would be consulted for CABG surgery. Medications and IVs Current Medications Medications (Trade) Dose Ordered Sig/Sarah Route PRN Reason Start Time Stop Time Status Last Admin Dose Admin Acetaminophen (Tylenol) 500 mg Q4H PRN PO HEADACHE 10/11/17 18:15 Acetaminophen/ Hydrocodone Bitart ([place] 7.5-325 Mg) 1 tab Q4H PRN PO PAIN SCALE 1 TO 7 10/11/17 18:15 Morphine Sulfate (Morphine Inj) 2 mg Q4H PRN IV PAIN 8-10 10/11/17 18:30 Ondansetron HCl (Zofran Inj) 4 mg Q6H PRN IV PUSH NAUSEA 10/11/17 18:15 Nitroglycerin (Nitrostat Sl) 0.4 mg Q5M PRN SL CHEST PAIN 10/11/17 18:15 10/15/17 20:30 Aspirin (Aspirin) 325 mg DAILY PO 10/12/17 09:00 10/17/17 08:22 Furosemide (Lasix Inj) 40 mg DAILY IV PUSH 10/12/17 09:00 Future Hold 10/13/17 09:17 Isosorbide Mononitrate (Imdur) 30 mg DAILY PO 10/12/17 09:00 10/17/17 08:22 Famotidine (Pepcid) 10 mg BID PO 10/13/17 21:00 10/17/17 08:22 Miscellaneous (Pill Splitter) 1 ea UNSCH PRN OTHER SEE LABEL COMMENTS 10/13/17 15:45 Levothyroxine Sodium (Synthroid) 150 mcg DAILY@0600 PO 10/17/17 06:00 10/17/17 07:10 Sodium Chloride (NS Flush) 2 ml BID IV FLUSH 10/16/17 21:00 10/17/17 08:22 Sodium Chloride (NS Flush) 2 ml UNSCH PRN IV FLUSH FLUSH AFTER USING IV ACCESS 10/16/17 15:30 Papaverine HCl 60 mg/Nitroglycerin 100 mcg/Diltiazem HCl 100 mg/Sodium Chloride 100 ml @ 0 mls/hr REFINERY OPERATOR ASSISTANT IRRIGATION 10/16/17 15:30 10/23/17 15:29 Cefazolin Sodium 500 mg/Sodium Chloride 505 ml @ 0 mls/hr REFINERY OPERATOR ASSISTANT IRRIGATION 10/16/17 15:30 10/23/17 15:29 Cefazolin Sodium/ Dextrose 50 ml @ 150 mls/hr REFINERY OPERATOR ASSISTANT IV 10/16/17 15:30 10/23/17 15:29 Metoprolol Tartrate (Lopressor) 12.5 mg REFINERY OPERATOR ASSISTANT PO 10/16/17 15:30 10/23/17 15:29 10/17/17 05:06 Chlorhexidine Gluconate (Hibiclens 4% Top Soln) 1 applic REFINERY OPERATOR ASSISTANT TOPICAL 10/16/17 15:30 10/23/17 15:29 Insulin Human Regular 100 units/ Sodium Chloride 100 ml @ 3 mls/hr TITRATE PRN IV for blood glucose control 10/16/17 15:30 10/23/17 15:29 Dextrose (D50w (Vial) Inj) 50 ml UNSCH PRN IV PUSH HYPOGLYCEMIA-SEE COMMENTS 10/16/17 15:30 Lactated Ringer's 1,000 ml @ 30 mls/hr Q24H PRN IV SEE LABEL COMMENTS 10/17/17 03:45 10/20/17 03:44 Povidone Iodine (Betadine 5% Antisepsis Kit) 1 applic REFINERY OPERATOR ASSISTANT PRN EACH NARE SEE LABEL COMMENTS 10/17/17 03:45 10/20/17 03:44 Chlorhexidine Gluconate (Chlorhexidine 2% Cloth) 3 pack REFINERY OPERATOR ASSISTANT PRN TOPICAL SEE LABEL COMMENTS 10/17/17 03:45 10/20/17 03:44 Ceftriaxone Sodium 1000 mg/ Sodium Chloride 100 ml @ 200 mls/hr Q24H IV 10/17/17 10:00 A/P Problem List: (1) Chest pain ICD Code: R07.9 - Chest pain, unspecified Status: Acute Plan: Will consult cardiology. The patient follows up with Dr. Padilla. Check fasting lipid profile. HAD CARDIAC CATH 3 VESSEL CAD (2) CAD (coronary artery disease) ICD Code: I25.10 - Atherosclerotic heart disease of [place] coronary artery without angina pectoris Plan: Opinion aspirin, the patient is not currently on a beta cyndie. I will start the patient on carvedilol. TO HAVE CARDIAC CATH ON 10-16 HAS 3 VESSEL CAD NEEDS CABG - SCHEDULED FOR (3) Acute systolic (congestive) heart failure ICD Code: I50.21 - Acute systolic (congestive) heart failure Plan: Chest x-ray shows bilateral pleural effusions. LASIX ON HOLD AM LABS (4) Hypothyroidism ICD Code: E03.9 - Hypothyroidism, unspecified Plan: Continue levothyroxine. TSH ELEVATED INCREASE TO 150MCG PO DAILY (5) Leukopenia ICD Code: D72.819 - Decreased white blood cell count, unspecified Plan: Leukopenia seems to be chronic. Continue to monitor CBC. Assessment and Plan Assessment and Plan (1) Chest pain with history of CAD. cardiac enzymes negative. monitor on telemetry. continue aspirin and imdur- no BB at this time due to low-normal BP's. cardiology consult appreciated ; plan for cardiac cath. on 10-16 SHOWED 3 VESSEL CAD - NEEDS CABG SCHEDULED FOR 10-17 (2) Acute on chronic systolic (congestive) heart failure Chest x-ray shows bilateral pleural effusions. hold lasix for now due to some increase in creatinine. (3) Hypothyroidism Continue levothyroxine. INCREASE TO 150MCG DAILY (4) Leukopenia Leukopenia seems to be chronic. Continue to monitor CBC. DVT prophylaxis with subq Heparin. Discharge Planning AWAIT CABG OF 3 VESSELS AM LABS Discharge Planning AWAIT CABG OF 3 VESSELS Problem Qualifiers (1) Hypothyroidism: Qualified Codes: E03.9 - Hypothyroidism, unspecified (2) Leukopenia: Cristian Perla DO Oct 17, 2017 11:12
--- NOTE | 2017-10-17 11:31 | RSPPFT ---
DATE OF PROCEDURE: 10/16/17 COMMENTS: Spirometry shows FVC of 2.6 at 58% of predicted, FEV1 of 1.8 at 53%, FEV1/FVC ratio is decreased. Flow is decreased at FEF 25, FEF 50, FEF 75 and FEF 25-75. Flow volume loops indicate an obstructive pattern. IMPRESSION: 1. Moderately severe obstructive lung disease. 2. Underlying restrictive disease is not ruled from this study. 3. Post-bronchodilator study was not done.
[2017-10-17 11:35] LABS: BACTERIA, URINE RARE /hpf; BILIRUBIN, URINE NEG (NEG); BLOOD, URINE MOD (NEG); GLUCOSE,URINE NEG (NEG); KETONE, URINE NEG (NEG); MUCUS URINE FEW /lpf (OCC); NITRITE,URINE POS (NEG); PH, URINE 5.5 (5.0-8.5); SQUAMOUS EPITHELIAL CELL URINE <1 /hpf (0-5); URINE COLOR YELLOW (YELLW/STRAW); URINE LEUKOCYTE ESTERASE LARGE (NEG); WHITE BLOOD CELL CLUMPS FEW
[2017-10-17] MEDS ORDERED: POTASSIUM CHLORIDE 40 MEQ/20 ML VIAL ONE (11:55)
[2017-10-17] MEDS ORDERED: CARDIOPLEGIC IRR 2,000 ML ONE (11:55)
[2017-10-17] MEDS ORDERED: SODIUM BICARBONATE 8.4% INJ 100 ML ONE (11:56)
[2017-10-17] MEDS ORDERED: MANNITOL INJ 100 ML ONE (11:57)
[2017-10-17] MEDS ORDERED: HEPARIN SODIUM - IV 10,000 UNITS/10 ML VIAL ONE (11:57)
[2017-10-17] MEDS ORDERED: LIDOCAINE HCL 2% 100 MG/5 ML SYRINGE IV PUSH ONE (12:00)
[2017-10-17] MEDS ORDERED: SODIUM CHLOR 0.9% 250 ML INJ 250 ML IV ONE (12:00)
[2017-10-17] MEDS ORDERED: EPINEPHrine HCL (1:1000) 30 MG/30 ML VIAL IV ONE (12:00)
[2017-10-17] MEDS ORDERED: LACTATED RINGER'S 1000 ML INJ 2,000 ML IV ONE (12:00)
[2017-10-17] MEDS ORDERED: AMINOCAPROIC ACID INJ 250 MG/ML 20 ML VIAL IV ONE (12:00)
[2017-10-17] MEDS ORDERED: VECURONIUM BROMIDE 10 MG VIAL IV ONE (12:00)
[2017-10-17] MEDS ORDERED: NORMOSOL R INJ 2,000 ML IV ONE (12:00)
[2017-10-17] MEDS ORDERED: PROTAMINE SULFATE 250 MG/25 ML VIAL IV ONE (12:00)
[2017-10-17] MEDS ORDERED: MAGNESIUM SULFATE 1000 MG/2 ML VIAL (PED) IV ONE (12:00)
[2017-10-17] MEDS ORDERED: GLYCOPYRROLATE 0.2 MG/ML VIAL IV ONE (12:00)
[2017-10-17] MEDS ORDERED: SODIUM CHLORID 0.9% 500 ML INJ 500 ML IV ONE (12:00)
[2017-10-17] MEDS ORDERED: ePHEDrine/NS 25 MG/5 ML SYRINGE IV ONE (12:00)
[2017-10-17] MEDS ORDERED: PHENYLEPHRINE HCL 10 MG/ML VIAL IV ONE (12:00)
[2017-10-17] MEDS ORDERED: DEXMEDETOMIDINE HCL 200 MCG/2 ML VIAL IV ONE (12:00)
[2017-10-17] MEDS ORDERED: AMIODARONE HCL 150 MG/3 ML VIAL IV ONE (12:00)
[2017-10-17] MEDS ORDERED: SODIUM CHLORIDE 0.9% INJ 200 ML IV ONE (12:00)
[2017-10-17] MEDS ORDERED: HEPARIN SODIUM - SQ 10,000 UNITS/ML VIAL SQ ONE (12:00)
[2017-10-17] MEDS ORDERED: CALCIUM CHLORIDE 10% SOLN 1 GRAM/10 ML SYR IV ONE (12:00)
[2017-10-17] MEDS ORDERED: PHENYLEPH/NS 1000 MCG/10 ML SYR IV ONE (12:00)
[2017-10-17] MEDS ORDERED: SODIUM BICARBONATE 8.4% INJ 50 MEQ/50 ML SYR IV ONE (12:00)
[2017-10-17] MEDS ORDERED: ALBUMIN 25% INJ 50 ML IV ONE (12:09)
--- NOTE | 2017-10-17 14:19 | MB ---
cc: MIRIAM ALONSO DATE OF CONSULTATION 10/16/2017 DATE OF 1950 No primary care physician. HISTORY OF THE PRESENT ILLNESS The patient apparently presented last month September 24 and discharged on the with a NSTEMI. At that time he was found to have also acute congestive heart failure, was very weak, also developed some renal insufficiency, baseline is about 1.5. He was treated conservatively per Dr. Dang's note because he declined left heart cath because of the risk of developing end-stage renal disease and dialysis. The patient was discharged home on nitroglycerin but he returned on the with chest pain, shortness of breath. He was found to have CHF exacerbation with a BNP at 1500, troponin of 0.05, creatinine at that time was 1.24. Chest x-ray also showed some pulmonary congestion. He was given a couple doses of Lasix and diuresed well. He underwent finally cardiac catheterization by Dr. Dang showing an ejection fraction of 25%, left main disease 0%, proximal LAD 90%, mid distal 80%, circ 80%, and the RCA had 90% stenosis. On his last admission he underwent 2-D echocardiogram which also showed an EF at that time of 20-25% with severe left ventricular systolic dysfunction. Distal anterior septal apical hypokinesis, mild mitral valve regurgitation and mild tricuspid valve regurgitation. We were consulted to evaluate for coronary artery bypass grafting. PAST MEDICAL HISTORY The patient's past medical history significant for: 1. Coronary artery disease with a recent NSTEMI. 2. Congestive heart failure with ejection fraction of 20-25%. 3. Chronic kidney disease stage II. 4. Hypertension. 5. Hypothyroidism. PAST SURGICAL HISTORY Surgeries include: 1. Cervical spine surgery 1995 and 2003. 2. Low back surgery in 2010 in [place]. 3. Left nephrectomy. 4. He has had a suprapubic catheter where he changes the catheter himself every month. He has did this three weeks ago. His urologist is Dr. Vaughan. ALLERGIES No known allergies. MEDICATIONS Home medications include: 1. Imdur. 2. Aspirin. 3. Levothyroxine. FAMILY HISTORY Mother in her 60s from coronary artery disease. Father disease from diabetes. SOCIAL HISTORY The patient . Occasional alcohol. Quit smoking. He smoked one-pack for 40 years. REVIEW OF SYSTEMS GENERAL: No night sweats, fever, heat and cold intolerance. SKIN: No psoriasis, itching or hives. HEENT: No blurred vision, hearing loss. RESPIRATORY: Positive for shortness of breath. CARDIOVASCULAR: As above in HPI. GASTROINTESTINAL: No diarrhea, vomiting. GENITOURINARY: No burning, frequency, urgency. OVEN DAUBER: No history of TIA, CVA, seizure disorder. ENDOCRINE: Positive for hypothyroidism. PHYSICAL EXAMINATION VITAL SIGNS: On exam blood pressure 105/70, heart rate of 80, afebrile. O2 sat 95 on room air. GENERAL: Patient is awake, alert in no acute distress. HEENT: Head is normocephalic, atraumatic. Oral mucosa pink, moist. He has an upper denture plate and he has poor dentition to the lower teeth. He denies any abscesses or loose teeth at this time. NECK: Supple. No JVD. CARDIOVASCULAR: Heart sounds S1-S2, regular rate and rhythm. No audible rubs, murmurs, gallops. LUNGS: Clear to auscultation. No wheezes, rales or rhonchi. ABDOMEN: Soft, nontender. He does have a suprapubic catheter in place with leah urine. EXTREMITIES: Reveal no cyanosis, clubbing or edema. LABORATORY DATA Lab work shows hemoglobin 10.7, hematocrit 31, white cell count of 3.4, platelet count 169. Sodium 135, potassium 4.5, BUN of 28, creatinine 1.29, AST 13, ALT 14, triglycerides 64, cholesterol 142, LDL 81. TSH of 6.7. IMAGING Chest x-ray was on admission which initially showed some pulmonary edema. IMPRESSION 1. This is a 67-year-old male with recent LA back in September treated conservatively, now returning with unstable angina, recurrent chest pain, shortness of breath. Also found to be in CHF exacerbation with BNP of 1575. He was diuresed well. Creatinine is stabilized currently at 1.29. The cath films have been reviewed by Dr. Miriam Alonso. Planning will be for coronary artery bypass grafting x4 in the a.m. We will repeat his BMP at 0400. In the meantime he will have full workup pending. 2. Hypothyroidism with his the TSH of 6.7. Discussed with primary care. They increased his Synthroid to 150 micrograms daily. 3. History of chronic suprapubic catheter. Will need to have this changed out during his hospitalization. Urologist is Dr. Vaughan. 4. Chronic kidney disease with baseline of approximately 1.5, now he is 1.29. 5. Normocytic anemia, probably related also to his chronic kidney disease. Again planning for surgery will be in the a.m. DICTATED BY: RONY Young Miriam MD BRENNON Mckeon/OSEAS /3:38 PM /7:52 AM
[2017-10-17] MEDS ORDERED: ceFAZolin INJ 1,000 MG VIAL ONE (16:12)
[2017-10-17] MEDS ORDERED: LACTATED RINGER'S 1000 ML INJ 500 ML IV PRN (16:25)
[2017-10-17] MEDS ORDERED: DEXTROSE 50% IN WATER 50 ML VIAL(D50) IV PUSH PRN (16:30)
[2017-10-17] MEDS ORDERED: CALCIUM CHLORIDE 10% 1 GRAM/10 ML VIAL IV PUSH PRN (16:30)
[2017-10-17] MEDS ORDERED: SODIUM BICARBONATE 8.4% SOLN 50 MEQ/50 ML VIAL IV PUSH PRN ×2 (16:30)
[2017-10-17] MEDS ORDERED: MAGNESIUM SULFATE INJ 2 GM in SODIUM CHLORIDE 0.9% INJ 100 ML IV PRN ×4 (16:30)
[2017-10-17] MEDS ORDERED: POTASSIUM CHLORIDE 20 MEQ CONTROLLED RELEASE TAB PO PRN ×2 (16:30)
[2017-10-17] MEDS ORDERED: RESP: ALBUTEROL 2.5 MG/IPRATROPIUM 0.5 MG NEB (PRN) NEB (16:30)
[2017-10-17] MEDS ORDERED: Post-op Orders (for Pharmacy) OTHER ONE (16:30)
[2017-10-17] MEDS ORDERED: oxyCODONE/ACETAMINOPHEN 5 MG/325 MG TAB PO PRN (16:30)
[2017-10-17] MEDS ORDERED: POTASSIUM CHLOR 20 MEQ PREMIX 100 ML IV PRN ×3 (16:30)
[2017-10-17] MEDS ORDERED: ALBUMIN 5% INJ 250 ML IV PRN (16:30)
[2017-10-17] MEDS ORDERED: SODIUM CHLORIDE 0.9% FLUSH 10 ML FLUSH IV FLUSH PRN (16:30)
[2017-10-17] MEDS ORDERED: RESP: RACEPINEPHRINE 2.25% 0.5 ML NEB NEB PRN (16:30)
[2017-10-17] MEDS ORDERED: hydrALAZINE HCL 20 MG/ML VIAL IV PUSH PRN (16:30)
[2017-10-17] MEDS ORDERED: DEXMEDETOMIDINE INJ 200 MCG in SODIUM CHLORIDE 0.9% INJ 50 ML IV PRN (16:30)
[2017-10-17] MEDS ORDERED: ONDANSETRON HCL 4 MG/2 ML VIAL IV PUSH PRN (16:30)
[2017-10-17] MEDS ORDERED: ACETAMINOPHEN 325 MG TAB PO PRN (16:30)
[2017-10-17] MEDS ORDERED: METOPROLOL TARTRATE 5 MG/5 ML VIAL IV PUSH PRN (16:30)
[2017-10-17] MEDS ORDERED: INSULIN REGULAR (IV INFUSION) 100 UNITS in SODIUM CHLORIDE 0.9% INJ 99 ML IV PRN (16:30)
[2017-10-17] MEDS ORDERED: CLEVIDIPINE INJ 50 ML IV PRN (16:30)
[2017-10-17] MEDS ORDERED: ACETAMINOPHEN 650 MG SUPP RECTAL PRN (16:30)
[2017-10-17] MEDS ORDERED: CALCIUM CHLORIDE INJ 1 GM in SODIUM CHLORIDE 0.9% INJ 100 ML IV PRN (16:30)
--- NOTE | 2017-10-17 16:39 | PD.OP ---
cc: Miriam Alonso MD; Verónica Dang MD Operative Report Date of Surgery: Oct 17, 2017 Preoperative Diagnosis: (1) NSTEMI (non-ST elevated myocardial infarction) (2) Acute systolic (congestive) heart failure (3) CAD (coronary artery disease) Postoperative Diagnosis: same Procedure: CABG x3 DURHAM to LAD SVG to OM1 SVG to OM3 EVH AKANKSHA Anesthesia: Dr. Bonner Surgeon: Miriam Alonso Phlebotomy Lab Assistant(s): Alida Heck, SHAMA Operation and Findings: The risks, benefits, complications, treatment options, and expected outcomes were discussed with the patient. The possibilities of reaction to medication, pulmonary aspiration, perforation of viscus, bleeding, recurrent infection, the need for additional procedures, failure to diagnose a condition, and creating a complication requiring transfusion or operation were discussed with the patient. The patient concurred with the proposed plan, giving informed consent. The site of surgery properly noted/marked. The patient was taken to Operating Room, identified as [facility] and the procedure verified as CABG, EVH, AKANKSHA. A Time Out was held and the above information confirmed. Standard monitoring lines and Muhammad catheter were placed. General anesthesia was induced. The patient was prepped and draped in a sterile fashion. A median sternotomy was performed and electrocautery was used to obtain hemostasis. The left internal mammary artery was procured as a pedicle from the 7th rib to the 1st rib in the usual manner. Simultaneously left greater saphenous vein was procured from the left leg using a minimally invasive endoscopic technique. The vein was prepared for anastomosis and the leg wound was irrigated and closed in 2 layers. The pericardium was opened and a pericardial sling was created using interrupted 0 silk sutures. Pericardial adhesions were lysed to mobilize the heart. The patient was heparinized for cardiopulmonary bypass and the distal mammary pedicle was instrumented for anastomosis. The heart was instrumented for cardiopulmonary bypass in the usual manner. Antegrade blood cardioplegia was employed. The patient was placed on cardiopulmonary bypass. An aortic cross- clamp was applied and the heart was arrested using cold blood cardioplegia. Antegrade cardioplegia was administered after he each anastomosis. After adequate arrest, OM3 was opened with a [place] blade and found to be a 1 millimeter fair target. Saphenous vein was approximated to the OM3 artery using a running 7 0 Prolene suture. The graft was measured for length and orientation and the proximal anastomosis was constructed to the ascending aorta using a running 5 0 Prolene suture after creating an aortotomy with a 5 millimeter punch. The 1st circumflex marginal artery was then opened with a [place] blade and found to be a 1.5 millimeter good target. The OM1 artery was intramyocardial. Saphenous vein was approximated to the OM1 artery using a running 7 0 Prolene suture. The graft was measured for length and orientation and was suspended from the pericardium. The distal LAD was opened with a [place] blade and found to be a 1.5 millimeter diffusely diseased fair target. The left internal mammary artery was approximated to the LAD using a running 7 0 Prolene suture. The pedicle was attached to the epicardium using interrupted 5 0 silk suture. The patient was systemically rewarmed and received a hotshot dose of warm blood cardioplegia. The aorta was vented and the proximal anastomosis to the OM1 graft was accomplished using a running 5 0 Prolene suture after creating an aortotomy was a 5 millimeter punch. The cross-clamp was removed and all proximal and distal anastomoses were examined for hemostasis. Temporary atrial pacing on wires were positioned and brought out through the skin in the usual manner. The patient was paced at 80 beats per minute and weaned from cardiopulmonary bypass. Protamine was given. There was no adverse reaction. Decannulation was carried out without incident. Wound was checked for hemostasis which was obtained using electrocautery. A 36 Ukrainian mediastinal and 32 Ukrainian left pleural chest tubes were placed and secured to the skin with 0 silk suture. The sternum was closed with stainless steel wire. The fascia was closed with 1. PDS. The subcutaneous tissue was closed using a running 2-0 Vicryl suture. The skin was closed with 4-0 Monocryl. Sterile dressings were placed. At the end of the operation, all sponge, instruments, and needle counts were correct. The patient was transferred to the CVICU in stable condition. Findings: LV function 25-30% after revascularization. Diffuse CAD XC: 65 min CPB: 77 min Drains: mediastinal x 1 pleural x 1 Complications: none Disposition: to CVICU in stable condition Miriam Alonso MD Oct 17, 2017 16:39
[2017-10-17] MEDS ORDERED: fentaNYL CITRATE 1000 MCG/20 ML VIAL ONE (17:23)
[2017-10-17] MEDS ORDERED: MIDAZOLAM HCL 2 MG/2 ML VIAL ONE (17:23)
--- NOTE | 2017-10-17 18:02 | RADRPT ---
EXAM DATE/TIME: 10/17/2017 17:26 [facility] COMPARISON: CHEST SINGLE AP, October 11, 2017, 12:35. INDICATIONS : Post open heart surgery. MEDICAL HISTORY : Myocardial infarction. Congestive heart failure. Thyroid disease. Hypertension. Cardiac disorders. 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 Cardiomyopathy. SURGICAL HISTORY : Tonsillectomy. Left nephrectomy. Suprapubic catheter. Back and neck surgery. Cardiac cath. ENCOUNTER: Subsequent ACUITY: 2 days PAIN SCORE: Non-responsive. LOCATION: Bilateral chest FINDINGS: There has been interval sternotomy. Endotracheal tube is present with tip 8 cm above the francia. Left thoracostomy tube and midline chest tube are present. Nasogastric tube descends into the stomach. Le ft subclavian sheath and central catheter present in satisfactory position. There has been some impro vement in aeration with some clearance of basilar infiltrates or edema. Mild central vascular congest ion and interstitial prominence persists. Cardiac contours are satisfactory for technique and project ion. Minimal left pleural effusion. CONCLUSION: Satisfactory postop appearance. Tavon Kearney MD on October 17, 2017 at 17:58 Board Certified Radiologist. This report was verified electronically.
[2017-10-17 18:09] LABS: HEMOGLOBIN A1C 4.9 % (4.3-6.0)
[2017-10-17] MEDS: ACETAMINOPHEN 1000 MG/100 ML 100 ML IV SCH ×2 (18:16→23:00)
[2017-10-17] MEDS: RESP: ALBUTEROL 2.5 MG/IPRATROPIUM 0.5 MG NEB (SCH) NEB (21:21)
[2017-10-18] VITALS (19 sets, daily range): BP systolic 89–119; BP diastolic 48–97; PULSE 66–101; RESP 16–18; TEMP 97.5–98.1; O2SAT 97–100
[2017-10-18] MEDS: RESP: ALBUTEROL 2.5 MG/IPRATROPIUM 0.5 MG NEB (SCH) NEB ×3 (03:58→19:51)
[2017-10-18 04:21] LABS: AUTOMATED NEUTROPHIL # 3.1 TH/MM3 (1.8-7.7); BASOPHIL % 0.1 % (0.0-2.0); HEMATOCRIT 26.2 % (39.0-51.0); LYMPH % 8.5 % (9.0-44.0); LYMPHOCYTE # 0.3 TH/MM3 (1.0-4.8); MEAN CELL VOLUME 84.8 FL (80.0-100.0); MEAN CORPUSCULAR HEMOGLOBIN 29.1 PG (27.0-34.0); MEAN CORPUSCULAR HGB CONC 34.3 % (32.0-36.0); MEAN PLATELET VOLUME 8.4 FL (7.0-11.0); MONO % 3.3 % (0.0-8.0); MONOCYTE # 0.1 TH/MM3 (0-0.9); NEUT % 88.1 % (16.0-70.0); PLATELET COUNT 101 TH/MM3 (150-450); RED BLOOD COUNT 3.09 MIL/MM3 (4.50-5.90); WHITE BLOOD COUNT 3.5 TH/MM3 (4.0-11.0)
[2017-10-18 04:41] LABS: ALBUMIN 2.6 GM/DL (3.4-5.0); ALKALINE PHOSPHATASE 60 U/L (45-117); ALT (GPT) 11 U/L (12-78); AST (GOT) 16 U/L (15-37); BLOOD UREA NITROGEN 24 MG/DL (7-18); CALCIUM 8.2 MG/DL (8.5-10.1); CHLORIDE 106 MEQ/L (98-107); CREATININE 1.23 MG/DL (0.60-1.30); GLOMERULAR FILTRATION RATE 59 ML/MIN (>89); GLUCOSE,RANDOM 123 MG/DL (74-106); MAGNESIUM 2.9 MG/DL (1.5-2.5); PHOSPHORUS 4.8 MG/DL (2.5-4.9); SODIUM (NA) 138 MEQ/L (136-145); TOTAL BILIRUBIN ADULT 0.4 MG/DL (0.2-1.0); TOTAL PROTEIN 5.6 GM/DL (6.4-8.2)
--- NOTE | 2017-10-18 05:13 | RADRPT ---
EXAM DATE/TIME: 10/18/2017 03:55 [facility] COMPARISON: CHEST SINGLE AP, October 17, 2017, 17:26. INDICATIONS : Short of breath. MEDICAL HISTORY : Myocardial infarction. Congestive heart failure. Thyroid disease. Hypertension. Cardiac disorders. 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 SURGICAL HISTORY : Tonsillectomy. Left nephrectomy. Suprapubic catheter. ENCOUNTER: Subsequent ACUITY: 3 days PAIN SCORE: 0/10 LOCATION: Bilateral chest FINDINGS: The patient is status post sternotomy. There is a left-sided chest tube in place. There appears to be a minimal apical pneumothorax on the left measuring 6 mm. There is increased density in the fat the basis be more prominent on the right. CONCLUSION: 1. Left sided chest tube with a minimal left apical pneumothorax. This is unchanged. 2. Hazy density bases likely related to atelectasis or consolidation being worse at the right. Tavon Pham MD on October 18, 2017 at 5:10 Board Certified Radiologist. This report was verified electronically.
[2017-10-18] MEDS: PANTOPRAZOLE SOD 40 MG DELAYED RELEASE TAB PO SCH (05:14)
[2017-10-18] MEDS: ACETAMINOPHEN 1000 MG/100 ML 100 ML IV SCH ×2 (05:14→10:33)
[2017-10-18] MEDS: LEVOTHYROXINE SODIUM 150 MCG TAB PO SCH (05:14)
--- NOTE | 2017-10-18 08:41 | HHI.PR ---
Subjective Remarks This is a 67-year-old male with past medical history significant for GA, hypothyroidism and hypertension who presented to [facility] complaining of chest pain for the past 2 days. The patient was recently discharged hOME FROM this institution after the patient had an episode of on an NSTEMI which as per old records was treated medically. The patient describes the pain as dull, substernal, nonradiating, 6/10 which lasts approximately 10-15 minutes and subsides spontaneously. Denies diaphoresis, nausea. Associated with palpitations. The patient states that he also has been feeling short of breath which has been getting progressively worst for the past 2 days, associated with orthopnea. Patient states that chest pain was improved with administration of sublingual nitroglycerin. The patient is currently chest pain-free and denies any cough, abdominal pain, nausea, vomiting , dysuria, fevers, chills. 10-15 SEEN BY CARDIOLOGY- FOR CARDIAC CATH ON 10-16 HAD CATH SHOWS 3 VESSEL CAD FOR CABG ON 10-[address] ALONSO 10-17 TO HAVE SURGERY TODAY WITH DR ALONSO NO NEW COMPLAINTS TO HAVE HIS SUPRAPUBIC CATHETER CHANGED OUT AM LABS 10-18 sp CABGX3 ON 10-[address] ALONSO- DURHAM TO LAD, SVG TO OM1, SVG TO OM3 STILL HAS CHEST TUBE NO SOB, NO CHEST PAIN, DOING WELL DW RN AND PT AND [facility] AM LABS INCREASE ACTIVITY Objective Vitals Vital Signs Date Time Temp Pulse Resp B/P (MAP) Pulse Ox O2 Delivery O2 Flow Rate FiO2 10/18/17 08:00 74 10/18/17 08:00 97.9 74 16 90/57 (68) 99 107/97 (100) 10/18/17 08:00 99 Nasal Cannula 2.00 10/18/17 03:58 99 Nasal Cannula 2.00 10/18/17 03:10 98.0 66 16 89/48 (62) 98 119/57 (77) 10/18/17 03:10 72 10/17/17 23:29 97.5 79 15 88/57 (67) 98 128/75 (92) 10/17/17 23:29 70 10/17/17 20:00 98 Nasal Cannula 2.00 10/17/17 20:00 97.5 64 16 83/58 (66) 99 97/52 (67) 10/17/17 19:47 98 Nasal Cannula 4 40 10/17/17 19:47 40 10/17/17 19:15 99 40 10/17/17 19:06 16 10/17/17 19:00 64 10/17/17 19:00 40 10/17/17 18:00 66 10/17/17 17:46 100 40 10/17/17 17:20 101 10/17/17 17:20 97.9 101 20 88/60 (69) 99 95/49 (64) 10/17/17 17:20 97.8 10/17/17 11:10 98.2 71 18 104/62 (76) 98 10/17/17 11:00 70 10/17/17 10:00 74 10/17/17 09:00 74 I/O 10/17/17 10/17/17 10/17/17 10/18/17 10/18/17 10/18/17 07:00 15:00 23:00 07:00 15:00 23:00 Intake Total 240 ml 3300 ml 578 ml Output Total 850 ml 950 ml 1170 ml Balance -610 ml 2350 ml -592 ml Intake Oral 240 ml 240 ml IV Total 250 ml 338 ml Autotransfusion 550 ml Other 2500 ml Output Urine Total 850 ml 650 ml 770 ml Chest Tube Drainage Total 300 ml 400 ml # Bowel Movements 1 0 0 Result Diagram: 10/18/17 0403 10/18/17 0403 Other Results Laboratory Tests Test 10/16/17 07:50 10/16/17 15:55 10/16/17 19:21 10/16/17 23:17 White Blood Count 3.4 TH/MM3 Red Blood Count 3.73 MIL/MM3 Hemoglobin 10.7 GM/DL Hematocrit 30.9 % Mean Corpuscular Volume 82.8 FL Mean Corpuscular Hemoglobin 28.6 PG Mean Corpuscular Hemoglobin Concent 34.5 % Red Cell Distribution Width 19.2 % Platelet Count 169 TH/MM3 Mean Platelet Volume 8.8 FL Neutrophils (%) (Auto) 65.0 % Lymphocytes (%) (Auto) 21.3 % Monocytes (%) (Auto) 8.5 % Eosinophils (%) (Auto) 4.4 % Basophils (%) (Auto) 0.8 % Neutrophils # (Auto) 2.2 TH/MM3 Lymphocytes # (Auto) 0.7 TH/MM3 Monocytes # (Auto) 0.3 TH/MM3 Eosinophils # (Auto) 0.1 TH/MM3 Basophils # (Auto) 0.0 TH/MM3 CBC Comment DIFF FINAL Differential Comment Blood Urea Nitrogen 28 MG/DL Creatinine 1.29 MG/DL Random Glucose 86 MG/DL Total Protein 7.3 GM/DL Albumin 3.1 GM/DL Calcium Level 8.5 MG/DL Phosphorus Level 3.6 MG/DL Magnesium Level 2.2 MG/DL Alkaline Phosphatase 88 U/L Aspartate Amino Transf (AST/SGOT) 13 U/L Alanine Aminotransferase (ALT/SGPT) 14 U/L Total Bilirubin 0.6 MG/DL Sodium Level 135 MEQ/L Potassium Level 4.5 MEQ/L Chloride Level 104 MEQ/L Carbon Dioxide Level 21.9 MEQ/L Anion Gap 9 MEQ/L Estimat Glomerular Filtration Rate 56 ML/MIN Hemoglobin A1c 5.0 % Triglycerides Level 64 MG/DL Cholesterol Level 142 MG/DL LDL Cholesterol 81 MG/DL HDL Cholesterol 48.3 MG/DL Cholesterol/HDL Ratio 2.93 RATIO Free Thyroxine 1.28 NG/DL Thyroid Stimulating Hormone 3rd Gen 6.710 uIU/ML Prothrombin Time 10.7 SEC Prothromb Time International Ratio 1.1 RATIO Nasal Screen MRSA (PCR) MRSA NOT DETECTED Urine Color YELLOW Urine Turbidity HAZY Urine pH 6.0 Urine Specific [place] 1.025 Urine Protein 30 mg/dL Urine Glucose (UA) NEG mg/dL Urine Ketones NEG mg/dL Urine Occult Blood MOD Urine Nitrite POS Urine Bilirubin NEG Urine Urobilinogen LESS THAN 2.0 MG/DL Urine Leukocyte Esterase LARGE Urine RBC 27 /hpf Urine WBC /hpf Urine WBC Clumps OCC Urine Amorphous Sediment RARE Urine Bacteria MANY /hpf Urine Mucus FEW /lpf Microscopic Urinalysis Comment CULTURE INDICATED Test 10/17/17 04:10 10/17/17 11:00 10/18/17 04:03 Blood Urea Nitrogen 22 MG/DL 24 MG/DL Creatinine 1.27 MG/DL 1.23 MG/DL Random Glucose 84 MG/DL 123 MG/DL Calcium Level 8.9 MG/DL 8.2 MG/DL Sodium Level 136 MEQ/L 138 MEQ/L Potassium Level 4.6 MEQ/L 5.1 MEQ/L Chloride Level 103 MEQ/L 106 MEQ/L Carbon Dioxide Level 24.9 MEQ/L 22.0 MEQ/L Anion Gap 8 MEQ/L 10 MEQ/L Estimat Glomerular Filtration Rate 57 ML/MIN 59 ML/MIN Hemoglobin A1c 4.9 % Urine Color YELLOW Urine Turbidity HAZY Urine pH 5.5 Urine Specific [place] 1.027 Urine Protein TRACE mg/dL Urine Glucose (UA) NEG mg/dL Urine Ketones NEG mg/dL Urine Occult Blood MOD Urine Nitrite POS Urine Bilirubin NEG Urine Urobilinogen LESS THAN 2.0 MG/DL Urine Leukocyte Esterase LARGE Urine RBC 15 /hpf Urine WBC 55 /hpf Urine WBC Clumps FEW Urine Squamous Epithelial Cells <1 /hpf Urine Bacteria RARE /hpf Urine Mucus FEW /lpf Microscopic Urinalysis Comment CATH-CULTURE IND White Blood Count 3.5 TH/MM3 Red Blood Count 3.09 MIL/MM3 Hemoglobin 9.0 GM/DL Hematocrit 26.2 % Mean Corpuscular Volume 84.8 FL Mean Corpuscular Hemoglobin 29.1 PG Mean Corpuscular Hemoglobin Concent 34.3 % Red Cell Distribution Width 19.0 % Platelet Count 101 TH/MM3 Mean Platelet Volume 8.4 FL Neutrophils (%) (Auto) 88.1 % Lymphocytes (%) (Auto) 8.5 % Monocytes (%) (Auto) 3.3 % Eosinophils (%) (Auto) 0.0 % Basophils (%) (Auto) 0.1 % Neutrophils # (Auto) 3.1 TH/MM3 Lymphocytes # (Auto) 0.3 TH/MM3 Monocytes # (Auto) 0.1 TH/MM3 Eosinophils # (Auto) 0.0 TH/MM3 Basophils # (Auto) 0.0 TH/MM3 CBC Comment DIFF FINAL Differential Comment Total Protein 5.6 GM/DL Albumin 2.6 GM/DL Phosphorus Level 4.8 MG/DL Magnesium Level 2.9 MG/DL Alkaline Phosphatase 60 U/L Aspartate Amino Transf (AST/SGOT) 16 U/L Alanine Aminotransferase (ALT/SGPT) 11 U/L Total Bilirubin 0.4 MG/DL Imaging Last Impressions Chest X-Ray 10/18/17 0500 Signed Impressions: Service Date/Time: Wednesday, October 18, 2017 03:55 - CONCLUSION: 1. Left sided chest tube with a minimal left apical pneumothorax. This is unchanged. 2. Hazy density bases likely related to atelectasis or consolidation being worse at the right. Tavon Pham MD Lower Extremity Ultrasound 10/16/17 0000 Signed Impressions: Service Date/Time: Monday, October 16, 2017 18:28 - CONCLUSION: 1. There is a superficial venous structure involving the congenitally abnormal right lower extremity. I am unsure if this truly relates to a greater saphenous vein. No deep venous system is able to be visualized. 2. Left greater saphenous vein as detailed above. Oj Chu Jr., MD Carotid Artery Ultrasound 10/16/17 0000 Signed Impressions: Service Date/Time: Monday, October 16, 2017 18:43 - CONCLUSION: 1. Heavily calcified atherosclerotic plaque bilaterally but more abundant on the right. Less than 50%% stenoses bilaterally. 2. Antegrade flow involving both vertebral arteries. Oj Chu Jr., MD Objective Remarks GENERAL: Alert oriented talkative and cooperative 3 in no acute distress at this time SKIN: Warm and dry. HEAD: Atraumatic. Normocephalic. EYES: Pupils equal and round. No scleral icterus. No injection or drainage. Extraocular muscles intact ENT: No nasal bleeding or discharge. Mucous membranes pink and moist. Tongue is midline NECK: Trachea midline. No JVD. Supple CARDIOVASCULAR: Regular rate and rhythm. S1 and S2 no S3 or S4 DRESSED RESPIRATORY: No accessory muscle use. Clear to auscultation. Breath sounds equal bilaterally. CHEST TUBE IN PLACE GASTROINTESTINAL: Abdomen soft, non-tender, nondistended. Hepatic and splenic margins not palpable. SUPRAPUBIC IN PLACE MUSCULOSKELETAL: Extremities without clubbing, cyanosis, or edema. No obvious deformities. 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 No obvious cranial nerve deficits. Motor grossly within normal limits. Five out of 5 muscle strength in the arms and legs. Normal speech. PSYCHIATRIC: Appropriate mood and affect; insight and judgment normal. Procedures CARDIAC CATHETERIZATION Pt Name: FERN MG#: [id number]: HCISAttended By:Gustavo Jordan #:[id number] By: Draft Signed reports reside in the EMR cc: VERÓNICA PADILLA M.D. DATE October 16, 2017 PROCEDURE PERFORMED Left heart catheterization. BRIEF HISTORY This is a 67-year-old male who presented to [facility] with non-ST elevation myocardial infarction and congestive heart failure and severe cardiomyopathy. The patient had already presented with the same symptoms within a month before this admission and was treated conservatively. He was offered left heart catheterization but declined because he had only a single kidney. He returned with the same symptoms of exacerbation of congestive heart failure, positive troponin and chest pains. The patient was stabilized and this left heart catheterization is performed to rule out obstructive coronary artery disease. PROCEDURAL NOTE After all risks and benefits were explained, and informed consent was obtained, the patient was brought to the catheterization lab in a fasting state. The right arm was sterilized and prepped in the usual manner. 1% Xylocaine was used to anesthetize the right radial artery. According to the modified Seldinger approach, a 5 [place] sheath was placed and right radial approach was used without any difficulty. A left heart catheterization was then carried out using size 4 left and right Penny catheters. A pigtail catheter was used to access the left ventricle to perform left ventriculography. After multiple fluoroscopic views were obtained, all catheters were pulled. There was no apparent complication. FINDINGS CORONARY ANATOMY 1. LEFT MAIN: The left main is a moderate-sized vessel which originates from the left coronary cusp. There is calcification involving the left main, the left anterior descending artery and a small segment of the left circumflex artery. The left main is free of atherosclerosis. 2. LEFT ANTERIOR DESCENDING ARTERY: This is a moderate-sized vessel which courses into the apex and wraps around it. There is a 90% stenosis involving the ostium of the left anterior descending artery at the middle segment. At the bifurcation of the diagonal artery, there is 80-90% stenosis with an aneurysmal dilatation noted. The distal LAD has mild to moderate coronary artery disease. The first diagonal artery is a small-sized vessel and is free of atherosclerosis. 3. LEFT CIRCUMFLEX ARTERY: This is a dominant vessel. It is large, calcified in the proximal segment. There is 80% stenosis involving the proximal segment. There is also 80% distal stenosis involving the main trunk of the left circumflex artery. The circumflex artery gives off the obtuse marginal arteries prior to giving an inferior lateral branch. The midline distal segments of the left circumflex artery are free of atherosclerosis. The first diagonal artery has 60% stenosis in the proximal segment. The second, third and obtuse marginal arteries are free of atherosclerosis. The inferolateral branch that goes to the inferior wall has 70% proximal stenosis. The distal portion of the main left circumflex trunk has significant stenosis with multiple collateral branches going to the inferior wall. 4. RCA: The RCA is a small and diminutive vessel which has significant diffuse stenosis throughout. CONCLUSIONS The patient has severe three-vessel disease involving the proximal LAD, mid-LAD, proximal left circumflex artery and RCA. RECOMMENDATIONS Cardiothoracic Surgery would be consulted for CABG surgery. ------ cc: Miriam Alonso MD; Verónica Padilla MD Operative Report Date of Surgery: Oct 17, 2017 Preoperative Diagnosis: (1) NSTEMI (non-ST elevated myocardial infarction) (2) Acute systolic (congestive) heart failure (3) CAD (coronary artery disease) Postoperative Diagnosis: same Procedure: CABG x3 DURHAM to LAD SVG to OM1 SVG to OM3 EVH AKANKSHA Anesthesia: Dr. Bonner Surgeon: Miriam Alonso Distribution Manager(s): Alida Heck, SHAMA Operation and Findings: The risks, benefits, complications, treatment options, and expected outcomes were discussed with the patient. The possibilities of reaction to medication, pulmonary aspiration, perforation of viscus, bleeding, recurrent infection, the need for additional procedures, failure to diagnose a condition, and creating a complication requiring transfusion or operation were discussed with the patient. The patient concurred with the proposed plan, giving informed consent. The site of surgery properly noted/marked. The patient was taken to Operating Room, identified as Fern Mg and the procedure verified as CABG, EVH, AKANKSHA. A Time Out was held and the above information confirmed. Standard monitoring lines and Muhammad catheter were placed. General anesthesia was induced. The patient was prepped and draped in a sterile fashion. A median sternotomy was performed and electrocautery was used to obtain hemostasis. The left internal mammary artery was procured as a pedicle from the 7th rib to the 1st rib in the usual manner. Simultaneously left greater saphenous vein was procured from the left leg using a minimally invasive endoscopic technique. The vein was prepared for anastomosis and the leg wound was irrigated and closed in 2 layers. The pericardium was opened and a pericardial sling was created using interrupted 0 silk sutures. Pericardial adhesions were lysed to mobilize the heart. The patient was heparinized for cardiopulmonary bypass and the distal mammary pedicle was instrumented for anastomosis. The heart was instrumented for cardiopulmonary bypass in the usual manner. Antegrade blood cardioplegia was employed. The patient was placed on cardiopulmonary bypass. An aortic cross- clamp was applied and the heart was arrested using cold blood cardioplegia. Antegrade cardioplegia was administered after he each anastomosis. After adequate arrest, OM3 was opened with a [place] blade and found to be a 1 millimeter fair target. Saphenous vein was approximated to the OM3 artery using a running 7 0 Prolene suture. The graft was measured for length and orientation and the proximal anastomosis was constructed to the ascending aorta using a running 5 0 Prolene suture after creating an aortotomy with a 5 millimeter punch. The 1st circumflex marginal artery was then opened with a [place] blade and found to be a 1.5 millimeter good target. The OM1 artery was intramyocardial. Saphenous vein was approximated to the OM1 artery using a running 7 0 Prolene suture. The graft was measured for length and orientation and was suspended from the pericardium. The distal LAD was opened with a [place] blade and found to be a 1.5 millimeter diffusely diseased fair target. The left internal mammary artery was approximated to the LAD using a running 7 0 Prolene suture. The pedicle was attached to the epicardium using interrupted 5 0 silk suture. The patient was systemically rewarmed and received a hotshot dose of warm blood cardioplegia. The aorta was vented and the proximal anastomosis to the OM1 graft was accomplished using a running 5 0 Prolene suture after creating an aortotomy was a 5 millimeter punch. The cross-clamp was removed and all proximal and distal anastomoses were examined for hemostasis. Temporary atrial pacing on wires were positioned and brought out through the skin in the usual manner. The patient was paced at 80 beats per minute and weaned from cardiopulmonary bypass. Protamine was given. There was no adverse reaction. Decannulation was carried out without incident. Wound was checked for hemostasis which was obtained using electrocautery. A 36 [place]uneian mediastinal and 32 Bruneian left pleural chest tubes were placed and secured to the skin with 0 silk suture. The sternum was closed with stainless steel wire. The fascia was closed with 1. PDS. The subcutaneous tissue was closed using a running 2-0 Vicryl suture. The skin was closed with 4-0 Monocryl. Sterile dressings were placed. At the end of the operation, all sponge, instruments, and needle counts were correct. The patient was transferred to the CVICU in stable condition. Findings: LV function 25-30% after revascularization. Diffuse CAD XC: 65 min CPB: 77 min Drains: mediastinal x 1 pleural x 1 Complications: none Disposition: to CVICU in stable condition Miriam Alonso MD Oct 17, 2017 16:39 <Electronically signed by Miriam Alonso MD> 10/17/17 1639 Medications and IVs Current Medications Aspirin (Aspirin Chew) 162 mg ONCE ONCE PO ; Start 10/11/17 at 12:30; Stop 07/19 at 12:31; Status DC Nitroglycerin (Nitroglycerin 2% Oint) 1 inch ONCE ONCE TOP Last administered on 10/11/17at 13:33; Start 10/11/17 at 12:30; Stop 10/11/17 at 12:31; Status DC Furosemide (Lasix Inj) 40 mg ONCE ONCE IV PUSH Last administered on 10/11/17at 13:32; Start 10/11/17 at 12:30; Stop 10/11/17 at 12:31; Status DC Sodium Chloride (NS Flush) 2 ml UNSCH PRN IV FLUSH FLUSH AFTER USING IV ACCESS ; Start 10/11/17 at 18:00; Stop 10/17/17 at 09:33; Status DC Sodium Chloride (NS Flush) 2 ml UNSCH PRN IV FLUSH FLUSH AFTER USING IV ACCESS ; Start 10/11/17 at 18:15; Stop 10/17/17 at 09:34; Status DC Sodium Chloride (NS Flush) 2 ml BID IV FLUSH Last administered on 10/16/17at 21: 00; Start 10/11/17 at 21:00; Stop 10/17/17 at 09:34; Status DC Acetaminophen (Tylenol) 500 mg Q4H PRN PO HEADACHE; Start 10/11/17 at 18:15 Acetaminophen/ Hydrocodone Bitart ([place] 7.5-325 Mg) 1 tab Q4H PRN PO PAIN SCALE 1 TO 7; Start 10/11/17 at 18:15; Stop 10/17/17 at 16:35; Status DC Morphine Sulfate (Morphine Inj) 2 mg Q4H PRN IV PAIN 8-10; Start 10/11/17 at 18 :30; Stop 10/17/17 at 16:31; Status DC Ondansetron HCl (Zofran Inj) 4 mg Q6H PRN IV PUSH NAUSEA Last administered on at 21:13; Start 10/11/17 at 18:15 Famotidine (Pepcid) 20 mg BID PO Last administered on 10/13/17at 09:17; Start at 21:00; Stop 10/13/17 at 15:32; Status DC Nitroglycerin (Nitrostat Sl) 0.4 mg Q5M PRN SL CHEST PAIN Last administered on 10/15/17at 20:30; Start 10/11/17 at 18:15; Stop 10/17/17 at 16:31; Status DC Aspirin (Aspirin) 325 mg DAILY PO Last administered on 10/17/17at 08:22; Start 10/12/17 at 09:00; Stop 10/17/17 at 16:31; Status DC Heparin Sodium (Porcine) (Heparin Inj) 5,000 units Q8H SQ Last administered on 10/15/17at 20:31; Start 10/11/17 at 22:00; Stop 10/16/17 at 06:00; Status DC Furosemide (Lasix Inj) 40 mg DAILY IV PUSH Last administered on 10/13/17at 09:17 ; Start 10/12/17 at 09:00; Stop 10/18/17 at 08:32; Status DC Isosorbide Mononitrate (Imdur) 30 mg DAILY PO Last administered on 10/17/17at 08 :22; Start 10/12/17 at 09:00; Stop 10/17/17 at 16:31; Status DC Levothyroxine Sodium (Synthroid) 125 mcg DAILY@0600 PO Last administered on at 05:52; Start 10/12/17 at 06:00; Stop 10/16/17 at 14:58; Status DC Famotidine (Pepcid) 10 mg BID PO Last administered on 10/17/17at 08:22; Start at 21:00; Stop 10/18/17 at 08:32; Status DC Miscellaneous (Pill Splitter) 1 ea UNSCH PRN OTHER SEE LABEL COMMENTS; Start at 15:45 Heparin Sodium/ Sodium Chloride 1,000 ml @ As Directed STK-MED ONCE .ROUTE Last administered on 10/16/17at 09:36; Start 10/16/17 at 09:36; Stop 10/16/17 at 09:37; Status DC Verapamil HCl (Isoptin Inj) 5 mg STK-MED ONCE .ROUTE Last administered on at 09:48; Start 10/16/17 at 09:48; Stop 10/16/17 at 09:49; Status DC Heparin Sodium (Porcine) (Heparin Inj) 10,000 units STK-MED ONCE .ROUTE Last administered on 10/16/17at 09:49; Start 10/16/17 at 09:49; Stop 10/16/17 at 09:50 ; Status DC Nitroglycerin 5 ml @ As Directed STK-MED ONCE .ROUTE Last administered on at 09:49; Start 10/16/17 at 09:49; Stop 10/16/17 at 09:50; Status DC Midazolam HCl (Versed Inj) 2 mg STK-MED ONCE .ROUTE Last administered on at 09:59; Start 10/16/17 at 09:56; Stop 10/16/17 at 09:57; Status DC Fentanyl Citrate (fentaNYL INJ) 100 mcg STK-MED ONCE .ROUTE Last administered on 10/16/17at 10:03; Start 10/16/17 at 09:56; Stop 10/16/17 at 09:57; Status DC Diphenhydramine HCl (Benadryl Inj) 50 mg STK-MED ONCE .ROUTE Last administered on 10/16/17at 10:06; Start 10/16/17 at 10:06; Stop 10/16/17 at 10:07; Status DC Levothyroxine Sodium (Synthroid) 150 mcg DAILY@0600 PO Last administered on at 05:14; Start 10/17/17 at 06:00 Sodium Chloride (NS Flush) 2 ml BID IV FLUSH Last administered on 10/17/17at 21: 00; Start 10/16/17 at 21:00 Sodium Chloride (NS Flush) 2 ml UNSCH PRN IV FLUSH FLUSH AFTER USING IV ACCESS ; Start 10/16/17 at 15:30 Papaverine HCl 60 mg/Nitroglycerin 100 mcg/Diltiazem HCl 100 mg/Sodium Chloride 100 ml @ 0 mls/hr CON[employer]CTION [employer] TESTER IRRIGATION Last administered on 10/17/17at 13:22; Start 10/16/17 at 15:30; Stop 10/18/17 at 08:32; Status DC Cefazolin Sodium 500 mg/Sodium Chloride 505 ml @ 0 mls/hr [employer] TE[employer] IRRIGATION Last administered on 10/17/17at 15:26; Start 10/16/17 at 15:30; Stop 10/18/17 at 08:32; Status DC Cefazolin Sodium/ Dextrose 50 ml @ 150 mls/hr [employer] TESTER IV ; Start 10/16/17 at 15:30; Stop 10/18/17 at 08:32; Status DC Metoprolol Tartrate (Lopressor) 12.5 mg [employer] TESTER PO Last administered on at 05:06; Start 10/16/17 at 15:30; Stop 10/18/17 at 08:32; Status DC Chlorhexidine Gluconate (Hibiclens 4% Top Soln) 1 applic [employer] TESTER TOPICAL ; Start 10/16/17 at 15:30; Stop 10/18/17 at 08:32; Status DC Insulin Human Regular 100 units/ Sodium Chloride 100 ml @ 3 mls/hr TITRATE PRN IV for blood glucose control Last administered on 10/17/17at 18:18; Start at 15:30; Stop 10/18/17 at 08:32; Status DC Dextrose (D50w (Vial) Inj) 50 ml UNSCH PRN IV PUSH HYPOGLYCEMIA-SEE COMMENTS; Start 10/16/17 at 15:30 Lactated Ringer's 1,000 ml @ 30 mls/hr Q24H PRN IV SEE LABEL COMMENTS; Start at 03:45; Stop 10/18/17 at 08:32; Status DC Povidone Iodine (Betadine 5% Antisepsis Kit) 1 applic [employer] TESTER PRN EACH NARE SEE LABEL COMMENTS; Start 10/17/17 at 03:45; Stop 10/18/17 at 08:32; Status DC Chlorhexidine Gluconate (Chlorhexidine 2% Cloth) 3 pack [employer] TESTER PRN TOPICAL SEE LABEL COMMENTS; Start 10/17/17 at 03:45; Stop 10/18/17 at 08:32; Status DC Methylprednisolone Sodium Succinate (SoluMEDROL INJ) 125 mg STK-MED ONCE .ROUTE Last administered on 10/17/17at 12:30; Start 10/17/17 at 08:43; Stop 10/18/17 at 08:32; Status DC Heparin Sodium (Porcine) (Heparin Inj) 10,000 units STK-MED ONCE .ROUTE Last administered on 10/17/17at 11:30; Start 10/17/17 at 08:43; Stop 10/18/17 at 08:32 ; Status DC Vancomycin HCl (Vancomycin Inj) 4,000 mg STK-MED ONCE .ROUTE Last administered on 10/17/17at 11:30; Start 10/17/17 at 08:43; Stop 10/18/17 at 08:32; Status DC Cefazolin Sodium/ Dextrose 50 ml @ As Directed STK-MED ONCE .ROUTE Last administered on 10/17/17at 12:45; Start 10/17/17 at 08:43; Stop 10/18/17 at 08:32 ; Status DC Heparin Sodium (Porcine) (Heparin Inj) 30,000 units STK-MED ONCE .ROUTE Last administered on 10/17/17at 11:30; Start 10/17/17 at 08:44; Stop 10/18/17 at 08:32 ; Status DC Ceftriaxone Sodium 1000 mg/ Sodium Chloride 100 ml @ 200 mls/hr Q24H IV Last administered on 10/17/17at 10:00; Start 10/17/17 at 10:00; Stop 10/17/17 at 16:31 ; Status DC Multi-Ingred Electrol/Mineral Irrig 2,000 ml @ As Directed STK-MED ONCE .ROUTE ; Start 10/17/17 at 11:55; Stop 10/18/17 at 08:32; Status DC Potassium Chloride (KCl Inj) 4 meq STK-MED ONCE .ROUTE ; Start 10/17/17 at 11:55 ; Stop 10/18/17 at 08:32; Status DC Sodium Bicarbonate 100 ml @ As Directed STK-MED ONCE .ROUTE ; Start 10/17/17 at 11:56; Stop 10/18/17 at 08:32; Status DC Mannitol 100 ml @ As Directed STK-MED ONCE .ROUTE ; Start 10/17/17 at 11:57; Stop 10/18/17 at 08:32; Status DC Heparin Sodium (Porcine) (Heparin Inj) 20,000 units STK-MED ONCE .ROUTE ; Start 10/17/17 at 11:57; Stop 10/18/17 at 08:32; Status DC Albumin Human 50 ml @ As Directed STK-MED ONCE IV ; Start 10/17/17 at 12:09; Stop 10/18/17 at 08:32; Status DC Cefazolin Sodium/ Dextrose 50 ml @ As Directed STK-MED ONCE .ROUTE ; Start 10/17 at 16:10; Stop 10/18/17 at 08:32; Status DC Cefazolin Sodium (Ancef Inj) 1,000 mg STK-MED ONCE .ROUTE Last administered on 10/17/17at 16:45; Start 10/17/17 at 16:12; Stop 10/18/17 at 08:32; Status DC Sodium Chloride (NS Flush) 2 ml BID IV FLUSH ; Start 10/17/17 at 21:00 Sodium Chloride (NS Flush) 2 ml UNSCH PRN IV FLUSH FLUSH AFTER USING IV ACCESS ; Start 10/17/17 at 16:30 Dexmedetomidine HCl 200 mcg/ Sodium Chloride 52 ml @ 4.26 mls/hr TITRATE PRN IV SEDATION; Start 10/17/17 at 16:30; Stop 10/18/17 at 08:32; Status DC Clevidipine 50 ml @ 2 mls/hr TITRATE PRN IV Maintain BP < 140/90 mmHg; Start at 16:30; Stop 10/18/17 at 08:32; Status DC Albumin Human 250 ml @ 250 mls/hr UNSCH PRN IV SEE LABEL COMMENTS Last administered on 10/17/17at 19:22; Start 10/17/17 at 16:30; Stop 10/18/17 at 08:32 ; Status DC Lactated Ringer's 500 ml @ 500 mls/hr Q1H PRN IV SEE LABEL COMMENTS; Start at 16:25; Stop 10/18/17 at 08:32; Status DC Miscellaneous Information (Post-op Orders (for Pharmacy)) STAT ONCE OTHER ; Start 10/17/17 at 16:30; Stop 10/17/17 at 16:51; Status DC Cefazolin Sodium 1000 mg/Sodium Chloride 100 ml @ 200 mls/hr Q8H IV Last administered on 10/18/17at 02:09; Start 10/18/17 at 01:00; Stop 10/19/17 at 09:29 Aspirin (Aspirin Chew) 81 mg DAILY PO ; Start 10/18/17 at 09:00 Pantoprazole Sodium (Protonix) 40 mg DAILY@06 PO Last administered on at 05:14; Start 10/18/17 at 06:00 Acetaminophen (Tylenol) 650 mg Q4H PRN PO TEMPERATURE > 101 F; Start 10/17/17 at 16:30 Acetaminophen (Tylenol Supp) 650 mg Q4H PRN RECTAL TEMPERATURE > 101 F; Start 10/17/17 at 16:30; Stop 10/18/17 at 08:32; Status DC Acetaminophen 100 ml @ 400 mls/hr Q6H IV Last administered on 10/18/17at 05:14 ; Start 10/17/17 at 17:00; Stop 10/18/17 at 11:14 Oxycodone/ Acetaminophen (Percocet 5-325 Mg) 1 tab Q3H PRN PO PAIN SCALE 1 TO 5; Start 10/17/17 at 16:30 Fentanyl Citrate (fentaNYL INJ) 25 mcg Q1H PRN IV PUSH BREAKTHROUGH PAIN; Start 10/17/17 at 16:30 Ondansetron HCl (Zofran Inj) 4 mg Q6H PRN IV PUSH NAUSEA OR VOMITING; Start at 16:30; Stop 10/18/17 at 08:32; Status DC Hydralazine HCl (Apresoline Inj) 10 mg Q4H PRN IV PUSH SEE LABEL COMMENTS; Start 10/17/17 at 16:30 Metoprolol Tartrate (Lopressor Inj) 2.5 mg Q1H PRN IV PUSH SEE LABEL COMMENTS; Start 10/17/17 at 16:30; Stop 10/18/17 at 08:32; Status DC Potassium Chloride 100 ml @ 50 mls/hr UNSCH PRN IV SEE LABEL COMMENTS; Start 10/17/17 at 16:30; Stop 10/18/17 at 08:32; Status DC Potassium Chloride 100 ml @ 50 mls/hr UNSCH PRN IV SEE LABEL COMMENTS; Start 10/17/17 at 16:30; Stop 10/18/17 at 08:32; Status DC Potassium Chloride 100 ml @ 50 mls/hr UNSCH PRN IV SEE LABEL COMMENTS; Start 10/17/17 at 16:30; Stop 10/18/17 at 08:32; Status DC Potassium Chloride (KCl) 20 meq UNSCH PRN PO SEE LABEL COMMENTS; Start at 16:30; Stop 10/18/17 at 08:32; Status DC Potassium Chloride (KCl) 40 meq UNSCH PRN PO SEE LABEL COMMENTS; Start at 16:30; Stop 10/18/17 at 08:32; Status DC Magnesium Sulfate 2 gm/Sodium Chloride 104 ml @ 100 mls/hr UNSCH PRN IV SEE LABEL COMMENTS; Start 10/17/17 at 16:30; Stop 10/18/17 at 08:32; Status DC Magnesium Sulfate 2 gm/Sodium Chloride 104 ml @ 50 mls/hr UNSCH PRN IV SEE LABEL COMMENTS; Start 10/17/17 at 16:30; Stop 10/18/17 at 08:32; Status DC Calcium Chloride 1 gm/Sodium Chloride 110 ml @ 100 mls/hr UNSCH PRN IV SEE LABEL COMMENTS; Start 10/17/17 at 16:30; Stop 10/18/17 at 08:32; Status DC Calcium Chloride (Calcium Chloride Inj) 0.5 gm UNSCH PRN IV PUSH SEE LABEL COMMENTS; Start 10/17/17 at 16:30; Stop 10/18/17 at 08:32; Status DC Insulin Human Regular 100 units/ Sodium Chloride 100 ml @ 3 mls/hr TITRATE PRN IV for blood glucose control; Start 10/17/17 at 16:30; Stop 10/18/17 at 08:32; Status DC Dextrose (D50w (Vial) Inj) 50 ml UNSCH PRN IV PUSH HYPOGLYCEMIA-SEE COMMENTS; Start 10/17/17 at 16:30 Sodium Bicarbonate (Sodium Bicarbonate 8.4% Inj) 50 meq UNSCH PRN IV PUSH SEE LABEL COMMENTS; Start 10/17/17 at 16:30; Stop 10/18/17 at 08:32; Status DC Sodium Bicarbonate (Sodium Bicarbonate 8.4% Inj) 100 meq UNSCH PRN IV PUSH SEE LABEL COMMENTS; Start 10/17/17 at 16:30; Stop 10/18/17 at 08:32; Status DC Albuterol/ Ipratropium (Duoneb Neb) 1 ampule Q6HR NEB NEB Last administered on 10/18/17at 03:58; Start 10/17/17 at 22:00 Albuterol/ Ipratropium (Duoneb Neb) 1 ampule Q2HR NEB PRN NEB WHEEZING; Start 10/17/17 at 16:30 Racepinephrine (Racepinephrine 2.25% Neb) 0.5 ml UNSCH X1 PRN NEB STRIDOR; Start 10/17/17 at 16:30; Stop 10/17/17 at 23:59; Status DC Midazolam HCl (Versed Inj) 10 mg STK-MED ONCE .ROUTE ; Start 10/17/17 at 17:23; Stop 10/18/17 at 08:32; Status DC Fentanyl Citrate (fentaNYL INJ) 1,000 mcg STK-MED ONCE .ROUTE ; Start 10/17/17 at 17:23; Stop 10/18/17 at 08:32; Status DC A/P Problem List: (1) Chest pain ICD Code: R07.9 - Chest pain, unspecified Status: Acute Plan: Will consult cardiology. The patient follows up with Dr. Padilla. Check fasting lipid profile. HAD CARDIAC CATH 3 VESSEL CAD SP CABG X3 ON 10-17 (2) CAD (coronary artery disease) ICD Code: I25.10 - Atherosclerotic heart disease of tribe coronary artery without angina pectoris Plan: TO HAVE CARDIAC CATH ON 10-16 HAS 3 VESSEL CAD NEEDS CABG - SCHEDULED FOR SP CABG X3 ON 10-17 (3) Acute systolic (congestive) heart failure ICD Code: I50.21 - Acute systolic (congestive) heart failure Plan: AM LABS (4) Hypothyroidism ICD Code: E03.9 - Hypothyroidism, unspecified Plan: Continue levothyroxine. TSH ELEVATED INCREASE TO 150MCG PO DAILY (5) Leukopenia ICD Code: D72.819 - Decreased white blood cell count, unspecified Plan: Leukopenia seems to be chronic. Continue to monitor CBC. Assessment and Plan Assessment and Plan (1) Chest pain with history of CAD. cardiac enzymes negative. monitor on telemetry. continue aspirin and imdur- no BB at this time due to low-normal BP's. cardiology consult appreciated ; plan for cardiac cath. on 10-16 SHOWED 3 VESSEL CAD - NEEDS CABG SCHEDULED FOR 10-17 SP CABG X3 ON 10-17 (2) Acute on chronic systolic (congestive) heart failure Chest x-ray shows bilateral pleural effusions. (3) Hypothyroidism Continue levothyroxine. INCREASE TO 150MCG DAILY (4) Leukopenia Leukopenia seems to be chronic. Continue to monitor CBC. DVT prophylaxis with subq Heparin. SP CABG OF 3 VESSELS ON 10-[address] ALONSO AM LABS Discharge Planning INCREASE ACTIVITY TRANSFER OUT OF CVICU Problem Qualifiers (1) Hypothyroidism: Qualified Codes: E03.9 - Hypothyroidism, unspecified (2) Leukopenia: Cristian Perla DO Oct 18, 2017 08:41
[2017-10-18] MEDS ORDERED: SOD PHOSPHATE/SOD BIPHOSPHATE (ADULT) ENEMA 133ML RECTAL PRN (08:45)
[2017-10-18] MEDS: ASPIRIN 81 MG CHEW TAB PO SCH (08:53)
[2017-10-18] MEDS: SODIUM CHLORIDE 0.9% FLUSH 10 ML FLUSH IV FLUSH SCH ×3 (08:54→21:38)
[2017-10-18] MEDS ORDERED: DEXTROSE 50% IN WATER 50 ML VIAL(D50) IV PUSH PRN (09:00)
[2017-10-18] MEDS: MEDIUM DOSE INSULIN NOVOLOG SUPPLEMENTAL SCALE SQ SCH ×4 (09:00→21:00)
[2017-10-18] MEDS ORDERED: GLUCAGON 1 MG/ML VIAL OTHER PRN (09:00)
[2017-10-18] MEDS ORDERED: BISACODYL 10 MG SUPP RECTAL PRN (09:00)
[2017-10-18] MEDS: DOCUSATE SODIUM 100 MG CAP PO SCH ×2 (09:47→21:37)
[2017-10-18] MEDS: MAGNESIUM HYDROXIDE SUSP 30 ML CUP PO SCH (09:47)
[2017-10-18] MEDS: MULTIVITAMINS/MINERALS THERAPEUTIC TAB PO SCH (09:47)
--- NOTE | 2017-10-18 12:56 | EKG ---
Date Performed: 10/18/2017 Time Performed: 03:07:32 PTAGE: 67 years EKG: Sinus rhythm Leftward axis Ant/septal and lateral T wave changes may be due to myocardial ischemia Abnormal ECG PREVIOUS TRACING : 10/12/2017 01.28 DOCTOR: Sinan Underwood Interpretating Date/Time 10/18/2017 12:55:10
--- NOTE | 2017-10-18 13:02 | PD.CAR.PN ---
CVT Progress Note Subjective/Hospital Course: 67/ male presented last month September 24 and discharged on the with a NSTEMI. At that time he was found to have also acute congestive heart failure, was very weak, also developed some renal insufficiency, baseline is about 1.5. He was treated conservatively per Dr. Dang's note because he declined left heart cath because of the risk of developing end-stage renal disease and dialysis. The patient was discharged home on nitroglycerin but he returned on the with chest pain, shortness of breath. He was found to have CHF exacerbation with a BNP at 1500, troponin of 0.05, creatinine at that time was 1.24. Chest x-ray also showed some pulmonary congestion. He was given a couple doses of Lasix and diuresed well. He underwent finally cardiac catheterization by Dr. Dang showing an ejection fraction of 25%, left main disease 0%, proximal LAD 90%, mid distal 80%, circ 80%, and the RCA had 90% stenosis. On his last admission he underwent 2-D echocardiogram which also showed an EF at that time of 20-25% with severe left ventricular systolic dysfunction. Distal anterior septal apical hypokinesis, mild mitral valve regurgitation and mild tricuspid valve regurgitation. We were consulted to evaluate for coronary artery bypass grafting. PAST MEDICAL HISTORY: Coronary artery disease with a recent NSTEMI, Congestive heart failure with ejection fraction of 20-25%, Chronic kidney disease stage II , Hypertension, Hypothyroidism. 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 He has did this three weeks ago. His urologist is Dr. Vaughan. 10/17 suprapubic cath changed / UA resent CABG x3, DURHAM to LAD, SVG to OM1, SVG to OM3, EVH, AKANKSHA extubated after surgery 2500cc crystalloid , 550cc cell saver AKANKSHA : LV function 25-30% 10/18 Up in chair , on nasal cannula BP labile, unable to start BB eval for diuresis in am CXR with small left PTX , no air leak / f/u CXR in am repeat UA Micro pending/ on ancef [facility] Objective: GENERAL: A&O x 3 SKIN: Warm and dry. prevena dressing to chest , Abelardo wrap to left leg HEAD: Atraumatic. Normocephalic. EYES: Pupils equal and round. No scleral icterus. No injection or drainage. ENT: No nasal bleeding or discharge. Mucous membranes pink and moist. NECK: Trachea midline. No JVD. CARDIOVASCULAR: Regular rate and rhythm., some mild edema RESPIRATORY: No accessory muscle use. Clear to auscultation. Breath sounds equal bilaterally. chest tube to wall suction, no air leak , drained 400cc/ 12 hrs GASTROINTESTINAL: Abdomen soft, non-tender, nondistended. Hepatic and splenic margins not palpable. MUSCULOSKELETAL: Extremities without clubbing, cyanosis, or edema. Right upper leg deformity NEUROLOGICAL: Awake and alert. No obvious cranial nerve deficits. Motor grossly within normal limits. Five out of 5 muscle strength in the arms and legs. Normal speech. PSYCHIATRIC: Appropriate mood and affect; insight and judgment normal. Vital Signs Date Time Temp Pulse Resp B/P (MAP) Pulse Ox O2 Delivery O2 Flow Rate FiO2 10/18/17 12:00 80 10/18/17 11:00 98.1 80 18 96/59 (71) 100 10/18/17 11:00 93 10/18/17 09:27 97.9 88 18 105/79 (88) 100 Arterial Line 10/18/17 08:57 98 Nasal Cannula 2.00 10/18/17 08:00 97.5 74 16 90/57 (68) 99 107/97 (100) 10/18/17 08:00 74 10/18/17 08:00 97.9 74 16 90/57 (68) 99 107/97 (100) 10/18/17 08:00 99 Nasal Cannula 2.00 10/18/17 03:58 99 Nasal Cannula 2.00 10/18/17 03:10 98.0 66 16 89/48 (62) 98 119/57 (77) 10/18/17 03:10 72 10/17/17 23:29 97.5 79 15 88/57 (67) 98 128/75 (92) 10/17/17 23:29 70 10/17/17 20:00 98 Nasal Cannula 2.00 10/17/17 20:00 97.5 64 16 83/58 (66) 99 97/52 (67) 10/17/17 19:47 98 Nasal Cannula 4 40 10/17/17 19:47 40 10/17/17 19:15 99 40 10/17/17 19:06 16 10/17/17 19:00 64 10/17/17 19:00 40 18 18:00 66 10/17/17 17:46 100 40 10/17/17 17:20 101 10/17/17 17:20 97.9 101 20 88/60 (69) 99 95/49 (64) 10/17/17 17:20 97.8 Labs: Laboratory Tests Test 10/18/17 04:03 White Blood Count 3.5 TH/MM3 (4.0-11.0) Red Blood Count 3.09 MIL/MM3 (4.50-5.90) Hemoglobin 9.0 GM/DL (13.0-17.0) Hematocrit 26.2 % (39.0-51.0) Mean Corpuscular Volume 84.8 FL (80.0-100.0) Mean Corpuscular Hemoglobin 29.1 PG (27.0-34.0) Mean Corpuscular Hemoglobin Concent 34.3 % (32.0-36.0) Red Cell Distribution Width 19.0 % (11.6-17.2) Platelet Count 101 TH/MM3 (150-450) Mean Platelet Volume 8.4 FL (7.0-11.0) Neutrophils (%) (Auto) 88.1 % (16.0-70.0) Lymphocytes (%) (Auto) 8.5 % (9.0-44.0) Monocytes (%) (Auto) 3.3 % (0.0-8.0) Eosinophils (%) (Auto) 0.0 % (0.0-4.0) Basophils (%) (Auto) 0.1 % (0.0-2.0) Neutrophils # (Auto) 3.1 TH/MM3 (1.8-7.7) Lymphocytes # (Auto) 0.3 TH/MM3 (1.0-4.8) Monocytes # (Auto) 0.1 TH/MM3 (0-0.9) Eosinophils # (Auto) 0.0 TH/MM3 (0-0.4) Basophils # (Auto) 0.0 TH/MM3 (0-0.2) CBC Comment DIFF FINAL Differential Comment Blood Urea Nitrogen 24 MG/DL (7-18) Creatinine 1.23 MG/DL (0.60-1.30) Random Glucose 123 MG/DL (74-106) Total Protein 5.6 GM/DL (6.4-8.2) Albumin 2.6 GM/DL (3.4-5.0) Calcium Level 8.2 MG/DL (8.5-10.1) Phosphorus Level 4.8 MG/DL (2.5-4.9) Magnesium Level 2.9 MG/DL (1.5-2.5) Alkaline Phosphatase 60 U/L (45-117) Aspartate Amino Transf (AST/SGOT) 16 U/L (15-37) Alanine Aminotransferase (ALT/SGPT) 11 U/L (12-78) Total Bilirubin 0.4 MG/DL (0.2-1.0) Sodium Level 138 MEQ/L (136-145) Potassium Level 5.1 MEQ/L (3.5-5.1) Chloride Level 106 MEQ/L (98-107) Carbon Dioxide Level 22.0 MEQ/L (21.0-32.0) Anion Gap 10 MEQ/L (5-15) Estimat Glomerular Filtration Rate 59 ML/MIN (>89) Result Diagram: 10/18/17 0403 10/18/17 0403 Telemetry: NSR (1) NSTEMI (non-ST elevated myocardial infarction) (2) S/P CABG (coronary artery bypass graft) Plan: ASA, statin , eval to start BB in am EF 25-30 % eval for abelardo when BP allows OOB, PT/OT pulm toileting (3) UTI (urinary tract infection) Plan: on ancef, await repeat UA micro (4) CAD (coronary artery disease) (5) Chest pain (6) Acute systolic (congestive) heart failure Plan: eval for diuresis in am (7) congential abnormality of left femur Plan: will need his brace to ambulate/ PT/OT eval for rehab Jennifer Douglass Oct 18, 2017 13:02
[2017-10-18] MEDS ORDERED: METOPROLOL TARTRATE 25 MG TAB PO SCH (21:00)
[2017-10-18] MEDS: ATORVASTATIN 40 MG TAB PO SCH (21:37)
[2017-10-18] MEDS: SENNOSIDES 8.6 MG TAB PO SCH (21:37)
[2017-10-19] VITALS (26 sets, daily range): BP systolic 108–119; BP diastolic 68–82; PULSE 70–102; RESP 16–18; TEMP 97.2–98.1; O2SAT 96–99
[2017-10-19] MEDS: MEDIUM DOSE INSULIN NOVOLOG SUPPLEMENTAL SCALE SQ SCH ×6 (01:00→21:00)
[2017-10-19 04:28] LABS: AUTOMATED NEUTROPHIL # 3.1 TH/MM3 (1.8-7.7); BASOPHIL % 0.6 % (0.0-2.0); EOSINOPHIL % 0.5 % (0.0-4.0); HEMATOCRIT 25.8 % (39.0-51.0); HEMOGLOBIN 8.8 GM/DL (13.0-17.0); LYMPH % 18.7 % (9.0-44.0); LYMPHOCYTE # 0.8 TH/MM3 (1.0-4.8); MEAN CELL VOLUME 85.8 FL (80.0-100.0); MEAN CORPUSCULAR HEMOGLOBIN 29.3 PG (27.0-34.0); MEAN CORPUSCULAR HGB CONC 34.1 % (32.0-36.0); MEAN PLATELET VOLUME 8.8 FL (7.0-11.0); MONO % 7.3 % (0.0-8.0); MONOCYTE # 0.3 TH/MM3 (0-0.9); NEUT % 72.9 % (16.0-70.0); PLATELET COUNT 112 TH/MM3 (150-450); RED BLOOD COUNT 3.01 MIL/MM3 (4.50-5.90); RED CELL DISTRIBUTION WIDTH 19.6 % (11.6-17.2); WHITE BLOOD COUNT 4.2 TH/MM3 (4.0-11.0)
[2017-10-19 04:52] LABS: ALBUMIN 2.7 GM/DL (3.4-5.0); AST (GOT) 16 U/L (15-37); BICARBONATE 26.7 MEQ/L (21.0-32.0); BLOOD UREA NITROGEN 24 MG/DL (7-18); CALCIUM 7.9 MG/DL (8.5-10.1); CHLORIDE 104 MEQ/L (98-107); CREATININE 1.22 MG/DL (0.60-1.30); GLOMERULAR FILTRATION RATE 59 ML/MIN (>89); GLUCOSE,RANDOM 102 MG/DL (74-106); MAGNESIUM 2.6 MG/DL (1.5-2.5); SODIUM (NA) 136 MEQ/L (136-145)
--- NOTE | 2017-10-19 04:57 | RADRPT ---
EXAM DATE/TIME: 10/19/2017 03:48 [facility] COMPARISON: CHEST SINGLE AP, October 18, 2017, 3:55. INDICATIONS : Shortness of breath, possible pneumothorax. MEDICAL HISTORY : Myocardial infarction. Congestive heart failure. Hypertension. SURGICAL HISTORY : Tonsillectomy. Nephrectomy, left. ENCOUNTER: Subsequent ACUITY: 4 - 6 days PAIN SCORE: 0/10 LOCATION: Bilateral chest FINDINGS: The patient is status post sternotomy. There is a left chest tube and mediastinal drain in place. The re is a small pneumothorax seen over the left apex measuring up to 5 mm in thickness. There is mild h azy density seen at the bases. There is a minimal left pleural effusion. CONCLUSION: 1. Left chest tube with a persistent minimal left pneumothorax. 2. Extensive the bases when related to mild atelectasis or consolidation. 3. Minimal left effusion. Tavon Pham MD on October 19, 2017 at 4:55 Board Certified Radiologist. This report was verified electronically.
[2017-10-19 04:58] LABS: ALKALINE PHOSPHATASE 56 U/L (45-117); ALT (GPT) 13 U/L (12-78); PHOSPHORUS 2.8 MG/DL (2.5-4.9); TOTAL BILIRUBIN ADULT 0.3 MG/DL (0.2-1.0); TOTAL PROTEIN 5.7 GM/DL (6.4-8.2)
[2017-10-19] MEDS: PANTOPRAZOLE SOD 40 MG DELAYED RELEASE TAB PO SCH (05:17)
[2017-10-19] MEDS: LEVOTHYROXINE SODIUM 150 MCG TAB PO SCH (05:17)
[2017-10-19] MEDS: RESP: ALBUTEROL 2.5 MG/IPRATROPIUM 0.5 MG NEB (SCH) NEB ×3 (08:06→19:54)
[2017-10-19] MEDS ORDERED: METOPROLOL TARTRATE 25 MG TAB PO SCH (09:00)
[2017-10-19] MEDS: POLYETHYLENE GLYCOL 17 GM PKG PO SCH (09:00)
[2017-10-19] MEDS: MAGNESIUM HYDROXIDE SUSP 30 ML CUP PO SCH (09:59)
[2017-10-19] MEDS ORDERED: ALPRAZolam 0.5 MG TAB PO PRN (10:00)
[2017-10-19] MEDS ORDERED: traZODone HCL 100 MG TAB PO PRN (10:00)
[2017-10-19] MEDS: ASPIRIN 81 MG CHEW TAB PO SCH (10:01)
[2017-10-19] MEDS: MULTIVITAMINS/MINERALS THERAPEUTIC TAB PO SCH (10:01)
[2017-10-19] MEDS: DOCUSATE SODIUM 100 MG CAP PO SCH ×2 (10:01→20:43)
[2017-10-19] MEDS: CARVEDILOL 3.125 MG TAB PO SCH ×2 (10:01→20:44)
--- NOTE | 2017-10-19 10:04 | HHI.PR ---
Subjective Remarks Doing well postop. He says he's had problems sleeping last night. No complaints of lack of pain control or nausea and vomiting. Objective Vital Signs Date Time Temp Pulse Resp B/P (MAP) Pulse Ox O2 Delivery O2 Flow Rate FiO2 10/19/17 08:08 91 10/19/17 08:08 97.6 88 16 113/74 (87) 99 10/19/17 08:06 97 21 10/19/17 06:00 92 10/19/17 05:05 91 10/19/17 04:00 93 10/19/17 03:48 97.7 89 17 116/79 (91) 96 10/19/17 03:03 85 10/19/17 02:15 18 10/19/17 02:00 92 10/19/17 01:00 95 10/18/17 23:00 98.1 95 17 114/72 (86) 97 10/18/17 23:00 87 10/18/17 22:00 97 10/18/17 21:00 101 10/18/17 20:00 98 10/18/17 19:51 97.8 97 17 116/71 (86) 99 10/18/17 19:00 96 10/18/17 18:00 100 10/18/17 17:00 86 10/18/17 16:00 91 10/18/17 15:00 97.6 68 18 114/68 (83) 99 10/18/17 15:00 101 10/18/17 14:00 100 10/18/17 13:00 92 10/18/17 12:00 80 10/18/17 11:00 98.1 80 18 96/59 (71) 100 10/18/17 11:00 93 I/O 10/18/17 10/18/17 10/18/17 10/19/17 10/19/17 10/19/17 07:00 15:00 23:00 07:00 15:00 23:00 Intake Total 578 ml 480 ml 480 ml Output Total 1170 ml 1090 ml 630 ml Balance -592 ml -610 ml -150 ml Intake Oral 240 ml 480 ml 480 ml IV Total 338 ml Output Urine Total 770 ml 850 ml 450 ml Chest Tube Drainage Total 400 ml 240 ml 180 ml # Bowel Movements 0 0 0 Result Diagram: 10/19/17 0350 10/19/17 0350 Objective Remarks GENERAL: NAD, A&Ox3 HEAD: Normocephalic. NECK: Supple, trachea midline. No lymphadenopathy. EYES: No scleral icterus. No injection or drainage. CARDIOVASCULAR: Regular rate and rhythm without murmurs, gallops, or rubs. RESPIRATORY: Breath sounds equal bilaterally. No accessory muscle use. GASTROINTESTINAL: Abdomen soft, non-tender, nondistended. MUSCULOSKELETAL: No cyanosis, or edema. Anterior chest wound, postop. Chest tube in place. Malformation right lower extremity. SKIN: Warm and dry. NEURO: No focal neurological deficitis. A/P Problem List: (1) S/P CABG x 3 ICD Code: Z95.1 - Presence of aortocoronary bypass graft (2) Acute exacerbation of CHF (congestive heart failure) ICD Code: I50.9 - Heart failure, unspecified Status: Acute (3) Renal insufficiency ICD Code: N28.9 - Disorder of kidney and ureter, unspecified Status: Acute (4) Hypothyroidism ICD Code: E03.9 - Hypothyroidism, unspecified Assessment and Plan 67-year-old female status post CABG 3 on 10/17/17 Status post CABG 3 Coronary artery disease Cardiothoracic surgery following Continue pain management Continue PT Chest tube remains Insomnia Start trazodone as needed Xanax as needed Follow for improvement in sleep Chronic bladder dysfunction Chronic bladder drain Continue catheter management No plan for removal of catheter system Right leg malformation Continue supportive care Continue to use brace for ambulation Chest Pain Resolved Cardiology following Hypothyroidism Continue levothyroxine at increased dose of 150mcg daily Leukopenia Resolved DVT prophylaxis Heparin I do not see evidence of 'acute systolic heart failure' as previously listed, so this is not included in my assessment Discharge Planning Follow in [facility], no plan for discharge at this point, until drains removed and patient cleared by surgeon Problem Qualifiers (1) Acute exacerbation of CHF (congestive heart failure): Qualified Codes: I50.9 - Heart failure, unspecified (2) Hypothyroidism: Qualified Codes: E03.9 - Hypothyroidism, unspecified Clyde Winston MD Oct 19, 2017 10:04
[2017-10-19] MEDS: SODIUM CHLORIDE 0.9% FLUSH 10 ML FLUSH IV FLUSH SCH ×2 (10:05→20:44)
--- NOTE | 2017-10-19 14:37 | PD.CAR.PN ---
CVT Progress Note Subjective/Hospital Course: 67/ male presented last month September 24 and discharged on the with a NSTEMI. At that time he was found to have also acute congestive heart failure, was very weak, also developed some renal insufficiency, baseline is about 1.5. He was treated conservatively per Dr. Dang's note because he declined left heart cath because of the risk of developing end-stage renal disease and dialysis. The patient was discharged home on nitroglycerin but he returned on the with chest pain, shortness of breath. He was found to have CHF exacerbation with a BNP at 1500, troponin of 0.05, creatinine at that time was 1.24. Chest x-ray also showed some pulmonary congestion. He was given a couple doses of Lasix and diuresed well. He underwent finally cardiac catheterization by Dr. Dang showing an ejection fraction of 25%, left main disease 0%, proximal LAD 90%, mid distal 80%, circ 80%, and the RCA had 90% stenosis. On his last admission he underwent 2-D echocardiogram which also showed an EF at that time of 20-25% with severe left ventricular systolic dysfunction. Distal anterior septal apical hypokinesis, mild mitral valve regurgitation and mild tricuspid valve regurgitation. We were consulted to evaluate for coronary artery bypass grafting. PAST MEDICAL HISTORY: Coronary artery disease with a recent NSTEMI, Congestive heart failure with ejection fraction of 20-25%, Chronic kidney disease stage II , Hypertension, Hypothyroidism. 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 He has did this three weeks ago. His urologist is Dr. Vaughan. 10/17 suprapubic cath changed / UA resent CABG x3, DURHAM to LAD, SVG to OM1, SVG to OM3, EVH, AKANKSHA extubated after surgery 2500cc crystalloid , 550cc cell saver AKANKSHA : LV function 25-30% 10/18 Up in chair , on nasal cannula BP labile, unable to start BB eval for diuresis in am CXR with small left PTX , no air leak / f/u CXR in am repeat UA Micro pending/ on ancef currently will transfer to [facility] 10/19 UA > 100 K Enterococcus/ consult Urology ? colonized / chronic supra pubic cath on room air chest tube drained 180cc/ 12 hrs now on scheduled diuretics Objective: GENERAL: A&O x 3 , ambulates with brace right leg SKIN: Warm and dry. prevena in place to chest , left leg incision intact and well approximated HEAD: Normocephalic. EYES: No scleral icterus. No injection or drainage. NECK: Supple, trachea midline. No JVD or lymphadenopathy. CARDIOVASCULAR: Regular rate and rhythm without murmurs, gallops, or rubs., mild edema RESPIRATORY: Breath sounds equal bilaterally. No accessory muscle use. chest tube no ai leak GASTROINTESTINAL: Abdomen soft, non-tender, nondistended. MUSCULOSKELETAL: No cyanosis, or edema. / congenial absent right femur BACK: Nontender without obvious deformity. No CVA tenderness. Vital Signs Date Time Temp Pulse Resp B/P (MAP) Pulse Ox O2 Delivery O2 Flow Rate FiO2 10/19/17 08:08 91 10/19/17 08:08 97.6 88 16 113/74 (87) 99 10/19/17 08:06 97 21 10/19/17 06:00 92 10/19/17 05:05 91 10/19/17 04:00 93 10/19/17 03:48 97.7 89 17 116/79 (91) 96 10/19/17 03:03 85 10/19/17 02:15 18 10/19/17 02:00 92 10/19/17 01:00 95 10/18/17 23:00 98.1 95 17 114/72 (86) 97 10/18/17 23:00 87 10/18/17 22:00 97 10/18/17 21:00 101 10/18/17 20:00 98 10/18/17 19:51 97.8 97 17 116/71 (86) 99 10/18/17 19:00 96 10/18/17 18:00 100 10/18/17 17:00 86 10/18/17 16:00 91 10/18/17 15:00 97.6 68 18 114/68 (83) 99 10/18/17 15:00 101 Labs: Laboratory Tests Test 10/19/17 03:50 White Blood Count 4.2 TH/MM3 (4.0-11.0) Red Blood Count 3.01 MIL/MM3 (4.50-5.90) Hemoglobin 8.8 GM/DL (13.0-17.0) Hematocrit 25.8 % (39.0-51.0) Mean Corpuscular Volume 85.8 FL (80.0-100.0) Mean Corpuscular Hemoglobin 29.3 PG (27.0-34.0) Mean Corpuscular Hemoglobin Concent 34.1 % (32.0-36.0) Red Cell Distribution Width 19.6 % (11.6-17.2) Platelet Count 112 TH/MM3 (150-450) Mean Platelet Volume 8.8 FL (7.0-11.0) Neutrophils (%) (Auto) 72.9 % (16.0-70.0) Lymphocytes (%) (Auto) 18.7 % (9.0-44.0) Monocytes (%) (Auto) 7.3 % (0.0-8.0) Eosinophils (%) (Auto) 0.5 % (0.0-4.0) Basophils (%) (Auto) 0.6 % (0.0-2.0) Neutrophils # (Auto) 3.1 TH/MM3 (1.8-7.7) Lymphocytes # (Auto) 0.8 TH/MM3 (1.0-4.8) Monocytes # (Auto) 0.3 TH/MM3 (0-0.9) Eosinophils # (Auto) 0.0 TH/MM3 (0-0.4) Basophils # (Auto) 0.0 TH/MM3 (0-0.2) CBC Comment DIFF FINAL Differential Comment Blood Urea Nitrogen 24 MG/DL (7-18) Creatinine 1.22 MG/DL (0.60-1.30) Random Glucose 102 MG/DL (74-106) Total Protein 5.7 GM/DL (6.4-8.2) Albumin 2.7 GM/DL (3.4-5.0) Calcium Level 7.9 MG/DL (8.5-10.1) Phosphorus Level 2.8 MG/DL (2.5-4.9) Magnesium Level 2.6 MG/DL (1.5-2.5) Alkaline Phosphatase 56 U/L (45-117) Aspartate Amino Transf (AST/SGOT) 16 U/L (15-37) Alanine Aminotransferase (ALT/SGPT) 13 U/L (12-78) Total Bilirubin 0.3 MG/DL (0.2-1.0) Sodium Level 136 MEQ/L (136-145) Potassium Level 4.9 MEQ/L (3.5-5.1) Chloride Level 104 MEQ/L (98-107) Carbon Dioxide Level 26.7 MEQ/L (21.0-32.0) Anion Gap 5 MEQ/L (5-15) Estimat Glomerular Filtration Rate 59 ML/MIN (>89) Result Diagram: 10/19/1734910/19/17349 (1) NSTEMI (non-ST elevated myocardial infarction) (2) S/P CABG (coronary artery bypass graft) Plan: ASA, statin , on BB EF 25-30 % eval for hoang when BP allows OOB, PT/OT pulm toileting (3) UTI (urinary tract infection) Plan: on ancef, consult Dr Vaughan / pt urologist regarding treatment for ? colonized UTI (4) CAD (coronary artery disease) (5) Chest pain (6) Acute systolic (congestive) heart failure Plan: scheduled diuresis (7) congential abnormality of left femur Plan: will need his brace to ambulate/ PT/OT eval for rehab Jennifer Douglass Oct 19, 2017 14:37
[2017-10-19] MEDS: FUROSEMIDE 40 MG/4 ML VIAL IV PUSH SCH (17:29)
[2017-10-19] MEDS: SENNOSIDES 8.6 MG TAB PO SCH (20:43)
[2017-10-19] MEDS: ATORVASTATIN 40 MG TAB PO SCH (20:44)
[2017-10-20] VITALS (19 sets, daily range): BP systolic 84–116; BP diastolic 53–73; PULSE 67–88; RESP 16–18; TEMP 97.8–98.4; O2SAT 95–98
[2017-10-20] MEDS: LEVOTHYROXINE SODIUM 150 MCG TAB PO SCH (05:08)
[2017-10-20] MEDS: PANTOPRAZOLE SOD 40 MG DELAYED RELEASE TAB PO SCH (05:08)
[2017-10-20 06:14] LABS: AUTOMATED NEUTROPHIL # 2.1 TH/MM3 (1.8-7.7); BASOPHIL % 0.8 % (0.0-2.0); EOSINOPHIL # 0.1 TH/MM3 (0-0.4); EOSINOPHIL % 3.1 % (0.0-4.0); HEMATOCRIT 26.2 % (39.0-51.0); HEMOGLOBIN 8.9 GM/DL (13.0-17.0); LYMPH % 21.5 % (9.0-44.0); LYMPHOCYTE # 0.7 TH/MM3 (1.0-4.8); MEAN CELL VOLUME 85.9 FL (80.0-100.0); MEAN CORPUSCULAR HEMOGLOBIN 29.2 PG (27.0-34.0); MEAN CORPUSCULAR HGB CONC 34.1 % (32.0-36.0); MEAN PLATELET VOLUME 9.1 FL (7.0-11.0); MONO % 9.2 % (0.0-8.0); MONOCYTE # 0.3 TH/MM3 (0-0.9); NEUT % 65.4 % (16.0-70.0); PLATELET COUNT 129 TH/MM3 (150-450); RED BLOOD COUNT 3.06 MIL/MM3 (4.50-5.90); RED CELL DISTRIBUTION WIDTH 19.6 % (11.6-17.2); WHITE BLOOD COUNT 3.2 TH/MM3 (4.0-11.0)
[2017-10-20 06:38] LABS: ALBUMIN 2.6 GM/DL (3.4-5.0); AST (GOT) 18 U/L (15-37); BICARBONATE 27.3 MEQ/L (21.0-32.0); BLOOD UREA NITROGEN 21 MG/DL (7-18); CALCIUM 8.5 MG/DL (8.5-10.1); CHLORIDE 100 MEQ/L (98-107); CREATININE 1.11 MG/DL (0.60-1.30); GLOMERULAR FILTRATION RATE 66 ML/MIN (>89); GLUCOSE,RANDOM 82 MG/DL (74-106); MAGNESIUM 2.2 MG/DL (1.5-2.5); SODIUM (NA) 133 MEQ/L (136-145)
[2017-10-20 06:39] LABS: ALT (GPT) 9 U/L (12-78)
[2017-10-20 06:41] LABS: ALKALINE PHOSPHATASE 66 U/L (45-117); TOTAL BILIRUBIN ADULT 0.5 MG/DL (0.2-1.0); TOTAL PROTEIN 5.7 GM/DL (6.4-8.2)
[2017-10-20] MEDS ORDERED: LEVO.15 PO (08:00)
[2017-10-20] MEDS ORDERED: ATOR40TA16 PO (08:00)
[2017-10-20] MEDS: MEDIUM DOSE INSULIN NOVOLOG SUPPLEMENTAL SCALE SQ SCH ×2 (08:00→11:51)
[2017-10-20] MEDS ORDERED: THERM PO (08:00)
[2017-10-20] MEDS ORDERED: OXYC1TAB63 PO (08:00)
[2017-10-20] MEDS ORDERED: ASPI81 PO (08:00)
[2017-10-20] MEDS ORDERED: ALTA1.256 PO (08:00)
[2017-10-20] MEDS ORDERED: PANT40TA3 PO (08:00)
[2017-10-20] MEDS ORDERED: CARV3.125 PO (08:00)
[2017-10-20] MEDS ORDERED: DOCU1CAP39 PO (08:00)
--- NOTE | 2017-10-20 08:04 | HHI.DS ---
Discharge Summary Admission Date Oct 13, 2017 at 17:04 Discharge Date: Oct 20, 2017 Admitting Diagnosis CHF EXACERBATION, CP R/O NM (1) Chest pain ICD Codes: R07.9 - Chest pain, unspecified Status: Acute (2) CAD (coronary artery disease) Diagnosis: Principal ICD Codes: I25.10 - Atherosclerotic heart disease of [place] coronary artery without angina pectoris (3) Acute systolic (congestive) heart failure Diagnosis: Principal ICD Codes: I50.21 - Acute systolic (congestive) heart failure (4) Hypothyroidism Diagnosis: Secondary ICD Codes: E03.9 - Hypothyroidism, unspecified (5) Leukopenia Diagnosis: Secondary ICD Codes: D72.819 - Decreased white blood cell count, unspecified Procedures CABG x 3 [facility] Brief History 67/ male presented last month September 24 and discharged on the with a NSTEMI. At that time he was found to have also acute congestive heart failure, was very weak, also developed some renal insufficiency, baseline is about 1.5. He was treated conservatively per Dr. Dang's note because he declined left heart cath because of the risk of developing end-stage renal disease and dialysis. The patient was discharged home on nitroglycerin but he returned on the with chest pain, shortness of breath. He was found to have CHF exacerbation with a BNP at 1500, troponin of 0.05, creatinine at that time was 1.24. Chest x-ray also showed some pulmonary congestion. He was given a couple doses of Lasix and diuresed well. He underwent finally cardiac catheterization by Dr. Dang showing an ejection fraction of 25%, left main disease 0%, proximal LAD 90%, mid distal 80%, circ 80%, and the RCA had 90% stenosis. On his last admission he underwent 2-D echocardiogram which also showed an EF at that time of 20-25% with severe left ventricular systolic dysfunction. Distal anterior septal apical hypokinesis, mild mitral valve regurgitation and mild tricuspid valve regurgitation. We were consulted to evaluate for coronary artery bypass grafting. PAST MEDICAL HISTORY: Coronary artery disease with a recent NSTEMI, Congestive heart failure with ejection fraction of 20-25%, Chronic kidney disease stage II , Hypertension, Hypothyroidism. 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 He has did this three weeks ago. His urologist is Dr. Vaughan. CBC/BMP: 10/20/17 0515 10/20/17 0515 Significant Findings Laboratory Tests Test 10/17/17 11:00 10/18/17 04:03 10/19/17 03:50 10/20/17 05:15 Urine Turbidity HAZY (CLEAR) Urine Occult Blood MOD (NEG) Urine Nitrite POS (NEG) Urine Leukocyte Esterase LARGE (NEG) Urine RBC 15 /hpf (0-3) Urine WBC 55 /hpf (0-5) Urine WBC Clumps FEW (NONE) Urine Bacteria RARE /hpf (NONE) Urine Mucus FEW /lpf (OCC) White Blood Count 3.5 TH/MM3 (4.0-11.0) 3.2 TH/MM3 (4.0-11.0) Red Blood Count 3.09 MIL/MM3 (4.50-5.90) 3.01 MIL/MM3 (4.50-5.90) 3.06 MIL/MM3 (4.50-5.90) Hemoglobin 9.0 GM/DL (13.0-17.0) 8.8 GM/DL (13.0-17.0) 8.9 GM/DL (13.0-17.0) Hematocrit 26.2 % (39.0-51.0) 25.8 % (39.0-51.0) 26.2 % (39.0-51.0) Red Cell Distribution Width 19.0 % (11.6-17.2) 19.6 % (11.6-17.2) 19.6 % (11.6-17.2) Platelet Count 101 TH/MM3 (150-450) 112 TH/MM3 (150-450) 129 TH/MM3 (150-450) Neutrophils (%) (Auto) 88.1 % (16.0-70.0) 72.9 % (16.0-70.0) Lymphocytes (%) (Auto) 8.5 % (9.0-44.0) Lymphocytes # (Auto) 0.3 TH/MM3 (1.0-4.8) 0.8 TH/MM3 (1.0-4.8) 0.7 TH/MM3 (1.0-4.8) Blood Urea Nitrogen 24 MG/DL (7-18) 24 MG/DL (7-18) 21 MG/DL (7-18) Random Glucose 123 MG/DL (74-106) Total Protein 5.6 GM/DL (6.4-8.2) 5.7 GM/DL (6.4-8.2) 5.7 GM/DL (6.4-8.2) Albumin 2.6 GM/DL (3.4-5.0) 2.7 GM/DL (3.4-5.0) 2.6 GM/DL (3.4-5.0) Calcium Level 8.2 MG/DL (8.5-10.1) 7.9 MG/DL (8.5-10.1) Magnesium Level 2.9 MG/DL (1.5-2.5) 2.6 MG/DL (1.5-2.5) Alanine Aminotransferase (ALT/SGPT) 11 U/L (12-78) 9 U/L (12-78) Estimat Glomerular Filtration Rate 59 ML/MIN (>89) 59 ML/MIN (>89) 66 ML/MIN (>89) Monocytes (%) (Auto) 9.2 % (0.0-8.0) Sodium Level 133 MEQ/L (136-145) Imaging Last Impressions Chest X-Ray 10/19/17 0600 Signed Impressions: Service Date/Time: October 03:48 - CONCLUSION: 1. Left chest tube with a persistent minimal left pneumothorax. 2. Extensive the bases when related to mild atelectasis or consolidation. 3. Minimal left effusion. Tavon Pham MD Lower Extremity Ultrasound 10/16/17 0000 Signed Impressions: Service Date/Time: Monday, October 16, 2017 18:28 - CONCLUSION: 1. There is a superficial venous structure involving the congenitally abnormal right lower extremity. I am unsure if this truly relates to a greater saphenous vein. No deep venous system is able to be visualized. 2. Left greater saphenous vein as detailed above. Oj Chu Jr., MD Carotid Artery Ultrasound 10/16/17 0000 Signed Impressions: Service Date/Time: Monday, October 16, 2017 18:43 - CONCLUSION: 1. Heavily calcified atherosclerotic plaque bilaterally but more abundant on the right. Less than 50%% stenoses bilaterally. 2. Antegrade flow involving both vertebral arteries. Oj Chu Jr., MD PE at Discharge chest - CTA COR - RRR ABD - soft, NT, NABS wound - dry and intact Hospital Course 10/17 suprapubic cath changed / UA resent CABG x3, DURHAM to LAD, SVG to OM1, SVG to OM3, EVH, AKANKSHA extubated after surgery 2500cc crystalloid , 550cc cell saver AKAKNSHA : LV function 25-30% 10/18 Up in chair , on nasal cannula BP labile, unable to start BB eval for diuresis in am CXR with small left PTX , no air leak / f/u CXR in am repeat UA Micro pending/ on ancef currently will transfer to stepdown 10/19 UA > 100 K Enterococcus/ consult Urology ? colonized / chronic supra pubic cath on room air chest tube drained 180cc/ 12 hrs now on scheduled diuretics 10/20/17 Chest tubes removed. Ready for transfer to rehab Pt Condition on Discharge: Good Discharge Disposition: Rehab Inpatient Discharge Instructions DIET: Follow Instructions for: Heart Healthy Diet Activities you can perform: Weight Bearing as Judy, Shower Only-No Bath Activities to avoid: Lifting/Bending, Driving Follow up Referrals: Cardiology - 4 Weeks with Verónica Dang MD PCP Follow-up - 2 Weeks with Emma Landry MD Surgical - 2 Weeks with Jennifer Douglass New Orders: BASIC METABOLIC PROF - 2 Weeks CBC NO DIFF - 2 Weeks X-RAY CHEST PA & LAT - 2 Weeks New Medications: Aspirin (Tgt Aspirin) 81 Mg Chw 81 MG PO DAILY for Blood Clot Prevention, #100 EA 2 Refills Atorvastatin (Atorvastatin) 40 Mg Tab 40 MG PO HS for Cholesterol Management, #30 TAB 3 Refills Carvedilol (Coreg) 3.125 Mg Tab 3.125 MG PO Q12HR for Blood Pressure Management, #60 TAB 3 Refills Docusate Sodium (Dok) 100 Mg Cap 100 MG PO BID for Constipation for 14 Days, #28 CAP Levothyroxine (Synthroid) 150 Mcg Tab 150 MCG PO DAILY@0600 for Thyroid for 30 Days, #30 TAB 3 Refills Multiple Vitamins W/ Minerals (Thera M Plus) 1 Tab 1 TAB PO DAILY for Nutritional Supplement, #100 TAB 2 Refills Oxycodone HCl/Acetaminophen (Oxycodone-Acetaminophen 5-325) 5 Mg-325 Mg Tablet 1 TAB PO Q3H PRN for PAIN SCALE 1 TO 5, #30 TAB Pantoprazole (Pantoprazole) 40 Mg Tab 40 MG PO DAILY@06 for Prevent Stress Ulcers for 14 Days, TAB Ramipril (Altace) 1.25 Mg Cap 1.25 MG PO DAILY for Blood Pressure Management, #30 CAP 3 Refills Discontinued Medications: Levothyroxine (Levothyroxine) 125 Mcg Tab 125 MCG PO DAILY for Thyroid, #30 TAB 0 Refills Miriam Alonos MD Oct 20, 2017 08:04
[2017-10-20] MEDS: RESP: ALBUTEROL 2.5 MG/IPRATROPIUM 0.5 MG NEB (SCH) NEB ×2 (08:46→13:48)
[2017-10-20] MEDS ORDERED: RAMIPRIL 1.25 MG CAP PO SCH (09:00)
[2017-10-20] MEDS ORDERED: NITROFURANTOIN MONOHYD MACROCR 100 MG CAP PO SCH (09:45)
[2017-10-20] MEDS: POLYETHYLENE GLYCOL 17 GM PKG PO SCH (09:50)
[2017-10-20] MEDS: MAGNESIUM HYDROXIDE SUSP 30 ML CUP PO SCH (09:50)
[2017-10-20] MEDS: FUROSEMIDE 40 MG/4 ML VIAL IV PUSH SCH (09:51)
[2017-10-20] MEDS: CARVEDILOL 3.125 MG TAB PO SCH (09:52)
[2017-10-20] MEDS: MULTIVITAMINS/MINERALS THERAPEUTIC TAB PO SCH (09:52)
[2017-10-20] MEDS: DOCUSATE SODIUM 100 MG CAP PO SCH (09:52)
[2017-10-20] MEDS: ASPIRIN 81 MG CHEW TAB PO SCH (09:52)
[2017-10-20] MEDS: SODIUM CHLORIDE 0.9% FLUSH 10 ML FLUSH IV FLUSH SCH (09:53)
--- NOTE | 2017-10-20 10:54 | HHI.PR ---
Subjective Remarks Follow-up multivessel stenosis/CABG/UTI 10/20/17-patient seen and examined, complains of weakness, denies any shortness of breath. Chest tube removed this morning. Afebrile. Objective Vitals Vital Signs Date Time Temp Pulse Resp B/P (MAP) Pulse Ox O2 Delivery O2 Flow Rate FiO2 10/20/17 08:46 95 21 10/20/17 07:45 97.8 80 18 116/73 (87) 97 10/20/17 07:45 80 10/20/17 06:18 76 10/20/17 04:00 75 10/20/17 03:00 72 10/20/17 03:00 98.1 85 17 105/66 (79) 97 10/20/17 02:00 67 10/20/17 01:04 76 10/19/17 23:00 98.1 82 17 108/70 (83) 98 10/19/17 23:00 72 10/19/17 22:00 84 10/19/17 20:00 82 10/19/17 19:56 99 10/19/17 19:00 93 10/19/17 19:00 97.2 89 17 112/68 (83) 98 10/19/17 18:00 70 10/19/17 17:00 86 10/19/17 16:00 84 10/19/17 15:40 97.9 80 18 118/82 (94) 97 10/19/17 15:00 84 10/19/17 14:00 82 10/19/17 13:00 95 10/19/17 12:00 86 10/19/17 11:30 98.0 87 16 119/80 (93) 98 10/19/17 11:00 96 I/O 10/19/17 10/19/17 10/19/17 10/20/17 10/20/17 10/20/17 07:00 15:00 23:00 07:00 15:00 23:00 Intake Total 480 ml 1100 ml 720 ml Output Total 630 ml 695 ml 2500 ml Balance -150 ml 405 ml -1780 ml Intake Oral 480 ml 900 ml 720 ml IV Total 200 ml Output Urine Total 450 ml 525 ml 2450 ml Chest Tube Drainage Total 180 ml 170 ml 50 ml # Bowel Movements 0 0 1 Result Diagram: 10/20/17 0515 10/20/17 0515 Imaging Last Impressions Chest X-Ray 10/19/17 0600 Signed Impressions: Service Date/Time: October 03:48 - CONCLUSION: 1. Left chest tube with a persistent minimal left pneumothorax. 2. Extensive the bases when related to mild atelectasis or consolidation. 3. Minimal left effusion. Tavon Pham MD Lower Extremity Ultrasound 10/16/17 0000 Signed Impressions: Service Date/Time: Monday, October 16, 2017 18:28 - CONCLUSION: 1. There is a superficial venous structure involving the congenitally abnormal right lower extremity. I am unsure if this truly relates to a greater saphenous vein. No deep venous system is able to be visualized. 2. Left greater saphenous vein as detailed above. Oj Chu Jr., MD Carotid Artery Ultrasound 10/16/17 0000 Signed Impressions: Service Date/Time: Monday, October 16, 2017 18:43 - CONCLUSION: 1. Heavily calcified atherosclerotic plaque bilaterally but more abundant on the right. Less than 50%% stenoses bilaterally. 2. Antegrade flow involving both vertebral arteries. Oj Chu Jr., MD Objective Remarks GENERAL: NAD SKIN: Warm and dry. HEAD: Normocephalic. EYES: No scleral icterus. No injection or drainage. NECK: Supple, trachea midline. No JVD or lymphadenopathy. CARDIOVASCULAR: Regular rate and rhythm without murmurs, gallops, or rubs. RESPIRATORY: Breath sounds equal bilaterally. No accessory muscle use. GASTROINTESTINAL: Abdomen soft, non-tender, nondistended. MUSCULOSKELETAL: No cyanosis, or edema. BACK: Nontender without obvious deformity. No CVA tenderness. Procedures Left heart catheterization. CABG x3 DURHAM to LAD SVG to OM1 SVG to OM3 EVH AKANKSHA A/P Problem List: (1) Chest pain ICD Code: R07.9 - Chest pain, unspecified Status: Acute (2) CAD (coronary artery disease) ICD Code: I25.10 - Atherosclerotic heart disease of [place] coronary artery without angina pectoris (3) Acute systolic (congestive) heart failure ICD Code: I50.21 - Acute systolic (congestive) heart failure (4) Hypothyroidism ICD Code: E03.9 - Hypothyroidism, unspecified (5) Leukopenia ICD Code: D72.819 - Decreased white blood cell count, unspecified (6) Multi-vessel coronary artery stenosis ICD Code: I25.10 - Atherosclerotic heart disease of [place] coronary artery without angina pectoris (7) NSTEMI (non-ST elevated myocardial infarction) ICD Code: I21.4 - Non-ST elevation (NSTEMI) myocardial infarction (8) UTI (urinary tract infection) ICD Code: N39.0 - Urinary tract infection, site not specified Status: Acute Assessment and Plan 67-year-old female status post CABG 3 on 10/17/17 Status post CABG 3 Coronary artery disease Cardiothoracic surgery following Currently on Lasix IV 40 mg twice a day, Coreg 3.125 mg twice a day, Lipitor, Altace, aspirin PT to treat and eval Chest tube was removed this morning Insomnia Continue trazodone as needed Xanax as needed Follow for improvement in sleep Chronic bladder dysfunction Chronic bladder drain UTI At Macrobid 100 mg twice a day Right leg malformation Continue supportive care Continue to use brace for ambulation Chest Pain Resolved Appreciate input from cardiology Hypothyroidism Continue levothyroxine 150mcg daily Leukopenia Resolved DVT prophylaxis Heparin Problem Qualifiers (1) Hypothyroidism: Qualified Codes: E03.9 - Hypothyroidism, unspecified (2) Leukopenia: Gallito Padilla MD Oct 20, 2017 10:54
--- NOTE | 2017-10-20 11:22 | PD.CONS ---
HPI Service Urology Consult Requested By Era Dale Reason for Consult Urinary tract infection Primary Care Physician No Primary Care Physician Diagnosis: (1) Chest pain ICD Code: R07.9 - Chest pain, unspecified (2) CAD (coronary artery disease) ICD Code: I25.10 - Atherosclerotic heart disease of [place] coronary artery without angina pectoris (3) Acute systolic (congestive) heart failure ICD Code: I50.21 - Acute systolic (congestive) heart failure (4) Hypothyroidism ICD Code: E03.9 - Hypothyroidism, unspecified (5) Leukopenia ICD Code: D72.819 - Decreased white blood cell count, unspecified (6) Multi-vessel coronary artery stenosis ICD Code: I25.10 - Atherosclerotic heart disease of [place] coronary artery without angina pectoris (7) NSTEMI (non-ST elevated myocardial infarction) ICD Code: I21.4 - Non-ST elevation (NSTEMI) myocardial infarction (8) UTI (urinary tract infection) ICD Code: N39.0 - Urinary tract infection, site not specified History of Present Illness 67-year-old gentleman with history bladder outlet obstruction who is under the care of Dr. Vaughan of urology and managed with an indwelling suprapubic catheter. Patient recently underwent coronary artery bypass grafting surgery on October 17 of this year. The suprapubic catheter was changed on the same day. Urine sample was sent for analysis and ended up positive for Enterococcus faecalis. Urology is now consulted regarding further recommendations. Review of Systems Constitutional: DENIES: Fever, Chills Cardiovascular: COMPLAINS OF: Chest pain (recent history of) Genitourinary: DENIES: Hematuria, Dysuria Except as stated in HPI: all other systems reviewed are Neg Past Family Social History Past Medical History Bladder outlet obstruction Coronary artery disease Hypertension Hypothyroidism Past Surgical History Status post left nephrectomy Reported Medications Refer to EMR Allergies: Coded Allergies: No Known Allergies (Unverified Adverse Reaction, Unknown, 10/11/17) Active Ordered Medications Refer to EMR Family History Coronary artery disease Diabetes mellitus Social History Former smoker of one pack per day 40 years, quit one year ago Occasional alcohol use Denies intravenous drug abuse history Physical Exam Vital Signs Date Time Temp Pulse Resp B/P (MAP) Pulse Ox O2 Delivery O2 Flow Rate FiO2 10/20/17 08:46 95 21 10/20/17 07:45 97.8 80 18 116/73 (87) 97 10/20/17 07:45 80 10/20/17 06:18 76 10/20/17 04:00 75 10/20/17 03:00 72 10/20/17 03:00 98.1 85 17 105/66 (79) 97 10/20/17 02:00 67 10/20/17 01:04 76 10/19/17 23:00 98.1 82 17 108/70 (83) 98 10/19/17 23:00 72 10/19/17 22:00 84 10/19/17 20:00 82 10/19/17 19:56 99 10/19/17 19:00 93 10/19/17 19:00 97.2 89 17 112/68 (83) 98 10/19/17 18:00 70 10/19/17 17:00 86 10/19/17 16:00 84 10/19/17 15:40 97.9 80 18 118/82 (94) 97 10/19/17 15:00 84 10/19/17 14:00 82 10/19/17 13:00 95 10/19/17 12:00 86 10/19/17 11:30 98.0 87 16 119/80 (93) 98 Physical Exam GENERAL: This is a well-nourished, well-developed patient, in no apparent distress. SKIN: No rashes, ecchymoses or lesions. Cool and dry. HEAD: Atraumatic. Normocephalic. No temporal or scalp tenderness. EYES: Pupils equal round and reactive. Extraocular motions intact. No scleral icterus. No injection or drainage. ENT: Nose without bleeding, purulent drainage or septal hematoma. Throat without erythema, tonsillar hypertrophy or exudate. Uvula midline. Airway patent. NECK: Trachea midline. No JVD or lymphadenopathy. Supple, nontender, no meningeal signs.. GASTROINTESTINAL: Abdomen soft, non-tender, nondistended. No hepato-splenomegaly , or palpable masses. No guarding. GENITOURINARY: Suprapubic catheter in place draining clear yellow urine MUSCULOSKELETAL: Extremities without clubbing, cyanosis, or edema. No joint tenderness, effusion, or edema noted. No calf tenderness. Negative Homans sign bilaterally. NEUROLOGICAL: Awake and alert. Cranial nerves II through XII intact. Motor and sensory grossly within normal limits. Five out of 5 muscle strength in all muscle groups. Normal speech. Lab results reviewed: Yes Laboratory Tests Test 10/20/17 05:15 White Blood Count 3.2 Red Blood Count 3.06 Hemoglobin 8.9 Hematocrit 26.2 Mean Corpuscular Volume 85.9 Mean Corpuscular Hemoglobin 29.2 Mean Corpuscular Hemoglobin Concent 34.1 Red Cell Distribution Width 19.6 Platelet Count 129 Mean Platelet Volume 9.1 Neutrophils (%) (Auto) 65.4 Lymphocytes (%) (Auto) 21.5 Monocytes (%) (Auto) 9.2 Eosinophils (%) (Auto) 3.1 Basophils (%) (Auto) 0.8 Neutrophils # (Auto) 2.1 Lymphocytes # (Auto) 0.7 Monocytes # (Auto) 0.3 Eosinophils # (Auto) 0.1 Basophils # (Auto) 0.0 CBC Comment DIFF FINAL Differential Comment Blood Urea Nitrogen 21 Creatinine 1.11 Random Glucose 82 Total Protein 5.7 Albumin 2.6 Calcium Level 8.5 Magnesium Level 2.2 Alkaline Phosphatase 66 Aspartate Amino Transf (AST/SGOT) 18 Alanine Aminotransferase (ALT/SGPT) 9 Total Bilirubin 0.5 Sodium Level 133 Potassium Level 4.5 Chloride Level 100 Carbon Dioxide Level 27.3 Anion Gap 6 Estimat Glomerular Filtration Rate 66 Date/Time Source Procedure Growth Status 10/17/17 11:00 Urine Catheterized Urine Urine Culture - Final Enterococcus Faecalis Complete Result Diagram: 10/20/1715 10/20/17 0515 Imaging Last Impressions Chest X-Ray 10/19/17 0600 Signed Impressions: Service Date/Time: October 03:48 - CONCLUSION: 1. Left chest tube with a persistent minimal left pneumothorax. 2. Extensive the bases when related to mild atelectasis or consolidation. 3. Minimal left effusion. Tavon Pham MD Lower Extremity Ultrasound 10/16/17 0000 Signed Impressions: Service Date/Time: Monday, October 16, 2017 18:28 - CONCLUSION: 1. There is a superficial venous structure involving the congenitally abnormal right lower extremity. I am unsure if this truly relates to a greater saphenous vein. No deep venous system is able to be visualized. 2. Left greater saphenous vein as detailed above. Oj Chu Jr., MD Carotid Artery Ultrasound 10/16/17 0000 Signed Impressions: Service Date/Time: Monday, October 16, 2017 18:43 - CONCLUSION: 1. Heavily calcified atherosclerotic plaque bilaterally but more abundant on the right. Less than 50%% stenoses bilaterally. 2. Antegrade flow involving both vertebral arteries. Oj Chu Jr., MD Assessment and Plan Assessment and Plan Urologic impression: #1 bladder outlet obstruction being managed with suprapubic catheter #2 urinary tract infection Recommendations: #1 suprapubic catheter to be changed out every 3-4 weeks #2 ampicillin 500 mg by mouth every 8 hours 5 days #3 patient to follow up with his established urologist Dr. Vaughan after hospital discharge. Problem Qualifiers (1) Hypothyroidism: Qualified Codes: E03.9 - Hypothyroidism, unspecified (2) Leukopenia: Colin Whitley MD Oct 20, 2017 11:22
--- NOTE | 2017-10-20 13:06 | RADRPT ---
EXAM DATE/TIME: 10/20/2017 12:31 [facility] COMPARISON: CHEST SINGLE AP, October 19, 2017, 3:48. INDICATIONS : Post left chest tube removal MEDICAL HISTORY : Congestive heart failure. Myocardial infarction. Hypertension. SURGICAL HISTORY : Tonsillectomy. Nephrectomy, left. CABG. ENCOUNTER: Subsequent ACUITY: 4 - 6 days PAIN SCORE: 0/10 LOCATION: Bilateral chest FINDINGS: Left chest tube is removed. There is questionable residual dental left apical pneumothorax. Bibasilar opacities are unchanged with evidence of prior median sternotomy. CONCLUSION: Removal left chest tube. Questionable slitlike residual apical pneumothorax. Otherwise stable chest. Ruy Ruby MD on October 20, 2017 at 13:02 Board Certified Radiologist. This report was verified electronically.
[2017-10-20] MEDS ORDERED: AMOXICILLIN (TRIHYDRATE) 500 MG CAP PO SCH (14:00)
[2017-10-20] MEDS ORDERED: NITR100C4 PO (16:40)
== END 2017-10-20 17:20 | DRG 233 ==
LOC: NEPE 12:08 → NEDA 14:58 → NEPGCP 19:21 → OBSVTOIN 10-13 17:04 → HCIS 10-16 09:39 → HCPC 10-16 19:34 → HCVI 10-17 17:15 → HCPC 10-18 09:40
PROVIDERS: ADMIT Hospitalist; ATTEND Hospitalist
PROC: 4A023N7 Measurement of Cardiac Sampling and Pressure, Left Heart, Percutaneous Approach (ICD-10-PCS; 2017-10-16)
PROC: 30233N1 Transfusion of Nonautologous Red Blood Cells into Peripheral Vein, Percutaneous Approach (ICD-10-PCS; 2017-10-16)
PROC: B2111ZZ Fluoroscopy of Multiple Coronary Arteries using Low Osmolar Contrast (ICD-10-PCS; 2017-10-16)
PROC: 021109W Bypass Coronary Artery, Two Arteries from Aorta with Autologous Venous Tissue, Open Approach (ICD-10-PCS; 2017-10-17)
PROC: 06BQ4ZZ Excision of Left Saphenous Vein, Percutaneous Endoscopic Approach (ICD-10-PCS; 2017-10-17)
PROC: B246ZZ4 Ultrasonography of Right and Left Heart, Transesophageal (ICD-10-PCS; 2017-10-17)
PROC: 5A1221Z Performance of Cardiac Output, Continuous (ICD-10-PCS; 2017-10-17)
PROC: 02100Z9 Bypass Coronary Artery, One Artery from Left Internal Mammary, Open Approach (ICD-10-PCS; principal; 2017-10-17 11:37)
DX: I13.0 Hypertensive heart and chronic kidney disease with heart failure and stage 1 through stage 4 chronic kidney disease, or unspecified chronic kidney disease (principal); I50.23 Acute on chronic systolic (congestive) heart failure; I21.4 Non-ST elevation (NSTEMI) myocardial infarction; I31.0 Chronic adhesive pericarditis; N39.0 Urinary tract infection, site not specified; I25.110 Atherosclerotic heart disease of native coronary artery with unstable angina pectoris; N18.2 Chronic kidney disease, stage 2 (mild); I25.5 Ischemic cardiomyopathy; E03.9 Hypothyroidism, unspecified; Z90.5 Acquired absence of kidney; Z83.3 Family history of diabetes mellitus; Z82.49 Family history of ischemic heart disease and other diseases of the circulatory system; Z87.891 Personal history of nicotine dependence; D72.819 Decreased white blood cell count, unspecified; I08.1 Rheumatic disorders of both mitral and tricuspid valves; Z93.59 Other cystostomy status; D63.1 Anemia in chronic kidney disease; N32.0 Bladder-neck obstruction; G47.00 Insomnia, unspecified
CPT/HCPCS: 36430; 71045; 76937; 80048; 80053; 80061; 81001; 82550; 82948; 83036; 83690; 83735; 83880; 84100; 84439; 84443; 84484; 85025; 85610; 85730; 86850; 86900; 86901; 86920; 87077; 87086; 87186; 87641; 93005; 93318; 93458; 93880; 93970; 93998; 94002; 94010; 94150; 94640; 94664; 94667; 94668; 96372; 96374; 96376; C1769; C1893; G0378; J0131; J0171; J0282; J0690; J0696; J1200; J1644; J1815; J1817; J1940; J2150; J2250; J2370; J2405; J2440; J2720; J2930; J3010; J3370; J3475; J3480; J7040; J7050; J7120; P9016; P9045; P9047

== ENCOUNTER → 2017-10-31 | Outpatient (CLI) | payer MEDICARE ==
[~2017-10-31] MED LIST changes: +ALTA1.256 PO; -ASA325 PO; +ASPI81 PO; +ATOR40TA16 PO; +CARV3.125 PO; +COMMODE 3-IN-11 MIS; +DOCU1CAP39 PO; +GETGO ROLLING W1 MI1; -ISOS30TA3 PO; -LEVO.125 PO; +LEVO.15 PO; -LEVO125T4 PO; +LIDOCAINE HCL 1% PF 5 ML SYRINGE OTHER ONE; +NITR100C4 PO; +OXYC1TAB63 PO; +PANT40TA3 PO; +PROPOFOL 200 MG/20 ML AMP IV ONE; +THERM PO
--- NOTE | 2017-10-31 16:11 | PD.PROCEDR ---
GI Procedure PROCEDURE PERFORMED EGD with dilation INDICATION FOR PROCEDURE Dysphagia, abnormal barium swallow PROCEDURE: The procedure, risks and benefits were discussed with Mr. Mg and informed consent was obtained. Anesthesia sedated him with Diprivan. He was placed in the left lateral decubitus position. EGD: The Pentax videoscope was introduced through the oropharynx and advanced to the second portion of the duodenum under direct visualization. Retroflexion was performed in the stomach. FINDINGS: The esophagus this appeared to be unremarkable and within normal limits the portion that showed a possible web was not very clear to me so I did go ahead and do a dilation with a savory dilator over guidewire and the dilator used was a 17 mm dilator postdilatation view did not reveal any evidence of bleeding or any tears esophagus otherwise unremarkable The stomach to appear to be unremarkable with normal limits The duodenum also appeared to be unremarkable with normal limits ESTIMATED BLOOD LOSS: None SPECIMENS REMOVED: None COMPLICATIONS: None IMPRESSION: Dysphagia etiology unclear probably functional dysphagia or transfer dysphagia Abnormal modified barium swallow unremarkable on endoscopy PLAN: Would recommend mechanical soft diet Monitor clinically and proceed accordingly Continue with speech therapy at this point Kee De Los Santos MD Oct 31, 2017 16:11
[2017-10-31 16:17] VITALS: BP 103/65; PULSE 61; RESP 16; TEMP 97.7; O2SAT 100
== END ==
LOC: HEND 15:42
PROVIDERS: ATTEND Internal Medicine Gastroenterology
DX: R13.10 Dysphagia, unspecified (principal); I10 Essential (primary) hypertension; R00.9 Unspecified abnormalities of heart beat; N28.9 Disorder of kidney and ureter, unspecified
CPT/HCPCS: 00731; 43248; C1769

== ENCOUNTER 2018-01-05 19:22 | Inpatient (IN) | payer MEDICARE ==
[~2018-01-05] VITALS: Ht 180.3 cm; Wt 79.4 kg
[~2018-01-05 19:22] MED LIST changes: +ACET325T15 PO; -ALTA1.256 PO; -CARV3.125 PO; +FERR325T20 PO; -LIDOCAINE HCL 1% PF 5 ML SYRINGE OTHER ONE; +MIDO5TAB PO; -NITR100C4 PO; +PERI PO; -PROPOFOL 200 MG/20 ML AMP IV ONE
[2018-01-05 19:26] VITALS: BP 163/114; PULSE 98; RESP 22; TEMP 98.7; O2SAT 100
[2018-01-05 19:40] VITALS: O2SAT 100
[2018-01-05] MEDS ORDERED: SODIUM CHLORIDE 0.9% FLUSH 10 ML FLUSH IVF PRN (19:45)
--- NOTE | 2018-01-05 19:50 | PD ---
HPI Chief Complaint: Respiratory Symptoms Time Seen by Provider: 19:29 Travel History International Travel<30 days: No Contact w/Intl Traveler<30days: No Traveled to known affect area: No History of Present Illness HPI 67-year-old male with history of CAD, CHF with an EF between 20 and 25%, [place] , CKD, hypertension, hypothyroidism, CABG performed in October of this year by Dr. Alonso, brought in by ambulance from home for evaluation of shortness of breath, generalized weakness, and left leg pain. Symptoms started today. He has also noted some increased swelling to his bilateral hands and feet. He states he had a cough productive of greenish sputum yesterday. Denies hemoptysis. He did have a little substernal discomfort earlier today, however this has resolved. He was provided aspirin by EMS. No history of DVT or PE. No fevers. He reports that 2 days ago he had a CT of his carotids with IV contrast that was ordered by his biofuels production technician Dr. Dang. 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") Neurologic: No Psychiatric: No Respiratory: Yes Migraines: No Renal Failure: Yes Seizures: No Sleep Apnea: No Thyroid Disease: Yes Ulcer: No Tetanus Vaccination: > 5 Years Influenza Vaccination: No Past Surgical History Abdominal Surgery: No Cardiac Surgery: Yes Ear Surgery: No Endocrine Surgery: No Eye Surgery: No Genitourinary Surgery: Yes (suprapubic catheter) Gynecologic Surgery: No Oral Surgery: No Thoracic Surgery: Yes Tonsillectomy: Yes Other Surgery: Yes (LEFT KIDNEY REMOVED/ BACK AND NECK SURGERY) Social History Alcohol Use: Yes (2beers a wk) Tobacco Use: No Substance Use: No Allergies-Medications (Allergen,Severity, Reaction): Coded Allergies: No Known Allergies (Unverified Allergy, Unknown, 10/20/17) Reported Meds & Prescriptions Reported Meds & Active Scripts Active Midodrine 5 Mg Tab 5 Mg PO TID@07,12,17 30 Days Eq Acetaminophen (Acetaminophen) 325 Mg Tab 650 Mg PO Q4H PRN 30 Days Walker Rolling/GetGo (Device) 1 Mis Mis Ea .XX DIRECTED Tgt Aspirin (Aspirin) 81 Mg Chw 81 Mg PO DAILY Atorvastatin (Atorvastatin Calcium) 40 Mg Tab 40 Mg PO HS Reported Levothyroxine (Levothyroxine Sodium) 125 Mcg Tab 125 Mcg PO DAILY Review of Systems Except as stated in HPI: all other systems reviewed are Neg Physical Exam Narrative GENERAL: Well-developed, well-nourished, no apparent distress. SKIN: Focused skin assessment warm/slightly diaphoretic HEAD: Atraumatic. Normocephalic. EYES: Pupils equal and round. No scleral icterus. No injection or drainage. ENT: Mucous membranes pink and moist. NECK: Trachea midline. No JVD. CARDIOVASCULAR: Regular rate and rhythm. No murmur appreciated. RESPIRATORY: No accessory muscle use. Clear to auscultation. Breath sounds equal bilaterally. GASTROINTESTINAL: Abdomen soft, non-tender, nondistended. MUSCULOSKELETAL: Right lower extremity shorter than left lower extremity. There is moderate diffuse tenderness throughout the left lower extremity with all compartments supple. NEUROLOGICAL: Awake and alert. No obvious cranial nerve deficits. Motor grossly within normal limits. Normal speech. PSYCHIATRIC: Appropriate mood and affect; insight and judgment normal. Data Data Last Documented VS Vital Signs Date Time Temp Pulse Resp B/P (MAP) Pulse Ox O2 Delivery O2 Flow Rate FiO2 01/05/18 20:06 96 20 99 Room Air 01/05/18 20:05 188/95 (126) 01/05/18 19:40 2.00 01/05/18 19:26 98.7 Orders Orders B-Type Natriuretic Peptide (01/05/18 19:36) Ckmb (Isoenzyme) Profile (01/05/18 19:36) Complete Blood Count With Diff (01/05/18 19:36) Comprehensive Metabolic Panel (01/05/18 19:36) Magnesium (Mg) (01/05/18 19:36) Prothrombin Time / Inr (Pt) (01/05/18 19:36) Act Partial Throm Time (Ptt) (01/05/18 19:36) Troponin I (01/05/18 19:36) Chest, Single Ap (01/05/18 19:36) Ecg Monitoring (01/05/18 19:36) Iv Access Insert/Monitor (01/05/18 19:36) Oximetry (01/05/18 19:36) Oxygen Administration (01/05/18 19:36) Sodium Chloride 0.9% Flush (Ns Flush) (01/05/18 19:45) Us Leg Venous Doppler (01/05/18 ) Electrocardiogram (01/05/18 19:25) CKMB (01/05/18 19:49) CKMB% (01/05/18 19:49) Labs Laboratory Tests Test 01/05/18 19:49 White Blood Count 2.8 TH/MM3 Red Blood Count 3.82 MIL/MM3 Hemoglobin 11.1 GM/DL Hematocrit 31.7 % Mean Corpuscular Volume 83.0 FL Mean Corpuscular Hemoglobin 29.1 PG Mean Corpuscular Hemoglobin Concent 35.1 % Red Cell Distribution Width 15.6 % Platelet Count 209 TH/MM3 Mean Platelet Volume 8.5 FL Neutrophils (%) (Auto) 65.2 % Lymphocytes (%) (Auto) 24.9 % Monocytes (%) (Auto) 7.8 % Eosinophils (%) (Auto) 1.7 % Basophils (%) (Auto) 0.4 % Neutrophils # (Auto) 1.8 TH/MM3 Lymphocytes # (Auto) 0.7 TH/MM3 Monocytes # (Auto) 0.2 TH/MM3 Eosinophils # (Auto) 0.0 TH/MM3 Basophils # (Auto) 0.0 TH/MM3 CBC Comment DIFF FINAL Differential Comment Prothrombin Time 11.0 SEC Prothromb Time International Ratio 1.1 RATIO Activated Partial Thromboplast Time 30.5 SEC Blood Urea Nitrogen 26 MG/DL Creatinine 1.31 MG/DL Random Glucose 168 MG/DL Total Protein 6.7 GM/DL Albumin 3.0 GM/DL Calcium Level 8.4 MG/DL Magnesium Level 1.5 MG/DL Alkaline Phosphatase 85 U/L Aspartate Amino Transf (AST/SGOT) 38 U/L Alanine Aminotransferase (ALT/SGPT) 17 U/L Total Bilirubin 0.8 MG/DL Sodium Level 133 MEQ/L Potassium Level 4.5 MEQ/L Chloride Level 104 MEQ/L Carbon Dioxide Level 19.8 MEQ/L Anion Gap 9 MEQ/L Estimat Glomerular Filtration Rate 55 ML/MIN Total Creatine Kinase 313 U/L Creatine Kinase MB 3.3 NG/ML Creatine Kinase MB % 1.1 % Troponin I LESS THAN 0.02 NG/ML B-Type Natriuretic Peptide 304 PG/ML MDM Medical Decision Making Medical Screen Exam Complete: Yes Emergency Medical Condition: Yes Medical Record Reviewed: Yes Interpretation(s) EKG: Sinus, rate 100, leftward axis, incomplete RBBB, nonspecific ST and T-wave abnormality Differential Diagnosis CHF, pulmonary edema, ACS, PE, DVT, pneumonia, renal insufficiency Narrative Course Vital signs reviewed. CBC: WBC 2.8, hemoglobin 11.1, hematocrit 31.7, platelets 209. CMP is remarkable for BUN 26, creatinine 1.31, GFR 55 which is around his baseline, random glucose 168, Cardiac enzymes are negative. BNP is 304. Chest x-ray: Negative for any acute process. Left leg venous duplex: Negative for DVT. Patient was made aware of all findings. Case discussed with biofuels production technician Dr. Dean who is covering for the patient's biofuels production technician Dr. Dang. Patient currently does not have any chest pain. Recommends admission for overnight observation on telemetry monitoring as well as serial cardiac enzymes. Case discussed with hospitalist Dr. Selby who will admit the patient to her service. Diagnosis Primary Impression: Chest pain Qualified Codes: R07.9 - Chest pain, unspecified Additional Impression: Dyspnea Qualified Codes: R06.00 - Dyspnea, unspecified Admitting Information Admitting Physician Requests: Admit Ortiz Ortiz MD Jan 05, 2018 19:50
[2018-01-05] MEDS ORDERED: LEVO125T4 PO (19:55)
[2018-01-05 20:05] VITALS: BP 188/95; PULSE 98; RESP 20; O2SAT 100
[2018-01-05 20:15] LABS: AUTOMATED NEUTROPHIL # 1.8 TH/MM3 (1.8-7.7); BASOPHIL % 0.4 % (0.0-2.0); EOSINOPHIL % 1.7 % (0.0-4.0); HEMATOCRIT 31.7 % (39.0-51.0); HEMOGLOBIN 11.1 GM/DL (13.0-17.0); LYMPH % 24.9 % (9.0-44.0); LYMPHOCYTE # 0.7 TH/MM3 (1.0-4.8); MEAN CORPUSCULAR HEMOGLOBIN 29.1 PG (27.0-34.0); MEAN CORPUSCULAR HGB CONC 35.1 % (32.0-36.0); MEAN PLATELET VOLUME 8.5 FL (7.0-11.0); MONO % 7.8 % (0.0-8.0); MONOCYTE # 0.2 TH/MM3 (0-0.9); NEUT % 65.2 % (16.0-70.0); PLATELET COUNT 209 TH/MM3 (150-450); RED BLOOD COUNT 3.82 MIL/MM3 (4.50-5.90); RED CELL DISTRIBUTION WIDTH 15.6 % (11.6-17.2); WHITE BLOOD COUNT 2.8 TH/MM3 (4.0-11.0)
[2018-01-05 20:24] LABS: INTERNATIONAL NORMALIZED RATIO 1.1 RATIO
--- NOTE | 2018-01-05 20:43 | RADRPT ---
EXAM DATE/TIME: 01/05/2018 19:52 [facility] COMPARISON: CHEST SINGLE AP, October 22, 2017, 11:15. INDICATIONS : Short of breath. MEDICAL HISTORY : Cardiovascular disease. SURGICAL HISTORY : CABG. ENCOUNTER: Initial ACUITY: 1 day PAIN SCORE: 7/10 LOCATION: Bilateral chest FINDINGS: A single view of the chest demonstrates the lungs to be symmetrically aerated without evidence of mas s, infiltrate or effusion. External life vest. Osseous structures are intact. CONCLUSION: Negative for an acute process. Cristian Sherman MD FACR on January 05, 2018 at 20:39 Board Certified Radiologist. This report was verified electronically.
--- NOTE | 2018-01-05 20:44 | RADRPT ---
EXAM DATE/TIME: 01/05/2018 20:05 [facility] COMPARISON: No previous studies available for comparison. INDICATIONS : Left leg pain. MEDICAL HISTORY : Congestive heart failure. Myocardial infarction. Hypertension. Thyroid disease. Irregular heartbea t. Renal failure. 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 SURGICAL HISTORY : CABG Tonsillectomy. Left nephrectomy. Neck and back surgery. Suprapubic catheter. ENCOUNTER: Subsequent ACUITY: 1 day PAIN SCORE: 6/10 LOCATION: Left leg. TECHNIQUE: Venous ultrasound of the leg was performed from the inguinal ligament to the proximal calf. Real-nadia e, color Doppler and spectral tracing, compression and augmentation techniques were used. FINDINGS: There is normal compressibility of the deep venous system from the inguinal region to the proximal ca lf. No echogenic clot is seen in the lumen of the common femoral, femoral, popliteal, and posterior tibial veins. There is a normal response of the venous system to proximal and distal augmentation an d respiration. CONCLUSION: Negative for deep venous thrombosis. Cristian Sherman MD FACR on January 05, 2018 at 20:41 Board Certified Radiologist. This report was verified electronically.
[2018-01-05 20:45] LABS: ALT (GPT) 17 U/L (12-78)
[2018-01-05 20:54] LABS: ALKALINE PHOSPHATASE 85 U/L (45-117); AST (GOT) 38 U/L (15-37); BICARBONATE 19.8 MEQ/L (21.0-32.0); BLOOD UREA NITROGEN 26 MG/DL (7-18); CALCIUM 8.4 MG/DL (8.5-10.1); CHLORIDE 104 MEQ/L (98-107); CREATININE 1.31 MG/DL (0.60-1.30); GLOMERULAR FILTRATION RATE 55 ML/MIN (>89); GLUCOSE,RANDOM 168 MG/DL (74-106); MAGNESIUM 1.5 MG/DL (1.5-2.5); SODIUM (NA) 133 MEQ/L (136-145); TOTAL BILIRUBIN ADULT 0.8 MG/DL (0.2-1.0); TOTAL PROTEIN 6.7 GM/DL (6.4-8.2); TROPONIN I LESS THAN 0.02 NG/ML (0.02-0.05)
[2018-01-05] MEDS ORDERED: MAGNESIUM HYDROXIDE SUSP 30 ML CUP PO PRN (21:45)
[2018-01-05] MEDS ORDERED: ACETAMINOPHEN/HYDROcodone 325 MG/5 MG TAB PO PRN (21:45)
[2018-01-05] MEDS ORDERED: SODIUM CHLORIDE 0.9% FLUSH 10 ML FLUSH IV FLUSH PRN (21:45)
[2018-01-05] MEDS ORDERED: BISACODYL 10 MG SUPP RECTAL PRN (21:45)
[2018-01-05] MEDS ORDERED: LACTULOSE SYRUP 20 GM/30 ML CUP PO PRN (21:45)
[2018-01-05] MEDS ORDERED: MORPHINE SULFATE 2 MG/ML SYRINGE IV PUSH PRN (21:45)
[2018-01-05] MEDS ORDERED: SENNOSIDES 8.6 MG TAB PO PRN (21:45)
[2018-01-05] MEDS ORDERED: ONDANSETRON HCL 4 MG/2 ML VIAL IVP PRN (21:45)
[2018-01-05] MEDS ORDERED: ACETAMINOPHEN 325 MG TAB PO PRN (21:45)
--- NOTE | 2018-01-05 21:47 | HHI.HP ---
[facility] Emma Landry MD Admission Diagnosis Chest pain, dyspnea Diagnoses: (1) Chest pain Diagnosis: Principal (2) CHF (congestive heart failure) Diagnosis: Principal (3) HTN (hypertension) Diagnosis: Principal (4) Renal insufficiency Diagnosis: Principal (5) Leg pain, left Diagnosis: Principal (6) Pharyngitis Diagnosis: Principal Travel History International Travel<30 Days: No Contact w/Intl Traveler <30 Da: No Traveled to Known Affected Are: No History of Present Illness This is a 67-year-old male with a PMH of HTN, CAD s/p CABG 10/2017, CHF (Echo 11/02 w/ EF 25-30%), [place] and CKD who was brought to the ER by EMS w/ complaints of chest pain and SOB. States symptoms started earlier today. Chest pain is substernal, intermittent, moderate, 6/10, non-radiating. Symptoms associated w/ cough. Also notes "lost my voice" since this morning. Reports left leg pain starting earlier today, no injury/trauma, no swelling, no erythema. No fever or chills. On arrival, BP 163/114, HR 98, O2 sat 100% on 2L NC, Afebrile. CBC essentially at baseline. Creatinine 1.31, previously 1.29 on 11/12/2017. CPK 313. BNP 304. Troponin negative. INR 1.1. CXR negative for acute process. LE Doppler negative for DVT. Follows with Dr. Dang as outpatient, Dr. Dean consulted, recommended admission for cardiac work up. Review of Systems Except as stated in HPI: all other systems reviewed are Neg ROS: 14 point review of systems otherwise negative. Past Family Social History Past Medical History PMH: HTN, CAD s/p CABG 10/2017, CHF (Echo 11/02/2017 w/ EF 25-30%), [place] and CKD Past Surgical History PAST SURGICAL HISTORY: CABG, Tonsillectomy, Left Nephrectomy, Back Surgery Allergies: Coded Allergies: No Known Allergies (Unverified Allergy, Unknown, 1/19/18) Family History PAST FAMILY HISTORY: Reviewed. No h/o DM or CAD Social History PAST SOCIAL HISTORY: Negative for alcohol, tobacco or drugs. Physical Exam Vital Signs Vital Signs Date Time Temp Pulse Resp B/P (MAP) Pulse Ox O2 Delivery O2 Flow Rate FiO2 01/05/18 20:06 96 20 99 Room Air 01/05/18 20:05 98 20 188/95 (126) 100 Room Air 01/05/18 19:40 100 Nasal Cannula 2.00 01/05/18 19:40 100 Nasal Cannula 2.00 01/05/18 19:26 98.7 98 22 163/114 (130) 100 Physical Exam PE: GENERAL: Pleasant middle-age male in no acute distress. +hoarse voice HEENT: PERRLA, EOMI. No scleral icterus or conjunctival pallor. No lid lag or facial droop. Mild pharyngeal erythema, no exudates noted. CARDIOVASCULAR: Regular rate and rhythm. No obvious murmurs to auscultation. No chest tenderness to palpation. [place] RESPIRATORY: No obvious rhonchi or wheezing. Clear to auscultation. Breath sounds equal bilaterally. GASTROINTESTINAL: Abdomen soft, non-tender, nondistended. BS normal. MUSCULOSKELETAL: Extremities without clubbing, cyanosis, or edema. No obvious deformities. Right leg w/ chronic shortening, in braces, left leg w/ no erythema /edema, no tenderness to palpation. NEUROLOGICAL: Awake, alert and oriented x4. No focal neurologic deficits. Moving both upper and lower extremities spontaneously. Laboratory Laboratory Tests Test 01/05/18 19:49 White Blood Count 2.8 Red Blood Count 3.82 Hemoglobin 11.1 Hematocrit 31.7 Mean Corpuscular Volume 83.0 Mean Corpuscular Hemoglobin 29.1 Mean Corpuscular Hemoglobin Concent 35.1 Red Cell Distribution Width 15.6 Platelet Count 209 Mean Platelet Volume 8.5 Neutrophils (%) (Auto) 65.2 Lymphocytes (%) (Auto) 24.9 Monocytes (%) (Auto) 7.8 Eosinophils (%) (Auto) 1.7 Basophils (%) (Auto) 0.4 Neutrophils # (Auto) 1.8 Lymphocytes # (Auto) 0.7 Monocytes # (Auto) 0.2 Eosinophils # (Auto) 0.0 Basophils # (Auto) 0.0 CBC Comment DIFF FINAL Differential Comment Prothrombin Time 11.0 Prothromb Time International Ratio 1.1 Activated Partial Thromboplast Time 30.5 Blood Urea Nitrogen 26 Creatinine 1.31 Random Glucose 168 Total Protein 6.7 Albumin 3.0 Calcium Level 8.4 Magnesium Level 1.5 Alkaline Phosphatase 85 Aspartate Amino Transf (AST/SGOT) 38 Alanine Aminotransferase (ALT/SGPT) 17 Total Bilirubin 0.8 Sodium Level 133 Potassium Level 4.5 Chloride Level 104 Carbon Dioxide Level 19.8 Anion Gap 9 Estimat Glomerular Filtration Rate 55 Total Creatine Kinase 313 Creatine Kinase MB 3.3 Creatine Kinase MB % 1.1 Troponin I LESS THAN 0.02 B-Type Natriuretic Peptide 304 Result Diagram: 01/05/18194801/05/181948 Caprini VTE Risk Assessment Caprini VTE Risk Assessment: No/Low Risk (score <= 1) Caprini Risk Assessment Model Point Value = 1 Point Value = 2 Point Value = 3 Point Value = 5 Age 41-60 Minor surgery BMI > 25 kg/m2 Swollen legs Varicose veins or History of unexplained or recurrent spontaneous Oral contraceptives or hormone replacement Sepsis (< 1 month) Serious lung disease, including pneumonia (< 1 month) Abnormal pulmonary function Acute myocardial infarction Congestive heart failure (< 1 month) History of inflammatory bowel disease Medical patient at bed rest Age 61-74 Arthroscopic surgery Major open surgery (> 45 min) Laparoscopic surgery (> 45 min) Malignancy Confined to bed (> 72 hours) Immobilizing plaster cast Central venous access Age >= 75 History of VTE Family history of VTE Factor V Leiden Prothrombin [id number] Lupus anticoagulant Anticardiolipin antibodies Elevated serum homocysteine Heparin-induced thrombocytopenia Other congenital or acquired thrombophilia Stroke (< 1 month) Elective arthroplasty Hip, pelvis, or leg fracture Acute spinal cord injury (< 1 month) Prophylaxis Regimen Total Risk Factor Score Risk Level Prophylaxis Regimen 0-1 Low Early ambulation 2 Moderate Order ONE of the following: *Sequential Compression Device (SCD) *Heparin 5000 units SQ BID 3-4 Higher Order ONE of the following medications: *Heparin 5000 units SQ TID *Enoxaparin/Lovenox 40 mg SQ daily (WT < 150 kg, CrCl > 30 mL/min) *Enoxaparin/Lovenox 30 mg SQ daily (WT < 150 kg, CrCl > 10-29 mL/min) *Enoxaparin/Lovenox 30 mg SQ BID (WT < 150 kg, CrCl > 30 mL/min) AND/OR *Sequential Compression Device (SCD) 5 or more Highest Order ONE of the following medications: *Heparin 5000 units SQ TID (Preferred with Epidurals) *Enoxaparin/Lovenox 40 mg SQ daily (WT < 150 kg, CrCl > 30 mL/min) *Enoxaparin/Lovenox 30 mg SQ daily (WT < 150 kg, CrCl > 10-29 mL/min) *Enoxaparin/Lovenox 30 mg SQ BID (WT < 150 kg, CrCl > 30 mL/min) AND *Sequential Compression Device (SCD) Assessment and Plan Problem List: (1) Chest pain ICD Code: R07.9 - Chest pain, unspecified (2) CHF (congestive heart failure) ICD Code: I50.9 - Heart failure, unspecified (3) HTN (hypertension) ICD Code: I10 - Essential (primary) hypertension (4) Renal insufficiency ICD Code: N28.9 - Disorder of kidney and ureter, unspecified (5) Leg pain, left ICD Code: M79.605 - Pain in left leg (6) Pharyngitis ICD Code: J02.9 - Acute pharyngitis, unspecified Assessment and Plan A/P: 1. Chest Pain: intermittent c/o chest pain associated w/ SOB. Initial trop negative, r/o ACS w/ extensive cardiac history. Follows w/ Dr. Dang, Dr. Dean consulted, recommended cardiac work up. Admit for Observation, telemetry, check serial cardiac enzymes, NTG/Morphine prn. Resume home ASA, Atorvastatin. 2. CHF: Acute on Chronic. Systolic. BNP 304, Echo 11/02/17 w/ EF 25-30%, + [place]. Monitor I/O, resume home medications. 3. HTN: BP Uncontrolled, BP 180's systolic, resume home medications, monitor BP, hold Midodrine 4. Renal Insufficiency: Acute on Chronic. Creatinine 1.31, previously 1.29 on 11/12/2017. Check UA for possible underlying UTI. Caution with IVF secondary to acute CHF. Repeat labs in a.m. 5. Left Leg Pain: Acute onset left leg pain, no erythema/no edema. Doppler LE w/ no DVT, images reviewed by me. Electrolytes stable. Analgesics/ antiemetics. 6. Pharyngitis: +erythema, +hoarseness. Conservative management, Cepacol, IVF -caution w/ CHF 7. DVT Prophylaxis: SCD/Teds. 8. Social work for d/c planning as needed. 9. Case discussed w/ ER physician at length, labs/records/imaging reviewed by me. Tash Selby MD Jan 05, 2018 21:47
[2018-01-05] MEDS ORDERED: BENZOCAINE-MENTHOL (SUGAR FREE) 15 MG-3.6 MG LOZENGE BUCCAL PRN (22:30)
[2018-01-05 23:27] VITALS: PULSE 103
[2018-01-05 23:41] VITALS: BP 167/104; PULSE 101; RESP 20; TEMP 97.9; O2SAT 100
[2018-01-06] VITALS (26 sets, daily range): BP systolic 91–136; BP diastolic 60–83; PULSE 85–101; RESP 16–18; TEMP 97.7–98.5; O2SAT 98–100
[2018-01-06 02:37] LABS: AUTOMATED NEUTROPHIL # 1.2 TH/MM3 (1.8-7.7); BASOPHIL % 0.5 % (0.0-2.0); EOSINOPHIL # 0.1 TH/MM3 (0-0.4); EOSINOPHIL % 2.8 % (0.0-4.0); HEMATOCRIT 31.1 % (39.0-51.0); HEMOGLOBIN 10.9 GM/DL (13.0-17.0); LYMPH % 37.3 % (9.0-44.0); LYMPHOCYTE # 0.9 TH/MM3 (1.0-4.8); MEAN CELL VOLUME 82.6 FL (80.0-100.0); MEAN CORPUSCULAR HGB CONC 35.1 % (32.0-36.0); MEAN PLATELET VOLUME 7.3 FL (7.0-11.0); MONO % 10.3 % (0.0-8.0); MONOCYTE # 0.3 TH/MM3 (0-0.9); NEUT % 49.1 % (16.0-70.0); PLATELET COUNT 185 TH/MM3 (150-450); RED BLOOD COUNT 3.77 MIL/MM3 (4.50-5.90); RED CELL DISTRIBUTION WIDTH 15.4 % (11.6-17.2); WHITE BLOOD COUNT 2.5 TH/MM3 (4.0-11.0)
[2018-01-06] MEDS: LEVOTHYROXINE SODIUM 125 MCG TAB PO SCH (05:54)
[2018-01-06] MEDS: SODIUM CHLORIDE 0.9% FLUSH 10 ML FLUSH IV FLUSH SCH ×2 (08:29→21:47)
[2018-01-06] MEDS: DOCUSATE SODIUM 50 MG/SENNA 8.6 MG TAB PO SCH ×2 (08:29→21:47)
[2018-01-06] MEDS: ASPIRIN 81 MG CHEW TAB PO SCH (08:29)
[2018-01-06 09:58] LABS: ALBUMIN 3.1 GM/DL (3.4-5.0); AST (GOT) 32 U/L (15-37); BICARBONATE 23.8 MEQ/L (21.0-32.0); BLOOD UREA NITROGEN 19 MG/DL (7-18); CALCIUM 8.8 MG/DL (8.5-10.1); CHLORIDE 104 MEQ/L (98-107); CREATININE 1.03 MG/DL (0.60-1.30); GLOMERULAR FILTRATION RATE 72 ML/MIN (>89); GLUCOSE,RANDOM 85 MG/DL (74-106); SODIUM (NA) 136 MEQ/L (136-145)
[2018-01-06 09:59] LABS: ALT (GPT) 17 U/L (12-78)
[2018-01-06 10:03] LABS: ALKALINE PHOSPHATASE 85 U/L (45-117); TOTAL BILIRUBIN ADULT 0.7 MG/DL (0.2-1.0); TOTAL PROTEIN 6.9 GM/DL (6.4-8.2); TROPONIN I 0.02 NG/ML (0.02-0.05)
--- NOTE | 2018-01-06 15:44 | HHI.PR ---
Subjective Remarks This is a 67-year-old male with a PMH of HTN, CAD s/p CABG 10/2017, CHF (Echo 11/02 w/ EF 25-30%), [place] and CKD who was brought to the ER by EMS w/ complaints of chest pain and SOB. States symptoms started earlier today. Chest pain is substernal, intermittent, moderate, 6/10, non-radiating. Symptoms associated w/ cough. Also notes "lost my voice" since this morning. Reports left leg pain starting earlier today, no injury/trauma, no swelling, no erythema. No fever or chills. On arrival, BP 163/114, HR 98, O2 sat 100% on 2L NC, Afebrile. CBC essentially at baseline. Creatinine 1.31, previously 1.29 on 11/12/2017. CPK 313. BNP 304. Troponin negative. INR 1.1. CXR negative for acute process. LE Doppler negative for DVT. Follows with Dr. Dang as outpatient, Dr. Dean consulted, recommended admission for cardiac work up. 01-06 patient is less short of breath still has some Hoarseness to his voice Denies any chest pain at this moment Has had previous CABG in October 2007 Consult cardiology Objective Vitals Vital Signs Date Time Temp Pulse Resp B/P (MAP) Pulse Ox O2 Delivery O2 Flow Rate FiO2 01/06/18 14:03 90 01/06/18 13:19 86 01/06/18 12:00 86 01/06/18 11:45 97.7 87 18 91/60 (70) 99 01/06/18 11:45 88 01/06/18 10:01 94 01/06/18 09:17 88 01/06/18 08:45 97.8 90 18 123/76 (92) 98 01/06/18 08:45 95 01/06/18 06:00 88 01/06/18 05:00 92 01/06/18 04:00 98 01/06/18 03:40 97 16 123/83 (96) 98 01/06/18 03:00 101 01/06/18 02:00 96 01/06/18 01:00 98 01/06/18 00:59 136/76 (96) 01/06/18 00:00 100 01/05/18 23:41 97.9 101 20 167/104 (125) 100 01/05/18 23:27 103 01/05/18 20:06 96 20 99 Room Air 01/05/18 20:05 98 20 188/95 (126) 100 Room Air 01/05/18 19:40 100 Nasal Cannula 2.00 01/05/18 19:40 100 Nasal Cannula 2.00 01/05/18 19:26 98.7 98 22 163/114 (130) 100 I/O 01/05/18 01/05/18 01/05/18 01/06/18 01/06/18 01/06/18 07:00 15:00 23:00 07:00 15:00 23:00 Intake Total 240 ml Output Total 350 ml 300 ml Balance -350 ml -60 ml Intake Oral 240 ml Output Urine Total 350 ml 300 ml # Voids 1 # Bowel Movements 0 Result Diagram: 01/06/187 01/06/18 0910 Other Results Laboratory Tests Test 01/05/18 19:49 01/06/18 02:27 01/06/18 09:10 White Blood Count 2.8 TH/MM3 2.5 TH/MM3 Red Blood Count 3.82 MIL/MM3 3.77 MIL/MM3 Hemoglobin 11.1 GM/DL 10.9 GM/DL Hematocrit 31.7 % 31.1 % Mean Corpuscular Volume 83.0 FL 82.6 FL Mean Corpuscular Hemoglobin 29.1 PG 29.0 PG Mean Corpuscular Hemoglobin Concent 35.1 % 35.1 % Red Cell Distribution Width 15.6 % 15.4 % Platelet Count 209 TH/MM3 185 TH/MM3 Mean Platelet Volume 8.5 FL 7.3 FL Neutrophils (%) (Auto) 65.2 % 49.1 % Lymphocytes (%) (Auto) 24.9 % 37.3 % Monocytes (%) (Auto) 7.8 % 10.3 % Eosinophils (%) (Auto) 1.7 % 2.8 % Basophils (%) (Auto) 0.4 % 0.5 % Neutrophils # (Auto) 1.8 TH/MM3 1.2 TH/MM3 Lymphocytes # (Auto) 0.7 TH/MM3 0.9 TH/MM3 Monocytes # (Auto) 0.2 TH/MM3 0.3 TH/MM3 Eosinophils # (Auto) 0.0 TH/MM3 0.1 TH/MM3 Basophils # (Auto) 0.0 TH/MM3 0.0 TH/MM3 CBC Comment DIFF FINAL DIFF FINAL Differential Comment Prothrombin Time 11.0 SEC Prothromb Time International Ratio 1.1 RATIO Activated Partial Thromboplast Time 30.5 SEC Blood Urea Nitrogen 26 MG/DL 19 MG/DL Creatinine 1.31 MG/DL 1.03 MG/DL Random Glucose 168 MG/DL 85 MG/DL Total Protein 6.7 GM/DL 6.9 GM/DL Albumin 3.0 GM/DL 3.1 GM/DL Calcium Level 8.4 MG/DL 8.8 MG/DL Magnesium Level 1.5 MG/DL Alkaline Phosphatase 85 U/L 85 U/L Aspartate Amino Transf (AST/SGOT) 38 U/L 32 U/L Alanine Aminotransferase (ALT/SGPT) 17 U/L 17 U/L Total Bilirubin 0.8 MG/DL 0.7 MG/DL Sodium Level 133 MEQ/L 136 MEQ/L Potassium Level 4.5 MEQ/L 4.0 MEQ/L Chloride Level 104 MEQ/L 104 MEQ/L Carbon Dioxide Level 19.8 MEQ/L 23.8 MEQ/L Anion Gap 9 MEQ/L 8 MEQ/L Estimat Glomerular Filtration Rate 55 ML/MIN 72 ML/MIN Total Creatine Kinase 313 U/L Creatine Kinase MB 3.3 NG/ML Creatine Kinase MB % 1.1 % Troponin I LESS THAN 0.02 NG/ML 0.02 NG/ML 0.02 NG/ML B-Type Natriuretic Peptide 304 PG/ML Imaging Last Impressions Chest X-Ray 01/05/18 1936 Signed Impressions: Service Date/Time: Friday, January 05, 2018 19:52 - CONCLUSION: Negative for an acute process. Cristian Sherman MD FACR Lower Extremity Ultrasound 01/05/18 0000 Signed Impressions: Service Date/Time: Friday, January 05, 2018 20:05 - CONCLUSION: Negative for deep venous thrombosis. Cristian Sherman MD FACR Objective Remarks GENERAL: Awake alert and oriented 3 talkative and cooperative --has a very hoarse voice at this time SKIN: Warm and dry. HEAD: Atraumatic. Normocephalic. EYES: Pupils equal and round. No scleral icterus. No injection or drainage. Extraocular muscles intact ENT: No nasal bleeding or discharge. Mucous membranes pink and moist. Tongue is midline NECK: Trachea midline. No JVD. Supple CARDIOVASCULAR: Regular rate and rhythm. S1-S2 no S3 or S4 RESPIRATORY: No accessory muscle use. Clear to auscultation. Breath sounds equal bilaterally. Decreased breath sounds bases bilaterally GASTROINTESTINAL: Abdomen soft, non-tender, nondistended. Hepatic and splenic margins not palpable. MUSCULOSKELETAL: Extremities without clubbing, cyanosis, or edema. No obvious deformities. 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 No obvious cranial nerve deficits. Motor grossly within normal limits. Five out of 5 muscle strength in the arms and legs. Normal speech. Right lower extremity with congenital missing femur short -leg PSYCHIATRIC: Appropriate mood and affect; insight and judgment normal. Medications and IVs Current Medications Sodium Chloride (NS Flush) 2 ml UNSCH PRN IVF FLUSH AFTER USING IV ACCESS; Start 01/05/18 at 19:45; Stop 01/05/18 at 21:53; Status DC Sodium Chloride (NS Flush) 2 ml UNSCH PRN IV FLUSH FLUSH AFTER USING IV ACCESS ; Start 01/05/18 at 21:45 Sodium Chloride (NS Flush) 2 ml BID IV FLUSH Last administered on 01/06/18at 08: 29; Start 01/06/18 at 09:00 Ondansetron HCl (Zofran Inj) 4 mg Q6H PRN IVP NAUSEA OR VOMITING; Start at 21:45 Acetaminophen (Tylenol) 650 mg Q6H PRN PO FEVER/PAIN SCALE 1 TO 2; Start at 21:45 Acetaminophen/ Hydrocodone Bitart ([place] 5-325 Mg) 1 tab Q4H PRN PO PAIN SCALE 3 TO 5 Last administered on 01/05/18at 23:23; Start 01/05/18 at 21:45 Morphine Sulfate (Morphine Inj) 2 mg Q3H PRN IV PUSH Pain 6-10; Start 01/05/18 at 21:45 Senna/Docusate Sodium (Shanice-Colace) 1 tab BID PO Last administered on 01/06/18at 08:29; Start 01/06/18 at 09:00 Magnesium Hydroxide (Milk Of Magnesia Liq) 30 ml Q12H PRN PO Mild constipation ; Start 01/05/18 at 21:45 Sennosides (Senokot) 17.2 mg Q12H PRN PO Moderate constipation; Start 01/05/18 at 21:45 Bisacodyl (Dulcolax Supp) 10 mg DAILY PRN RECTAL SEVERE CONSITIPATION; Start at 21:45 Lactulose (Lactulose Liq) 30 ml DAILY PRN PO SEVERE CONSITIPATION; Start at 21:45 Aspirin (Aspirin Chew) 81 mg DAILY PO Last administered on 01/06/18at 08:29; Start 01/06/18 at 09:00 Atorvastatin Calcium (Lipitor) 40 mg HS PO ; Start 01/06/18 at 21:00 Levothyroxine Sodium (Synthroid) 125 mcg DAILY@0600 PO Last administered on 01/06at 05:54; Start 01/06/18 at 06:00 Benzocaine/Menthol (Cepacol Extra Ritchie (Sugar Free)) 1 lozenge Q2HR PRN BUCCAL SORE THROAT; Start 01/05/18 at 22:30 A/P Problem List: (1) Chest pain ICD Code: R07.9 - Chest pain, unspecified (2) CHF (congestive heart failure) ICD Code: I50.9 - Heart failure, unspecified (3) HTN (hypertension) ICD Code: I10 - Essential (primary) hypertension (4) Renal insufficiency ICD Code: N28.9 - Disorder of kidney and ureter, unspecified (5) Leg pain, left ICD Code: M79.605 - Pain in left leg (6) Pharyngitis ICD Code: J02.9 - Acute pharyngitis, unspecified Assessment and Plan 1. Chest Pain: intermittent c/o chest pain associated w/ SOB. Initial trop negative, r/o ACS w/ extensive cardiac history. Follows w/ Dr. Dang, Dr. Dean consulted, recommended cardiac work up. Admit for Observation, telemetry, check serial cardiac enzymes, NTG/Morphine prn. Resume home ASA, Atorvastatin. Consult cardiology repeat echocardiogram 2. CHF: Acute on Chronic. Systolic. BNP 304, Echo 11/02/17 w/ EF 25-30%, + [place]. Monitor I/O, resume home medications. 3. HTN: BP Uncontrolled, BP 180's systolic, resume home medications, monitor BP, hold Midodrine 4. Renal Insufficiency: Acute on Chronic. Creatinine 1.31, previously 1.29 on 11/12/2017. Check UA for possible underlying UTI. Caution with IVF secondary to acute CHF. Repeat labs in a.m. 5. Left Leg Pain: Acute onset left leg pain, no erythema/no edema. Doppler LE w/ no DVT, images reviewed by me. Electrolytes stable. Analgesics/ antiemetics. 6. Pharyngitis: +erythema, +hoarseness. Conservative management, Cepacol, IVF -caution w/ CHF Check UA with C&S 7. DVT Prophylaxis: SCD/Teds. Discharge Planning Pending cardiac clearance Cristian Perla DO Jan 06, 2018 15:44
--- NOTE | 2018-01-06 17:14 | EKG ---
Date Performed: 01/05/2018 Time Performed: 19:25:40 PTAGE: 67 years EKG: SINUS TACHYCARDIA MARKED LEFT AXIS DEVIATION INCOMPLETE RIGHT BUNDLE BRANCH BLOCK NONSPECIF IC ST & T-WAVE ABNORMALITY Compared to previous tracing, T wave changes have improved ABNORMAL ECG PREVIOUS TRACING : 10/18/2017 03.07 DOCTOR: Buster Payne Interpretating Date/Time 01/06/2018 17:13:08
[2018-01-06] MEDS: MIDODRINE 5 MG TAB PO SCH (17:45)
[2018-01-06] MEDS: ATORVASTATIN 40 MG TAB PO SCH (21:47)
[2018-01-06 23:15] LABS: AMORPHOUS SEDIMENT, URINE RARE; BILIRUBIN, URINE NEG (NEG); BLOOD, URINE TRACE (NEG); GLUCOSE,URINE NEG (NEG); KETONE, URINE NEG (NEG); NITRITE,URINE NEG (NEG); URINE COLOR YELLOW (YELLW/STRAW); URINE LEUKOCYTE ESTERASE LARGE (NEG)
[2018-01-07] VITALS (29 sets, daily range): BP systolic 101–145; BP diastolic 67–88; PULSE 76–101; RESP 16–18; TEMP 97.9–98.5; O2SAT 97–100
[2018-01-07] MEDS: MIDODRINE 5 MG TAB PO SCH ×3 (05:59→16:26)
[2018-01-07] MEDS: LEVOTHYROXINE SODIUM 125 MCG TAB PO SCH (05:59)
[2018-01-07 07:32] LABS: AUTOMATED NEUTROPHIL # 2.4 TH/MM3 (1.8-7.7); BASOPHIL % 0.4 % (0.0-2.0); EOSINOPHIL # 0.2 TH/MM3 (0-0.4); EOSINOPHIL % 4.2 % (0.0-4.0); HEMATOCRIT 31.9 % (39.0-51.0); HEMOGLOBIN 11.2 GM/DL (13.0-17.0); LYMPH % 32.7 % (9.0-44.0); LYMPHOCYTE # 1.5 TH/MM3 (1.0-4.8); MEAN CELL VOLUME 82.9 FL (80.0-100.0); MEAN CORPUSCULAR HEMOGLOBIN 29.2 PG (27.0-34.0); MEAN CORPUSCULAR HGB CONC 35.2 % (32.0-36.0); MEAN PLATELET VOLUME 8.4 FL (7.0-11.0); MONOCYTE # 0.4 TH/MM3 (0-0.9); NEUT % 54.7 % (16.0-70.0); PLATELET COUNT 217 TH/MM3 (150-450); RED BLOOD COUNT 3.85 MIL/MM3 (4.50-5.90); RED CELL DISTRIBUTION WIDTH 15.6 % (11.6-17.2); WHITE BLOOD COUNT 4.5 TH/MM3 (4.0-11.0)
[2018-01-07 08:46] LABS: ALBUMIN 2.9 GM/DL (3.4-5.0); AST (GOT) 26 U/L (15-37); BICARBONATE 23.3 MEQ/L (21.0-32.0); BLOOD UREA NITROGEN 25 MG/DL (7-18); CALCIUM 8.8 MG/DL (8.5-10.1); CHLORIDE 104 MEQ/L (98-107); CREATININE 1.11 MG/DL (0.60-1.30); GLOMERULAR FILTRATION RATE 66 ML/MIN (>89); GLUCOSE,RANDOM 77 MG/DL (74-106); MAGNESIUM 1.9 MG/DL (1.5-2.5); SODIUM (NA) 136 MEQ/L (136-145)
[2018-01-07 08:47] LABS: ALT (GPT) 18 U/L (12-78); PHOSPHORUS 3.7 MG/DL (2.5-4.9)
[2018-01-07 08:56] LABS: ALKALINE PHOSPHATASE 78 U/L (45-117); FREE T4 1.51 NG/DL (0.76-1.46); TOTAL BILIRUBIN ADULT 0.5 MG/DL (0.2-1.0); TOTAL PROTEIN 6.9 GM/DL (6.4-8.2)
[2018-01-07] MEDS: ASPIRIN 81 MG CHEW TAB PO SCH (09:06)
[2018-01-07] MEDS: DOCUSATE SODIUM 50 MG/SENNA 8.6 MG TAB PO SCH ×2 (09:06→21:00)
[2018-01-07] MEDS: SODIUM CHLORIDE 0.9% FLUSH 10 ML FLUSH IV FLUSH SCH ×2 (09:07→21:07)
--- NOTE | 2018-01-07 11:27 | HHI.PR ---
Subjective Remarks This is a 67-year-old male with a PMH of HTN, CAD s/p CABG 10/2017, CHF (Echo 11/02 w/ EF 25-30%), [place] and CKD who was brought to the ER by EMS w/ complaints of chest pain and SOB. States symptoms started earlier today. Chest pain is substernal, intermittent, moderate, 6/10, non-radiating. Symptoms associated w/ cough. Also notes "lost my voice" since this morning. Reports left leg pain starting earlier today, no injury/trauma, no swelling, no erythema. No fever or chills. On arrival, BP 163/114, HR 98, O2 sat 100% on 2L NC, Afebrile. CBC essentially at baseline. Creatinine 1.31, previously 1.29 on 11/12/2017. CPK 313. BNP 304. Troponin negative. INR 1.1. CXR negative for acute process. LE Doppler negative for DVT. Follows with Dr. Dang as outpatient, Dr. Dean consulted, recommended admission for cardiac work up. 4-7 patient is less short of breath still has some Hoarseness to his voice Denies any chest pain at this moment Has had previous CABG in October 2007 Consult cardiology 4-8 SEEN BY CARDIOLOGY BEING STARTED ON BUMEX DW RN AND PT AND CM HOPEFULLY HOME TOMORROW AFTER CLEARED BY CARDIOLOGY AM LABS STILL VERY HOARSE VOICE Objective Vitals Vital Signs Date Time Temp Pulse Resp B/P (MAP) Pulse Ox O2 Delivery O2 Flow Rate FiO2 01/07/18 08:00 98.5 91 18 101/67 (78) 97 01/07/18 06:00 90 01/07/18 05:00 92 01/07/18 04:00 92 01/07/18 03:51 88 16 118/72 (87) 98 01/07/18 03:00 101 01/07/18 02:00 92 01/07/18 01:00 94 01/07/18 00:02 89 16 125/77 (93) 98 01/07/18 00:00 90 01/06/18 23:00 90 01/06/18 22:00 88 01/06/18 21:00 94 01/06/18 20:00 96 01/06/18 19:30 98.5 91 16 122/82 (95) 98 01/06/18 19:00 93 01/06/18 18:15 87 01/06/18 17:06 88 01/06/18 16:22 85 01/06/18 15:16 94 01/06/18 15:16 98.0 85 18 114/76 (89) 100 01/06/18 14:03 90 01/06/18 13:19 86 01/06/18 12:00 86 01/06/18 11:45 97.7 87 18 91/60 (70) 99 01/06/18 11:45 88 I/O 01/06/18 01/06/18 01/06/18 01/07/18 01/07/18 01/07/18 07:00 15:00 23:00 07:00 15:00 23:00 Intake Total 240 ml 600 ml 240 ml Output Total 300 ml 600 ml 900 ml Balance -60 ml 0 ml -660 ml Intake Oral 240 ml 600 ml 240 ml Output Urine Total 300 ml 600 ml 900 ml # Bowel Movements 0 0 0 Result Diagram: 01/07/18 0603 01/07/18 0603 Other Results Laboratory Tests Test 01/05/18 19:49 01/06/18 02:27 01/06/18 09:10 01/06/18 22:30 White Blood Count 2.8 TH/MM3 2.5 TH/MM3 Red Blood Count 3.82 MIL/MM3 3.77 MIL/MM3 Hemoglobin 11.1 GM/DL 10.9 GM/DL Hematocrit 31.7 % 31.1 % Mean Corpuscular Volume 83.0 FL 82.6 FL Mean Corpuscular Hemoglobin 29.1 PG 29.0 PG Mean Corpuscular Hemoglobin Concent 35.1 % 35.1 % Red Cell Distribution Width 15.6 % 15.4 % Platelet Count 209 TH/MM3 185 TH/MM3 Mean Platelet Volume 8.5 FL 7.3 FL Neutrophils (%) (Auto) 65.2 % 49.1 % Lymphocytes (%) (Auto) 24.9 % 37.3 % Monocytes (%) (Auto) 7.8 % 10.3 % Eosinophils (%) (Auto) 1.7 % 2.8 % Basophils (%) (Auto) 0.4 % 0.5 % Neutrophils # (Auto) 1.8 TH/MM3 1.2 TH/MM3 Lymphocytes # (Auto) 0.7 TH/MM3 0.9 TH/MM3 Monocytes # (Auto) 0.2 TH/MM3 0.3 TH/MM3 Eosinophils # (Auto) 0.0 TH/MM3 0.1 TH/MM3 Basophils # (Auto) 0.0 TH/MM3 0.0 TH/MM3 CBC Comment DIFF FINAL DIFF FINAL Differential Comment Prothrombin Time 11.0 SEC Prothromb Time International Ratio 1.1 RATIO Activated Partial Thromboplast Time 30.5 SEC Blood Urea Nitrogen 26 MG/DL 19 MG/DL Creatinine 1.31 MG/DL 1.03 MG/DL Random Glucose 168 MG/DL 85 MG/DL Total Protein 6.7 GM/DL 6.9 GM/DL Albumin 3.0 GM/DL 3.1 GM/DL Calcium Level 8.4 MG/DL 8.8 MG/DL Magnesium Level 1.5 MG/DL Alkaline Phosphatase 85 U/L 85 U/L Aspartate Amino Transf (AST/SGOT) 38 U/L 32 U/L Alanine Aminotransferase (ALT/SGPT) 17 U/L 17 U/L Total Bilirubin 0.8 MG/DL 0.7 MG/DL Sodium Level 133 MEQ/L 136 MEQ/L Potassium Level 4.5 MEQ/L 4.0 MEQ/L Chloride Level 104 MEQ/L 104 MEQ/L Carbon Dioxide Level 19.8 MEQ/L 23.8 MEQ/L Anion Gap 9 MEQ/L 8 MEQ/L Estimat Glomerular Filtration Rate 55 ML/MIN 72 ML/MIN Total Creatine Kinase 313 U/L Creatine Kinase MB 3.3 NG/ML Creatine Kinase MB % 1.1 % Troponin I LESS THAN 0.02 NG/ML 0.02 NG/ML 0.02 NG/ML B-Type Natriuretic Peptide 304 PG/ML Urine Color YELLOW Urine Turbidity CLEAR Urine pH 6.0 Urine Specific [place] 1.015 Urine Protein TRACE mg/dL Urine Glucose (UA) NEG mg/dL Urine Ketones NEG mg/dL Urine Occult Blood TRACE Urine Nitrite NEG Urine Bilirubin NEG Urine Urobilinogen LESS THAN 2.0 MG/DL Urine Leukocyte Esterase LARGE Urine RBC 6 /hpf Urine WBC 36 /hpf Urine Amorphous Sediment RARE Microscopic Urinalysis Comment CULTURE INDICATED Test 01/07/18 06:03 White Blood Count 4.5 TH/MM3 Red Blood Count 3.85 MIL/MM3 Hemoglobin 11.2 GM/DL Hematocrit 31.9 % Mean Corpuscular Volume 82.9 FL Mean Corpuscular Hemoglobin 29.2 PG Mean Corpuscular Hemoglobin Concent 35.2 % Red Cell Distribution Width 15.6 % Platelet Count 217 TH/MM3 Mean Platelet Volume 8.4 FL Neutrophils (%) (Auto) 54.7 % Lymphocytes (%) (Auto) 32.7 % Monocytes (%) (Auto) 8.0 % Eosinophils (%) (Auto) 4.2 % Basophils (%) (Auto) 0.4 % Neutrophils # (Auto) 2.4 TH/MM3 Lymphocytes # (Auto) 1.5 TH/MM3 Monocytes # (Auto) 0.4 TH/MM3 Eosinophils # (Auto) 0.2 TH/MM3 Basophils # (Auto) 0.0 TH/MM3 CBC Comment DIFF FINAL Differential Comment Blood Urea Nitrogen 25 MG/DL Creatinine 1.11 MG/DL Random Glucose 77 MG/DL Total Protein 6.9 GM/DL Albumin 2.9 GM/DL Calcium Level 8.8 MG/DL Phosphorus Level 3.7 MG/DL Magnesium Level 1.9 MG/DL Alkaline Phosphatase 78 U/L Aspartate Amino Transf (AST/SGOT) 26 U/L Alanine Aminotransferase (ALT/SGPT) 18 U/L Total Bilirubin 0.5 MG/DL Sodium Level 136 MEQ/L Potassium Level 4.4 MEQ/L Chloride Level 104 MEQ/L Carbon Dioxide Level 23.3 MEQ/L Anion Gap 9 MEQ/L Estimat Glomerular Filtration Rate 66 ML/MIN Free Thyroxine 1.51 NG/DL Thyroid Stimulating Hormone 3rd Gen 0.136 uIU/ML Imaging Last Impressions Chest X-Ray 01/05/18 1936 Signed Impressions: Service Date/Time: Friday, January 05, 2018 19:52 - CONCLUSION: Negative for an acute process. Cristian Sherman MD FACR Lower Extremity Ultrasound 01/05/18 0000 Signed Impressions: Service Date/Time: Friday, January 05, 2018 20:05 - CONCLUSION: Negative for deep venous thrombosis. Cristian Sherman MD FACR Objective Remarks GENERAL: Awake alert and oriented 3 talkative and cooperative --has a very hoarse voice at this time SKIN: Warm and dry. HEAD: Atraumatic. Normocephalic. EYES: Pupils equal and round. No scleral icterus. No injection or drainage. Extraocular muscles intact ENT: No nasal bleeding or discharge. Mucous membranes pink and moist. Tongue is midline NECK: Trachea midline. No JVD. Supple CARDIOVASCULAR: Regular rate and rhythm. S1-S2 no S3 or S4 RESPIRATORY: No accessory muscle use. Clear to auscultation. Breath sounds equal bilaterally. Decreased breath sounds bases bilaterally GASTROINTESTINAL: Abdomen soft, non-tender, nondistended. Hepatic and splenic margins not palpable. MUSCULOSKELETAL: Extremities without clubbing, cyanosis, or edema. No obvious deformities. 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 No obvious cranial nerve deficits. Motor grossly within normal limits. Five out of 5 muscle strength in the arms and legs. Normal speech. Right lower extremity with congenital missing femur short -leg PSYCHIATRIC: Appropriate mood and affect; insight and judgment normal. Procedures NONE Medications and IVs Current Medications Sodium Chloride (NS Flush) 2 ml UNSCH PRN IVF FLUSH AFTER USING IV ACCESS; Start 01/05/18 at 19:45; Stop 01/05/18 at 21:53; Status DC Sodium Chloride (NS Flush) 2 ml UNSCH PRN IV FLUSH FLUSH AFTER USING IV ACCESS ; Start 01/05/18 at 21:45 Sodium Chloride (NS Flush) 2 ml BID IV FLUSH Last administered on 01/07/18at 09: 07; Start 01/06/18 at 09:00 Ondansetron HCl (Zofran Inj) 4 mg Q6H PRN IVP NAUSEA OR VOMITING; Start at 21:45 Acetaminophen (Tylenol) 650 mg Q6H PRN PO FEVER/PAIN SCALE 1 TO 2; Start at 21:45 Acetaminophen/ Hydrocodone Bitart ([place] 5-325 Mg) 1 tab Q4H PRN PO PAIN SCALE 3 TO 5 Last administered on 01/05/18at 23:23; Start 01/05/18 at 21:45 Morphine Sulfate (Morphine Inj) 2 mg Q3H PRN IV PUSH Pain 6-10; Start 01/05/18 at 21:45 Senna/Docusate Sodium (Shanice-Colace) 1 tab BID PO Last administered on 01/07/18at 09:06; Start 01/06/18 at 09:00 Magnesium Hydroxide (Milk Of Magnesia Liq) 30 ml Q12H PRN PO Mild constipation ; Start 01/05/18 at 21:45 Sennosides (Senokot) 17.2 mg Q12H PRN PO Moderate constipation; Start 01/05/18 at 21:45 Bisacodyl (Dulcolax Supp) 10 mg DAILY PRN RECTAL SEVERE CONSITIPATION; Start at 21:45 Lactulose (Lactulose Liq) 30 ml DAILY PRN PO SEVERE CONSITIPATION; Start at 21:45 Aspirin (Aspirin Chew) 81 mg DAILY PO Last administered on 01/07/18at 09:06; Start 01/06/18 at 09:00 Atorvastatin Calcium (Lipitor) 40 mg HS PO Last administered on 01/06/18at 21:47 ; Start 01/06/18 at 21:00 Levothyroxine Sodium (Synthroid) 125 mcg DAILY@0600 PO Last administered on 01/07at 05:59; Start 01/06/18 at 06:00 Benzocaine/Menthol (Cepacol Extra Ritchie (Sugar Free)) 1 lozenge Q2HR PRN BUCCAL SORE THROAT; Start 01/05/18 at 22:30 Midodrine (Proamatine) 5 mg TID@07,12,17 PO Last administered on 01/06/18at 17:45 ; Start 01/06/18 at 17:00 A/P Problem List: (1) Chest pain ICD Code: R07.9 - Chest pain, unspecified (2) CHF (congestive heart failure) ICD Code: I50.9 - Heart failure, unspecified (3) HTN (hypertension) ICD Code: I10 - Essential (primary) hypertension (4) Renal insufficiency ICD Code: N28.9 - Disorder of kidney and ureter, unspecified (5) Leg pain, left ICD Code: M79.605 - Pain in left leg (6) Pharyngitis ICD Code: J02.9 - Acute pharyngitis, unspecified Assessment and Plan 1. Chest Pain: intermittent c/o chest pain associated w/ SOB. Initial trop negative, r/o ACS w/ extensive cardiac history. Follows w/ Dr. Dang, Dr. Dean consulted, recommended cardiac work up. Admit for Observation, telemetry, check serial cardiac enzymes, NTG/Morphine prn. Resume home ASA, Atorvastatin. Consult cardiology repeat echocardiogram 2. CHF: Acute on Chronic. Systolic. BNP 304, Echo 11/02/17 w/ EF 25-30%, + [place]. Monitor I/O, resume home medications. BUMEX PER CARDIO 3. HTN: BP Uncontrolled, BP 180's systolic, resume home medications, monitor BP, hold Midodrine 4. Renal Insufficiency: Acute on Chronic. Creatinine 1.31, previously 1.29 on 11/12/2017. Check UA for possible underlying UTI. Caution with IVF secondary to acute CHF. Repeat labs in a.m. 5. Left Leg Pain: Acute onset left leg pain, no erythema/no edema. Doppler LE w/ no DVT, images reviewed by me. Electrolytes stable. Analgesics/ antiemetics. 6. Pharyngitis: +erythema, +hoarseness. Conservative management, Cepacol, IVF -caution w/ CHF Check UA with C&S HYPOTHYROIDISM OVER CONTROLLED DECREASE TO 112 MCG PO DAILY AM LABS 7. DVT Prophylaxis: SCD/Teds. Discharge Planning Pending cardiac clearance Cristian Perla DO Jan 07, 2018 11:27
--- NOTE | 2018-01-07 11:45 | MB ---
cc: Margot Dean MD DATE: 01/07/2018 REFERRING PHYSICIAN: Dr. Perla. REASON FOR CONSULTATION: Management of CHF along with labile BP. HISTORY OF PRESENT ILLNESS: Mr. Mg, is a patient well known to Dr. Dang, presented to the ER with dyspnea and chest discomfort. He did have coronary artery disease, status post bypass by Dr. Alonso back in 10/2017. He does have ischemic cardiomyopathy with ejection fraction around 25-30%, currently on LifeVest. Over the last week or so he has noted more dyspnea with some hand swelling. He was concerned about volume overload and came to the ER. In the ER, he was noted to have BP on the high side 163/114. He was on midodrine for hypertension at home. Creatinine 1.3 and BNP elevated at 304. I reviewed the tele so far shows sinus, with heart rate in the 90s with narrow QRS. Again, BNP elevated, troponin x 3 is negative. He has been admitted. So far he has reasonable urine output, slightly less dyspnea. BP is better today. Currently, he is chest pain free. PAST MEDICAL HISTORY: As above. ALLERGIES: NO KNOWN DRUG ALLERGIES. MEDICATIONS: The patient is on atorvastatin 40 mg, aspirin 81 mg, levothyroxine 125 mcg daily. Currently, the patient is not on beta cyndie or TRESSA inhibitors due to low BP at home FAMILY HISTORY: Not significant for CAD at early age. SOCIAL HISTORY: No smoking or drinking. REVIEW OF SYSTEMS: HEENT: Normal. GASTROINTESTINAL: No nausea or vomiting. GENITOURINARY: No dysuria. MUSCULOSKELETAL: Fatigue. CARDIOVASCULAR: As above. CHEST: Some dyspnea. ENDOCRINE: Normal. SKIN: Normal. PICTURE BOOKER: Generalized weakness. PSYCHIATRIC: The patient has good mood. PHYSICAL EXAMINATION: VITAL SIGNS: Blood pressure is better 101/67 with pulse in the 90s. The patient is afebrile, O2 saturation is 99%. HEENT: Normal oral exam. PERRLA. ENDOCRINE: There is no thyroid enlargement. LYMPHATICS: No lymphadenopathy. RESPIRATORY: Decreased breath sounds bilaterally, but no crackles. CARDIOVASCULAR: Decreased S1, S2. No loud murmurs. Bypass scar is noted. GASTROINTESTINAL: Active bowel sounds in all 4 quadrants. GENITOURINARY: Deferred. MUSCULOSKELETAL: All range of motion intact. SKIN: There is no ecchymosis. PSYCHE: The patient has good mood and good judgment. LABORATORY DATA: Hematocrit 32. Creatinine better 1.1. Troponin x 3 negative. BNP is elevated at 304. ASSESSMENT: 1. Most likely acute on chronic systolic congestive heart failure. 2. Labile blood pressure. 3. Episodes of hypertension, was on midodrine. 4. Coronary artery disease, status post bypass. 5. Hypercholesterolemia and hypothyroidism. PLAN: So far, the blood pressure has been labile, has been challenging to control the BP with intermittent hypotension. I will hold off on beta cyndie or TRESSA inhibitors. Maybe at some point, we can hold off midodrine and see how he does. I did a preliminary reading of the echo, so far it showed EF around 30%. I will continue LifeVest. I will add low-dose Bumex 0.5 mg daily and see how he does. Hopefully, it will not make the BP lower. Again, we will hold off on beta cyndie or TRESSA inhibitors due to intermittent hypotension. I will continue levothyroxine for hypothyroidism and continue atorvastatin and baby aspirin with recent bypass. Dr. Dang will see the patient tomorrow. The patient can be discharged home in the near future. Thank you, Dr. Perla for letting me participate in the care of Mr. Mg. Margot Dean MD HW/TL , 11:05 AM , 11:44 AM MTDD
[2018-01-07 12:38] LABS: HEMOGLOBIN A1C 5.2 % (4.3-6.0)
[2018-01-07] MEDS ORDERED: PILL SPLITTER OTHER PRN (13:00)
[2018-01-07] MEDS: BUMETANIDE 1 MG TAB PO SCH (13:23)
--- NOTE | 2018-01-07 18:50 | ECHRPT ---
Indication: CONCLUSIONS Normal left ventricular size. Mild concentric left ventricular hypertrophy. The left ventricular systolic function is low normal with an estimated ejection fraction in the rang e of 50- 55%. There is trace tricuspid valve regurgitation. The estimated pulmonary arterial pressure is 30 mmHg. The pulmonary valve is not well visualized. BP: / HR: Rhythm: MEASUREMENTS (Male / Female) Normal Values Technical Quality: 2D ECHO LV Diastolic Diameter PLAX 4.7 cm 4.2 - 5.9 / 3.9 - 5.3 cm LV Systolic Diameter PLAX 4.1 cm IVS Diastolic Thickness 1.4 cm 0.6 - 1.0 / 0.6 - 0.9 cm LVPW Diastolic Thickness 0.9 cm 0.6 - 1.0 / 0.6 - 0.9 cm LV Relative Wall Thickness 0.5 RV Internal Dim ED PLAX 2.1 cm LA Systolic Diameter LX 3.2 cm 3.0 - 4.0 / 2.7 - 3.8 cm M-MODE Aortic Root Diameter MM 3.5 cm AV Cusp Separation MM 1.8 cm DOPPLER Mitral E Point Velocity 55.8 cm/s Mitral A Point Velocity 76.5 cm/s Mitral E to A Ratio 0.7 TR Peak Velocity 250.0 cm/s TR Peak Gradient 25.0 mmHg FINDINGS LEFT VENTRICLE Normal left ventricular size. Mild concentric left ventricular hypertrophy. The left ventricular systolic function is low normal with an estimated ejection fraction in the rang e of 50- 55%. RIGHT VENTRICLE Normal right ventricular size and systolic function. LEFT ATRIUM The left atrial size is normal. RIGHT ATRIUM The right atrial size is normal. ATRIAL SEPTUM Normal atrial septal thickness without atrial level shunting by limited color doppler interrogation. AORTA The aortic root and proximal ascending aorta are normal in size on limited imaging. MITRAL VALVE Structurally normal mitral valve. No mitral valve stenosis or regurgitation. AORTIC VALVE Trileaflet aortic valve. No aortic valve stenosis or regurgitation. TRICUSPID VALVE There is trace tricuspid valve regurgitation. The estimated pulmonary arterial pressure is 30 mmHg. PULMONARY VALVE The pulmonary valve is not well visualized. VESSELS The inferior vena cava is normal in size. PERICARDIUM No pericardial effusion. Sinan Underwood MD, FACC Edited by: customer account administrator customer account administrator (Electronically Signed) Final Date:07 January 2018 17:10 Amended: 07 January 2018 18:48
[2018-01-07] MEDS: ATORVASTATIN 40 MG TAB PO SCH (21:06)
[2018-01-08] VITALS (17 sets, daily range): BP systolic 93–115; BP diastolic 60–69; PULSE 71–88; RESP 16–18; TEMP 97.7–97.9; O2SAT 97–99
[2018-01-08] MEDS: MIDODRINE 5 MG TAB PO SCH ×2 (05:30→12:43)
[2018-01-08] MEDS ORDERED: LEVOTHYROXINE SODIUM 112 MCG TAB PO SCH (06:00)
[2018-01-08] MEDS: BUMETANIDE 1 MG TAB PO SCH (08:55)
[2018-01-08] MEDS: DOCUSATE SODIUM 50 MG/SENNA 8.6 MG TAB PO SCH (08:56)
[2018-01-08] MEDS: SODIUM CHLORIDE 0.9% FLUSH 10 ML FLUSH IV FLUSH SCH (08:56)
[2018-01-08] MEDS: ASPIRIN 81 MG CHEW TAB PO SCH (08:56)
[2018-01-08 09:04] LABS: AUTOMATED NEUTROPHIL # 2.4 TH/MM3 (1.8-7.7); BASOPHIL % 0.5 % (0.0-2.0); EOSINOPHIL # 0.3 TH/MM3 (0-0.4); HEMATOCRIT 31.9 % (39.0-51.0); HEMOGLOBIN 11.2 GM/DL (13.0-17.0); LYMPH % 35.3 % (9.0-44.0); LYMPHOCYTE # 1.7 TH/MM3 (1.0-4.8); MEAN CELL VOLUME 83.1 FL (80.0-100.0); MEAN CORPUSCULAR HEMOGLOBIN 29.2 PG (27.0-34.0); MEAN CORPUSCULAR HGB CONC 35.1 % (32.0-36.0); MEAN PLATELET VOLUME 8.4 FL (7.0-11.0); MONO % 8.6 % (0.0-8.0); MONOCYTE # 0.4 TH/MM3 (0-0.9); NEUT % 49.6 % (16.0-70.0); PLATELET COUNT 244 TH/MM3 (150-450); RED BLOOD COUNT 3.84 MIL/MM3 (4.50-5.90); RED CELL DISTRIBUTION WIDTH 15.3 % (11.6-17.2); WHITE BLOOD COUNT 4.7 TH/MM3 (4.0-11.0)
[2018-01-08 09:50] LABS: AST (GOT) 23 U/L (15-37); BICARBONATE 24.6 MEQ/L (21.0-32.0); BLOOD UREA NITROGEN 29 MG/DL (7-18); CALCIUM 8.8 MG/DL (8.5-10.1); CHLORIDE 105 MEQ/L (98-107); CREATININE 1.17 MG/DL (0.60-1.30); GLOMERULAR FILTRATION RATE 62 ML/MIN (>89); MAGNESIUM 2.1 MG/DL (1.5-2.5); SODIUM (NA) 138 MEQ/L (136-145)
[2018-01-08 09:51] LABS: GLUCOSE,RANDOM 81 MG/DL (74-106)
[2018-01-08 09:56] LABS: ALKALINE PHOSPHATASE 83 U/L (45-117); ALT (GPT) 20 U/L (12-78); PHOSPHORUS 4.4 MG/DL (2.5-4.9); TOTAL BILIRUBIN ADULT 0.3 MG/DL (0.2-1.0); TOTAL PROTEIN 6.9 GM/DL (6.4-8.2)
[2018-01-08 10:09] LABS: ACANTHOCYTES OCC (NORMAL); OVALOCYTES 1+ (NORMAL)
--- NOTE | 2018-01-08 11:35 | HHI.PR ---
Subjective Remarks This is a 67-year-old male with a PMH of HTN, CAD s/p CABG 10/2017, CHF (Echo 11/02 w/ EF 25-30%), [place] and CKD who was brought to the ER by EMS w/ complaints of chest pain and SOB. States symptoms started earlier today. Chest pain is substernal, intermittent, moderate, 6/10, non-radiating. Symptoms associated w/ cough. Also notes "lost my voice" since this morning. Reports left leg pain starting earlier today, no injury/trauma, no swelling, no erythema. No fever or chills. On arrival, BP 163/114, HR 98, O2 sat 100% on 2L NC, Afebrile. CBC essentially at baseline. Creatinine 1.31, previously 1.29 on 11/12/2017. CPK 313. BNP 304. Troponin negative. INR 1.1. CXR negative for acute process. LE Doppler negative for DVT. Follows with Dr. Dang as outpatient, Dr. Dean consulted, recommended admission for cardiac work up. 4-7 patient is less short of breath still has some Hoarseness to his voice Denies any chest pain at this moment Has had previous CABG in October 2007 Consult cardiology 4-8 SEEN BY CARDIOLOGY BEING STARTED ON BUMEX STEVE RN AND PT AND CM HOPEFULLY HOME TOMORROW AFTER CLEARED BY CARDIOLOGY AM LABS STILL VERY HOARSE VOICE 4-9 AWAIT CARDIAC CLEARANCE TODAY STEVE RN AND PATIENT AM LABS IF STILL HERE TOMORROW CONTINUE LIFEVEST AT DC GROUP D STREP ON CULTURES AWAIT SENSITIVITIES Objective Vitals Vital Signs Date Time Temp Pulse Resp B/P (MAP) Pulse Ox O2 Delivery O2 Flow Rate FiO2 01/08/18 10:21 87 01/08/18 09:34 72 01/08/18 08:23 97.7 74 18 115/69 (84) 97 01/08/18 08:23 73 01/08/18 06:00 85 01/08/18 05:00 85 01/08/18 04:39 80 16 108/68 (81) 98 01/08/18 04:00 85 01/08/18 03:00 83 01/08/18 02:00 80 01/08/18 01:00 83 01/08/18 00:00 88 01/07/18 23:59 84 16 128/76 (93) 99 01/07/18 23:00 82 01/07/18 22:00 91 01/07/18 21:00 80 01/07/18 20:00 80 01/07/18 19:40 98.2 84 16 145/88 (107) 100 01/07/18 19:00 76 01/07/18 18:00 78 01/07/18 17:00 78 01/07/18 16:24 97.9 84 18 123/76 (92) 100 01/07/18 16:00 78 01/07/18 15:00 85 01/07/18 14:00 83 01/07/18 13:19 98.0 83 18 128/87 (101) 01/07/18 13:00 83 01/07/18 12:00 83 I/O 01/07/18 01/07/18 01/07/18 01/08/18 01/08/18 01/08/18 07:00 15:00 23:00 07:00 15:00 23:00 Intake Total 240 ml 240 ml Output Total 900 ml 450 ml Balance -660 ml -210 ml Intake Oral 240 ml 240 ml Output Urine Total 900 ml 450 ml # Bowel Movements 0 2 0 Result Diagram: 01/08/18 0704 01/08/18 0704 Other Results Laboratory Tests Test 01/05/18 19:49 01/06/18 02:27 01/06/18 09:10 01/06/18 22:30 White Blood Count 2.8 TH/MM3 2.5 TH/MM3 Red Blood Count 3.82 MIL/MM3 3.77 MIL/MM3 Hemoglobin 11.1 GM/DL 10.9 GM/DL Hematocrit 31.7 % 31.1 % Mean Corpuscular Volume 83.0 FL 82.6 FL Mean Corpuscular Hemoglobin 29.1 PG 29.0 PG Mean Corpuscular Hemoglobin Concent 35.1 % 35.1 % Red Cell Distribution Width 15.6 % 15.4 % Platelet Count 209 TH/MM3 185 TH/MM3 Mean Platelet Volume 8.5 FL 7.3 FL Neutrophils (%) (Auto) 65.2 % 49.1 % Lymphocytes (%) (Auto) 24.9 % 37.3 % Monocytes (%) (Auto) 7.8 % 10.3 % Eosinophils (%) (Auto) 1.7 % 2.8 % Basophils (%) (Auto) 0.4 % 0.5 % Neutrophils # (Auto) 1.8 TH/MM3 1.2 TH/MM3 Lymphocytes # (Auto) 0.7 TH/MM3 0.9 TH/MM3 Monocytes # (Auto) 0.2 TH/MM3 0.3 TH/MM3 Eosinophils # (Auto) 0.0 TH/MM3 0.1 TH/MM3 Basophils # (Auto) 0.0 TH/MM3 0.0 TH/MM3 CBC Comment DIFF FINAL DIFF FINAL Differential Comment Prothrombin Time 11.0 SEC Prothromb Time International Ratio 1.1 RATIO Activated Partial Thromboplast Time 30.5 SEC Blood Urea Nitrogen 26 MG/DL 19 MG/DL Creatinine 1.31 MG/DL 1.03 MG/DL Random Glucose 168 MG/DL 85 MG/DL Total Protein 6.7 GM/DL 6.9 GM/DL Albumin 3.0 GM/DL 3.1 GM/DL Calcium Level 8.4 MG/DL 8.8 MG/DL Magnesium Level 1.5 MG/DL Alkaline Phosphatase 85 U/L 85 U/L Aspartate Amino Transf (AST/SGOT) 38 U/L 32 U/L Alanine Aminotransferase (ALT/SGPT) 17 U/L 17 U/L Total Bilirubin 0.8 MG/DL 0.7 MG/DL Sodium Level 133 MEQ/L 136 MEQ/L Potassium Level 4.5 MEQ/L 4.0 MEQ/L Chloride Level 104 MEQ/L 104 MEQ/L Carbon Dioxide Level 19.8 MEQ/L 23.8 MEQ/L Anion Gap 9 MEQ/L 8 MEQ/L Estimat Glomerular Filtration Rate 55 ML/MIN 72 ML/MIN Total Creatine Kinase 313 U/L Creatine Kinase MB 3.3 NG/ML Creatine Kinase MB % 1.1 % Troponin I LESS THAN 0.02 NG/ML 0.02 NG/ML 0.02 NG/ML B-Type Natriuretic Peptide 304 PG/ML Urine Color YELLOW Urine Turbidity CLEAR Urine pH 6.0 Urine Specific [place] 1.015 Urine Protein TRACE mg/dL Urine Glucose (UA) NEG mg/dL Urine Ketones NEG mg/dL Urine Occult Blood TRACE Urine Nitrite NEG Urine Bilirubin NEG Urine Urobilinogen LESS THAN 2.0 MG/DL Urine Leukocyte Esterase LARGE Urine RBC 6 /hpf Urine WBC 36 /hpf Urine Amorphous Sediment RARE Microscopic Urinalysis Comment CULTURE INDICATED Test 01/07/18 06:03 01/08/18 07:04 White Blood Count 4.5 TH/MM3 4.7 TH/MM3 Red Blood Count 3.85 MIL/MM3 3.84 MIL/MM3 Hemoglobin 11.2 GM/DL 11.2 GM/DL Hematocrit 31.9 % 31.9 % Mean Corpuscular Volume 82.9 FL 83.1 FL Mean Corpuscular Hemoglobin 29.2 PG 29.2 PG Mean Corpuscular Hemoglobin Concent 35.2 % 35.1 % Red Cell Distribution Width 15.6 % 15.3 % Platelet Count 217 TH/MM3 244 TH/MM3 Mean Platelet Volume 8.4 FL 8.4 FL Neutrophils (%) (Auto) 54.7 % 49.6 % Lymphocytes (%) (Auto) 32.7 % 35.3 % Monocytes (%) (Auto) 8.0 % 8.6 % Eosinophils (%) (Auto) 4.2 % 6.0 % Basophils (%) (Auto) 0.4 % 0.5 % Neutrophils # (Auto) 2.4 TH/MM3 2.4 TH/MM3 Lymphocytes # (Auto) 1.5 TH/MM3 1.7 TH/MM3 Monocytes # (Auto) 0.4 TH/MM3 0.4 TH/MM3 Eosinophils # (Auto) 0.2 TH/MM3 0.3 TH/MM3 Basophils # (Auto) 0.0 TH/MM3 0.0 TH/MM3 CBC Comment DIFF FINAL AUTO DIFF Differential Comment AUTO DIFF CONFIRMED Blood Urea Nitrogen 25 MG/DL 29 MG/DL Creatinine 1.11 MG/DL 1.17 MG/DL Random Glucose 77 MG/DL 81 MG/DL Total Protein 6.9 GM/DL 6.9 GM/DL Albumin 2.9 GM/DL 3.0 GM/DL Calcium Level 8.8 MG/DL 8.8 MG/DL Phosphorus Level 3.7 MG/DL 4.4 MG/DL Magnesium Level 1.9 MG/DL 2.1 MG/DL Alkaline Phosphatase 78 U/L 83 U/L Aspartate Amino Transf (AST/SGOT) 26 U/L 23 U/L Alanine Aminotransferase (ALT/SGPT) 18 U/L 20 U/L Total Bilirubin 0.5 MG/DL 0.3 MG/DL Sodium Level 136 MEQ/L 138 MEQ/L Potassium Level 4.4 MEQ/L 4.2 MEQ/L Chloride Level 104 MEQ/L 105 MEQ/L Carbon Dioxide Level 23.3 MEQ/L 24.6 MEQ/L Anion Gap 9 MEQ/L 8 MEQ/L Estimat Glomerular Filtration Rate 66 ML/MIN 62 ML/MIN Hemoglobin A1c 5.2 % Free Thyroxine 1.51 NG/DL Thyroid Stimulating Hormone 3rd Gen 0.136 uIU/ML Ovalocytes 1+ Acanthocytes OCC Imaging Last Impressions Chest X-Ray 01/05/18 1936 Signed Impressions: Service Date/Time: Friday, January 05, 2018 19:52 - CONCLUSION: Negative for an acute process. Cristian Sherman MD FACR Lower Extremity Ultrasound 01/05/18 0000 Signed Impressions: Service Date/Time: Friday, January 05, 2018 20:05 - CONCLUSION: Negative for deep venous thrombosis. Cristian Sherman MD FACR Objective Remarks GENERAL: Awake alert and oriented 3 talkative and cooperative --has a very hoarse voice at this time SKIN: Warm and dry. HEAD: Atraumatic. Normocephalic. EYES: Pupils equal and round. No scleral icterus. No injection or drainage. Extraocular muscles intact ENT: No nasal bleeding or discharge. Mucous membranes pink and moist. Tongue is midline NECK: Trachea midline. No JVD. Supple CARDIOVASCULAR: Regular rate and rhythm. S1-S2 no S3 or S4 RESPIRATORY: No accessory muscle use. Clear to auscultation. Breath sounds equal bilaterally. Decreased breath sounds bases bilaterally GASTROINTESTINAL: Abdomen soft, non-tender, nondistended. Hepatic and splenic margins not palpable. MUSCULOSKELETAL: Extremities without clubbing, cyanosis, or edema. No obvious deformities. 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 No obvious cranial nerve deficits. Motor grossly within normal limits. Five out of 5 muscle strength in the arms and legs. Normal speech. Right lower extremity with congenital missing femur short -leg PSYCHIATRIC: Appropriate mood and affect; insight and judgment normal. Procedures NONE Medications and IVs Current Medications Sodium Chloride (NS Flush) 2 ml UNSCH PRN IVF FLUSH AFTER USING IV ACCESS; Start 01/05/18 at 19:45; Stop 01/05/18 at 21:53; Status DC Sodium Chloride (NS Flush) 2 ml UNSCH PRN IV FLUSH FLUSH AFTER USING IV ACCESS ; Start 01/05/18 at 21:45 Sodium Chloride (NS Flush) 2 ml BID IV FLUSH Last administered on 01/08/18at 08: 56; Start 01/06/18 at 09:00 Ondansetron HCl (Zofran Inj) 4 mg Q6H PRN IVP NAUSEA OR VOMITING; Start at 21:45 Acetaminophen (Tylenol) 650 mg Q6H PRN PO FEVER/PAIN SCALE 1 TO 2; Start at 21:45 Acetaminophen/ Hydrocodone Bitart ([place] 5-325 Mg) 1 tab Q4H PRN PO PAIN SCALE 3 TO 5 Last administered on 01/05/18at 23:23; Start 01/05/18 at 21:45 Morphine Sulfate (Morphine Inj) 2 mg Q3H PRN IV PUSH Pain 6-10; Start 01/05/18 at 21:45 Senna/Docusate Sodium (Shanice-Colace) 1 tab BID PO Last administered on 01/07/18at 09:06; Start 01/06/18 at 09:00 Magnesium Hydroxide (Milk Of Magnesia Liq) 30 ml Q12H PRN PO Mild constipation ; Start 01/05/18 at 21:45 Sennosides (Senokot) 17.2 mg Q12H PRN PO Moderate constipation; Start 01/05/18 at 21:45 Bisacodyl (Dulcolax Supp) 10 mg DAILY PRN RECTAL SEVERE CONSITIPATION; Start at 21:45 Lactulose (Lactulose Liq) 30 ml DAILY PRN PO SEVERE CONSITIPATION; Start at 21:45 Aspirin (Aspirin Chew) 81 mg DAILY PO Last administered on 01/08/18at 08:56; Start 01/06/18 at 09:00 Atorvastatin Calcium (Lipitor) 40 mg HS PO Last administered on 01/07/18at 21:06 ; Start 01/06/18 at 21:00 Levothyroxine Sodium (Synthroid) 125 mcg DAILY@0600 PO Last administered on 01/07at 05:59; Start 01/06/18 at 06:00; Stop 01/07/18 at 11:26; Status DC Benzocaine/Menthol (Cepacol Extra [place] (Sugar Free)) 1 lozenge Q2HR PRN BUCCAL SORE THROAT; Start 01/05/18 at 22:30 Midodrine (Proamatine) 5 mg TID@07,12,17 PO Last administered on 01/08/18at 05:30 ; Start 01/06/18 at 17:00 Levothyroxine Sodium (Synthroid) 112 mcg DAILY@0600 PO Last administered on 01/08at 05:30; Start 01/08/18 at 06:00 Bumetanide (Bumetanide) 0.5 mg DAILY PO Last administered on 01/08/18at 08:55; Start 01/07/18 at 13:00 Miscellaneous (Pill Splitter) 1 ea UNSCH PRN OTHER SEE LABEL COMMENTS; Start at 13:00 A/P Problem List: (1) Chest pain ICD Code: R07.9 - Chest pain, unspecified (2) CHF (congestive heart failure) ICD Code: I50.9 - Heart failure, unspecified (3) HTN (hypertension) ICD Code: I10 - Essential (primary) hypertension (4) Renal insufficiency ICD Code: N28.9 - Disorder of kidney and ureter, unspecified (5) Leg pain, left ICD Code: M79.605 - Pain in left leg (6) Pharyngitis ICD Code: J02.9 - Acute pharyngitis, unspecified Assessment and Plan 1. Chest Pain: intermittent c/o chest pain associated w/ SOB. Initial trop negative, r/o ACS w/ extensive cardiac history. Follows w/ Dr. Dang, Dr. Dean consulted, recommended cardiac work up. Admit for Observation, telemetry, check serial cardiac enzymes, NTG/Morphine prn. Resume home ASA, Atorvastatin. Consult cardiology repeat echocardiogram 2. CHF: Acute on Chronic. Systolic. BNP 304, Echo 11/02/17 w/ EF 25-30%, + [place]. Monitor I/O, resume home medications. BUMEX PER CARDIO 3. HTN: BP Uncontrolled, BP 180's systolic, resume home medications, monitor BP, hold Midodrine 4. Renal Insufficiency: Acute on Chronic. Creatinine 1.31, previously 1.29 on 11/12/2017. Check UA for possible underlying UTI. Caution with IVF secondary to acute CHF. Repeat labs in a.m. 5. Left Leg Pain: Acute onset left leg pain, no erythema/no edema. Doppler LE w/ no DVT, images reviewed by me. Electrolytes stable. Analgesics/ antiemetics. 6. Pharyngitis: +erythema, +hoarseness. Conservative management, Cepacol, IVF -caution w/ CHF Check UA with C&S HYPOTHYROIDISM OVER CONTROLLED DECREASE TO 112 MCG PO DAILY AM LABS GROUP D STREP- AWAIT SENSITIVITIES 7. DVT Prophylaxis: SCD/Teds. Discharge Planning Pending cardiac clearance Cristian Perla DO Jan 08, 2018 11:35
[2018-01-08] MEDS ORDERED: cefTRIAXone INJ 1,000 MG in SODIUM CHLORIDE 0.9% INJ 100 ML IV SCH (13:00)
--- NOTE | 2018-01-08 14:27 | PQ ---
Physician Query Response Document PATIENT: FERN VALDES : 1950 ADMIT DATE: 01/07/2018 11:28 AM DISCH DATE: RESPONDING PROVIDER #: [email or web address] QUERY TEXT: CDS Clarification Acute on Chronic renal failure in the setting of UTI and labile HTN requiring serial labs and care mo nitoring fluids Other explanation of clinical findings. Unable to determine (no explanation for clinical findings). The medical record reflects the following clinical findings, treatment, and risk factors. * Clinical Indicators admitting creatinine BUSINESS SERVICES DIRECTOR 1.31 BUN 26 GFR 55 * Risk Factors UTI HTN * Treatment serial labs and careful I The patient's Clinical Indicators include: Please clarify and document your clinical opinion in the progress notes and discharge summary includi ng the definitive and/or presumptive diagnosis (suspected or probable), related to the above clinical findings. Please include clinical findings supporting your diagnosis. Thank you, CDS: Luzma Ellsworth Patient Unit: [facility] Contact Number: CDS/RN ext. [phone] Room: 246 Query created by: Luzma Ellsworth on 01/08/2018 1:10 PM RESPONSE TEXT: RENAL INSUFFICIENCY CKD STAGE 2 TO 3 WITH ACUTE ON CHRONIC RENAL FAILURE IN SETTING OF UTI AND LABILE HTN REQUIRING SERIAL LABS AND CARE MONITORING FLUIDS QUERY TEXT: CDS Clarification Urinary tract infection POA with GROUP D enterococcus on cultures requiring IV Rocephin Other explanation of clinical findings. Unable to determine (no explanation for clinical findings). The medical record reflects the following clinical findings, treatment, and risk factors. * Clinical Indicators urine culture with GROUP D enterococcus * Risk Factors NIVIA ON CKD * Treatment IV ROCEPHIN careful I The patient's Clinical Indicators include: Please clarify and document your clinical opinion in the progress notes and discharge summary includi ng the definitive and/or presumptive diagnosis (suspected or probable), related to the above clinical findings. Please include clinical findings supporting your diagnosis. Thank you, CDS: Luzma Ellsworth Patient Unit: [facility] Room: 2 Contact Number: CDS/RN ext. [phone] Query created by: Luzma Ellsworth on 01/08/2018 1:14 PM RESPONSE TEXT: GROUP D STREP ENTERCOCCUS ON CULTURE ON ROCEPHIN AND ZOSYN DUE TO POSITIVE CULTURE Electronically signed by: Cristian Perla 01/08/2018 2:24 PM
[2018-01-08] MEDS ORDERED: BENZ1LOZ5 BUCCAL (15:44)
[2018-01-08] MEDS ORDERED: SYNT112T PO (15:44)
[2018-01-08] MEDS ORDERED: BUME1TAB PO (15:44)
--- NOTE | 2018-01-08 15:45 | HHI.FF ---
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 My clinical findings support the need for the requested home health care services because: Ltd mobility - disease progression Deconditioned w/ increased weakness I certify that my clinical findings support that this patient is homebound because: Unsteady gait/balance Cristian Perla DO Jan 08, 2018 15:45
[2018-01-08] MEDS ORDERED: CIPR-9 PO (15:48)
[2018-01-08] MEDS ORDERED: LACTCHW3 CHEW (15:48)
--- NOTE | 2018-01-08 15:48 | HHI.DS ---
Discharge Summary Admission Date Jan 07, 2018 at 11:28 Discharge Date: Jan 08, 2018 Admitting Diagnosis Chest pain, dyspnea (1) Chest pain ICD Code: R07.9 - Chest pain, unspecified Diagnosis: Principal (2) CHF (congestive heart failure) ICD Code: I50.9 - Heart failure, unspecified Diagnosis: Principal (3) HTN (hypertension) ICD Code: I10 - Essential (primary) hypertension Diagnosis: Secondary (4) Renal insufficiency ICD Code: N28.9 - Disorder of kidney and ureter, unspecified Diagnosis: Principal (5) Leg pain, left ICD Code: M79.605 - Pain in left leg Diagnosis: Secondary (6) Pharyngitis ICD Code: J02.9 - Acute pharyngitis, unspecified Diagnosis: Secondary Procedures NONE Brief History - From Admission This is a 67-year-old male with a PMH of HTN, CAD s/p CABG 10/2017, CHF (Echo 11/02 w/ EF 25-30%), [place] and CKD who was brought to the ER by EMS w/ complaints of chest pain and SOB. States symptoms started earlier today. Chest pain is substernal, intermittent, moderate, 6/10, non-radiating. Symptoms associated w/ cough. Also notes "lost my voice" since this morning. Reports left leg pain starting earlier today, no injury/trauma, no swelling, no erythema. No fever or chills. On arrival, BP 163/114, HR 98, O2 sat 100% on 2L NC, Afebrile. CBC essentially at baseline. Creatinine 1.31, previously 1.29 on 11/12/2017. CPK 313. BNP 304. Troponin negative. INR 1.1. CXR negative for acute process. LE Doppler negative for DVT. Follows with Dr. Dang as outpatient, Dr. Dean consulted, recommended admission for cardiac work up. CBC/BMP: 01/08/18 0704 01/08/18 0704 Significant Findings Laboratory Tests Test 01/05/18 19:49 01/06/18 02:27 01/06/18 09:10 01/06/18 22:30 White Blood Count 2.8 TH/MM3 (4.0-11.0) 2.5 TH/MM3 (4.0-11.0) Red Blood Count 3.82 MIL/MM3 (4.50-5.90) 3.77 MIL/MM3 (4.50-5.90) Hemoglobin 11.1 GM/DL (13.0-17.0) 10.9 GM/DL (13.0-17.0) Hematocrit 31.7 % (39.0-51.0) 31.1 % (39.0-51.0) Lymphocytes # (Auto) 0.7 TH/MM3 (1.0-4.8) 0.9 TH/MM3 (1.0-4.8) Activated Partial Thromboplast Time 30.5 SEC (24.3-30.1) Blood Urea Nitrogen 26 MG/DL (7-18) 19 MG/DL (7-18) Creatinine 1.31 MG/DL (0.60-1.30) Random Glucose 168 MG/DL (74-106) Albumin 3.0 GM/DL (3.4-5.0) 3.1 GM/DL (3.4-5.0) Calcium Level 8.4 MG/DL (8.5-10.1) Aspartate Amino Transf (AST/SGOT) 38 U/L (15-37) Sodium Level 133 MEQ/L (136-145) Carbon Dioxide Level 19.8 MEQ/L (21.0-32.0) Estimat Glomerular Filtration Rate 55 ML/MIN (>89) 72 ML/MIN (>89) Total Creatine Kinase 313 U/L (39-308) Troponin I LESS THAN 0.02 NG/ML B-Type Natriuretic Peptide 304 PG/ML (0-100) Monocytes (%) (Auto) 10.3 % (0.0-8.0) Neutrophils # (Auto) 1.2 TH/MM3 (1.8-7.7) Urine Occult Blood TRACE (NEG) Urine Leukocyte Esterase LARGE (NEG) Urine RBC 6 /hpf (0-3) Urine WBC 36 /hpf (0-5) Test 01/07/18 06:03 01/08/18 07:04 Red Blood Count 3.85 MIL/MM3 (4.50-5.90) 3.84 MIL/MM3 (4.50-5.90) Hemoglobin 11.2 GM/DL (13.0-17.0) 11.2 GM/DL (13.0-17.0) Hematocrit 31.9 % (39.0-51.0) 31.9 % (39.0-51.0) Eosinophils (%) (Auto) 4.2 % (0.0-4.0) 6.0 % (0.0-4.0) Blood Urea Nitrogen 25 MG/DL (7-18) 29 MG/DL (7-18) Albumin 2.9 GM/DL (3.4-5.0) 3.0 GM/DL (3.4-5.0) Estimat Glomerular Filtration Rate 66 ML/MIN (>89) 62 ML/MIN (>89) Free Thyroxine 1.51 NG/DL (0.76-1.46) Thyroid Stimulating Hormone 3rd Gen 0.136 uIU/ML (0.358-3.740) Monocytes (%) (Auto) 8.6 % (0.0-8.0) Ovalocytes 1+ (NORMAL) Imaging Last Impressions Chest X-Ray 01/05/18 1936 Signed Impressions: Service Date/Time: Friday, January 05, 2018 19:52 - CONCLUSION: Negative for an acute process. Cristian Sherman MD FACR Lower Extremity Ultrasound 01/05/18 0000 Signed Impressions: Service Date/Time: Friday, January 05, 2018 20:05 - CONCLUSION: Negative for deep venous thrombosis. Cristian Sherman MD FACR PE at Discharge GENERAL: Awake alert and oriented 3 talkative and cooperative --has a very hoarse voice at this time SKIN: Warm and dry. HEAD: Atraumatic. Normocephalic. EYES: Pupils equal and round. No scleral icterus. No injection or drainage. Extraocular muscles intact ENT: No nasal bleeding or discharge. Mucous membranes pink and moist. Tongue is midline NECK: Trachea midline. No JVD. Supple CARDIOVASCULAR: Regular rate and rhythm. S1-S2 no S3 or S4 RESPIRATORY: No accessory muscle use. Clear to auscultation. Breath sounds equal bilaterally. Decreased breath sounds bases bilaterally GASTROINTESTINAL: Abdomen soft, non-tender, nondistended. Hepatic and splenic margins not palpable. MUSCULOSKELETAL: Extremities without clubbing, cyanosis, or edema. No obvious deformities. 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 No obvious cranial nerve deficits. Motor grossly within normal limits. Five out of 5 muscle strength in the arms and legs. Normal speech. Right lower extremity with congenital missing femur short -leg PSYCHIATRIC: Appropriate mood and affect; insight and judgment normal. Hospital Course This is a 67-year-old male with a PMH of HTN, CAD s/p CABG 10/2017, CHF (Echo 11/02 w/ EF 25-30%), [place] and CKD who was brought to the ER by EMS w/ complaints of chest pain and SOB. States symptoms started earlier today. Chest pain is substernal, intermittent, moderate, 6/10, non-radiating. Symptoms associated w/ cough. Also notes "lost my voice" since this morning. Reports left leg pain starting earlier today, no injury/trauma, no swelling, no erythema. No fever or chills. On arrival, BP 163/114, HR 98, O2 sat 100% on 2L NC, Afebrile. CBC essentially at baseline. Creatinine 1.31, previously 1.29 on 11/12/2017. CPK 313. BNP 304. Troponin negative. INR 1.1. CXR negative for acute process. LE Doppler negative for DVT. Follows with Dr. Dang as outpatient, Dr. Dean consulted, recommended admission for cardiac work up. 4-7 patient is less short of breath still has some Hoarseness to his voice Denies any chest pain at this moment Has had previous CABG in October 2007 Consult cardiology 4-8 SEEN BY CARDIOLOGY BEING STARTED ON [facility] STEVE RN AND PT AND CM [facility] HOME TOMORROW AFTER CLEARED BY CARDIOLOGY AM LABS STILL VERY HOARSE VOICE 4-9 AWAIT CARDIAC CLEARANCE TODAY STEVE RN AND PATIENT AM LABS IF STILL HERE TOMORROW CONTINUE LIFEVEST AT DC GROUP D STREP ON CULTURES AWAIT SENSITIVITIES CONTINUE ON CIPRO Pt Condition on Discharge: Good Discharge Disposition: Disch w/ Home Health Serv Discharge Time: > 30 minutes Discharge Instructions DIET: Follow Instructions for: Heart Healthy Diet, Diabetic Diet Speech Therapy-Diet Recommends: Regular Activities you can perform: Regular-No Restrictions Follow up Referrals: Cardiology - 10 Days with Verónica Dang MD PCP Follow-up - 3-5 Days with Emma Landry MD New Medications: Ciprofloxacin (Cipro) 500 Mg Tab 500 MG PO BID for Infection for 10 Days, #20 TAB 0 Refills Lactobacillus Acidophilus (Lactinex) 1 Chew 1 TAB CHEW TID for Nutritional Supplement for 20 Days, #60 TAB 0 Refills Benzocaine/Menthol (Cepacol Sore Throat Lozenge) 15 Mg-3.6 Mg Lozenge 1 LOZENGE BUCCAL Q2HR PRN for SORE THROAT, #400 LOZENGE Bumetanide (Bumetanide) 1 Mg Tab 0.5 MG PO DAILY for Blood Pressure Management, #30 TAB Levothyroxine (Synthroid) 112 Mcg Tab 112 MCG PO DAILY@0600 for Thyroid, #30 TAB Continued Medications: Acetaminophen (Eq Acetaminophen) 325 Mg Tab 650 MG PO Q4H PRN for Fever/ Pain 1-3 for 30 Days, #360 TAB Aspirin (Tgt Aspirin) 81 Mg Chw 81 MG PO DAILY for Blood Clot Prevention, #100 EA 2 Refills Atorvastatin (Atorvastatin) 40 Mg Tab 40 MG PO HS for Cholesterol Management, #30 TAB 3 Refills Midodrine (Midodrine) 5 Mg Tab 5 MG PO TID@07,12,17 for HYPOTENSION for 30 Days, TAB 1 Refill Discontinued Medications: Levothyroxine (Levothyroxine) 125 Mcg Tab 125 MCG PO DAILY for Thyroid, #30 TAB 0 Refills Cristian Perla DO Jan 08, 2018 15:48
== END 2018-01-08 17:27 | disposition home health service (06) | DRG 291 ==
LOC: NEPE 19:22 → NEDA 21:44 → HCIS 23:07 → OBSVTOIN 01-07 11:28
PROVIDERS: ADMIT Hospitalist; ATTEND Hospitalist
DX: I13.0 Hypertensive heart and chronic kidney disease with heart failure and stage 1 through stage 4 chronic kidney disease, or unspecified chronic kidney disease (principal); I50.23 Acute on chronic systolic (congestive) heart failure; N17.9 Acute kidney failure, unspecified; I95.9 Hypotension, unspecified; N18.3 Chronic kidney disease, stage 3 (moderate); I25.10 Atherosclerotic heart disease of native coronary artery without angina pectoris; N39.0 Urinary tract infection, site not specified; E03.9 Hypothyroidism, unspecified; M79.605 Pain in left leg; R05 Cough; J02.9 Acute pharyngitis, unspecified; I25.5 Ischemic cardiomyopathy; E78.00 Pure hypercholesterolemia, unspecified; B95.2 Enterococcus as the cause of diseases classified elsewhere; Z90.5 Acquired absence of kidney; Z95.1 Presence of aortocoronary bypass graft
CPT/HCPCS: 71045; 80053; 81001; 82550; 82552; 83036; 83735; 83880; 84100; 84439; 84443; 84484; 85025; 85610; 85730; 87077; 87086; 87186; 93005; 93306; 93971; 94003; 99285; G0378; J0696

== ENCOUNTER 2018-07-21 17:32 | Observation (INO) ==
[2018-07-21 18:32] LABS: Baso % (Auto) 0.6 % (0.0-2.0); Eos # (Auto) 0.2 th/mm3 (0.0-0.4); Eos % (Auto) 2.7 % (0.0-4.0); Hematocrit 39.8 % (39.0-51.0); Lymph # (Auto) 0.9 th/mm3 (1.0-4.8); Lymph % (Auto) 12.5 % (9.0-44.0); Mean Corpuscular HGB Conc 35.1 % (32.0-36.0); Mean Corpuscular Hemoglobin 30.9 pg (27.0-34.0); Mean Corpuscular Volume 88.1 fL (80.0-100.0); Mean Platelet Volume 8.5 fL (7.0-11.0); Mono # (Auto) 0.4 th/mm3 (0.0-0.9); Mono % (Auto) 5.8 % (0.0-8.0); Neut # (Auto) 5.4 th/mm3 (1.8-7.7); Neut % (Auto) 78.4 % (16.0-70.0); Platelet Count 178 th/mm3 (150-450); Red Blood Count 4.52 mil/mm3 (4.50-5.90); White Blood Count 6.9 th/mm3 (4.0-11.0)
[2018-07-21 18:39] LABS: Activated Partial Thrombo Time 39.9 sec (24.3-30.1); Prothrombin Time 10.5 sec (9.8-11.6)
[2018-07-21 19:10] LABS: Albumin 3.8 g/dL (3.4-5.0); Anion Gap 9 meq/L (5-15); Aspartate Aminotransferase 14 U/L (15-37); Blood Urea Nitrogen 23 mg/dL (7-18); Calcium 8.8 mg/dL (8.5-10.1); Carbon Dioxide 23.1 meq/L (21.0-32.0); Chloride 105 meq/L (98-107); Glomerular Filtration Rate 51 mL/min (>89); Glucose,Random 108 mg/dL (74-106); Potassium 4.2 meq/L (3.5-5.1); Sodium 137 meq/L (136-145)
[2018-07-21 19:12] LABS: Alanine Aminotransferase 22 U/L (12-78)
[2018-07-21 19:13] LABS: Alkaline Phosphatase 111 U/L (45-117); Total Protein 7.9 g/dL (6.4-8.2)
[2018-07-21] MEDS ORDERED: Sodium Chlor 0.9% Inj 500 ML IV.SIG ONE (19:17)
--- NOTE | 2018-07-21 19:40 | ED ---
HPI General Chief complaint: Medical Clearance Stated complaint: Rectal bleeding Time Seen by Provider: 07/21/18 17:58 History of Present Illness HPI Narrative: Pt is a 67-year-old male with past medical history significant for CA, hypothyroidism and hypertension , one day BRBPR after wiping himself , HE had fissure3 develop when he was hospitalized for weeks and rehab recently. CABG was done oct 2017 then rehab , pt only on aspirin no anticoagulant , he did have a colonoscopy 2 years ago with few benign polyps removed . no recent rectal procedure . pt is not currently bleeding Home Medications Medication Instructions Recorded Confirmed aspirin 81 mg PO DAILY 07/21/18 07/21/18 atorvastatin 40 mg PO DAILY 07/21/18 07/21/18 levothyroxine 112 mcg PO DAILY 07/21/18 07/21/18 Allergies Allergy/AdvReac Type Severity Reaction Status Date / Time No Known Allergies Allergy Verified 07/21/18 17:47 [facility] Medical History Medical History Heart attack (Acute) History of left above knee amputation (Acute) Hypertension (Acute) Surgical History Surgical History H/O colonoscopy (Acute) S/P triple vessel bypass (Acute) Social History Social History Substance History: No History of Abuse Smoking Status: Former smoker How Often Do You Have a Drink Containing Alcohol: 2 to 4 times a month Recent Travel in [facility] within the Last 8 Weeks: No Recent Out of Country Travel within the Last 8 Weeks: No Immunization History Tetanus Immunization: Unsure Course Initial Documented Vital Signs Temperature 97.6 F 07/21/18 17:42 Pulse Rate 80 07/21/18 17:42 Respiratory Rate 18 07/21/18 17:42 Blood Pressure 203/109 H 07/21/18 17:42 Pulse Oximetry 98 07/21/18 17:42 Last Documented Vital Signs Temperature 97.6 F 07/21/18 17:42 Pulse Rate 70 07/21/18 20:43 Respiratory Rate 18 07/21/18 20:43 Blood Pressure 156/89 H 07/21/18 20:43 Pulse Oximetry 96 07/21/18 20:43 Medical Decision Making Lab Data Lab results reviewed: Yes I reviewed the patient's lab results. Result diagrams: 07/21/18 22:00 07/21/18 18:21 Lab Results 07/21/18 07/21/18 07/21/18 Range/Units 18:21 18:21 18:21 WBC 6.9 (4.0-11.0) th/mm3 RBC 4.52 (4.50-5.90) mil/mm3 Hgb 14.0 (13.0-17.0) gm/dL Hct 39.8 (39.0-51.0) % MCV 88.1 (80.0-100.0) fL MCH 30.9 (27.0-34.0) pg MCHC 35.1 (32.0-36.0) % RDW 14.0 (11.6-17.2) % Plt Count 178 (150-450) th/mm3 MPV 8.5 (7.0-11.0) fL Neut % (Auto) 78.4 H (16.0-70.0) % Lymph % (Auto) 12.5 (9.0-44.0) % Hopkins % (Auto) 5.8 (0.0-8.0) % Eos % (Auto) 2.7 (0.0-4.0) % Baso % (Auto) 0.6 (0.0-2.0) % Neut # (Auto) 5.4 (1.8-7.7) th/mm3 Lymph # (Auto) 0.9 L (1.0-4.8) th/mm3 Hopkins # (Auto) 0.4 (0.0-0.9) th/mm3 Eos # (Auto) 0.2 (0.0-0.4) th/mm3 Baso # (Auto) 0.0 (0.0-0.2) th/mm3 WBC Differential . Differential Comment Auto diff final PT 10.5 (9.8-11.6) sec INR 1.0 Ratio APTT 39.9 H (24.3-30.1) sec Sodium 137 (136-145) meq/L Potassium 4.2 (3.5-5.1) meq/L Chloride 105 (98-107) meq/L Carbon Dioxide 23.1 (21.0-32.0) meq/L Anion Gap 9 (5-15) meq/L BUN 23 H (7-18) mg/dL Creatinine 1.38 H (0.60-1.30) mg/dL Estimated GFR 51 L (>89) mL/min Random Glucose 108 H (74-106) mg/dL Calcium 8.8 (8.5-10.1) mg/dL Total Bilirubin 0.5 (0.2-1.0) mg/dL AST 14 L (15-37) U/L ALT 22 (12-78) U/L Alkaline Phosphatase 111 (45-117) U/L Troponin I (0.02-0.05) ng/mL Total Protein 7.9 (6.4-8.2) g/dL Albumin 3.8 (3.4-5.0) g/dL Blood Type Blood Type Recheck Antibody Screen 07/21/18 07/21/18 07/21/18 Range/Units 18:21 18:21 22:00 WBC 5.9 (4.0-11.0) th/mm3 RBC 4.12 L (4.50-5.90) mil/mm3 Hgb 13.2 (13.0-17.0) gm/dL Hct 36.4 L (39.0-51.0) % MCV 88.5 (80.0-100.0) fL MCH 32.0 (27.0-34.0) pg MCHC 36.2 H (32.0-36.0) % RDW 14.0 (11.6-17.2) % Plt Count 169 (150-450) th/mm3 MPV 8.3 (7.0-11.0) fL Neut % (Auto) (16.0-70.0) % Lymph % (Auto) (9.0-44.0) % Hopkins % (Auto) (0.0-8.0) % Eos % (Auto) (0.0-4.0) % Baso % (Auto) (0.0-2.0) % Neut # (Auto) (1.8-7.7) th/mm3 Lymph # (Auto) (1.0-4.8) th/mm3 Hopkins # (Auto) (0.0-0.9) th/mm3 Eos # (Auto) (0.0-0.4) th/mm3 Baso # (Auto) (0.0-0.2) th/mm3 WBC Differential Differential Comment PT (9.8-11.6) sec INR Ratio APTT (24.3-30.1) sec Sodium (136-145) meq/L Potassium (3.5-5.1) meq/L Chloride (98-107) meq/L Carbon Dioxide (21.0-32.0) meq/L Anion Gap (5-15) meq/L BUN (7-18) mg/dL Creatinine (0.60-1.30) mg/dL Estimated GFR (>89) mL/min Random Glucose (74-106) mg/dL Calcium (8.5-10.1) mg/dL Total Bilirubin (0.2-1.0) mg/dL AST (15-37) U/L ALT (12-78) U/L Alkaline Phosphatase (45-117) U/L Troponin I Less than 0.02 L (0.02-0.05) ng/mL Total Protein (6.4-8.2) g/dL Albumin (3.4-5.0) g/dL Blood Type A Negative Blood Type Recheck Required Antibody Screen Negative ECG Data Attestation: I personally reviewed and interpreted this ECG as follows: (EKG normal sinus rhythm at a rate of 65 with 1 PVC) Discharge Plan Physicians Team ED Provider: Rayo Howell Primary Care Provider: Emma Landry Attending Provider: Tash Selby Other Providers: Shayy Herrera Status ED Status: Admitted Observation Patient
[2018-07-21 22:11] LABS: Hematocrit 36.4 % (39.0-51.0); Hemoglobin 13.2 gm/dL (13.0-17.0); Mean Corpuscular Volume 88.5 fL (80.0-100.0); Mean Platelet Volume 8.3 fL (7.0-11.0); Platelet Count 169 th/mm3 (150-450); Red Blood Count 4.12 mil/mm3 (4.50-5.90); White Blood Count 5.9 th/mm3 (4.0-11.0)
[2018-07-21 22:12] LABS: Mean Corpuscular HGB Conc 36.2 % (32.0-36.0)
[2018-07-21] MEDS ORDERED: Labetalol HCl Inj 100 MG/20 ML Vial IV.PUSH ONE (22:17)
[2018-07-22] MEDS ORDERED: Acetaminophen 325 MG Tablet PO PRN (00:01)
[2018-07-22] MEDS ORDERED: Bisacodyl 10 MG Supp RECTAL PRN (00:01)
[2018-07-22] MEDS ORDERED: Morphine Inj 4 MG/ML Vial IV.PUSH PRN (00:03)
--- NOTE | 2018-07-22 00:34 | P.HPIM ---
History of Present Illness Primary Care Physician: Emma Landry MD History of Present Illness: This is a 68-year-old male with a PMH of HTN, Hyperlipidemia, Hypothyroidism and CAD who presented to the ER w/ c/o rectal bleeding x3 episodes today. Noted blood after wiping and some clots in the toilet. On ASA 81mg qd. No previous h/o significant bleeding. On arrival, pt noted to be hypertensive w/ BP 203/109, HR 80. States previous h/o HTN, but not currently on medications. Notes associated headache and chest pressure w/ elevated BP. S/p Labetalol in ER w/ some improvement, BP currently 160's. 14.0, repeat 13.2. INR 1.0. Creatinine 1.38. Troponin negative. - Diagnosis (1) Rectal bleeding (2) HTN (hypertension) (3) Chest pain Review of Systems PAST FAMILY HISTORY: Reviewed. No h/o DM or CAD All other systems reviewed negative except as stated in HPI [facility] - History History Provided By: Patient - Medical History Medical History: Medical History (Last Updated 07/21/18 @ 17:50 by Naomie Joshi) Heart attack History of left above knee amputation Hypertension - Surgical History Surgical History: Surgical History (Last Updated 07/21/18 @ 17:45 by Naomie Joshi) H/O colonoscopy S/P triple vessel bypass - Tobacco History Tobacco Use In Past 30 Days: No Smoking Status: Former smoker - Alcohol History How Often Do You Have a Drink Containing Alcohol: 2 to 4 times a month - Substance Use History Substance History: No History of Abuse - Travel History Recent Travel in the [place] Within the Last 8 Weeks: No Recent Travel Out of the Country Within the Last 8 Weeks: No - Immunization History Tetanus Immunization: Unsure Medications and Allergies Active Medications: Active Medications Acetaminophen (Tylenol) 650 mg PO Q4H PRN PRN Reason: Temp > 100.4 Al Hydroxide/Mg Hydroxide (Milk Of Magnesia Liq) 30 ml PO Q12H PRN PRN Reason: Mild Constipation Atorvastatin Calcium (Lipitor) 40 mg PO DAILY JOSE Bisacodyl (Dulcolax Supp) 10 mg RECTAL DAILY PRN PRN Reason: SEVERE CONSITIPATION Sodium Chloride (Ns Inj) 1,000 mls @ 100 mls/hr IV.CONT .Q10H JOSE Lactulose (Lactulose Liq) 30 ml PO DAILY PRN PRN Reason: SEVERE CONSITIPATION Levothyroxine Sodium (Synthroid) 112 mcg PO DAILY@0700 [facility] Metoprolol Tartrate (Lopressor) 25 mg PO BID JOSE Morphine Sulfate (Morphine Inj) 2 mg IV.PUSH Q4H PRN PRN Reason: CHEST PAIN Ondansetron HCl (Zofran Inj) 4 mg IV.PUSH Q6H PRN PRN Reason: NAUSEA OR VOMITING Senna/Docusate Sodium (Shanice-Colace) 1 tab PO BID [facility] Sennosides (Senokot) 17.2 mg PO Q12H PRN PRN Reason: Moderate Constipation Sodium Chloride (Ns Flush) 2 ml IV.FLUSH PRN PRN PRN Reason: FLUSH AFTER USING IV ACCESS Last Admin: 07/21/18 18:37 Dose: 2 ml Allergies Allergy/AdvReac Type Severity Reaction Status Date / Time No Known Allergies Allergy Verified 07/21/18 17:47 Home Medications Medication Instructions Recorded Confirmed Type aspirin 81 mg PO DAILY 07/21/18 07/21/18 History atorvastatin 40 mg PO DAILY 07/21/18 07/21/18 History levothyroxine 112 mcg PO DAILY 07/21/18 07/21/18 History Exam Vital signs: Vital Signs 07/21/18 17:42 07/21/18 17:47 07/21/18 17:59 Temperature 97.6 F Pulse Rate 80 73 80 Respiratory Rate 18 18 Blood Pressure 203/109 H Pulse Oximetry 98 97 98 07/21/18 18:08 07/21/18 19:50 07/21/18 20:43 Temperature Pulse Rate 68 70 Respiratory Rate 20 18 Blood Pressure 196/104 H 156/89 H Pulse Oximetry 97 98 96 Intake & Output 07/21/18 07/21/18 07/22/18 06:59 18:59 06:59 Intake Total 500 / 500 Output Total 600 / 600 Balance -600 / -600 500 / 500 Weight 95.254 kg Intake: IV 500 / 500 NS Inj 500 ML @ Wide Open IV. 500 / 500 SIG BOLUS ONE Rx#:[id number] Output: Urine Amount (Catheter) 600 / 600 Suprapubic 600 / 600 Narrative: PE: GENERAL: Pleasant middle-aged white male in no acute distress. SKIN: Focused skin assessment warm and dry. HEENT: PERRLA, EOMI. No scleral icterus or conjunctival pallor. No lid lag or facial droop. CARDIOVASCULAR: Regular rate and rhythm. No obvious murmurs to auscultation. No chest tenderness to palpation. RESPIRATORY: No obvious rhonchi or wheezing. Clear to auscultation. Breath sounds equal bilaterally. GASTROINTESTINAL: Abdomen soft, non-tender, nondistended. BS normal. MUSCULOSKELETAL: Extremities without clubbing, cyanosis, or edema. No obvious deformities. Left AKA NEUROLOGICAL: Awake, alert and oriented x4. No focal neurologic deficits. Moving both upper and lower extremities spontaneously. PSYCHIATRIC: Appropriate mood and affect. Insight and judgment normal. Results - Labs CBC & Chem 7: 07/21/18 22:00 07/21/18 18:21 Labs: Short CBC 07/21/18 07/21/18 Range/Units 18:21 22:00 WBC 6.9 5.9 (4.0-11.0) th/mm3 Hgb 14.0 13.2 (13.0-17.0) gm/dL Hct 39.8 36.4 L (39.0-51.0) % Plt Count 178 169 (150-450) th/mm3 BMP 07/21/18 18:21 Sodium 137 Potassium 4.2 Chloride 105 Carbon Dioxide 23.1 BUN 23 H Creatinine 1.38 H Calcium 8.8 Cardiac Enzymes 07/21/18 Range/Units 18:21 Troponin I Less than 0.02 L (0.02-0.05) ng/mL Liver Function 07/21/18 Range/Units 18:21 Total Bilirubin 0.5 (0.2-1.0) mg/dL AST 14 L (15-37) U/L ALT 22 (12-78) U/L Alkaline Phosphatase 111 (45-117) U/L Albumin 3.8 (3.4-5.0) g/dL Caprini VTE Risk Assessment Caprini VTE Risk Assessment: No/Low Risk (score <= 1) VTE Pharmacological Exception Reason: Active bleeding Caprini Risk Assessment Model: Point Value = 1 Point Value = 2 Point Value = 3 Point Value = 5 Age 41-60 Minor surgery BMI > 25 kg/m2 Swollen legs Varicose veins or History of unexplained or recurrent spontaneous Oral contraceptives or hormone replacement Sepsis (< 1 month) Serious lung disease, including pneumonia (< 1 month) Abnormal pulmonary function Acute myocardial infarction Congestive heart failure (< 1 month) History of inflammatory bowel disease Medical patient at bed rest Age 61-74 Arthroscopic surgery Major open surgery (> 45 min) Laparoscopic surgery (> 45 min) Malignancy Confined to bed (> 72 hours) Immobilizing plaster cast Central venous access Age >= 75 History of VTE Family history of VTE Factor V Leiden Prothrombin [id number] Lupus anticoagulant Anticardiolipin antibodies Elevated serum homocysteine Heparin-induced thrombocytopenia Other congenital or acquired thrombophilia Stroke (< 1 month) Elective arthroplasty Hip, pelvis, or leg fracture Acute spinal cord injury (< 1 month) Prophylaxis Regimen: Total Risk Factor Score Risk Level Prophylaxis Regimen 0-1 Low Early ambulation 2 Moderate Order ONE of the following: *Sequential Compression Device (SCD) *Heparin 5000 units SQ BID 3-4 Higher Order ONE of the following medications: *Heparin 5000 units SQ TID *Enoxaparin/Lovenox 40 mg SQ daily (WT < 150 kg, CrCl > 30 mL/min) *Enoxaparin/Lovenox 30 mg SQ daily (WT < 150 kg, CrCl > 10-29 mL/min) *Enoxaparin/Lovenox 30 mg SQ BID (WT < 150 kg, CrCl > 30 mL/min) AND/OR *Sequential Compression Device (SCD) 5 or more Highest Order ONE of the following medications: *Heparin 5000 units SQ TID (Preferred with Epidurals) *Enoxaparin/Lovenox 40 mg SQ daily (WT < 150 kg, CrCl > 30 mL/min) *Enoxaparin/Lovenox 30 mg SQ daily (WT < 150 kg, CrCl > 10-29 mL/min) *Enoxaparin/Lovenox 30 mg SQ BID (WT < 150 kg, CrCl > 30 mL/min) AND *Sequential Compression Device (SCD) Assessment and Plan - Assessment (1) Rectal bleeding Code(s): K62.5 - Hemorrhage of anus and rectum Status: Acute (2) HTN (hypertension) Code(s): I10 - Essential (primary) hypertension Status: Acute (3) Chest pain Code(s): R07.9 - Chest pain, unspecified Status: Acute - Plan A/P: 1. Rectal Bleeding: acute onset of rectal bleed x3, Hgb 14.0, repeat Hgb stable at 13.2, on ASA 81mg qd at home, will hold. Repeat Hgb/Hct in am. Consult GI for further evaluation/intervention. 2. HTN: Uncontrolled. BP 200's on arrival, not currently on antihypertensives , s/p Labetalol in ER, will start Metoprolol 25mg bid, monitor BP, additional antihypertensives as needed. 3. Chest Pain: Likely secondary to elevated BP, initial trop negative, admit for observation, telemetry, check serial cardiac enzymes, hold ASA in light of rectal bleed. Metoprolol. Check Lipid Profile. Morphine prn. 4. DVT Prophylaxis: Pharmacologic contraindication due to active bleeding 5. Social work for d/c planning as needed. 6. Case discussed w/ ER physician at length, labs/records/imaging reviewed by me.
[2018-07-22] MEDS: Sod Chloride 0.9% Inj 1,000 ML IV.CONT SCH ×3 (01:43→21:34)
[2018-07-22] MEDS: Levothyroxine 112 MCG Tablet PO SCH (06:07)
[2018-07-22] MEDS: Senna/Docusate Sodium 8.6/50 MG Tablet PO SCH ×2 (08:21→20:05)
[2018-07-22] MEDS: Metoprolol Tartrate 25 MG Tablet PO SCH ×2 (08:21→21:35)
--- NOTE | 2018-07-22 11:41 | P.CONGI ---
History of Present Illness Consult date: 07/22/18 Consult reason: Bright red rectal bleeding Chief complaint: BRBPR, HTN, chest pain History of Present Illness: This is a 68-year-old male who was in his usual state of health up until 24 hours before admission when he noted bright red rectal bleeding when wiping and some bright red clots in the toilet x3 events. Patient notes he does have mild history of constipation and does note some occasional straining. This bright red rectal bleeding was with defecation. Current hemoglobin 13.2, INR 1, bilirubin and LFTs are normal. Patient does note taking baby aspirin but no other anticoagulants. He does note increased stressors in his life at this time and does also note a history of VT back in October 03, 2017. Patient did see his marketing business analyst 2 weeks ago and states that his EKG was normal and no further workup was needed at this time patient also notes colonoscopy back in March 2016 with [facility] which some polyps were removed. Patient notes no other follow-up since the colonoscopy and was sent a letter stating that the [facility] did not take his insurance anymore. He is [facility] with [facility]. Patient denies any previous EGD or history of colon cancer. Gastroenterology was consulted to assist with his symptoms of bright red rectal bleeding, GI bleed and monitor for his plan of care. Patient does note history of hypertension that is uncontrolled at time and according to the record was uncontrolled on admission which could be related to some of the stressors. Patient also denies any nausea vomiting dyspepsia or dysphasia and no abdominal pain or cramping, no diarrhea Review of Systems All other systems reviewed negative except as stated in HPI PMF - History History Provided By: Patient - Medical History Medical History: Medical History (Last Updated 07/21/18 @ 17:50 by Naomie Joshi) Heart attack History of left above knee amputation Hypertension - Surgical History Surgical History: Surgical History (Last Updated 07/21/18 @ 17:45 by Naomie Joshi) H/O colonoscopy S/P triple vessel bypass - Tobacco History Second Hand Smoke Exposure: No Tobacco Use In Past 30 Days: No Smoking Status: Former smoker - Alcohol History How Often Do You Have a Drink Containing Alcohol: 2 to 4 times a month - Substance Use History Substance History: No History of Abuse - Travel History Recent Travel in the [facility] Within the Last 8 Weeks: No Recent Travel Out of the Country Within the Last 8 Weeks: No - Immunization History Tetanus Immunization: Unsure Medications and Allergies Active Medications: Active Medications Acetaminophen (Tylenol) 650 mg PO Q4H PRN PRN Reason: Temp > 100.4 Al Hydroxide/Mg Hydroxide (Milk Of Magnesia Liq) 30 ml PO Q12H PRN PRN Reason: Mild Constipation Atorvastatin Calcium (Lipitor) 40 mg PO DAILY [facility] Last Admin: 07/22/18 08:21 Dose: 40 mg Bisacodyl (Dulcolax Supp) 10 mg RECTAL DAILY PRN PRN Reason: SEVERE CONSITIPATION Sodium Chloride (Ns Inj) 1,000 mls @ 100 mls/hr IV.CONT .Q10H [facility] Last Admin: 07/22/18 01:43 Dose: 100 mls/hr Lactulose (Lactulose Liq) 30 ml PO DAILY PRN PRN Reason: SEVERE CONSITIPATION Levothyroxine Sodium (Synthroid) 112 mcg PO DAILY@0700 [facility] Last Admin: 07/22/18 06:07 Dose: 112 mcg Metoprolol Tartrate (Lopressor) 25 mg PO BID [facility] Last Admin: 07/22/18 08:21 Dose: 25 mg Morphine Sulfate (Morphine Inj) 2 mg IV.PUSH Q4H PRN PRN Reason: CHEST PAIN Ondansetron HCl (Zofran Inj) 4 mg IV.PUSH Q6H PRN PRN Reason: NAUSEA OR VOMITING Polyethylene Glycol/Electrolytes (Colyte Liq) 4,000 ml PO ONCE ONE Stop: 07/22/18 14:01 Senna/Docusate Sodium (Shanice-Colace) 1 tab PO BID [facility] Last Admin: 07/22/18 08:21 Dose: 1 tab Sennosides (Senokot) 17.2 mg PO Q12H PRN PRN Reason: Moderate Constipation Sodium Chloride (Ns Flush) 2 ml IV.FLUSH PRN PRN PRN Reason: FLUSH AFTER USING IV ACCESS Last Admin: 07/21/18 18:37 Dose: 2 ml Allergies Allergy/AdvReac Type Severity Reaction Status Date / Time No Known Allergies Allergy Verified 07/21/18 17:47 Home Medications Medication Instructions Recorded Confirmed Type aspirin 81 mg PO DAILY 07/21/18 07/21/18 History atorvastatin 40 mg PO DAILY 07/21/18 07/21/18 History levothyroxine 112 mcg PO DAILY 07/21/18 07/21/18 History Exam Vital signs: Vital Signs 07/21/18 17:42 07/21/18 17:47 07/21/18 17:59 Temperature 97.6 F Pulse Rate 80 73 80 Respiratory Rate 18 18 Blood Pressure 203/109 H Pulse Oximetry 98 97 98 07/21/18 18:08 07/21/18 19:50 07/21/18 20:43 Temperature Pulse Rate 68 70 Respiratory Rate 20 18 Blood Pressure 196/104 H 156/89 H Pulse Oximetry 97 98 96 07/22/18 03:47 07/22/18 07:33 07/22/18 08:00 Temperature 97.5 F L 97.6 F Pulse Rate 80 65 Respiratory Rate 18 16 Blood Pressure 142/84 H 183/104 H Pulse Oximetry 95 97 99 Intake & Output 07/21/18 07/22/18 07/22/18 18:59 06:59 18:59 Intake Total 500 / 500 Output Total 600 / 600 625 / 625 Balance -600 / -600 -125 / -125 Weight 95.254 kg Intake: IV 500 / 500 NS Inj 500 ML @ Wide Open IV. 500 / 500 SIG BOLUS ONE Rx#:[id number] Oral 0 / 0 Output: Urine 625 / 625 Urine Amount (Catheter) 600 / 600 Suprapubic 600 / 600 - Constitutional mild distress, obese, disheveled, cooperative - Routine HEENT Exam Head: Present: normocephalic ENT: Present: mucous membranes dry - Routine Respiratory Exam Present: accessory muscle use (Even, unlabored at rest) - Routine Cardiovascular Exam Present: S1, S2 - Routine Abdominal Exam Present: soft ( or cramping ,round, soft), normoactive bowel sounds (No obvious abdominal pain) Results - Labs CBC & Chem 7: 07/21/18 22:00 07/21/18 18:21 Labs: Laboratory Results - last 24 hr 07/21/18 07/21/18 07/21/18 18:21 18:21 18:21 WBC 6.9 RBC 4.52 Hgb 14.0 Hct 39.8 MCV 88.1 MCH 30.9 MCHC 35.1 RDW 14.0 Plt Count 178 MPV 8.5 Neut % (Auto) 78.4 H Lymph % (Auto) 12.5 [place] % (Auto) 5.8 Eos % (Auto) 2.7 Baso % (Auto) 0.6 Neut # (Auto) 5.4 Lymph # (Auto) 0.9 L [place] # (Auto) 0.4 Eos # (Auto) 0.2 Baso # (Auto) 0.0 WBC Differential . Differential Comment Auto diff final PT 10.5 INR 1.0 APTT 39.9 H Sodium 137 Potassium 4.2 Chloride 105 Carbon Dioxide 23.1 Anion Gap 9 BUN 23 H Creatinine 1.38 H Estimated GFR 51 L Random Glucose 108 H Calcium 8.8 Total Bilirubin 0.5 AST 14 L ALT 22 Alkaline Phosphatase 111 Troponin I Total Protein 7.9 Albumin 3.8 Blood Type Blood Type Recheck Antibody Screen 07/21/18 07/21/18 07/21/18 18:21 18:21 22:00 WBC 5.9 RBC 4.12 L Hgb 13.2 Hct 36.4 L MCV 88.5 MCH 32.0 MCHC 36.2 H RDW 14.0 Plt Count 169 MPV 8.3 Neut % (Auto) Lymph % (Auto) [place] % (Auto) Eos % (Auto) Baso % (Auto) Neut # (Auto) Lymph # (Auto) [place] # (Auto) Eos # (Auto) Baso # (Auto) WBC Differential Differential Comment PT INR APTT Sodium Potassium Chloride Carbon Dioxide Anion Gap BUN Creatinine Estimated GFR Random Glucose Calcium Total Bilirubin AST ALT Alkaline Phosphatase Troponin I Less than 0.02 L Total Protein Albumin Blood Type A Negative Blood Type Recheck Required Antibody Screen Negative 07/22/18 07/22/18 01:30 06:15 WBC RBC Hgb Hct MCV MCH MCHC RDW Plt Count MPV Neut % (Auto) Lymph % (Auto) [place] % (Auto) Eos % (Auto) Baso % (Auto) Neut # (Auto) Lymph # (Auto) [place] # (Auto) Eos # (Auto) Baso # (Auto) WBC Differential Differential Comment PT INR APTT Sodium Potassium Chloride Carbon Dioxide Anion Gap BUN Creatinine Estimated GFR Random Glucose Calcium Total Bilirubin AST ALT Alkaline Phosphatase Troponin I Less than 0.02 L Less than 0.02 L Total Protein Albumin Blood Type Blood Type Recheck Antibody Screen Assessment and Plan - Plan 68-year-old male who was in his usual state of health up until 24 hours before admission when he noted bright red rectal bleeding when wiping and some bright red clots in the toilet x3 events. Patient notes he does have mild history of constipation and does note some occasional straining. This bright red rectal bleeding was with defecation. Current hemoglobin 13.2, INR 1, bilirubin and LFTs are normal. Patient does note taking baby aspirin but no other anticoagulants. He does note increased stressors in his life at this time and does also note a history of VT back in October 03, 2017. Patient did see his marketing business analyst 2 weeks ago and states that his EKG was normal and no further workup was needed at this time patient also notes colonoscopy back in March 2016 with [facility] which some polyps were removed. Patient notes no other follow-up since the colonoscopy and was sent a letter stating that the [facility] did not take his insurance anymore. He is requesting follow-[facility] with [facility]. Patient denies any previous EGD or history of colon cancer. Gastroenterology was consulted to assist with his symptoms of bright red rectal bleeding, GI bleed and monitor for his plan of care. Patient does note history of hypertension that is uncontrolled at time and according to the record was uncontrolled on admission which could be related to some of the stressors. No abdominal pain no diarrhea, no nausea no vomiting no dyspepsia or dysphasia Bright red rectal bleeding, onset 24 hours within admission time x3 events with some straining and defecation. No previous history patient takes baby aspirin but no other anticoagulant Last colonoscopy 616 with polyps no previous EGD History of hypertension being managed per attending Plan Diet, clear liquids today Consent for colonoscopy in the a.m. this is been discussed with patient and placed on schedule Monitor labs with special attention to any acute drops in hemoglobin Monitor for any uncontrolled rectal bleeding and call GI N.p.o. at midnight [facility] prep encourage patient to drink all of medication Further recommendations to follow Patient was seen per myself and Dr. Soto, note was written on his behalf
[2018-07-22 11:42] LABS: Chol/HDL Ratio 2.37 Ratio; HDL Cholesterol 43.7 mg/dL (40.0-60.0)
[2018-07-22] MEDS: amLODIPine 5 MG Tablet PO SCH (12:49)
[2018-07-22] MEDS ORDERED: PEG 3350/E-Lyte Soln 4000 ML Bottle PO ONE (14:00)
--- NOTE | 2018-07-22 15:00 | P.PNIM ---
Subjective Interval history: The patient says he feels anxious because of the colonoscopy tomorrow a.m. He does not have any other complaints. No complaints of dizziness. Physical Exam Vital signs: Vital Signs 07/21/18 17:42 07/21/18 17:47 07/21/18 17:59 Temperature 97.6 F Pulse Rate 80 73 80 Respiratory Rate 18 18 Blood Pressure 203/109 H Pulse Oximetry 98 97 98 07/21/18 18:08 07/21/18 19:50 07/21/18 20:43 Temperature Pulse Rate 68 70 Respiratory Rate 20 18 Blood Pressure 196/104 H 156/89 H Pulse Oximetry 97 98 96 07/22/18 03:47 07/22/18 07:33 07/22/18 08:00 Temperature 97.5 F L 97.6 F Pulse Rate 80 65 Respiratory Rate 18 16 Blood Pressure 142/84 H 183/104 H Pulse Oximetry 95 97 99 07/22/18 12:00 Temperature 97.6 F Pulse Rate 61 Respiratory Rate 18 Blood Pressure 178/106 H Pulse Oximetry 96 Intake & Output 07/21/18 07/22/18 07/22/18 18:59 06:59 18:59 Intake Total 500 / 500 1000 / 1000 Output Total 600 / 600 625 / 625 Balance -600 / -600 -125 / -125 1000 / 1000 Weight 95.254 kg Intake: IV 500 / 500 1000 / 1000 NS Inj 1,000 ML @ 100 mls/hr IV 1000 / 1000 .CONT .Q10H JOSE Rx#:[id number] NS Inj 500 ML @ Wide Open IV. 500 / 500 SIG BOLUS ONE Rx#:[id number] Oral 0 / 0 Output: Urine 625 / 625 Urine Amount (Catheter) 600 / 600 Suprapubic 600 / 600 Narrative: General patient in no acute distress HEENT extraocular movements are intact, clear oropharyngeal mucosa, no JVD Cardiovascular S1-S2 audible, RRR, no murmurs rubs or gallops Respiratory clear to auscultation bilaterally Abdomen soft, nontender, nondistended, normal bowel sounds, suprapubic catheter is in place. Extremities no edema 2+ distal pulses in bilateral upper and lower extremities Neuro cranial nerves II through XII intact - Urinary Catheter Management Suprapubic Cath placed during this visit: no Results - Labs CBC & Chem 7: 07/21/18 22:00 07/21/18 18:21 Laboratory Results - last 24 hr 07/21/18 07/21/18 07/21/18 18:21 18:21 18:21 WBC 6.9 RBC 4.52 Hgb 14.0 Hct 39.8 MCV 88.1 MCH 30.9 MCHC 35.1 RDW 14.0 Plt Count 178 MPV 8.5 Neut % (Auto) 78.4 H Lymph % (Auto) 12.5 [place] % (Auto) 5.8 Eos % (Auto) 2.7 Baso % (Auto) 0.6 Neut # (Auto) 5.4 Lymph # (Auto) 0.9 L [place] # (Auto) 0.4 Eos # (Auto) 0.2 Baso # (Auto) 0.0 WBC Differential . Differential Comment Auto diff final PT 10.5 INR 1.0 APTT 39.9 H Sodium 137 Potassium 4.2 Chloride 105 Carbon Dioxide 23.1 Anion Gap 9 BUN 23 H Creatinine 1.38 H Estimated GFR 51 L Random Glucose 108 H Calcium 8.8 Total Bilirubin 0.5 AST 14 L ALT 22 Alkaline Phosphatase 111 Troponin I Total Protein 7.9 Albumin 3.8 Triglycerides Cholesterol LDL Cholesterol, Calc HDL Cholesterol Cholesterol/HDL Ratio Blood Type Blood Type Recheck Antibody Screen 07/21/18 07/21/18 07/21/18 18:21 18:21 22:00 WBC 5.9 RBC 4.12 L Hgb 13.2 Hct 36.4 L MCV 88.5 MCH 32.0 MCHC 36.2 H RDW 14.0 Plt Count 169 MPV 8.3 Neut % (Auto) Lymph % (Auto) [place] % (Auto) Eos % (Auto) Baso % (Auto) Neut # (Auto) Lymph # (Auto) [place] # (Auto) Eos # (Auto) Baso # (Auto) WBC Differential Differential Comment PT INR APTT Sodium Potassium Chloride Carbon Dioxide Anion Gap BUN Creatinine Estimated GFR Random Glucose Calcium Total Bilirubin AST ALT Alkaline Phosphatase Troponin I Less than 0.02 L Total Protein Albumin Triglycerides Cholesterol LDL Cholesterol, Calc HDL Cholesterol Cholesterol/HDL Ratio Blood Type A Negative Blood Type Recheck Required Antibody Screen Negative 07/22/18 07/22/18 07/22/18 01:30 06:15 10:52 WBC RBC Hgb Hct MCV MCH MCHC RDW Plt Count MPV Neut % (Auto) Lymph % (Auto) [place] % (Auto) Eos % (Auto) Baso % (Auto) Neut # (Auto) Lymph # (Auto) [place] # (Auto) Eos # (Auto) Baso # (Auto) WBC Differential Differential Comment PT INR APTT Sodium Potassium Chloride Carbon Dioxide Anion Gap BUN Creatinine Estimated GFR Random Glucose Calcium Total Bilirubin AST ALT Alkaline Phosphatase Troponin I Less than 0.02 L Less than 0.02 L Total Protein Albumin Triglycerides 102 Cholesterol 104 L LDL Cholesterol, Calc 40 HDL Cholesterol 43.7 Cholesterol/HDL Ratio 2.37 Blood Type Blood Type Recheck Antibody Screen Assessment and Plan - Assessment (1) Rectal bleeding Code(s): K62.5 - Hemorrhage of anus and rectum Status: Acute (2) HTN (hypertension) Code(s): I10 - Essential (primary) hypertension Status: Acute (3) Chest pain Code(s): R07.9 - Chest pain, unspecified Status: Acute - Plan This patient is a 68-year-old male with a diagnosis of hypertension, dyslipidemia, hypothyroidism, and coronary artery disease status post CABG in October 2017, status post left-sided nephrectomy unclear why, status post suprapubic catheter approximately 10 years ago. It is unclear exactly why the patient has a suprapubic catheter as he is unable to provide me with details regarding why the procedure initially took place. He came into the emergency department with complaints of rectal bleeding that been ongoing for the past 24 hours. He stated he had approximately 3 episodes of bloody stools they noticed in the toilet. Patient was found to be hypertensive in the emergency department. 1. GI bleed, likely from the lower lower GI tract Patient states he had a colonoscopy that was done back in March 2016 where polyps were removed and were benign as per the patient. Patient's last hemoglobin is around 13. He is still having bloody bowel movements as of this morning. I will follow the patient's hemoglobin from this afternoon. GI was consulted and the plan is for the patient undergo colonoscopy tomorrow. Clear liquid diet, GoLYTELY prep. N.p.o. at midnight Protonix IV twice daily. 2. Hypertension Continue amlodipine and metoprolol. We will closely monitor the patient's blood pressure as he is currently having a GI bleed. His blood pressure medications will be adjusted if needed. No DVT prophylaxis with pharmacotherapy as the patient is currently bleeding.
[2018-07-22 18:17] LABS: Hemoglobin 15.8 gm/dL (13.0-17.0)
--- NOTE | 2018-07-22 22:13 | ECG ---
Date Performed: 07/22/2018 Time Performed: 00:00:24 PTAGE: 68 years EKG: Sinus rhythm WITH OCCASIONAL VENTRICULAR PREMATURE COMPLEXES MARKED LEFT AXIS DEVIATION MODERATE INTRAVENTRICULAR CONDUCTION DELAY MINIMAL VOLTAGE CRITERIA FOR LVH, CONSIDER NORMAL VARIANT ABNORMAL ECG PREVIOUS TRACING : 01/05/2018 19.25 Since the previous tracing, no significant change noted DOCTOR: Christa Chamorro Interpretating Date/Time 07/22/2018 22:11:05
[2018-07-23] MEDS: Sod Chloride 0.9% Inj 1,000 ML IV.CONT SCH ×4 (04:23→23:56)
[2018-07-23 07:58] LABS: Baso % (Auto) 0.8 % (0.0-2.0); Eos # (Auto) 0.1 th/mm3 (0.0-0.4); Eos % (Auto) 2.8 % (0.0-4.0); Lymph % (Auto) 21.7 % (9.0-44.0); Mean Corpuscular HGB Conc 35.9 % (32.0-36.0); Mean Corpuscular Hemoglobin 31.6 pg (27.0-34.0); Mean Platelet Volume 8.6 fL (7.0-11.0); Mono # (Auto) 0.3 th/mm3 (0.0-0.9); Mono % (Auto) 6.2 % (0.0-8.0); Neut # (Auto) 3.2 th/mm3 (1.8-7.7); Neut % (Auto) 68.5 % (16.0-70.0); Platelet Count 159 th/mm3 (150-450); Red Blood Count 4.43 mil/mm3 (4.50-5.90); Red Cell Distribution Width 13.8 % (11.6-17.2); White Blood Count 4.6 th/mm3 (4.0-11.0)
[2018-07-23 08:10] LABS: Albumin 3.4 g/dL (3.4-5.0); Anion Gap 6 meq/L (5-15); Aspartate Aminotransferase 14 U/L (15-37); Calcium 8.8 mg/dL (8.5-10.1); Carbon Dioxide 25.6 meq/L (21.0-32.0); Chloride 111 meq/L (98-107); Glomerular Filtration Rate 62 mL/min (>89); Glucose,Random 84 mg/dL (74-106); Sodium 143 meq/L (136-145)
[2018-07-23 08:17] LABS: Alanine Aminotransferase 19 U/L (12-78); Alkaline Phosphatase 106 U/L (45-117); Blood Urea Nitrogen 15 mg/dL (7-18); Total Protein 7.2 g/dL (6.4-8.2)
[2018-07-23] MEDS: amLODIPine 5 MG Tablet PO SCH (09:31)
[2018-07-23] MEDS: Metoprolol Tartrate 25 MG Tablet PO SCH ×2 (09:31→22:10)
[2018-07-23] MEDS: Senna/Docusate Sodium 8.6/50 MG Tablet PO SCH ×2 (09:31→22:10)
[2018-07-23] MEDS: Levothyroxine 112 MCG Tablet PO SCH (09:31)
[2018-07-23] MEDS ORDERED: Lidocaine PF 1% Inj 5 ML Syringe OTHER ONE (10:38)
[2018-07-23] MEDS ORDERED: Phenylephrine/NS 1000 MCG/10ML Syringe IV.PUSH ONE (10:38)
--- NOTE | 2018-07-23 11:06 | P.PCN ---
Date of procedure: 07/23/18 Pre-op diagnosis: Rectal bleeding Procedure: PROCEDURE PERFORMED Colonoscopy PROCEDURE: The procedure, risks and benefits were discussed with Patient/POA and informed consent was obtained. Anesthesia sedated Patient with Diprivan. Patient was placed in the left lateral decubitus position. Colonoscopy: The Pentax videoscope was introduced through the rectum and advanced to cecum where the ileocecal valve and appendiceal orifice were identified. Retroflexion was performed in the rectum. Colonic prep was good FINDINGS: Colonic withdrawal time greater than 6 minutes. As the scope was slowly withdrawn colonic mucosa was carefully inspected colonic mucosa appeared to be unremarkable and within normal limits all the way through I was able to intubate the ileum this to appear to be unremarkable and within normal limits on withdrawal the patient was noted to have very limited diverticulosis of the sigmoid region otherwise colonic examination was unremarkable so is retroflexion and rectal examination ESTIMATED BLOOD LOSS: None SPECIMENS REMOVED: None COMPLICATIONS: None IMPRESSION: Mild diverticulosis PLAN: Advance diet Monitor labs and transfuse if needed If all is stable by tomorrow patient may be discharged from a GI standpoint Colonoscopy in 10 years Anesthesia: MAC Surgeon: Kee De Los Santos Condition: stable Disposition: floor
--- NOTE | 2018-07-23 16:37 | P.PNIM ---
Subjective Interval history: Patient does not have any complaints this morning. He is anxious about the colonoscopy. Physical Exam Vital signs: Vital Signs 07/22/18 19:39 07/22/18 21:15 07/22/18 23:51 Temperature 97.7 F Pulse Rate 79 72 71 Respiratory Rate 18 19 Blood Pressure 166/101 H 169/87 H Pulse Oximetry 97 97 07/23/18 04:00 07/23/18 07:57 07/23/18 11:08 Temperature 97.8 F 97.6 F 96.9 F L Pulse Rate 71 64 63 Respiratory Rate 16 18 16 Blood Pressure 123/75 176/86 H 92/53 L Pulse Oximetry 96 96 97 07/23/18 11:21 07/23/18 12:00 Temperature 97.2 F L 96.9 F L Pulse Rate 57 L 60 Respiratory Rate 16 22 Blood Pressure 117/86 125/76 Pulse Oximetry 96 98 Intake & Output 07/22/18 07/23/18 07/23/18 18:59 06:59 18:59 Intake Total 3500 / 3500 1240 / 1240 350 / 350 Balance 3500 / 3500 1240 / 1240 350 / 350 Intake: IV 1000 / 1000 1000 / 1000 NS Inj 1,000 ML @ 100 mls/hr IV 1000 / 1000 1000 / 1000 .CONT .Q10H JOSE Rx#:[id number] Oral 2500 / 2500 240 / 240 Anesthesia Amount 350 / 350 Other: # Voids 6 4 Date of Last Bowel Movement 07/22/18 07/23/18 # Bowel Movements 6 5 Narrative: General patient in no acute distress HEENT extraocular movements are intact, clear oropharyngeal mucosa, no JVD Cardiovascular S1-S2 audible, RRR, no murmurs rubs or gallops Respiratory clear to auscultation bilaterally Abdomen soft, nontender, nondistended, normal bowel sounds, suprapubic catheter is in place. Extremities no edema 2+ distal pulses in bilateral upper and lower extremities Neuro cranial nerves II through XII intact - Urinary Catheter Management Suprapubic Cath placed during this visit: no Results - Labs CBC & Chem 7: 07/23/18 06:52 07/23/18 06:52 Laboratory Results - last 24 hr 07/22/18 07/23/18 07/23/18 18:02 06:52 06:52 WBC 4.6 RBC 4.43 L Hgb 15.8 D 14.0 Hct 43.0 39.0 MCV 88.0 MCH 31.6 MCHC 35.9 RDW 13.8 Plt Count 159 MPV 8.6 Neut % (Auto) 68.5 Lymph % (Auto) 21.7 [place] % (Auto) 6.2 Eos % (Auto) 2.8 Baso % (Auto) 0.8 Neut # (Auto) 3.2 Lymph # (Auto) 1.0 [place] # (Auto) 0.3 Eos # (Auto) 0.1 Baso # (Auto) 0.0 WBC Differential . Differential Comment Auto diff final Sodium 143 Potassium 4.0 Chloride 111 H Carbon Dioxide 25.6 Anion Gap 6 BUN 15 Creatinine 1.17 Estimated GFR 62 L Random Glucose 84 Calcium 8.8 Total Bilirubin 1.0 AST 14 L ALT 19 Alkaline Phosphatase 106 Total Protein 7.2 D Albumin 3.4 Assessment and Plan - Assessment (1) Rectal bleeding Code(s): K62.5 - Hemorrhage of anus and rectum Status: Acute (2) HTN (hypertension) Code(s): I10 - Essential (primary) hypertension Status: Acute (3) Chest pain Code(s): R07.9 - Chest pain, unspecified Status: Acute - Plan This patient is a 68-year-old male with a diagnosis of hypertension, dyslipidemia, hypothyroidism, and coronary artery disease status post CABG in October 2017, status post left-sided nephrectomy unclear why, status post suprapubic catheter approximately 10 years ago. It is unclear exactly why the patient has a suprapubic catheter as he is unable to provide me with details regarding why the procedure initially took place. He came into the emergency department with complaints of rectal bleeding that been ongoing for the past 24 hours. He stated he had approximately 3 episodes of bloody stools they noticed in the toilet. Patient was found to be hypertensive in the emergency department. 1. GI bleed, likely from the lower lower GI tract Patient states he had a colonoscopy that was done back in March 2016 where polyps were removed and were benign as per the patient. Patient's hemoglobin has remained stable. He is still having some bloody bowel movements as of this morning. I will follow the patient's hemoglobin from this afternoon. GI was consulted and the plan is for the patient undergo colonoscopy today. Patient was prepped with GoLYTELY Currently n.p.o. Continue Protonix We will follow-up with GI after colonoscopy. 2. Hypertension Continue amlodipine and metoprolol. We will closely monitor the patient's blood pressure as he is currently having a GI bleed. His blood pressure medications will be adjusted if needed. No DVT prophylaxis with pharmacotherapy as the patient is currently bleeding and will undergo colonoscopy today.
[2018-07-24] MEDS: Sod Chloride 0.9% Inj 1,000 ML IV.CONT SCH (05:08)
[2018-07-24] MEDS: Levothyroxine 112 MCG Tablet PO SCH (06:26)
[2018-07-24 07:45] VITALS: BP 153/81; RESP 18; TEMP 97.6; O2SAT 98
--- NOTE | 2018-07-24 08:45 | P.DS ---
Date of admission: 07/22/18 00:17 Primary care physician: Emma Landry MD Brief History from admission: This is a 68-year-old male with a PMH of HTN, Hyperlipidemia, Hypothyroidism and CAD who presented to the ER w/ c/o rectal bleeding x3 episodes today. Noted blood after wiping and some clots in the toilet. On ASA 81mg qd. No previous h/o significant bleeding. On arrival, pt noted to be hypertensive w/ BP 203/109, HR 80. States previous h/o HTN, but not currently on medications. Notes associated headache and chest pressure w/ elevated BP. S/p Labetalol in ER w/ some improvement, BP currently 160's. 14.0, repeat 13.2. INR 1.0. Creatinine 1.38. Troponin negative. DS: Diagnosis - Discharge Diagnosis (1) Chest pain Status: Acute (2) HTN (hypertension) Status: Acute (3) Rectal bleeding Status: Acute DS: Medications - Discharge Medications Prescriptions: amlodipine [Norvasc] 5 mg PO DAILY #30 tab DS: Summary Hospital Course: This patient is a 68-year-old male with a diagnosis of hypertension, dyslipidemia, hypothyroidism, and coronary artery disease status post CABG in October 2017, status post left-sided nephrectomy unclear why, status post suprapubic catheter approximately 10 years ago. It is unclear exactly why the patient has a suprapubic catheter as he is unable to provide me with details regarding why the procedure initially took place. He came into the emergency department with complaints of rectal bleeding that been ongoing for the past 24 hours. He stated he had approximately 3 episodes of bloody stools they noticed in the toilet. Patient was found to be hypertensive in the emergency department. Patient has colonoscopy. GI clear patient for discharge. The patient had colonoscopy which is normal and is recommended repeat colonoscopy in 10 years. Some diverticulosis seen. H&H improved patient without any more bleeding. Cleared by GI for for discharge. Patient to follow-up as outpatient with PCP and consultants. 1. GI bleed, likely from the lower lower GI tract Patient states he had a colonoscopy that was done back in March 2016 where polyps were removed and were benign as per the patient. Patient's hemoglobin has remained stable. He is still having some bloody bowel movements as of this morning. I will follow the patient's hemoglobin from this afternoon. GI was consulted and the plan is for the patient undergo colonoscopy today. Patient was prepped with [facility] Currently n.p.o. Continue Protonix GI clear patient for discharge. The patient had colonoscopy which is normal and is recommended repeat colonoscopy in 10 years. Some diverticulosis seen. H&H improved patient without any more bleeding. Cleared by GI for for discharge. Patient to follow-up as outpatient with PCP and consultants. 2. Hypertension Continue amlodipine and metoprolol. We will closely monitor the patient's blood pressure as he is currently having a GI bleed. His blood pressure medications will be adjusted if needed. No DVT prophylaxis with pharmacotherapy as the patient is currently bleeding and will undergo colonoscopy today. Discharged home in stable condition to follow-up with PCP and consultants as outpatient - Time Spent with Patient Total time spent providing and/or coordinating discharge services: Greater than 30 minutes - Quality: VTE Deep Vein Thrombosis/Pulmonary Embolism Present on Admission: No Exam Vital signs: Vital Signs 07/23/18 11:08 07/23/18 11:21 07/23/18 12:00 Temperature 96.9 F L 97.2 F L 96.9 F L Pulse Rate 63 57 L 60 Respiratory Rate 16 16 22 Blood Pressure 92/53 L 117/86 125/76 Pulse Oximetry 97 96 98 07/23/18 16:00 07/23/18 20:00 07/24/18 00:00 Temperature 98.8 F 98.4 F 97.8 F Pulse Rate 65 67 57 L Respiratory Rate 22 16 16 Blood Pressure 128/74 138/74 140/70 Pulse Oximetry 98 96 98 07/24/18 04:00 07/24/18 07:43 Temperature 97.8 F 97.6 F Pulse Rate 65 59 L Respiratory Rate 16 18 Blood Pressure 144/76 H 153/81 H Pulse Oximetry 97 98 Intake & Output 07/23/18 07/24/18 07/24/18 18:59 06:59 18:59 Intake Total 850 / 850 740 / 740 Balance 850 / 850 740 / 740 Intake: IV 500 / 500 500 / 500 NS Inj 1,000 ML @ 100 mls/hr IV 500 / 500 500 / 500 .CONT .Q10H JOSE Rx#:[id number] Oral 240 / 240 Anesthesia Amount 350 / 350 Other: # Voids 2 3 Date of Last Bowel Movement 07/23/18 Narrative: General appearance: 68-year-old male very pleasant, appears in no acute distress Cardiovascular: S1-S2 audible, RRR, no murmurs rubs or gallops Respiratory: Clear to auscultation bilaterally Abdomen: Soft, nontender, nondistended, normal bowel sounds, suprapubic catheter is in place. Extremities: No edema 2+ distal pulses in bilateral upper and lower extremities Neuro: Cranial nerves II through XII intact Results Procedures completed during hospitalization: colonoscopy Discharge Plan - Discharge Disposition Patient Disposition: Discharge Home - Discharge Order Discharge Orders: Discharge Order (Routine); Ordered 07/24/18 Ordered By: Cheyenne Lizarraga - Discharge Details Anticipated Discharge Date: 07/24/18 - Physicians Team Primary Care Provider: Emma Landry Attending Provider: Cheyenne Lizarraga Other Providers: Shayy Herrera MD
[2018-07-24] MEDS: amLODIPine 5 MG Tablet PO SCH (09:02)
[2018-07-24] MEDS: Metoprolol Tartrate 25 MG Tablet PO SCH (09:02)
[2018-07-24] MEDS: Senna/Docusate Sodium 8.6/50 MG Tablet PO SCH (09:02)
[2018-07-24 10:02] VITALS: PULSE 60
== END 2018-07-24 11:04 | disposition home or self-care (01) ==
LOC: NEDA 17:32 → NEPC 17:32 → NEPGCP 07-22 01:40
PROVIDERS: ADMIT Hospitalist; ATTEND Hospitalist
PROC: COLONOS (2018-07-23 10:41)